=== PATIENT | male | born 1935 | race Caucasian/White ===

== ENCOUNTER 2023-09-01 22:56 | Inpatient (IN) | payer MEDICARE, SELFPAY ==
[2023-09-01] VITALS (10 sets, daily range): BP systolic 109–132; BP diastolic 53–78; PULSE 53–96; RESP 16–29; TEMP 36.6; O2SAT 75–100
--- NOTE | 2023-09-01 23:06 | XR_ITS ---
The [address] [address] Patient Name: MERRITT MEHTA MRN: [id number] date: 1935 Sex: M Assigned Patient Location: ER Current Patient Location: ED.MAIN Accession/Order Number: [id number] Exam Date: 09/01/2023 23:21 Report Date: 09/02/2023 03:05 At the request of: YOVANI SERNA Procedure: XR chest 1V EXAM: XR chest 1V HISTORY: SOB. COMPARISON: Chest radiograph 11/30/2021. TECHNIQUE: Portable view obtained. FINDINGS: Chronic cardiomegaly. Lung volumes are low. Increasing consolidation in the left lung base. There is no large effusion detected on the portable projection. Numerous remote right-sided rib fractures. Remote right clavicle fracture. XR/XR chest 1V IMPRESSION: 1. Chronic low lung volumes. Increasing left basilar consolidation could reflect atelectasis or pneumonia. 2. Numerous remote fractures in the right hemithorax. Electronically authenticated by: MARQUIS CASTRO Date: 09/02/2023 03:05
--- NOTE | 2023-09-01 23:06 | ECG_ITS ---
The [facility] Test Date: 2023-09-01 Pat Name: MERRITT MEHTA Department: Room: - Gender: Male Claim Clinician: : 1935 Requested By: GOLDY SCOTT Order Number: [id number] Reading MD: GOLDY SCOTT Measurements Intervals [place] Rate: 52 P: -[id number] NV: -[id number] QRS: 40 QRSD: 142 T: 21 QT: 464 QTc: 445 Interpretive Statements Atrial flutter 2450 Right bundle branch block 3514 Cannot rule out lateral myocardial infarction, age undetermined 3634 Inferior myocardial infarction, age undetermined 9150 abnormal ECG Compared to ECG 06/11/2022 12:25:58 Ventricular premature complex(es) now present Aberrant conduction of supraventricular beat(s) now present Myocardial infarct finding now present Sinus rhythm no longer present First degree AV block no longer present Indeterminate axis no longer present Electronically Signed On 09-05-2023 6:41:33 EST by GOLDY SCOTT
--- NOTE | 2023-09-01 23:07 | PC.NURSE ---
placed on simple mask, patient 87%
--- NOTE | 2023-09-01 23:07 | ED.SOB1 ---
HPI - SOB/Dyspnea General Chief Complaint: Shortness of Breath/Dyspnea Stated Complaint: Shortness of Breath Time Seen by Provider: 09/01/23 23:01 History of Present Illness HPI Narrative: 88-year-old male presents for shortness of breath and weakness. He was sent here from [facility] and he has DNRCC status. This is documented in his [facility] records. He is a poor historian. It appears that he has been short of breath today and his O2 sats were low and he was sent here to be admitted by his PCP. He does not seem to be complaining of pain and has not had a known fever. Related Data Home Medications Medication Instructions Recorded Confirmed acetaminophen 500 mg tablet 500 mg PO Q6H PRN fever or pain 09/01/23 09/01/23 (Tylenol Extra Strength) albuterol sulfate 2.5 mg/3 mL mg 09/01/23 (0.083 %) solution for nebulization amiodarone 100 mg tablet mg 09/01/23 aspirin 81 mg capsule 81 mg PO DAILY 09/01/23 09/01/23 atorvastatin 10 mg tablet mg 09/01/23 calcium carbonate 500 mg calcium 500 mg PO BID 09/01/23 09/01/23 (1,250 mg) chewable tablet (Calcium 500) carvedilol 12.5 mg tablet mg 09/01/23 cefdinir 300 mg capsule mg 09/01/23 citalopram 20 mg tablet (Celexa) 20 mg PO DAILY 09/01/23 09/01/23 clopidogrel 75 mg tablet mg 09/01/23 ferrous sulfate 250 mg (50 mg 250 mg PO BID 09/01/23 09/01/23 iron) tablet,extended release furosemide 40 mg tablet mg 09/01/23 hydralazine 25 mg tablet mg 09/01/23 hydrocodone 5 mg-acetaminophen 325 tab 09/01/23 mg tablet hydroxyzine pamoate 25 mg capsule 25 mg PO TID 09/01/23 09/01/23 (Vistaril) ipratropium 0.5 mg-albuterol 3 mg ml inhalation 09/01/23 (2.5 mg base)/3 mL nebulization soln isosorbide mononitrate 120 mg mg PO 09/01/23 tablet,extended release 24 hr meloxicam 7.5 mg tablet mg 09/01/23 nitroglycerin 0.3 mg sublingual 0.3 mg sublingual Q5M 09/01/23 09/01/23 tablet (Nitrostat) omeprazole 40 mg capsule,delayed mg 09/01/23 release ondansetron 4 mg disintegrating mg 09/01/23 tablet probiotic 09/01/23 sacubitril 97 mg-valsartan 103 mg tab 09/01/23 tablet (Entresto) spironolactone 25 mg tablet mg 09/01/23 Allergies Allergy/AdvReac Type Severity Reaction Status Date / Time felodipine Allergy Unknown Verified 09/01/23 23:20 levofloxacin Allergy Unknown Verified 09/01/23 23:20 morphine Allergy Unknown Verified 09/01/23 23:20 Penicillins Allergy Unknown Verified 09/01/23 23:20 tramadol [From Ultram] Allergy Unknown Verified 09/01/23 23:20 seafood Allergy Unknown Uncoded 09/01/23 23:20 Review of Systems ROS Narrative Not obtainable, age [facility] Medical History (Updated 09/02/23 @ 01:22 by Keith Simental MD) Heart disease ?I51.9 - Heart disease, unspecified (ICD-10) 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 - Postgastric surgery syndromes (ICD-10) Diverticulosis ?K57.90 - Diverticulosis of intestine, part unspecified, without perforation or abscess without bleeding (ICD-10) Atherosclerotic heart disease of [place] coronary artery without angina pectoris ?I25.10 - Atherosclerotic heart disease of [place] coronary artery without angina pectoris (ICD-10) Thoracic, thoracolumbar and lumbosacral intervertebral disc disorder ?M51.9 - Unspecified thoracic, thoracolumbar and lumbosacral intervertebral disc disorder (ICD-10) Pure hypercholesterolemia ?E78.00 - Pure hypercholesterolemia, unspecified (ICD-10) Type 2 diabetes mellitus ?E11.9 - Type 2 diabetes mellitus without complications (ICD-10) Essential (primary) hypertension ?I10 - Essential (primary) hypertension (ICD-10) Gastro-esophageal reflux disease with esophagitis ?K21.00 - Gastro-esophageal reflux disease with esophagitis, without bleeding (ICD-10) Gout ?M10.9 - Gout, unspecified (ICD-10) Erectile dysfunction ?N52.9 - Male erectile dysfunction, unspecified (ICD-10) Right bundle branch block ?I45.10 - Unspecified right bundle-branch block (ICD-10) Ventral hernia ?K43.9 - Ventral hernia without obstruction or gangrene (ICD-10) Benign prostatic hyperplasia with lower urinary tract symptoms ?N40.1 - Benign prostatic hyperplasia with lower urinary tract symptoms (ICD-10) Presence of intraocular lens ?Z96.1 - Presence of intraocular lens (ICD-10) Palpitation ?R00.2 - Palpitations (ICD-10) Ventricular premature depolarization ?I49.3 - Ventricular premature depolarization (ICD-10) Heart failure ?I50.9 - Heart failure, unspecified (ICD-10) Malignant neoplasm of prostate ?C61 - Malignant neoplasm of prostate (ICD-10) Unstable angina ?I20.0 - Unstable angina (ICD-10) Acute combined systolic (congestive) and diastolic (congestive) heart failure ?I50.41 - Acute combined systolic (congestive) and diastolic (congestive) heart failure (ICD-10) Hypertrophic cardiomyopathy ?I42.2 - Other hypertrophic cardiomyopathy (ICD-10) Bradycardia ?R00.1 - Bradycardia, unspecified (ICD-10) Atrioventricular block, second degree ?I44.1 - Atrioventricular block, second degree (ICD-10) Paroxysmal A-fib ?I48.0 - Paroxysmal atrial fibrillation (ICD-10) Melena ?K92.1 - Melena (ICD-10) Nonrheumatic aortic (valve) stenosis ?I35.0 - Nonrheumatic aortic (valve) stenosis (ICD-10) Nonrheumatic aortic (valve) insufficiency ?I35.1 - Nonrheumatic aortic (valve) insufficiency (ICD-10) Corns and callus ?L84 - Corns and callosities (ICD-10) Fall ?W19.XXXA - Unspecified fall, initial encounter (ICD-10) Acute bronchitis ?J20.9 - Acute bronchitis, unspecified (ICD-10) Ischemic cardiomyopathy ?I25.5 - Ischemic cardiomyopathy (ICD-10) Afib ?I48.91 - Unspecified atrial fibrillation (ICD-10) Osteoarthritis ?M19.90 - Unspecified osteoarthritis, unspecified site (ICD-10) Social History Smoking status: Former smoker Exam Narrative Exam Narrative: Nurses note and vital signs reviewed and patient is not hypoxic. General: The patient appears in no apparent respiratory distress. Patient is resting comfortably on cart. He appears generally weak Skin: Warm, dry, no pallor noted. There is no rash noted. Head: Normocephalic, atraumatic Eye: Normal conjunctiva, no drainage Ears, Nose, Mouth, and Throat: oral mucosa is moist. Nares patent. Cardiovascular: Regular Rate and Rhythm Respiratory: The patient is unable to take in deep breaths. Back: non-tender GI: Soft and nontender Musculoskeletal: The patient has no evidence of calf tenderness, no pitting edema, symmetrical pulses noted bilaterally Neurological: A&O x4, normal speech Psychiatric: Cooperative Constitutional Vital Signs, click to edit/add: Last Vital Signs Temp 97.9 F 09/01/23 23:00 Pulse 53 L 09/01/23 23:00 Resp 24 09/01/23 23:00 BP 136/82 09/02/23 00:37 Pulse Ox 99 09/01/23 23:36 O2 Del Method Simple Mask 09/01/23 23:36 O2 Flow Rate 3 09/01/23 23:36 Course Vital Signs Vital signs: Vital Signs Temperature 97.9 F 09/01/23 23:00 Pulse Rate 53 L 09/01/23 23:00 Respiratory Rate 24 09/01/23 23:00 Blood Pressure 124/66 09/01/23 23:00 Pulse Oximetry 75 L 09/01/23 23:00 Oxygen Delivery Method Nasal Cannula 09/01/23 23:00 Oxygen Delivery Flow Rate 4 09/01/23 23:00 Temperature 97.9 F 09/01/23 23:00 Pulse Rate 53 L 09/01/23 23:00 Respiratory Rate 24 09/01/23 23:00 Blood Pressure 136/82 09/02/23 00:37 Pulse Oximetry 99 09/01/23 23:36 Oxygen Delivery Method Simple Mask 09/01/23 23:36 Oxygen Delivery Flow Rate 3 09/01/23 23:36 MDM - SOB/Dyspnea MDM Narrative Medical decision making narrative: Chest x-ray does not show any definite infiltrate. He has tested positive for RSV. He is maintaining his O2 sat well at 96% on 4 L. Typically he is on 2 L at the ECF. Findings are discussed with his family and he is being admitted for observation. Differential Diagnosis Differential diagnosis: Likely acute exacerbation of chronic obstructive airways disease, congestive heart failure, community acquired pneumonia and other (RSV, COVID, influenza, pneumonia) Lab Data Attestation: I reviewed the patient's lab results. Labs: Lab Results 09/01/23 09/01/23 09/02/23 Range/Units 23:27 23:29 00:39 WBC 7.9 (4.0-11.0) 10^3/uL RBC 3.30 L (4.70-6.10) 10^6/uL Hgb 10.3 L (14.0-18.0) g/dL Hct 36.2 L (42.0-54.0) % MCV 109.7 H (80.0-94.0) fL MCH 31.2 (25.9-34.0) pg MCHC 28.5 L (29.9-35.2) g/dL RDW 13.9 (11.0-15.0) % Plt Count 143 L (150-450) 10^3/uL MPV 11.0 (9.5-13.5) fL Seg Neuts % (Manual) 77.0 Band Neutrophils % 2.0 (0-5) % Lymphocytes % (Manual) 11.0 L (20.5-60.0) % Monocytes % (Manual) 6.0 (1.7-12.0) % Eosinophils % (Manual) 4.0 (0.9-7.0) % Basophils % (Manual) 0.0 L (0.2-2.0) % Neutrophils # (Manual) 6.08 (1.4-6.5) 10^3/uL Band Neutrophils # 0.2 (0.0-0.3) 10^3/uL Lymphocytes # (Manual) 0.86 L (1.20-3.80) 10^3/uL Monocytes # (Manual) 0.47 (0.30-0.80) 10^3/uL Eosinophils # (Manual) 0.31 (0.00-0.70) 10^3/uL Basophils # (Manual) 0.00 (0.00-0.10) 10^3/uL Hypochromasia 2+ Poikilocytosis 1+ Anisocytosis 1+ Macrocytosis 2+ Sodium 146 H (136-145) mmol/L Potassium 5.6 H (3.5-5.1) mmol/L Chloride 104 (98-107) mmol/L Carbon Dioxide 37.5 H (21.0-32.0) mmol/L Anion Gap 10.1 BUN 81.0 H* (7.0-18.0) mg/dL Creatinine 2.09 H (0.70-1.30) mg/dL Est GFR ( Amer) 37 L (>=60) Est GFR (Non-Af Amer) 30 L (>=60) BUN/Creatinine Ratio 38.8 Glucose 140 H (74-106) mg/dL Calcium 8.7 (8.5-10.1) mg/dL Troponin I High Sens 89.6 H* 88.8 H* (4.0-76.1) pg/mL NT-Pro-B Natriuret Pep 3015.0 H* (<=1800.0) pg/mL Adenovirus (PCR) Not detected (NOT DETECTE) C. pneumoniae DNA (PCR) Not detected (NOT DETECTE) Coronavirus Type OC43 Not detected (NOT DETECTE) Coronavirus Type HKU1 Not detected (NOT DETECTE) Coronavirus Type 229E Not detected (NOT DETECTE) Coronavirus Type NL63 Not detected (NOT DETECTE) Human Metapneumovir PCR Not detected (NOT DETECTE) M. pneumoniae (PCR) Not detected (NOT DETECTE) Parainfluenza PCR Not detected (NOT DETECTE) Parainfluenza 2 (PCR) Not detected (NOT DETECTE) Parainfluenza 3 (PCR) Not detected (NOT DETECTE) Parainfluenza 4 (PCR) Not detected (NOT DETECTE) RSV (RT-PCR) Detected A* (NOT DETECTE) Entero/Rhino (PCR) Not detected (NOT DETECTE) SARS-CoV-2 (PCR) Not detected (NOT DETECTE) Bordetella pertussis (PCR) Not detected (NOT DETECTE) B parapertussis DNA PCR Not detected (NOT DETECTE) Influenza Type A (PCR) Not detected (NOT DETECTE) Influenza Type B (PCR) Not detected (NOT DETECTE) Imaging Data Chest x-ray: Radiologist's impression: ITS Impressions Chest X-Ray 09/01/23 23:06 IMPRESSION: 1. Chronic low lung volumes. Increasing left basilar consolidation could reflect atelectasis or pneumonia. 2. Numerous remote fractures in the right hemithorax. Electronically authenticated by: MARQUIS CASTRO Date: 09/01/2023 23:42 ECG Data Attestation: I personally reviewed and interpreted this ECG as follows: (EKG on my interpretation shows what appears to be atrial flutter) Discharge Plan Discharge Chief Complaint: Shortness of Breath/Dyspnea Clinical Impression: RSV bronchitis, Hypoxemia Patient Disposition: Admitted as Observation Time of Disposition Decision: 01:22 Condition: Good
[2023-09-01 23:38] LABS: Adenovirus NOT DETECTED (NOT DETECTE); Bordetella parapertussis NOT DETECTED (NOT DETECTE); Coronavirus 229E NOT DETECTED (NOT DETECTE); Coronavirus HKU1 NOT DETECTED (NOT DETECTE); Coronavirus NL63 NOT DETECTED (NOT DETECTE); Coronavirus OC43 NOT DETECTED (NOT DETECTE); Human Metapneumovirus NOT DETECTED (NOT DETECTE); Human Rhinovirus/Enterovirus NOT DETECTED (NOT DETECTE); Influenza A NOT DETECTED (NOT DETECTE); Influenza B NOT DETECTED (NOT DETECTE); Mycoplasma pneumoniae NOT DETECTED (NOT DETECTE); Parainfluenza Virus 1 NOT DETECTED (NOT DETECTE); Parainfluenza Virus 2 NOT DETECTED (NOT DETECTE); Parainfluenza Virus 3 NOT DETECTED (NOT DETECTE); Parainfluenza Virus 4 NOT DETECTED (NOT DETECTE); SARS-CoV-2 NOT DETECTED (NOT DETECTE)
--- NOTE | 2023-09-01 23:39 | PC.NURSE ---
Addendum entered by Annamaria Jamil 09/02/23 03:27: correction; unlike originally charted as being from the [facility], this patient is a resident of [facility]. Original Note: Patient from [facility]. He states that he was recently put on oxygen, nursing reports that his Spo2 fell tonight and they had to increase his oxygen from 2 LPM to 4LPM and patient still felt SOB. Dr. Olson was contacted and wanted the patient transported to the ER and to be admitted. Patient's family is at the bedside and states that he recently had pneumonia and has since been going down hill He has been more short of breath and has had a tremor since that time also.
[2023-09-01 23:54] LABS: Hematocrit 36.2 % (42.0-54.0); Hemoglobin 10.3 g/dL (14.0-18.0); Mean Corpuscular HGB Conc 28.5 g/dL (29.9-35.2); Mean Corpuscular Hemoglobin 31.2 pg (25.9-34.0); Mean Corpuscular Volume 109.7 fL (80.0-94.0); Platelet Count 143 10^3/uL (150-450); Red Cell Distribution Width 13.9 % (11.0-15.0); White Blood Count 7.9 10^3/uL (4.0-11.0)
[2023-09-02] VITALS (49 sets, daily range): BP systolic 93–159; BP diastolic 51–82; PULSE 40–68; RESP 18; TEMP 36.1; O2SAT 85–99; BMI 31.9
[2023-09-02 00:04] LABS: Anion Gap 10.1; BUN Creatinine Ratio 38.8; Calcium 8.7 mg/dL (8.5-10.1); Carbon Dioxide 37.5 mmol/L (21.0-32.0); Chloride 104 mmol/L (98-107); Estimated GFR (African America 37 (>=60); Estimated GFR (Non-African Ame 30 (>=60); Glucose 140 mg/dL (74-106); Potassium 5.6 mmol/L (3.5-5.1); Sodium 146 mmol/L (136-145)
[2023-09-02 00:09] LABS: Troponin I High Sensitivity 89.6 pg/mL (4.0-76.1)
[2023-09-02 00:37] LABS: Band Neutrophils Absolute 0.2 10^3/uL (0.0-0.3); Eosinophils Absolute Manual 0.31 10^3/uL (0.00-0.70); Lymphocytes Absolute Manual 0.86 10^3/uL (1.20-3.80); Monocytes Absolute Manual 0.47 10^3/uL (0.30-0.80); Segmented Neut Absolute Manual 6.08 10^3/uL (1.4-6.5)
[2023-09-02 00:38] LABS: Anisocytosis 1+; Hypochromasia 2+; Macrocytosis 2+; Poikilocytosis 1+
[2023-09-02 00:48] LABS: Respiratory Syncytial Virus DETECTED (NOT DETECTE)
[2023-09-02 01:07] LABS: Troponin I High Sensitivity 88.8 pg/mL (4.0-76.1)
--- NOTE | 2023-09-02 02:30 | PC.NURSE ---
Patient's daughter has decided to stay the night in order to be here when Dr Olson rounds in the morning since she lives more than an hour away. She is gotten a recliner from Med/surg to be more comfortable through the night. Also, Patient is given another cup of coffee, this time with thickener in it to see if it would help with the coughing after drinking. He was able to successfully take several sips without coughing afterward with the thickner in the coffee. this information will be passed to Dr Simental and the receiving nursing staff. Both the patient and the daughter deny needs at this time.
--- NOTE | 2023-09-02 03:19 | PC.NURSE ---
It is known that patient is going to be admitted and that there is not available staffing for patient to go to the floor during this shift. Patient is very uncomfortable in the ER cot, family states that he normally sleeps sitting in a recliner. [facility] is called and asked to bring a recliner to the ED for the patient to spend the night in so he will be more comfortable.
[2023-09-02 03:53] LABS: pH VBG 7.326 (7.330-7.430)
[2023-09-02 03:55] LABS: PCO2 VBG 72.7 mmHg (40.0-52.0)
[2023-09-02 04:02] LABS: Anion Gap 7.6; BUN Creatinine Ratio 36.3; Calcium 8.3 mg/dL (8.5-10.1); Carbon Dioxide 38.9 mmol/L (21.0-32.0); Chloride 105 mmol/L (98-107); Estimated GFR (African America 38 (>=60); Estimated GFR (Non-African Ame 31 (>=60); Glucose 125 mg/dL (74-106); Potassium 5.5 mmol/L (3.5-5.1); Sodium 146 mmol/L (136-145)
[2023-09-02 04:04] LABS: Basophils Percent Auto 0.3 % (0.2-2.0); Eosinophils Absolute Auto 0.2 10^3/uL (0.0-0.7); Eosinophils Percent Auto 2.7 % (0.9-7.0); Hematocrit 35.3 % (42.0-54.0); Hemoglobin 10.1 g/dL (14.0-18.0); Immature Granulocytes Abs Auto 0.08 10^3/uL (0.00-0.03); Lymphocytes Absolute Auto 1.2 10^3/uL (1.2-3.8); Lymphocytes Percent Auto 14.9 % (20.5-60.0); Mean Corpuscular HGB Conc 28.6 g/dL (29.9-35.2); Mean Corpuscular Hemoglobin 31.1 pg (25.9-34.0); Mean Corpuscular Volume 108.6 fL (80.0-94.0); Mean Platelet Volume 10.7 fL (9.5-13.5); Monocytes Percent Auto 12.3 % (1.7-12.0); Neutrophils Absolute Auto 5.3 10^3/uL (1.4-6.5); Neutrophils Percent Auto 68.8 % (43.0-75.0); Platelet Count 141 10^3/uL (150-450); Red Blood Count 3.25 10^6/uL (4.70-6.10); Red Cell Distribution Width 13.9 % (11.0-15.0); White Blood Count 7.7 10^3/uL (4.0-11.0)
--- NOTE | 2023-09-02 06:16 | CA_ITS ---
Patient Name: MERRITT MEHTA MR#: [id number] : 1935 Exam Date: 09/02/2023 Ordering Doctor: DR Matthias Olson . ECHOCARDIOGRAM REPORT PROCEDURE: CA ECHO DOPPLER COMPLETE INDICATIONS: Dyspnea, RSV+, elevated BNP, hypertension, diabetes, atrial fibrillation COMPARISON: None. DESCRIPTION: COMPLETE ECHOCARDIOGRAM Real-time transthoracic echocardiography with 2D, M-mode, spectral and color flow Doppler performed. QUALITY: Technical quality was good. 61 , 170#, BSA 1.76 m2 LEFT VENTRICLE: Normal chamber size. Moderate concentric left ventricular hypertrophy. LV EF: Global left ventricular systolic function is difficult to assess but appears reduced; visually estimated ejection fraction is 45 to 50%. Unable to assess regional wall motion abnormalities. DIASTOLIC: Not adequately assessed due to heart rhythm. ATRIAL SEPTUM: Inadequately seen. LEFT ATRIUM: Severe dilatation. RIGHT ATRIUM: Mild dilatation. RIGHT VENTRICLE: Normal chamber size. Systolic function appears reduced. TRICUSPID VALVE: Normal mobility and thickness. Mild to moderate regurgitation. Doppler studies reveal severely (>60) elevated right sided pressures. RVSP 70 mmHg MITRAL VALVE: Normal mobility and thickness. Mild mitral annular calcification. Trivial mitral regurgitation. AORTIC VALVE: Normal trileaflet appearance. Moderately calcified aortic valve with diminished mobility. Doppler velocity suggests mild to moderate aortic valve stenosis. DVI 0.3, WILLARD 1.3 cm2. Mild aortic regurgitation. AORTIC ROOT: Normal diameter and appearance. PULMONIC VALVE: Normal thickness and mobility. No stenosis. Mild regurgitation. PERICARDIUM: No evidence of pericardial effusion. IVC: Not well visualized. CONCLUSION: 1. Global left ventricular systolic function is difficult to assess but appears reduced; visually estimated ejection fraction is 45 to 50% 2. The right ventricle is normal in size with reduced systolic function 3. Moderately increased left ventricular wall thickness 4. Biatrial enlargement 5. Mild to moderate tricuspid regurgitation 6. Severely elevated right ventricular systolic pressure; RVSP 70 mmHg 7. Mild to moderate aortic valve stenosis Adult Echocardiography Procedure Report Left Ventricle LVEDD (3.7 - 5.6 cm): 4.42 cm LVESD (2.2 - 4.0 cm): 2.85 cm LVIVS thickness (0.6 - 1.2 cm): 1.40 cm LVPW thickness (0.5 - 1.0 cm): 1.25 cm LVOT Max Gradient: 0.91 mm[Hg] LVOT Area (cm2): 0.48 m/s Peak Velocity (LVOT): 0.48 m/s Mean Velocity (LVOT): 0.41 m/s LVOT Diameter 2.68 cm Left Atrium LA Volume Index (2D A2C): 54.13 ml/m2 Left Atrium Systolic Dimension: 5.13 cm Mitral Valve MV E to A Ratio: 1.69 Mitral Valve A-Wave Peak Velocity: 0.60 m/s Mitral Valve E-Wave Peak Velocity: 1.01 m/s Right Ventricle Aorta AO Root Diam: 4.29 cm Ascending Ao Diam: 3.47 cm Aortic Valve AoV Area (Peak Sal): 1.51 cm2, 1.51 cm2 AoV Area (VTI): 1.34 cm2, 1.34 cm2 Peak Velocity(Antegrade Flow): 1.78 m/s Peak Gradient(Antegrade Flow): 12.70 mm[Hg] Mean Velocity(Antegrade Flow): 1.11 m/s Mean Gradient(Antegrade Flow): 5.65 mm[Hg] Velocity Time Integral: 33.92 cm Tricuspid Valve Peak Velocity (Regurgitant Flow): 3.60 m/s, 3.93 m/s Pulmonic Valve Mean Gradient: 1.51 mm[Hg] Mean Velocity: 0.59 m/s Peak Velocity: 0.84 m/s, 1.12 m/s Peak Gradient: 5.00 mm[Hg], 2.81 mm[Hg] Right Atrium Right Atrium Systolic Pressure: 35.50 ml, 35.50 ml Dictated by: Alejandra Martinez M.D. on 09/02/2023 at 17:23 Approved by: Alejandra Martinez M.D. on 09/02/2023 at 17:27
[2023-09-02 07:07] LABS: Thyroid Stimulating Hormone 0.731 uIU/mL (0.358-3.740)
[2023-09-02 07:17] LABS: Troponin I High Sensitivity 99.7 pg/mL (4.0-76.1)
[2023-09-02 09:42] LABS: Troponin I High Sensitivity 100.5 pg/mL (4.0-76.1)
--- NOTE | 2023-09-02 09:48 | SWNOTE1 ---
Pt is from [facility].
--- NOTE | 2023-09-02 09:56 | P.HP_ITS ---
H&P: HPI History of Present Illness Chief complaint: SHORTNESS OF BREATH Narrative: Patient had increasing difficulty breathing at the senior care. Referred to ER. Found to have acute RSV bronchiolitis but concerning also for acute combined congestive heart failure. Patient has been struggling over the last month. 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 - Postgastric surgery syndromes (ICD-10) Diverticulosis ?K57.90 - Diverticulosis of intestine, part unspecified, without perforation or abscess without bleeding (ICD-10) Atherosclerotic heart disease of [place] coronary artery without angina pectoris ?I25.10 - Atherosclerotic heart disease of [place] coronary artery without angina pectoris (ICD-10) Thoracic, thoracolumbar and lumbosacral intervertebral disc disorder ?M51.9 - Unspecified thoracic, thoracolumbar and lumbosacral intervertebral disc disorder (ICD-10) Pure hypercholesterolemia ?E78.00 - Pure hypercholesterolemia, unspecified (ICD-10) Type 2 diabetes mellitus ?E11.9 - Type 2 diabetes mellitus without complications (ICD-10) Essential (primary) hypertension ?I10 - Essential (primary) hypertension (ICD-10) Gastro-esophageal reflux disease with esophagitis ?K21.00 - Gastro-esophageal reflux disease with esophagitis, without bleeding (ICD-10) Gout ?M10.9 - Gout, unspecified (ICD-10) Erectile dysfunction ?N52.9 - Male erectile dysfunction, unspecified (ICD-10) Right bundle branch block ?I45.10 - Unspecified right bundle-branch block (ICD-10) Ventral hernia ?K43.9 - Ventral hernia without obstruction or gangrene (ICD-10) Benign prostatic hyperplasia with lower urinary tract symptoms ?N40.1 - Benign prostatic hyperplasia with lower urinary tract symptoms (ICD- 10) Presence of intraocular lens ?Z96.1 - Presence of intraocular lens (ICD-10) Palpitation ?R00.2 - Palpitations (ICD-10) Ventricular premature depolarization ?I49.3 - Ventricular premature depolarization (ICD-10) Heart failure ?I50.9 - Heart failure, unspecified (ICD-10) Malignant neoplasm of prostate ?C61 - Malignant neoplasm of prostate (ICD-10) Unstable angina ?I20.0 - Unstable angina (ICD-10) Acute combined systolic (congestive) and diastolic (congestive) heart failure ?I50.41 - Acute combined systolic (congestive) and diastolic (congestive) heart failure (ICD-10) Hypertrophic cardiomyopathy ?I42.2 - Other hypertrophic cardiomyopathy (ICD-10) Bradycardia ?R00.1 - Bradycardia, unspecified (ICD-10) Atrioventricular block, second degree ?I44.1 - Atrioventricular block, second degree (ICD-10) Paroxysmal A-fib ?I48.0 - Paroxysmal atrial fibrillation (ICD-10) Melena ?K92.1 - Melena (ICD-10) Nonrheumatic aortic (valve) stenosis ?I35.0 - Nonrheumatic aortic (valve) stenosis (ICD-10) Nonrheumatic aortic (valve) insufficiency ?I35.1 - Nonrheumatic aortic (valve) insufficiency (ICD-10) Corns and callus ?L84 - Corns and callosities (ICD-10) Fall ?W19.XXXA - Unspecified fall, initial encounter (ICD-10) Acute bronchitis ?J20.9 - Acute bronchitis, unspecified (ICD-10) Ischemic cardiomyopathy ?I25.5 - Ischemic cardiomyopathy (ICD-10) Afib ?I48.91 - Unspecified atrial fibrillation (ICD-10) Osteoarthritis ?M19.90 - Unspecified osteoarthritis, unspecified site (ICD-10) Surgical History (Updated 09/02/23 @ 08:13 by Antionette Dahl) H/O right heart catheterization ?Z98.890 - Other specified postprocedural states (ICD-10) History of left knee replacement ?Z96.652 - Presence of left artificial knee joint (ICD-10) Social History (Updated 09/02/23 @ 08:24 by Antionette Dahl) Within the past year, how often did you have a drink containing alcohol: never Within the past year, how many standard drinks containing alcohol did you have on a typical day: 1 or 2 Within the past year, how often did you have six or more drinks on one occasion: never Total score: 0 Score interpretation: A score less than 4 is consistent with normal alcohol consumption. Smoking status: Former smoker Non-prescribed substance use: denies use Previous occupational history: construction Highest level of school completed/degree received: 8th grade Are you now , , , , never or living with a partner: In a typical week, how many times do you talk on the telephone with family, f riends, or neighbors: 3 or more times per week How often do you get together with friends or relatives: 3 or more times per week How often do you attend druze or holiness services: never Do you belong to any clubs or organizations such as druze groups unions, [employer] or athletic groups, or school groups: no Total score: 1 Score interpretation: A score of less than or equal to 1 indicates the most soc ially isolated. Little interest or pleasure in doing things: not at all Feeling down, depressed, or hopeless: not at all Feel stressed/tense/nervous/anxious/difficulty sleeping: not at all Do you think of yourself as: straight/heterosexual Gender Identity: male Meds Home Medications and Allergies Home Medications Medication Instructions Recorded Confirmed Type acetaminophen 500 mg tablet 500 mg PO Q6H PRN fever or pain 09/01/23 09/01/23 History (Tylenol Extra Strength) amiodarone 100 mg tablet 100 mg PO .FIVE TIMES A WEEK 09/01/23 09/02/23 History aspirin 81 mg capsule 81 mg PO DAILY 09/01/23 09/01/23 History atorvastatin 10 mg tablet 10 mg PO .QHS 09/01/23 09/02/23 History calcium carbonate 500 mg calcium 500 mg PO BID 09/01/23 09/01/23 History (1,250 mg) chewable tablet (Calcium 500) carvedilol 12.5 mg tablet 12.5 mg PO BID 09/01/23 09/02/23 History citalopram 20 mg tablet (Celexa) 20 mg PO DAILY 09/01/23 09/01/23 History clopidogrel 75 mg tablet 75 mg PO QDAY 09/01/23 09/02/23 History ferrous sulfate 250 mg (50 mg 250 mg PO BID 09/01/23 09/01/23 History iron) tablet,extended release furosemide 40 mg tablet 40 mg PO QDAY 09/01/23 09/02/23 History hydralazine 25 mg tablet 25 mg PO Q8H 09/01/23 09/02/23 History hydrocodone 5 mg-acetaminophen 325 0.5 tab PO BID 09/01/23 09/02/23 History mg tablet hydroxyzine pamoate 25 mg capsule 25 mg PO TID 09/01/23 09/01/23 History (Vistaril) ipratropium 0.5 mg-albuterol 3 mg 3 ml inhalation Q8H PRN shortness 09/01/23 09/02/23 History (2.5 mg base)/3 mL nebulization of breath or wheezing soln isosorbide mononitrate 120 mg 120 mg PO Q24H 09/01/23 09/02/23 History tablet,extended release 24 hr meloxicam 7.5 mg tablet 7.5 mg PO BID 09/01/23 09/02/23 History nitroglycerin 0.3 mg sublingual 0.3 mg sublingual Q5M 09/01/23 09/01/23 History tablet (Nitrostat) omeprazole 40 mg capsule,delayed 40 mg PO QDAY 09/01/23 09/02/23 History release sacubitril 97 mg-valsartan 103 mg 1 tab PO BID 09/01/23 09/02/23 History tablet (Entresto) spironolactone 25 mg tablet 25 mg PO QDAY 09/01/23 09/02/23 History Lactobacillus acidoph-L.bulgaricus 1 tab PO DAILY 09/02/23 09/02/23 History 1 million cell tablet (Floranex) prednisone 10 mg tablet 10 mg PO DAILY 09/02/23 09/02/23 History Allergies Allergy/AdvReac Type Severity Reaction Status Date / Time felodipine Allergy Unknown Verified 09/01/23 23:20 levofloxacin Allergy Unknown Verified 09/01/23 23:20 morphine Allergy Unknown Verified 09/01/23 23:20 Penicillins Allergy Unknown Verified 09/01/23 23:20 tramadol [From Ultram] Allergy Unknown Verified 09/01/23 23:20 seafood Allergy Unknown Uncoded 09/01/23 23:20 Exam Constitutional Vital Signs, click to edit/add: Last Vital Signs Temp 96.9 F L 09/02/23 08:51 Pulse 66 09/02/23 08:51 Resp 18 09/02/23 08:51 BP 150/76 H 09/02/23 08:51 Pulse Ox 98 09/02/23 08:51 O2 Del Method Nasal Cannula 09/02/23 08:51 O2 Flow Rate 4 09/02/23 08:51 Documenting provider has reviewed patient's vital signs: yes Common normals: no apparent distress HENDC Common normals: normocephalic Lymph Lymphatic: no lymphadenopathy noted Chest Common normals: inspection of chest normal Respiratory Common normals: normal respiratory effort and no retractions Auscultation: rales and rhonchi Cardio Common normals: regular rate and regular rhythm Extremity Common normals: abnormal to inspection (2+ edema) Results Labs Labs: Short CBC 09/01/23 09/02/23 Range/Units 23:29 03:45 WBC 7.9 7.7 (4.0-11.0) 10^3/uL Hgb 10.3 L 10.1 L (14.0-18.0) g/dL Hct 36.2 L 35.3 L (42.0-54.0) % Plt Count 143 L 141 L (150-450) 10^3/uL BMP 09/01/23 09/02/23 23:29 03:45 Sodium 146 H 146 H Potassium 5.6 H 5.5 H Chloride 104 105 Carbon Dioxide 37.5 H 38.9 H BUN 81.0 H* 74.0 H Creatinine 2.09 H 2.04 H Glucose 140 H 125 H Calcium 8.7 8.3 L ABG ABG results: 09/02/23 03:45 VBG pH 7.326 L VBG pCO2 72.7 H* Assessment and Plan Assessment and Plan (1) Hypoxemia: Plan Sinus tachycardia, respiratory distress, acute hypoxia with O2 sat of 85% on 2 L. Secondary to acute RSV bronchiolitis-steroids, aerosols, antibiotics. Possible left lower lobe pneumonia complicating the above picture. 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 Will diurese patient with Bumex drip. Consider adjustment of the medications but most of them are maxed out except the carvedilol which we will increase. High since troponin elevated secondary to demand ischemia. Iron deficiency anemia as well as anemia of chronic kidney disease stage III- monitor daily Thrombocytopenia-possible complication of the RSV bronchiolitis Hyperkalemia may be medication induced, diuresis likely to improve the hyperkalemia. Chronic kidney disease stage III-monitor daily Patient is anxious to be discharged back to his assisted living place. Start the process for possible rehab depending on how he does over the next 24 hours. Change patient to inpatient status, not likely to improve and medical care will span 2 midnights.
[2023-09-02] MEDS: METHYLPREDNISOLONE SOD SUCC PF 125 MG/2 ML VIAL 60 MG IVP ×3 (11:17→23:37)
[2023-09-02] MEDS: SACUBITRIL/VALSARTAN 24 MG-26 MG TABLET 4 TAB PO ×2 (11:18→20:46)
[2023-09-02] MEDS: L. ACIDOPHILUS/L.BULGARICUS 1 PACKET GRAN.PACK PO (11:18)
[2023-09-02] MEDS: CALCIUM CARBONATE 500 MG (200MG ELEMENTAL) TAB CHEW PO ×2 (11:18→20:46)
[2023-09-02] MEDS: HYDRALAZINE HCL 25 MG TABLET PO (11:18)
[2023-09-02] MEDS: CARVEDILOL 12.5 MG TABLET 25 MG PO ×2 (11:19→20:59)
[2023-09-02] MEDS: AMIODARONE HCL 200 MG TABLET 100 MG PO (11:19)
[2023-09-02] MEDS: ISOSORBIDE MONONITRATE 60 MG TAB.ER.24H 120 MG PO (11:20)
[2023-09-02] MEDS: MELOXICAM 7.5 MG TABLET PO ×2 (11:20→20:46)
[2023-09-02] MEDS: CLOPIDOGREL BISULFATE 75 MG TABLET PO (11:20)
[2023-09-02] MEDS: OMEPRAZOLE 40 MG CAPSULE.DR PO (11:20)
[2023-09-02] MEDS: FERROUS SULFATE 325 MG TABLET PO ×2 (11:21→20:59)
[2023-09-02] MEDS: SPIRONOLACTONE 25 MG TABLET PO (11:21)
[2023-09-02] MEDS: PREDNISONE 10 MG TABLET PO (11:21)
[2023-09-02] MEDS: CEFTRIAXONE 1,000 MG in 0.9 % SODIUM CHLORIDE 50 ML 100 MG IV (11:22)
[2023-09-02] MEDS: AZITHROMYCIN 500 MG in 0.9 % SODIUM CHLORIDE 250 ML 250 MG IV (11:22)
[2023-09-02 12:30] LABS: Troponin I High Sensitivity 88.6 pg/mL (4.0-76.1)
[2023-09-02] MEDS: BUMETANIDE 10 MG in 0.9 % SODIUM CHLORIDE 160 ML IV (13:50)
[2023-09-02] MEDS: HYDROXYZINE PAMOATE 25 MG CAPSULE PO ×2 (13:51→20:46)
--- NOTE | 2023-09-02 14:18 | SWNOTE1 ---
SW spoke with pt and daughter in room. Pt was sleeping during some of assessment. Pt is from [facility]. SW let pt and daughter know it is recommended pt go to SNF for rehab before returning to [place]. Daughter is in agreement. Pt fell asleep. SW woke pt up and at first he voiced he does not want to. CACHORRO then explained to pt he may be a little weaker and may benefit from therapy. He did agree to let SW send referral. His goal is to return to [place], but alright with having back up plan of SNF. Pt would like the [facility] for SNF as he is in there [place]. SW explained to pt and daughter he is a precert and SW will send information to [facility] and we have to wait to see if insurance approves. They voiced understanding. SW reviewed [place] form with daughter. She voiced understanding, no questions. Daughter signed form, original given to pt's daughter and copy on chart.
--- NOTE | 2023-09-02 14:21 | PC.NURSE ---
patient had gotten up numerous times within the hour to the bedside commode to urinate, patient complains of SOB each time he gets up and gets worked up because he feels like he can't breath. Patient oxygen saturated maintains at 95-98% during activity but the work of breathing increases. Patient asked RN for a catheter until he stops urinating so much from the medication. RN informed the patient she would ask the physician. Patient verbalized an understanding and denied any further needs at this time.
--- NOTE | 2023-09-02 14:34 | SWNOTE1 ---
Referral sent to [facility]. Referral included face sheet, ER note, PT/OT, nursing notes, labs, vitals, and med list.
[2023-09-02 15:21] LABS: Anion Gap 11.4; BUN Creatinine Ratio 40.7; Calcium 8.1 mg/dL (8.5-10.1); Carbon Dioxide 34.6 mmol/L (21.0-32.0); Chloride 106 mmol/L (98-107); Estimated GFR (African America 44 (>=60); Estimated GFR (Non-African Ame 36 (>=60); Glucose 173 mg/dL (74-106); Sodium 146 mmol/L (136-145)
[2023-09-02 15:25] LABS: Troponin I High Sensitivity 81.7 pg/mL (4.0-76.1)
--- NOTE | 2023-09-02 15:55 | SWNOTE1 ---
H&P sent to [facility] for precert.
--- NOTE | 2023-09-02 16:21 | SWNOTE1 ---
Gopi started to [place].
[2023-09-02] MEDS: IPRATROPIUM/ALBUTEROL SULFATE 3 ML AMPUL.NEB IH ×2 (16:38→22:05)
[2023-09-02] MEDS: ATORVASTATIN CALCIUM 10 MG TABLET PO (21:11)
[2023-09-02] MEDS: HYDROCODONE/ACET 5-325 MG TABLET 1 TAB PO (21:11)
--- NOTE | 2023-09-02 23:25 | RESP.RT ---
Patient unable to PEP
[2023-09-03] VITALS (8 sets, daily range): BP systolic 102–135; BP diastolic 56–73; PULSE 61–74; RESP 18–19; TEMP 36.3–36.8; O2SAT 92–99
[2023-09-03 05:04] LABS: Hematocrit 34.7 % (42.0-54.0); Hemoglobin 9.8 g/dL (14.0-18.0); Mean Corpuscular HGB Conc 28.2 g/dL (29.9-35.2); Mean Corpuscular Hemoglobin 30.6 pg (25.9-34.0); Mean Corpuscular Volume 108.4 fL (80.0-94.0); Platelet Count 134 10^3/uL (150-450); Red Cell Distribution Width 13.8 % (11.0-15.0); White Blood Count 5.8 10^3/uL (4.0-11.0)
[2023-09-03] MEDS: IPRATROPIUM/ALBUTEROL SULFATE 3 ML AMPUL.NEB IH ×4 (05:15→23:21)
[2023-09-03 05:31] LABS: Alanine Aminotransferase 18 U/L (16-63); Albumin Globulin Ratio 0.8; Albumin Level 2.6 g/dL (3.4-5.0); Alkaline Phosphatase 50 U/L (46-116); Anion Gap 12.3; Aspartate Amino Transferase 14 U/L (15-37); BUN Creatinine Ratio 38.8; Bilirubin Total 0.5 mg/dL (0.2-1.0); Calcium 8.4 mg/dL (8.5-10.1); Carbon Dioxide 35.3 mmol/L (21.0-32.0); Chloride 104 mmol/L (98-107); Estimated GFR (African America 37 (>=60); Estimated GFR (Non-African Ame 31 (>=60); Globulin 3.2 g/dL; Glucose 220 mg/dL (74-106); Magnesium 1.1 mg/dL (1.8-2.4); Potassium 5.6 mmol/L (3.5-5.1); Sodium 146 mmol/L (136-145); Total Protein 5.8 g/dL (6.4-8.2); Troponin I High Sensitivity 69.2 pg/mL (4.0-76.1)
[2023-09-03 05:43] LABS: Band Neutrophils Absolute 0.1 10^3/uL (0.0-0.3); Lymphocytes Absolute Manual 0.52 10^3/uL (1.20-3.80); Segmented Neut Absolute Manual 5.04 10^3/uL (1.4-6.5)
[2023-09-03 05:44] LABS: Anisocytosis 1+; Hypochromasia 2+; Macrocytosis 2+; Monocytes Absolute Manual 0.17 10^3/uL (0.30-0.80); Poikilocytosis 1+
[2023-09-03] MEDS: HYDROXYZINE PAMOATE 25 MG CAPSULE PO ×3 (05:55→21:13)
[2023-09-03] MEDS: METHYLPREDNISOLONE SOD SUCC PF 125 MG/2 ML VIAL 60 MG IVP ×4 (05:55→23:24)
--- NOTE | 2023-09-03 08:19 | P.PN_ITS ---
Progress Note: Subjective Subjective Interval history: Sleeping but awakens easily. Confused to location. Seems to orient quickly. Cougfh persisting, feels [place] stil with activy overnight. Exam Constitutional Vital Signs, click to edit/add: Last Vital Signs Temp 97.0 F L 09/02/23 19:38 Pulse 61 09/03/23 05:15 Resp 18 09/03/23 05:15 BP 102/56 09/03/23 01:02 Pulse Ox 99 09/03/23 05:15 O2 Del Method Nasal Cannula 09/03/23 05:15 O2 Flow Rate 2 09/03/23 05:15 Documenting provider has reviewed patient's vital signs: yes Common normals: no apparent distress HENMT Common normals: normocephalic Lymph Lymphatic: no lymphadenopathy noted Chest Common normals: inspection of chest normal Respiratory Common normals: normal respiratory effort and no retractions Auscultation: rales (Bases - unchanged) and rhonchi (LLL) Cardio Common normals: regular rate and regular rhythm Extremity Common normals: abnormal to inspection (2+ edema) Progress Note: Objective Labs Labs: Short CBC 09/03/23 Range/Units 04:16 WBC 5.8 (4.0-11.0) 10^3/uL Hgb 9.8 L (14.0-18.0) g/dL Hct 34.7 L (42.0-54.0) % Plt Count 134 L (150-450) 10^3/uL BMP 09/02/23 09/03/23 14:58 04:16 Sodium 146 H 146 H Potassium 6.0 H 5.6 H Chloride 106 104 Carbon Dioxide 34.6 H 35.3 H BUN 72.0 H 80.0 H* Creatinine 1.77 H 2.06 H Glucose 173 H 220 H Calcium 8.1 L 8.4 L Liver Function 09/03/23 Range/Units 04:16 Total Bilirubin 0.5 (0.2-1.0) mg/dL AST 14 L (15-37) U/L ALT 18 (16-63) U/L Alkaline Phosphatase 50 (46-116) U/L Albumin 2.6 L (3.4-5.0) g/dL Progress Note: A&P Assessment and Plan (1) Hypoxemia: Plan Sinus tachycardia, respiratory distress, acute hypoxia with O2 sat of 85% on 2 L. Secondary to acute RSV bronchiolitis wioth LLL pneumonia-steroids, aerosols, antibiotics. 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 Will diurese patient with Bumex drip again today - .slower drip. Coreg increased yesterday, Troponin impropved back to normal, add invokana Iron deficiency anemia as well as anemia of chronic kidney disease stage III- monitor daily Thrombocytopenia-possible complication of the RSV bronchiolitis Hyperkalemia may be medication induced, diuresis likely to improve the hyperkalemia. - stopping aldactone, diuresis again today will likely correct Chronic kidney disease stage III-monitor daily. - at baseline today [facility] inpatient status - at least one more midnight, with slow improvement more likelhy 2, this sentement may be repeated daily until improvement is documented Urinary Catheter Management Urinary Catheter Management Urethral: Cath placed during this visit: yes Urethral indwelling: Yes Reason for continuing: measure accurate output Insertion date: 09/02/23 Insertion time: 13:52
[2023-09-03] MEDS: ISOSORBIDE MONONITRATE 60 MG TAB.ER.24H 120 MG PO (09:54)
[2023-09-03] MEDS: CALCIUM CARBONATE 500 MG (200MG ELEMENTAL) TAB CHEW PO ×2 (09:55→21:13)
[2023-09-03] MEDS: SACUBITRIL/VALSARTAN 24 MG-26 MG TABLET 4 TAB PO ×2 (09:55→21:13)
[2023-09-03] MEDS: L. ACIDOPHILUS/L.BULGARICUS 1 PACKET GRAN.PACK PO (09:55)
[2023-09-03] MEDS: ASPIRIN 81 MG TAB.CHEW PO (09:55)
[2023-09-03] MEDS: CANAGLIFLOZIN 100 MG TABLET PO (09:55)
[2023-09-03] MEDS: CARVEDILOL 12.5 MG TABLET 25 MG PO ×2 (09:56→21:14)
[2023-09-03] MEDS: CEFTRIAXONE 1,000 MG in 0.9 % SODIUM CHLORIDE 50 ML 100 MG IV (10:03)
[2023-09-03] MEDS: PREDNISONE 10 MG TABLET PO (10:04)
[2023-09-03] MEDS: FERROUS SULFATE 325 MG TABLET PO ×2 (10:04→21:14)
[2023-09-03] MEDS: CLOPIDOGREL BISULFATE 75 MG TABLET PO (10:05)
[2023-09-03] MEDS: HYDROCODONE/ACET 5-325 MG TABLET 0.5 TAB PO ×2 (10:05→17:37)
[2023-09-03] MEDS: MELOXICAM 7.5 MG TABLET PO ×2 (10:06→21:14)
[2023-09-03] MEDS: OMEPRAZOLE 40 MG CAPSULE.DR PO (10:06)
[2023-09-03] MEDS: CITALOPRAM HYDROBROMIDE 20 MG TABLET PO (10:07)
[2023-09-03] MEDS: AZITHROMYCIN 500 MG in 0.9 % SODIUM CHLORIDE 250 ML 250 MG IV (10:07)
--- NOTE | 2023-09-03 11:45 | REH.PTDLY ---
Physical Therapy Daily Note PT Daily Note/Assess Start: 09/03/23 11:41 Freq: Status: Active Protocol: Document 09/03/23 10:40 JOSE ANGEL (Rec: 09/03/23 11:45 JOSE ANGEL [id number]) Physical Therapy Daily Note/Assessment Time In 10:26 Time Out 10:43 Subjective Family in room with pt, wanting pt to get up and move around. Pt is hesitant but agrees. Therapeutic Exercise Minutes (minutes) 7 Therapeutic Exercise Units 0 Therapeutic Exercise Treatment Instructed in seated B LE exs with legs elevated and in dependent position 10x ea with some fatigue noted. Therapeutic Activity Minutes (minutes) 9 Therapeutic Activity Units 1 Therapeutic Activity Comments Sit to stand transfers with verbal cues Mod A x2. Gait training with RW Min A x2 with pt taking 5 steps forward. Requires Mod A x2 with control of RW with retro stepping 5 steps. Performed this 2 rounds . Pt stands statically with Min A to maintain posture and prevent retro lean. Total Therapy Minutes 16 Total Physical Therapy Units 1 Daily Note Summary Pt very weak with transfers and gait. Will need SNF stay to regain strength for self care and safety at home.
[2023-09-03] MEDS: BUMETANIDE 10 MG in 0.9 % SODIUM CHLORIDE 160 ML IV (14:35)
[2023-09-03 20:08] LABS: Glucometer 302 mg/dL (74-106)
[2023-09-03] MEDS: ATORVASTATIN CALCIUM 10 MG TABLET PO (21:15)
[2023-09-03] MEDS: HYDROCODONE/ACET 5-325 MG TABLET 1 TAB PO (21:16)
[2023-09-04] VITALS (8 sets, daily range): BP systolic 98–133; BP diastolic 58–80; PULSE 54–63; RESP 16–22; TEMP 36.4–36.6; O2SAT 93–97
[2023-09-04] MEDS: IPRATROPIUM/ALBUTEROL SULFATE 3 ML AMPUL.NEB IH ×4 (04:45→22:02)
[2023-09-04 05:03] LABS: Basophils Percent Auto 0.1 % (0.2-2.0); Hematocrit 32.7 % (42.0-54.0); Hemoglobin 9.8 g/dL (14.0-18.0); Immature Granulocytes Pct Auto 0.9 % (0.0-0.5); Lymphocytes Absolute Auto 0.5 10^3/uL (1.2-3.8); Lymphocytes Percent Auto 4.8 % (20.5-60.0); Mean Corpuscular Hemoglobin 31.1 pg (25.9-34.0); Mean Corpuscular Volume 103.8 fL (80.0-94.0); Mean Platelet Volume 11.3 fL (9.5-13.5); Monocytes Absolute Auto 0.3 10^3/uL (0.3-0.8); Monocytes Percent Auto 2.6 % (1.7-12.0); Neutrophils Absolute Auto 10.2 10^3/uL (1.4-6.5); Neutrophils Percent Auto 91.6 % (43.0-75.0); Platelet Count 144 10^3/uL (150-450); Red Blood Count 3.15 10^6/uL (4.70-6.10); Red Cell Distribution Width 13.7 % (11.0-15.0); White Blood Count 11.1 10^3/uL (4.0-11.0)
[2023-09-04] MEDS: HYDROXYZINE PAMOATE 25 MG CAPSULE PO ×3 (05:24→21:36)
[2023-09-04] MEDS: METHYLPREDNISOLONE SOD SUCC PF 125 MG/2 ML VIAL 60 MG IVP (05:24)
[2023-09-04 06:08] LABS: Alanine Aminotransferase 17 U/L (16-63); Albumin Globulin Ratio 0.8; Albumin Level 2.6 g/dL (3.4-5.0); Alkaline Phosphatase 49 U/L (46-116); Aspartate Amino Transferase 17 U/L (15-37); BUN Creatinine Ratio 42.2; Bilirubin Total 0.3 mg/dL (0.2-1.0); Calcium 7.8 mg/dL (8.5-10.1); Chloride 99 mmol/L (98-107); Estimated GFR (African America 30 (>=60); Estimated GFR (Non-African Ame 24 (>=60); Globulin 3.1 g/dL; Glucose 296 mg/dL (74-106); Magnesium 1.3 mg/dL (1.8-2.4); Sodium 140 mmol/L (136-145); Total Protein 5.7 g/dL (6.4-8.2)
[2023-09-04 06:31] LABS: Troponin I High Sensitivity 78.6 pg/mL (4.0-76.1)
--- NOTE | 2023-09-04 08:38 | P.PN_ITS ---
Progress Note: Subjective Subjective Interval history: Sleeping but awakens easily. Confused to location. Seems to orient quickly. Cougfh persisting, feels [place] stil with activy overnight. Exam Constitutional Vital Signs, click to edit/add: Last Vital Signs Temp 97.8 F 09/04/23 03:59 Pulse 63 09/04/23 04:45 Resp 16 09/04/23 04:45 BP 130/80 09/04/23 03:59 Pulse Ox 94 L 09/04/23 04:45 O2 Del Method Nasal Cannula 09/04/23 04:45 O2 Flow Rate 2 09/04/23 04:45 Progress Note: Objective Labs Labs: Short CBC 09/04/23 Range/Units 04:10 WBC 11.1 H (4.0-11.0) 10^3/uL Hgb 9.8 L (14.0-18.0) g/dL Hct 32.7 L (42.0-54.0) % Plt Count 144 L (150-450) 10^3/uL BMP 09/04/23 04:10 Sodium 140 Potassium 5.0 Chloride 99 Carbon Dioxide 34.0 H BUN 106.0 H* Creatinine 2.51 H Glucose 296 H Calcium 7.8 L Liver Function 09/04/23 Range/Units 04:10 Total Bilirubin 0.3 (0.2-1.0) mg/dL AST 17 (15-37) U/L ALT 17 (16-63) U/L Alkaline Phosphatase 49 (46-116) U/L Albumin 2.6 L (3.4-5.0) g/dL Progress Note: A&P Assessment and Plan (1) Hypoxemia: Plan Sinus tachycardia, respiratory distress, acute hypoxia with O2 sat of 85% on 2 L. Secondary to acute RSV bronchiolitis with LLL pneumonia due to Pseudomonas-sensitivities pending-steroids, aerosols, patient antibiotics today for more pseudomonal coverage. Initial antibiotics not likely sensitive. We did review allergies. Significant penicillin allergy so unable to use Zosyn. Will try Fortaz. Question of allergy to levofloxacin. Will try Cipro. 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 Diuresed well, 5.5 L. Hold off on further diuresis his creatinine is creeping just above baseline Iron deficiency anemia as well as anemia of chronic kidney disease stage III- monitor daily Thrombocytopenia-possible complication of the RSV bronchiolitis-improving Hyperkalemia may be medication induced, diuresis likely to improve the hyperkalemia. --Resolved Chronic kidney disease stage III-monitor daily. -Elevated above baseline today. No further diuresis today. Possible reinstituting oral diuresis tomorrow maintain inpatient status - at least one more midnight, with slow improvement m ore likely 2, this sentement may be repeated daily until improvement is documented Urinary Catheter Management Urinary Catheter Management Urethral: Cath placed during this visit: yes Urethral indwelling: Yes Reason for continuing: measure accurate output Insertion date: 09/02/23 Insertion time: 13:52
[2023-09-04] MEDS: SACUBITRIL/VALSARTAN 24 MG-26 MG TABLET 4 TAB PO ×2 (09:40→21:36)
[2023-09-04] MEDS: CALCIUM CARBONATE 500 MG (200MG ELEMENTAL) TAB CHEW PO ×2 (09:40→21:36)
[2023-09-04] MEDS: ISOSORBIDE MONONITRATE 60 MG TAB.ER.24H 120 MG PO (09:40)
[2023-09-04] MEDS: ASPIRIN 81 MG TAB.CHEW PO (09:40)
[2023-09-04] MEDS: L. ACIDOPHILUS/L.BULGARICUS 1 PACKET GRAN.PACK PO (09:40)
[2023-09-04] MEDS: CANAGLIFLOZIN 100 MG TABLET PO (09:40)
[2023-09-04] MEDS: CLOPIDOGREL BISULFATE 75 MG TABLET PO (09:40)
[2023-09-04] MEDS: CITALOPRAM HYDROBROMIDE 20 MG TABLET PO (09:41)
[2023-09-04] MEDS: HYDROCODONE/ACET 5-325 MG TABLET 0.5 TAB PO ×2 (09:41→16:46)
[2023-09-04] MEDS: FERROUS SULFATE 325 MG TABLET PO ×2 (09:42→21:35)
[2023-09-04] MEDS: CARVEDILOL 12.5 MG TABLET 25 MG PO ×2 (09:42→21:35)
[2023-09-04] MEDS: CEFTAZIDIME 2,000 MG in 0.9 % SODIUM CHLORIDE 100 ML 200 MG IV ×2 (09:42→17:11)
[2023-09-04 11:21] LABS: Glucometer 280 mg/dL (74-106)
[2023-09-04] MEDS: CIPROFLOXACIN IN 5 % DEXTROSE 400 MG/200 ML PIGGYBACK 200 MG IV ×2 (11:41→23:12)
[2023-09-04] MEDS: INSULIN ASPART 300 UNIT/3 ML PEN SUBQ ×3 (11:42→21:37)
[2023-09-04] MEDS: METHYLPREDNISOLONE SOD SUCC PF 40 MG/ML VIAL IVP ×2 (11:42→19:27)
[2023-09-04] MEDS: SUCRALFATE 1 GM TABLET PO ×3 (11:42→21:35)
[2023-09-04] MEDS: PANTOPRAZOLE SODIUM 40 MG VIAL IV (11:43)
[2023-09-04 16:15] LABS: Glucometer 337 mg/dL (74-106)
[2023-09-04 21:24] LABS: Glucometer 266 mg/dL (74-106)
[2023-09-04] MEDS: ATORVASTATIN CALCIUM 10 MG TABLET PO (21:35)
[2023-09-04] MEDS: HYDROCODONE/ACET 5-325 MG TABLET 1 TAB PO (21:36)
[2023-09-05] VITALS (9 sets, daily range): BP systolic 96–130; BP diastolic 56–71; PULSE 50–64; RESP 18–20; TEMP 36.1–36.8; O2SAT 94–98
[2023-09-05] MEDS: METHYLPREDNISOLONE SOD SUCC PF 40 MG/ML VIAL IVP ×5 (00:19→23:52)
[2023-09-05] MEDS: CEFTAZIDIME 2,000 MG in 0.9 % SODIUM CHLORIDE 100 ML 100 MG IV (00:19)
[2023-09-05] MEDS: IPRATROPIUM/ALBUTEROL SULFATE 3 ML AMPUL.NEB IH ×4 (04:10→22:45)
[2023-09-05] MEDS: HYDROXYZINE PAMOATE 25 MG CAPSULE PO ×3 (05:25→20:46)
[2023-09-05 05:39] LABS: Basophils Percent Auto 0.1 % (0.2-2.0); Hematocrit 35.1 % (42.0-54.0); Hemoglobin 10.5 g/dL (14.0-18.0); Immature Granulocytes Abs Auto 0.14 10^3/uL (0.00-0.03); Immature Granulocytes Pct Auto 1.1 % (0.0-0.5); Lymphocytes Absolute Auto 0.5 10^3/uL (1.2-3.8); Lymphocytes Percent Auto 4.1 % (20.5-60.0); Mean Corpuscular HGB Conc 29.9 g/dL (29.9-35.2); Mean Corpuscular Hemoglobin 30.7 pg (25.9-34.0); Mean Corpuscular Volume 102.6 fL (80.0-94.0); Mean Platelet Volume 11.2 fL (9.5-13.5); Monocytes Absolute Auto 0.4 10^3/uL (0.3-0.8); Monocytes Percent Auto 2.8 % (1.7-12.0); Neutrophils Percent Auto 91.9 % (43.0-75.0); Platelet Count 153 10^3/uL (150-450); Red Blood Count 3.42 10^6/uL (4.70-6.10); Red Cell Distribution Width 13.6 % (11.0-15.0)
[2023-09-05 06:08] LABS: Alanine Aminotransferase 14 U/L (16-63); Albumin Globulin Ratio 0.8; Albumin Level 2.5 g/dL (3.4-5.0); Alkaline Phosphatase 45 U/L (46-116); Anion Gap 11.4; Aspartate Amino Transferase 15 U/L (15-37); BUN Creatinine Ratio 42.3; Bilirubin Total 0.4 mg/dL (0.2-1.0); Calcium 7.5 mg/dL (8.5-10.1); Carbon Dioxide 34.9 mmol/L (21.0-32.0); Chloride 98 mmol/L (98-107); Estimated GFR (African America 28 (>=60); Estimated GFR (Non-African Ame 23 (>=60); Globulin 3.1 g/dL; Glucose 165 mg/dL (74-106); Magnesium 1.2 mg/dL (1.8-2.4); Potassium 4.3 mmol/L (3.5-5.1); Sodium 140 mmol/L (136-145); Total Protein 5.6 g/dL (6.4-8.2)
[2023-09-05 06:11] LABS: Troponin I High Sensitivity 80.5 pg/mL (4.0-76.1)
--- NOTE | 2023-09-05 07:28 | P.PN_ITS ---
Progress Note: Subjective Subjective Interval history: Patient with significant dyspnea and cough. Nonproductive cough currently. Exam Constitutional Vital Signs, click to edit/add: Last Vital Signs Temp 97.7 F 09/05/23 05:34 Pulse 50 L 09/05/23 05:34 Resp 20 09/05/23 05:34 BP 115/64 09/05/23 05:34 Pulse Ox 95 09/05/23 05:34 O2 Del Method Room Air 09/05/23 05:34 O2 Flow Rate 2 09/05/23 04:10 Documenting provider has reviewed patient's vital signs: yes Common normals: no apparent distress HENMT Common normals: normocephalic Lymph Lymphatic: no lymphadenopathy noted Chest Common normals: inspection of chest normal Respiratory Common normals: normal respiratory effort and no retractions Auscultation: rales (Improved) and rhonchi (More still in left lower lobe but much improved. Better aeration.) Cardio Common normals: regular rate and regular rhythm Extremity Common normals: abnormal to inspection (2+ edema) Progress Note: Objective Labs Labs: Short CBC 09/05/23 Range/Units 04:31 WBC 13.0 H (4.0-11.0) 10^3/uL Hgb 10.5 L (14.0-18.0) g/dL Hct 35.1 L (42.0-54.0) % Plt Count 153 (150-450) 10^3/uL BMP 09/05/23 04:31 Sodium 140 Potassium 4.3 Chloride 98 Carbon Dioxide 34.9 H BUN 112.0 H* Creatinine 2.65 H Glucose 165 H Calcium 7.5 L Liver Function 09/05/23 Range/Units 04:31 Total Bilirubin 0.4 (0.2-1.0) mg/dL AST 15 (15-37) U/L ALT 14 L (16-63) U/L Alkaline Phosphatase 45 L (46-116) U/L Albumin 2.5 L (3.4-5.0) g/dL Progress Note: A&P Assessment and Plan (1) Hypoxemia: Plan Sinus tachycardia, respiratory distress, acute hypoxia with O2 sat of 85% on 2 L. Secondary to acute RSV bronchiolitis with LLL pneumonia due to Pseudomonas- sensitivities to Cipro and Fortaz-steroids, aerosols, antibiotics changed yesterday. So far tolerating the Cipro. Repeat chest x-ray today. 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 Creatinine up somewhat today. Higher than baseline. Will hold further diuretics. Iron deficiency anemia as well as anemia of chronic kidney disease stage III- monitor daily Thrombocytopenia-possible complication of the RSV bronchiolitis-improving Hyperkalemia may be medication induced, diuresis likely to improve the hyperkalemia. --Resolved Chronic kidney disease stage III-monitor daily. -Elevated above baseline today. See above maintain inpatient status - at least one more midnight, with slow improvement more likely 1, this sentiment may be repeated daily until complete improvement is documented. Patient will be an excellent rehabilitation candidate. Physical therapy to work with patient today. No barriers to rehab. Urinary Catheter Management Urinary Catheter Management Urethral: Cath placed during this visit: yes Urethral indwelling: Yes Reason for continuing: measure accurate output Insertion date: 09/02/23 Insertion time: 13:52
[2023-09-05 07:39] LABS: Glucometer 189 mg/dL (74-106)
--- NOTE | 2023-09-05 08:02 | XR_ITS ---
The [address] [address] Patient Name: MERRITT MEHTA MRN: [id number] date: 1935 Sex: M Assigned Patient Location: [place] Current Patient Location: [place] Accession/Order Number: [id number] Exam Date: 09/05/2023 07:50 Report Date: 09/05/2023 08:16 At the request of: GOLDY SCOTT Procedure: XR chest 2V EXAM: XR chest 2V HISTORY: follow up LLL pneumonia COMPARISON: Chest study dated 09/01/2023 TECHNIQUE: PA and lateral views of the chest were obtained. FINDINGS: Heart is mildly enlarged. Mild patchy density overlying the lower lung bartholomew compatible with atelectatic and/or infiltrative changes slightly improved compared to the prior exam. No obvious pneumothorax. Old healed rib fractures on the right. Low lung volumes as previously noted. XR/XR chest 2V IMPRESSION: Mild atelectatic and/or infiltrative changes in the lower lung bartholomew slightly improved compared to the prior exam. Electronically authenticated by: MARY RESENDIZ Date: 09/05/2023 08:16
[2023-09-05] MEDS: SACUBITRIL/VALSARTAN 24 MG-26 MG TABLET 4 TAB PO ×2 (08:55→20:45)
[2023-09-05] MEDS: SUCRALFATE 1 GM TABLET PO ×4 (08:55→20:46)
[2023-09-05] MEDS: ISOSORBIDE MONONITRATE 60 MG TAB.ER.24H 120 MG PO (08:55)
[2023-09-05] MEDS: CLOPIDOGREL BISULFATE 75 MG TABLET PO (08:56)
[2023-09-05] MEDS: CARVEDILOL 12.5 MG TABLET 25 MG PO ×2 (08:56→20:46)
[2023-09-05] MEDS: CANAGLIFLOZIN 100 MG TABLET PO (08:56)
[2023-09-05] MEDS: CALCIUM CARBONATE 500 MG (200MG ELEMENTAL) TAB CHEW PO ×2 (08:57→20:46)
[2023-09-05] MEDS: HYDROCODONE/ACET 5-325 MG TABLET 0.5 TAB PO ×2 (08:57→17:33)
[2023-09-05] MEDS: L. ACIDOPHILUS/L.BULGARICUS 1 PACKET GRAN.PACK PO (08:57)
[2023-09-05] MEDS: CITALOPRAM HYDROBROMIDE 20 MG TABLET PO (08:57)
[2023-09-05] MEDS: ASPIRIN 81 MG TAB.CHEW PO (08:57)
[2023-09-05] MEDS: FERROUS SULFATE 325 MG TABLET PO ×2 (08:57→20:46)
[2023-09-05] MEDS: AMIODARONE HCL 200 MG TABLET 100 MG PO (08:59)
[2023-09-05] MEDS: ENSURE HP 237 ML LIQUID PO ×2 (09:00→20:45)
--- NOTE | 2023-09-05 10:51 | SWNOTE1 ---
SW sent updated physician notes, labs, vitals, nursing notes, med list, and PT from Tuesday. Once PT/OT in from today, SW to send to [facility] for precert. Precert was started on Tuesday09/02/23.
--- NOTE | 2023-09-05 10:54 | PT.DAILY ---
Physical Therapy Daily Note PT Daily Note/Assess Start: 09/03/23 11:41 Freq: Status: Active Protocol: Document 09/05/23 09:25 LION (Rec: 09/05/23 10:54 LION [id number]) Physical Therapy Daily Note/Assessment Time In/Time Out Time In 09:25 Time Out 09:45 Subjective Subjective Patient reports feeling much better, but is still wobbly on feet, and feeling weaker than usual. Therapeutic Exercise Time Therapeutic Exercise Minutes (minutes) 5 Therapeutic Exercise Units 0 Therapeutic Exercise Treatment Therapeutic Exercise Treatment Seated exercises B LE in all planes with AROM and isometrics 10 reps to improve strength. Therapeutic Activity Time Therapeutic Activity Minutes (minutes) 10 Therapeutic Activity Units 1 Therapeutic Activity Treatment Chair Transfer Ability Minimum Assist Therapeutic Activity Comments Sit to stand from commode min assist x1. Gait with RW commode to chair 10 ft. with RW min assist x1. Sit to stand from lower recliner chair min assist x1 Total Physical Therapy Time Total Therapy Minutes 15 Total Physical Therapy Units 1 Summary Daily Note Summary Improved ability with transfers and gait. Patient still weak but improved from 2 assist to 1 assist. Still recommend SNF at [place] due to weakness and still requiring some level of assistance for transfer and gait.
[2023-09-05 11:12] LABS: Glucometer 327 mg/dL (74-106)
[2023-09-05] MEDS: INSULIN ASPART 300 UNIT/3 ML PEN SUBQ ×3 (11:40→20:56)
[2023-09-05] MEDS: PANTOPRAZOLE SODIUM 40 MG VIAL IV (11:40)
--- NOTE | 2023-09-05 11:52 | CM.NOTE ---
Important Message From medicare discussed with pt and step-daughter. Both verbalizes understanding, pt would like step-daughter to sign. Paper signed and original given to pt and copy placed in pt's chart.
--- NOTE | 2023-09-05 12:01 | SWNOTE1 ---
sent PT/OT from today to [place].
--- NOTE | 2023-09-05 14:43 | NUTR.NU ---
PO intakes of regular diet and nutritional supplements are good, meet 90-100% of pt's estimated nutrient needs.Supplement order in place for 237 mL Ensure High PRO BID. Abnormal labs indicate anemia, hypocalcemia, hypomagnesemia, infection, inflammation. impaired renal function, and reduced cardiac functioning. Will monitor for need for therapeutic diet and continue to follow PRN.
[2023-09-05 16:23] LABS: Glucometer 280 mg/dL (74-106)
--- NOTE | 2023-09-05 16:29 | SWNOTE1 ---
Pt is approved to go to [facility], nursing and doctor updated.
[2023-09-05] MEDS: ATORVASTATIN CALCIUM 10 MG TABLET PO (20:45)
[2023-09-05] MEDS: HYDROCODONE/ACET 5-325 MG TABLET 1 TAB PO (20:46)
[2023-09-05 21:05] LABS: Glucometer 294 mg/dL (74-106)
[2023-09-05] MEDS: CIPROFLOXACIN IN 5 % DEXTROSE 400 MG/200 ML PIGGYBACK 200 MG IV (22:18)
[2023-09-06] MEDS: CEFTAZIDIME 1,000 MG in 0.9 % SODIUM CHLORIDE 50 ML 100 MG IV (00:01)
[2023-09-06 01:05] VITALS: BP 92/50
[2023-09-06 03:55] VITALS: BP 90/50; PULSE 56; RESP 18; TEMP 36.3; O2SAT 96
[2023-09-06] MEDS: IPRATROPIUM/ALBUTEROL SULFATE 3 ML AMPUL.NEB IH ×2 (04:26→11:19)
[2023-09-06 04:27] VITALS: PULSE 54; RESP 18; O2SAT 98
[2023-09-06] MEDS: HYDROXYZINE PAMOATE 25 MG CAPSULE PO (05:06)
[2023-09-06] MEDS: METHYLPREDNISOLONE SOD SUCC PF 40 MG/ML VIAL IVP (05:06)
[2023-09-06 05:22] LABS: Basophils Percent Auto 0.1 % (0.2-2.0); Hematocrit 33.6 % (42.0-54.0); Hemoglobin 10.4 g/dL (14.0-18.0); Immature Granulocytes Abs Auto 0.12 10^3/uL (0.00-0.03); Lymphocytes Absolute Auto 0.6 10^3/uL (1.2-3.8); Lymphocytes Percent Auto 4.6 % (20.5-60.0); Mean Corpuscular Hemoglobin 31.2 pg (25.9-34.0); Mean Corpuscular Volume 100.9 fL (80.0-94.0); Mean Platelet Volume 11.7 fL (9.5-13.5); Monocytes Absolute Auto 0.4 10^3/uL (0.3-0.8); Monocytes Percent Auto 3.2 % (1.7-12.0); Neutrophils Absolute Auto 11.5 10^3/uL (1.4-6.5); Neutrophils Percent Auto 91.1 % (43.0-75.0); Platelet Count 150 10^3/uL (150-450); Red Blood Count 3.33 10^6/uL (4.70-6.10); Red Cell Distribution Width 13.5 % (11.0-15.0); White Blood Count 12.6 10^3/uL (4.0-11.0)
[2023-09-06 06:13] LABS: Alanine Aminotransferase 18 U/L (16-63); Albumin Globulin Ratio 0.8; Albumin Level 2.3 g/dL (3.4-5.0); Alkaline Phosphatase 37 U/L (46-116); Anion Gap 13.1; Aspartate Amino Transferase 15 U/L (15-37); BUN Creatinine Ratio 45.3; Bilirubin Total 0.3 mg/dL (0.2-1.0); Calcium 7.6 mg/dL (8.5-10.1); Carbon Dioxide 34.1 mmol/L (21.0-32.0); Chloride 96 mmol/L (98-107); Estimated GFR (African America 25 (>=60); Estimated GFR (Non-African Ame 21 (>=60); Glucose 200 mg/dL (74-106); Magnesium 1.3 mg/dL (1.8-2.4); Potassium 4.2 mmol/L (3.5-5.1); Sodium 139 mmol/L (136-145); Total Protein 5.3 g/dL (6.4-8.2)
[2023-09-06] MEDS: 0.9 % SODIUM CHLORIDE 500 ML 250 ML IV (06:41)
--- NOTE | 2023-09-06 08:36 | CM.NOTE ---
Rounds made with Dr. Olson, possible discharge to [facility] for skilled therapy this afternoon. Pt will receive IV fluids prior to discharge.
--- NOTE | 2023-09-06 08:46 | P.DS_ITS ---
DS: Providers Provider Date of admission: 09/02/23 17:28 Primary care physician: Matthias Olson MD Consults: 09/02/23 06:16 Occupational Therapy Eval and Treat Routine Reason for consultation: Only if needed for Rehab Has provider been notified: No Physical Therapy Eval and Treat Routine Reason for consultation: Eval and Treat Has provider been notified: No DS: Diagnosis Discharge Diagnosis (1) Hypoxemia: Plan Progress Note: Subjective Subjective Interval history: Patient with significant dyspnea and cough. Nonproductive cough currently. Exam Constitutional Vital Signs, click to edit/add: Last Vital Signs Temp 97.7 F 09/05/23 05:34 Pulse 50 L 09/05/23 05:34 Resp 20 09/05/23 05:34 BP 115/64 09/05/23 05:34 Pulse Ox 95 09/05/23 05:34 O2 Del Method Room Air 09/05/23 05:34 O2 Flow Rate 2 09/05/23 04:10 Documenting provider has reviewed patient's vital signs: yes Common normals: no apparent distress [facility] Common normals: normocephalic Lymph Lymphatic: no lymphadenopathy noted Chest Common normals: inspection of chest normal Respiratory Common normals: normal respiratory effort and no retractions Auscultation: rales (Improved) and rhonchi (More still in left lower lobe but much improved. Better aeration.) Cardio Common normals: regular rate and regular rhythm Extremity Common normals: abnormal to inspection (2+ edema) Progress Note: Objective Labs Labs: Short CBC 09/05/23 Range/Units 04:31 WBC 13.0 H (4.0-11.0) 10^3/uL Hgb 10.5 L (14.0-18.0) g/dL Hct 35.1 L (42.0-54.0) % Plt Count 153 (150-450) 10^3/uL BMP 09/05/23 04:31 Sodium 140 Potassium 4.3 Chloride 98 Carbon Dioxide 34.9 H BUN 112.0 H* Creatinine 2.65 H Glucose 165 H Calcium 7.5 L Liver Function 09/05/23 Range/Units 04:31 Total Bilirubin 0.4 (0.2-1.0) mg/dL AST 15 (15-37) U/L ALT 14 L (16-63) U/L Alkaline Phosphatase 45 L (46-116) U/L Albumin 2.5 L (3.4-5.0) g/dL Progress Note: A&P Assessment and Plan (1) Hypoxemia: Plan Sinus tachycardia, respiratory distress, acute hypoxia with O2 sat of 85% on 2 L. 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 Chronic kidney disease stage III-monitor daily. -Elevated above baseline today. DS: Summary Hospital Course Hospital Course: Patient mated with increasing shortness of breath. Found to be RSV positive also left lower lobe pneumonia. Were able to obtain a sputum sample which did grow Pseudomonas. Unfortunate that was resistant to the initial antibiotic choices. Normally would start with Levaquin but patient had an allergy. While in the hospital he placed patient on Cipro without any reaction. Also Fortaz. Sensitivities came back the following day and is sensitive to both. He maintained on both double cover until discharge. Only issue at this point was diuresed probably a little too much. Did give back some IV fluids this morning. Currently is medically stable. His creatinine needs to be monitored. I will continue to follow patient at halfway,/rehab. Medications see list. Time Spent with Patient Time attestation: Total time spent providing and/or coordinating discharge services: Exam Constitutional Vital Signs, click to edit/add: Last Vital Signs Temp 97.4 F L 09/06/23 03:55 Pulse 54 L 09/06/23 04:27 Resp 18 09/06/23 04:27 BP 90/50 09/06/23 03:55 Pulse Ox 98 09/06/23 04:27 O2 Del Method Nasal Cannula 09/06/23 04:27 O2 Flow Rate 2 09/06/23 04:27 Documenting provider has reviewed patient's vital signs: yes Common normals: no apparent distress [facility] Common normals: normocephalic Lymph Lymphatic: no lymphadenopathy noted Chest Common normals: inspection of chest normal Respiratory Common normals: normal respiratory effort and no retractions Auscultation: rales (Improved) and rhonchi (More still in left lower lobe but much improved. Better aeration.) Cardio Common normals: regular rate and regular rhythm Extremity Common normals: abnormal to inspection (2+ edema) DS: Data Data Completed and Pending Labs on day of discharge: Labs from last 24 hours 09/06/23 09/05/23 09/05/23 04:53 20:54 16:21 WBC 12.6 H RBC 3.33 L Hgb 10.4 L Hct 33.6 L MCV 100.9 H MCH 31.2 MCHC 31.0 RDW 13.5 Plt Count 150 MPV 11.7 Neut % (Auto) 91.1 H Lymph % (Auto) 4.6 L Stafford % (Auto) 3.2 Eos % (Auto) 0.0 L Baso % (Auto) 0.1 L Neut # (Auto) 11.5 H Lymph # (Auto) 0.6 L [place] # (Auto) 0.4 Eos # (Auto) 0.0 Baso # (Auto) 0.0 Abs Immat Gran (auto) 0.12 H Imm/Tot Granulo (auto) 1.0 H Sodium 139 Potassium 4.2 Chloride 96 L Carbon Dioxide 34.1 H Anion Gap 13.1 BUN 131.0 H* Creatinine 2.89 H Est GFR ( Amer) 25 L Est GFR (Non-Af Amer) 21 L BUN/Creatinine Ratio 45.3 Glucose 200 H Calcium 7.6 L Magnesium 1.3 L Total Bilirubin 0.3 AST 15 ALT 18 Alkaline Phosphatase 37 L NT-Pro-B Natriuret Pep 2371.0 H* Total Protein 5.3 L Albumin 2.3 L Globulin 3.0 Albumin/Globulin Ratio 0.8 POC Glucose 294 H 280 H 09/05/23 11:11 WBC RBC Hgb Hct MCV MCH MCHC RDW Plt Count MPV Neut % (Auto) Lymph % (Auto) Stafford % (Auto) Eos % (Auto) Baso % (Auto) Neut # (Auto) Lymph # (Auto) Stafford # (Auto) Eos # (Auto) Baso # (Auto) Abs Immat Gran (auto) Imm/Tot Granulo (auto) Sodium Potassium Chloride Carbon Dioxide Anion Gap BUN Creatinine Est GFR ( Amer) Est GFR (Non-Af Amer) BUN/Creatinine Ratio Glucose Calcium Magnesium Total Bilirubin AST ALT Alkaline Phosphatase NT-Pro-B Natriuret Pep Total Protein Albumin Globulin Albumin/Globulin Ratio POC Glucose 327 H Discharge Plan Discharge Disposition: Xfer SNF Condition: Good Discharge Medications: New carvedilol 12.5 mg Tablet 25 mg PO BID Qty: 60 11RF ciprofloxacin HCl [Cipro] 500 mg tablet 500 mg PO BID Qty: 20 0RF Continued amiodarone 100 mg tablet 100 mg PO .FIVE TIMES A WEEK Rx Instructions: ONCE A DAY ON TUE, TUE, TUE, , TUESDAY acetaminophen [Tylenol Extra Strength] 500 mg tablet 500 mg PO Q6H PRN (Reason: fever or pain) aspirin 81 mg capsule 81 mg PO DAILY ipratropium-albuterol 0.5 mg-3 mg(2.5 mg base)/3 mL solution for nebulization 3 ml INHALATION Q8H PRN (Reason: shortness of breath or wheezing) atorvastatin 10 mg tablet 10 mg PO .QHS hydrocodone-acetaminophen 5-325 mg tablet 0.5 tab PO BID Rx Instructions: TAKE 1/2 TAB PO BID AND 1 TAB QHS hydralazine 25 mg tablet 25 mg PO Q8H clopidogrel 75 mg tablet 75 mg PO QDAY omeprazole 40 mg capsule,delayed release(DR/EC) 40 mg PO QDAY spironolactone 25 mg tablet 25 mg PO QDAY isosorbide mononitrate 120 mg tablet extended release 24 hr 120 mg PO Q24H Entresto 97-103 mg tablet 1 tab PO BID calcium carbonate [Calcium 500] 500 mg calcium (1,250 mg) tablet,chewable 500 mg PO BID citalopram [Celexa] 20 mg tablet 20 mg PO DAILY ferrous sulfate 250 mg (50 mg iron) tablet extended release 250 mg PO BID nitroglycerin [Nitrostat] 0.3 mg tablet, sublingual 0.3 mg sublingual Q5M Rx Instructions: do not exceed 3 doses per episode hydroxyzine pamoate [Vistaril] 25 mg capsule 25 mg PO TID prednisone 10 mg tablet 10 mg PO DAILY Lactobacillus acidoph-L.bulgar [Floranex] 1 million cell tablet 1 tab PO DAILY Discontinued furosemide 40 mg tablet 40 mg PO QDAY carvedilol 12.5 mg tablet 12.5 mg PO BID meloxicam 7.5 mg tablet 7.5 mg PO BID [employer]ing [employer] Instructions: Discharge to [facility]. Forms: Portal Instructions
[2023-09-06] MEDS: SUCRALFATE 1 GM TABLET PO ×2 (08:53→12:48)
[2023-09-06] MEDS: INSULIN ASPART 300 UNIT/3 ML PEN SUBQ ×2 (08:53→12:49)
[2023-09-06] MEDS: CITALOPRAM HYDROBROMIDE 20 MG TABLET PO (08:54)
[2023-09-06] MEDS: HYDROCODONE/ACET 5-325 MG TABLET 0.5 TAB PO (08:55)
[2023-09-06] MEDS: ASPIRIN 81 MG TAB.CHEW PO (08:55)
[2023-09-06] MEDS: CANAGLIFLOZIN 100 MG TABLET PO (08:55)
[2023-09-06] MEDS: AMIODARONE HCL 200 MG TABLET 100 MG PO (08:55)
[2023-09-06] MEDS: FERROUS SULFATE 325 MG TABLET PO (08:55)
[2023-09-06] MEDS: CLOPIDOGREL BISULFATE 75 MG TABLET PO (08:55)
[2023-09-06] MEDS: CALCIUM CARBONATE 500 MG (200MG ELEMENTAL) TAB CHEW PO (08:55)
[2023-09-06] MEDS: L. ACIDOPHILUS/L.BULGARICUS 1 PACKET GRAN.PACK PO (08:55)
[2023-09-06] MEDS: ENSURE HP 237 ML LIQUID PO (08:56)
[2023-09-06 09:40] VITALS: BP 116/63; PULSE 61
--- NOTE | 2023-09-06 10:28 | PT.DAILY ---
Physical Therapy Daily Note PT Daily Note/Assess Start: 09/03/23 11:41 Freq: Status: Active Protocol: Document 09/06/23 10:00 LION (Rec: 09/06/23 10:28 LION [id number]) Physical Therapy Daily Note/Assessment Time In/Time Out Time In 10:00 Time Out 10:18 Subjective Subjective Reports feeling better. Agrees to PT. Reports it's getting easier to get up from chair and out of bed. Therapeutic Exercise Time Therapeutic Exercise Minutes (minutes) 10 Therapeutic Exercise Units 1 Therapeutic Exercise Treatment Therapeutic Exercise Treatment Seated exercises B LE in all planes with AROM and isometrics 10 reps to improve strength. Progressed with standing marches, TR and Hip flexion at RW today as well. Therapeutic Activity Time Therapeutic Activity Minutes (minutes) 8 Therapeutic Activity Units 0 Therapeutic Activity Treatment Therapeutic Activity Comments Sit to stand from low chair 3x with CGA. Static stand at RW 60 seconds each with no LOB. Fwd./retro gait 5' each way 3x using RW and min assist from therapist. Total Physical Therapy Time Total Therapy Minutes 18 Total Physical Therapy Units 1 Summary Daily Note Summary Patient continues to show weakness when up on feet with ambulation, shaky and required min assist for safety, but is improving each visit with strength, increasing distance and ability with exercises. Were able to progress with some standing exercises at RW to promote safe gait with min assist. Continued need for SNF at [place] due to improve strength and ability with functional mobility.
[2023-09-06 11:15] LABS: Glucometer 339 mg/dL (74-106)
[2023-09-06 11:20] VITALS: PULSE 48; O2SAT 96
[2023-09-06] MEDS: PANTOPRAZOLE SODIUM 40 MG VIAL IV (12:48)
--- NOTE | 2023-09-06 13:14 | SWNOTE1 ---
CACHORRO sent over dc med rec to [facility]. CACHORRO put together packet with updates. CACHORRO comleted HENS. CACHORRO set trips for 4:00 for pt to go to [facility]. Nursing, pt, and pt's daughter notified.
== END 2023-09-06 16:48 | DRG 177 ==
LOC: ER 09-02 03:26 → MS 09-02 07:54
PROVIDERS: Registered Nurse; Admitting Provider Family Medicine; Emergency Provider Emergency Medicine; PCP Family Medicine; Visit Provider Family Medicine
DX: J15.1 Pneumonia due to Pseudomonas (principal); I50.43 Acute on chronic combined systolic (congestive) and diastolic (congestive) heart failure; J21.0 Acute bronchiolitis due to respiratory syncytial virus; I13.0 Hypertensive heart and chronic kidney disease with heart failure and stage 1 through stage 4 chronic kidney disease, or unspecified chronic kidney disease; D50.9 Iron deficiency anemia, unspecified; N18.30 Chronic kidney disease, stage 3 unspecified; D63.1 Anemia in chronic kidney disease; E87.5 Hyperkalemia; D69.6 Thrombocytopenia, unspecified; E11.22 Type 2 diabetes mellitus with diabetic chronic kidney disease; R06.03 Acute respiratory distress; R09.02 Hypoxemia; I25.10 Atherosclerotic heart disease of native coronary artery without angina pectoris; E78.00 Pure hypercholesterolemia, unspecified; I48.0 Paroxysmal atrial fibrillation; M19.90 Unspecified osteoarthritis, unspecified site; Z66 Do not resuscitate; Z79.899 Other long term (current) drug therapy; Z85.46 Personal history of malignant neoplasm of prostate; Z79.82 Long term (current) use of aspirin; M51.9 Unspecified thoracic, thoracolumbar and lumbosacral intervertebral disc disorder; K21.9 Gastro-esophageal reflux disease without esophagitis; N40.1 Benign prostatic hyperplasia with lower urinary tract symptoms; Z96.1 Presence of intraocular lens; I35.2 Nonrheumatic aortic (valve) stenosis with insufficiency; Z96.652 Presence of left artificial knee joint; Z88.0 Allergy status to penicillin; K57.90 Diverticulosis of intestine, part unspecified, without perforation or abscess without bleeding; Z99.81 Dependence on supplemental oxygen
CPT/HCPCS: 0202U; 36415; 51702; 71045; 71046; 80048; 80053; 81001; 82800; 82948; 83735; 83880; 84436; 84443; 84484; 85007; 85025; 85027; 87070; 87150; 87186; 93005; 93306; 94640; 94667; 94668; 94761; 96365; 96366; 96367; 96368; 96375; 96376; 97110; 97161; 97165; 97530; 97535; 99285; J0456; J0696; J0713; J0744; J2920; J2930; J7512; Q0177

== ENCOUNTER 2023-09-09 19:53 | Emergency (ER) | payer MEDICARE, SELFPAY ==
[2023-09-09] VITALS (25 sets, daily range): BP systolic 100–152; BP diastolic 67–73; PULSE 39–66; RESP 16–28; TEMP 36.4; O2SAT 93–100; BMI 24.3
--- NOTE | 2023-09-09 20:02 | ECG_ITS ---
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
--- NOTE | 2023-09-09 20:06 | ED_ITS ---
HPI - Altered Mental Status General Chief Complaint: Altered Mental Status Stated Complaint: Altered Mental Status Time Seen by Provider: 09/09/23 20:02 Mode of arrival: ambulance Limitations: altered mental status History of Present Illness HPI narrative: NHP DNRCC. Patient unresponsive to verbal stimuli today. Transferred from [facility]. Limited history available Related Data Home Medications Medication Instructions Recorded Confirmed acetaminophen 500 mg tablet 500 mg PO Q6H PRN fever or pain 09/01/23 09/09/23 (Tylenol Extra Strength) amiodarone 100 mg tablet 100 mg PO .FIVE TIMES A WEEK 09/01/23 09/09/23 aspirin 81 mg capsule 81 mg PO DAILY 09/01/23 09/09/23 atorvastatin 10 mg tablet 10 mg PO .QHS 09/01/23 09/09/23 calcium carbonate 500 mg calcium 500 mg PO BID 09/01/23 09/09/23 (1,250 mg) chewable tablet (Calcium 500) citalopram 20 mg tablet (Celexa) 20 mg PO DAILY 09/01/23 09/09/23 clopidogrel 75 mg tablet 75 mg PO QDAY 09/01/23 09/09/23 ferrous sulfate 250 mg (50 mg 250 mg PO BID 09/01/23 09/09/23 iron) tablet,extended release hydralazine 25 mg tablet 25 mg PO Q8H 09/01/23 09/09/23 hydrocodone 5 mg-acetaminophen 325 0.5 tab PO BID 09/01/23 09/09/23 mg tablet hydroxyzine pamoate 25 mg capsule 25 mg PO TID 09/01/23 09/09/23 (Vistaril) ipratropium 0.5 mg-albuterol 3 mg 3 ml inhalation Q8H PRN shortness 09/01/23 09/09/23 (2.5 mg base)/3 mL nebulization of breath or wheezing soln isosorbide mononitrate 120 mg 120 mg PO Q24H 09/01/23 09/09/23 tablet,extended release 24 hr nitroglycerin 0.3 mg sublingual 0.3 mg sublingual Q5M 09/01/23 09/09/23 tablet (Nitrostat) omeprazole 40 mg capsule,delayed 40 mg PO QDAY 09/01/23 09/09/23 release sacubitril 97 mg-valsartan 103 mg 1 tab PO BID 09/01/23 09/09/23 tablet (Entresto) spironolactone 25 mg tablet 25 mg PO QDAY 09/01/23 09/09/23 Lactobacillus acidoph-L.bulgaricus 1 tab PO DAILY 09/02/23 09/09/23 1 million cell tablet (Floranex) prednisone 10 mg tablet 10 mg PO DAILY 09/02/23 09/09/23 Previous Rx's Medication Instructions Recorded carvedilol 12.5 mg tablet 25 mg (2 x 12.5 mg) PO BID #60 tabs 09/06/23 ciprofloxacin HCl 500 mg tablet 500 mg PO BID #20 tabs 09/06/23 (Cipro) Allergies Allergy/AdvReac Type Severity Reaction Status Date / Time felodipine Allergy Unknown Verified 09/01/23 23:20 levofloxacin Allergy Unknown Verified 09/01/23 23:20 morphine Allergy Unknown Verified 09/01/23 23:20 Penicillins Allergy Unknown Verified 09/01/23 23:20 tramadol [From Ultram] Allergy Unknown Verified 09/01/23 23:20 seafood Allergy Unknown Uncoded 09/01/23 23:20 Review of Systems ROS Status of ROS 10 or more systems reviewed and unremark able except as noted in history and below [facility] Medical History (Updated 09/09/23 @ 22:23 by Brennan Fischer MD) Loose right total knee arthroplasty ?T84.032A - Mechanical loosening of internal right knee prosthetic joint, initial encounter (ICD-10) Heart disease ?I51.9 - Heart disease, unspecified (ICD-10) 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 - Postgastric surgery syndromes (ICD-10) Diverticulosis ?K57.90 - Diverticulosis of intestine, part unspecified, without perforation or abscess without bleeding (ICD-10) Atherosclerotic heart disease of [place] coronary artery without angina pectoris ?I25.10 - Atherosclerotic heart disease of [place] coronary artery without angina pectoris (ICD-10) Thoracic, thoracolumbar and lumbosacral intervertebral disc disorder ?M51.9 - Unspecified thoracic, thoracolumbar and lumbosacral intervertebral disc disorder (ICD-10) Pure hypercholesterolemia ?E78.00 - Pure hypercholesterolemia, unspecified (ICD-10) Type 2 diabetes mellitus ?E11.9 - Type 2 diabetes mellitus without complications (ICD-10) Essential (primary) hypertension ?I10 - Essential (primary) hypertension (ICD-10) Gastro-esophageal reflux disease with esophagitis ?K21.00 - Gastro-esophageal reflux disease with esophagitis, without bleeding (ICD-10) Gout ?M10.9 - Gout, unspecified (ICD-10) Erectile dysfunction ?N52.9 - Male erectile dysfunction, unspecified (ICD-10) Right bundle branch block ?I45.10 - Unspecified right bundle-branch block (ICD-10) Ventral hernia ?K43.9 - Ventral hernia without obstruction or gangrene (ICD-10) Benign prostatic hyperplasia with lower urinary tract symptoms ?N40.1 - Benign prostatic hyperplasia with lower urinary tract symptoms (ICD- 10) Presence of intraocular lens ?Z96.1 - Presence of intraocular lens (ICD-10) Palpitation ?R00.2 - Palpitations (ICD-10) Ventricular premature depolarization ?I49.3 - Ventricular premature depolarization (ICD-10) Heart failure ?I50.9 - Heart failure, unspecified (ICD-10) Malignant neoplasm of prostate ?C61 - Malignant neoplasm of prostate (ICD-10) Unstable angina ?I20.0 - Unstable angina (ICD-10) Acute combined systolic (congestive) and diastolic (congestive) heart failure ?I50.41 - Acute combined systolic (congestive) and diastolic (congestive) heart failure (ICD-10) Hypertrophic cardiomyopathy ?I42.2 - Other hypertrophic cardiomyopathy (ICD-10) Bradycardia ?R00.1 - Bradycardia, unspecified (ICD-10) Atrioventricular block, second degree ?I44.1 - Atrioventricular block, second degree (ICD-10) Paroxysmal A-fib ?I48.0 - Paroxysmal atrial fibrillation (ICD-10) Melena ?K92.1 - Melena (ICD-10) Nonrheumatic aortic (valve) stenosis ?I35.0 - Nonrheumatic aortic (valve) stenosis (ICD-10) Nonrheumatic aortic (valve) insufficiency ?I35.1 - Nonrheumatic aortic (valve) insufficiency (ICD-10) Corns and callus ?L84 - Corns and callosities (ICD-10) Fall ?W19.XXXA - Unspecified fall, initial encounter (ICD-10) Acute bronchitis ?J20.9 - Acute bronchitis, unspecified (ICD-10) Ischemic cardiomyopathy ?I25.5 - Ischemic cardiomyopathy (ICD-10) Afib ?I48.91 - Unspecified atrial fibrillation (ICD-10) Osteoarthritis ?M19.90 - Unspecified osteoarthritis, unspecified site (ICD-10) Surgical History (Updated 09/02/23 @ 08:13 by Antionette Dahl) H/O right heart catheterization ?Z98.890 - Other specified postprocedural states (ICD-10) History of left knee replacement ?Z96.652 - Presence of left artificial knee joint (ICD-10) Social History (Updated 09/02/23 @ 08:24 by Antionette Dahl) Within the past year, how often did you have a drink containing alcohol: never Within the past year, how many standard drinks containing alcohol did you have on a typical day: 1 or 2 Within the past year, how often did you have six or more drinks on one occasion: never Total score: 0 Score interpretation: A score less than 4 is consistent with normal alcohol consumption. Smoking status: Former smoker Non-prescribed substance use: denies use Previous occupational history: construction Highest level of school completed/degree received: 8th grade Are you now , , , , never or living with a partner: In a typical week, how many times do you talk on the telephone with family, friends, or neighbors: 3 or more times per week How often do you get together with friends or relatives: 3 or more times per week How often do you attend gnosticism or yarsanism services: never Do you belong to any clubs or organizations such as gnosticism groups unions, fraternal or athletic groups, or school groups: no Total score: 1 Score interpretation: A score of less than or equal to 1 indicates the most socially isolated. Little interest or pleasure in doing things: not at all Feeling down, depressed, or hopeless: not at all Feel stressed/tense/nervous/anxious/difficulty sleeping: not at all Do you think of yourself as: straight/heterosexual Gender Identity: male Exam Constitutional Vital Signs, click to edit/add: Last Vital Signs Temp 97.6 F 09/09/23 19:54 Pulse 57 L 09/09/23 19:54 Resp 16 09/09/23 22:03 BP 100/73 09/09/23 19:54 Pulse Ox 95 09/09/23 20:20 O2 Del Method Nasal Cannula 09/09/23 20:20 O2 Flow Rate 2 09/09/23 20:20 Common normals: no apparent distress (no response to verbal stimuli) Exam limitations: altered mental status HENMT Common normals: normocephalic and head/scalp atraumatic Other: oral cavity dry Eye Common normals: conjunctivae normal Respiratory Common normals: normal respiratory effort, no retractions, no use of accessory muscles and clear to auscultation bilaterally Cardio Rate: bradycardic GI Other: gen. nonspecific tenderness. Patient just screams out Extremity Common normals: normal to inspection Neuro Cory Coma Scale: other (responsive only to painful stimuli) Course Vital Signs Vital signs: Vital Signs Temperature 97.6 F 09/09/23 19:54 Pulse Rate 57 L 09/09/23 19:54 Respiratory Rate 22 09/09/23 19:54 Blood Pressure 100/73 09/09/23 19:54 Pulse Oximetry 97 09/09/23 19:54 Temperature 97.6 F 09/09/23 19:54 Pulse Rate 57 L 09/09/23 19:54 Respiratory Rate 16 09/09/23 22:03 Blood Pressure 100/73 09/09/23 19:54 Pulse Oximetry 95 09/09/23 20:20 Oxygen Delivery Method Nasal Cannula 09/09/23 20:20 Oxygen Delivery Flow Rate 2 09/09/23 20:20 MDM - Altered Mental Status MDM Narrative Medical decision making narrative: patient presents from [facility] with decreased responsiveness. Patient is DNRCC. Recent discharge from hospital. Labs tonight demonstrate mod-severe dehydration which is actually improved from labs obtain at date of recent discharge. He also has an elevated Troponin. Was elevated during last visit. Family informed and do not want any cardiac intervention. Patient has known cardiac disease. He has no chest pain or dyspnea/nausea. He is now awake and joking with his family and asking for cup of coffee which he states he can drank all day family informed of his abnormal labs. CT abdomen with air in his bladder. UA without evidence of infection and a catheter was introduced to obtain urine sample and likely cause of air in bladder. Will arrange for transport back to the [facility] Lab Data Labs: Lab Results 09/09/23 09/09/23 Range/Units 20:25 20:35 WBC 14.2 H (4.0-11.0) 10^3/uL RBC 3.31 L (4.70-6.10) 10^6/uL Hgb 10.3 L (14.0-18.0) g/dL Hct 35.0 L (42.0-54.0) % MCV 105.7 H (80.0-94.0) fL MCH 31.1 (25.9-34.0) pg MCHC 29.4 L (29.9-35.2) g/dL RDW 13.5 (11.0-15.0) % Plt Count 143 L (150-450) 10^3/uL MPV 11.6 (9.5-13.5) fL Neut % (Auto) 85.9 H (43.0-75.0) % Lymph % (Auto) 6.1 L (20.5-60.0) % [place] % (Auto) 6.0 (1.7-12.0) % Eos % (Auto) 0.1 L (0.9-7.0) % Baso % (Auto) 0.1 L (0.2-2.0) % Neut # (Auto) 12.2 H (1.4-6.5) 10^3/uL Lymph # (Auto) 0.9 L (1.2-3.8) 10^3/uL [place] # (Auto) 0.9 H (0.3-0.8) 10^3/uL Eos # (Auto) 0.0 (0.0-0.7) 10^3/uL Baso # (Auto) 0.0 (0.0-0.1) 10^3/uL Abs Immat Gran (auto) 0.25 H (0.00-0.03) 10^3/uL Imm/Tot Granulo (auto) 1.8 H (0.0-0.5) % Sodium 146 H (136-145) mmol/L Potassium 3.9 (3.5-5.1) mmol/L Chloride 106 (98-107) mmol/L Carbon Dioxide 35.5 H (21.0-32.0) mmol/L Anion Gap 8.4 BUN 90.0 H* (7.0-18.0) mg/dL Creatinine 2.15 H (0.70-1.30) mg/dL Est GFR ( Amer) 35 L (>=60) Est GFR (Non-Af Amer) 29 L (>=60) BUN/Creatinine Ratio 41.9 Glucose 231 H (74-106) mg/dL Lactate 1.2 (0.4-2.0) mmol/L Calcium 8.7 (8.5-10.1) mg/dL Total Bilirubin 0.6 (0.2-1.0) mg/dL AST 21 (15-37) U/L ALT 23 (16-63) U/L Alkaline Phosphatase 42 L (46-116) U/L Troponin I High Sens 173.3 H* (4.0-76.1) pg/mL Total Protein 5.6 L (6.4-8.2) g/dL Albumin 2.7 L (3.4-5.0) g/dL Globulin 2.9 g/dL Albumin/Globulin Ratio 0.9 Lipase 31.0 (16.0-77.0) U/L Urine Color Yellow (YELLOW) Urine Clarity Clear (CLEAR) Urine pH 5.5 (5.0-9.0) Ur Specific [place] 1.020 (1.005-1.025) Urine Protein Trace (NEG/TRACE) mg/dL Urine Glucose (UA) >=1000 A (NEGATIVE) mg/dL Urine Ketones Negative (NEGATIVE) mg/dL Urine Occult Blood Trace-l (NEGATIVE) Urine Nitrite Negative (NEGATIVE) Urine Bilirubin Negative (NEGATIVE) Urine Urobilinogen 0.2 (0.2-1.0) EU/dL Ur Leukocyte Esterase Negative (NEGATIVE) Urine RBC 0-2 (0-2) #/HPF Urine WBC None seen (NONE SEEN) #/HPF Ur Squamous Epith Cells None seen (NONE/RARE) #/LPF Urine Crystals None seen (None Seen) #/HPF Urine Bacteria None seen (NONE SEEN) #/HPF Urine Casts None seen (NONE SEEN) #/LPF Urine Mucus None seen (NONE SEEN) Imaging Data Abdominal x-ray: Radiologist's impression: ITS Impressions Chest X-Ray 09/09/23 20:12 IMPRESSION: Low lung volumes are seen, likely related to poor inspiratory effort. Bibasilar atelectasis is seen. Electronically authenticated by: MU MIGUEL Date: 09/09/2023 21:[address] 09/09/23 20:12 IMPRESSION: 1. Mild old microvascular ischemic change and mild to moderate cerebral atrophy. 2. No acute intracranial process. Electronically authenticated by: APOLINAR HAQUE Date: 09/09/2023 21:16 Abdomen/Pelvis CT 09/09/23 20:14 IMPRESSION: 1. There is air within the wall and lumen of the urinary bladder suspicious for emphysematous cystitis. 2. Large left inguinal hernia containing fat as well as sigmoid colon with no obstruction or strangulation.Large fat-containing right inguinal hernia. 3. Stable dilated pulmonary arteries suspicious for pulmonary hypertension. 4. 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 5. Left renal cortical scarring and right renal cysts. Electronically authenticated by: ASHIA SIMS Date: 09/09/2023 22:25 Discharge Plan Discharge Chief Complaint: Altered Mental Status Clinical Impression: Bradycardia, Elevated troponin, Altered mental status, Dehydration Patient Disposition: Home, Self-Care Prescriptions / Home Meds: No Action amiodarone 100 mg tablet 100 mg PO .FIVE TIMES A WEEK Rx Instructions: ONCE A DAY ON TUE, TUE, TUE, , TUESDAY acetaminophen [Tylenol Extra Strength] 500 mg tablet 500 mg PO Q6H PRN (Reason: fever or pain) aspirin 81 mg capsule 81 mg PO DAILY ipratropium-albuterol 0.5 mg-3 mg(2.5 mg base)/3 mL solution for nebulization 3 ml INHALATION Q8H PRN (Reason: shortness of breath or wheezing) atorvastatin 10 mg tablet 10 mg PO .QHS hydrocodone-acetaminophen 5-325 mg tablet 0.5 tab PO BID Rx Instructions: TAKE 1/2 TAB PO BID AND 1 TAB QHS hydralazine 25 mg tablet 25 mg PO Q8H clopidogrel 75 mg tablet 75 mg PO QDAY omeprazole 40 mg capsule,delayed release(DR/EC) 40 mg PO QDAY spironolactone 25 mg tablet 25 mg PO QDAY isosorbide mononitrate 120 mg tablet extended release 24 hr 120 mg PO Q24H Entresto 97-103 mg tablet 1 tab PO BID calcium carbonate [Calcium 500] 500 mg calcium (1,250 mg) tablet,chewable 500 mg PO BID citalopram [Celexa] 20 mg tablet 20 mg PO DAILY ferrous sulfate 250 mg (50 mg iron) tablet extended release 250 mg PO BID nitroglycerin [Nitrostat] 0.3 mg tablet, sublingual 0.3 mg sublingual Q5M Rx Instructions: do not exceed 3 doses per episode hydroxyzine pamoate [Vistaril] 25 mg capsule 25 mg PO TID prednisone 10 mg tablet 10 mg PO DAILY Lactobacillus acidoph-L.bulgar [Floranex] 1 million cell tablet 1 tab PO DAILY carvedilol 12.5 mg Tablet 25 mg PO BID Qty: 60 11RF ciprofloxacin HCl [Cipro] 500 mg tablet 500 mg PO BID Qty: 20 0RF Instructions: Dehydration (ED), Bradycardia (ED), Altered Mental Status (ED) Additional Instructions: follow up with Dr Olson next week. Encourage fluids Stand Alone Forms: Portal Instructions Referrals: Matthias Olson MD [Primary Care Provider] - 1 week
--- OUTSIDE RECORDS SUMMARY | 2023-09-09 20:06 | XMS_ITS | CCD ---
Author Name Unknown Address [address] [place] [address] Organization [facility] Care Team Providers Care Injection Molding Technician Name Role Phone UNKNOWN, PROVIDER Unavailable Unavailable GOLDY OLSON Unavailable Unavailable UNKNOWN, PROVIDER Unavailable Unavailable GOLDY OLSON Unavailable Unavailable Goldy Olson Primary Care Provider [phone] Eitan Major Attending Provider [phone] Goldy Olson Unavailable Unavailable Unavailable MD Goldy Olson Primary Care Provider [phone] MD Tash Lawrence Admit Provider MD Tash Lawrence Attending Provider [phone] GOLDY OLSON Admitting Unavailable SONIA, DR WINSLOW Attending Unavailable SONIA, DR WINSLOW Primary Care Unavailable SONIA, DR WINSLOW Consulting Unavailable AMAN, DR BRAD Joseph Admitting Unavailroderick MAJOR, DR BRAD Joseph Attending UnavailDR GOLDY Navarrete Primary Care Unavailable CAPRICE ARRIOLA Consulting Unavailable AMAN, DR BRAD Joseph Consulting UnavailDR GOLDY Navarrete Admitting Unavailable SONIA, DR WINSLOW Attending Unavailable DR GOLDY OLSON Primary Care Unavailable DR GOLDY OLSON Consulting Unavailable JUSTINE, DR JOHNSON Admitting Unavailable JUSTINE, DR JOHNSON Attending Unavailable DR GOLDY OLSON Primary Care Unavailable DR GOLDY OLSON Consulting Unavailable DR GOLDY OLSON Admitting Unavailable SONIA, DR WINSLOW Attending Unavailable SONIA, DR WINSLOW Primary Care Unavailable JUSTINE, DR JOHNSON Consulting Unavailable DR GOLDY OLSON Primary Care Unavailable EJ ALLEN Admitting Unavailable EJ ALLEN Attending Unavailable DR SOHAIL FOFANA V Consulting Unavailable YOVANI SERNA Consulting Unavailable MALIK BECK Consulting Unavailable EJ ALLEN Consulting Unavailable DR FAM OLSONLAS Admitting Unavailable SONIA, DR WINSLOW Attending Unavailable SONIA, DR WINSLOW Primary Care Unavailable SONIA, DR WINSLOW Admitting Unavailable SONIA, DR WINSLOW Attending Unavailable SONIA, DR WINSLOW Primary Care Unavailable SONIA, DR WINSLOW Consulting Unavailable NEFCY, PETER Consulting Unavailable Goldy Olson Primary Care Unavailable Young, Neil Consulting Unavailable Lawrence, Tash Attending Unavailable Lawrence, Tash Admitting Unavailable Tariq Dahl Attending Unavailable Sonia, Dr. Goldy Ruffin Primary Care Unavail able Sonia, Dr. Goldy Ruffin Referring Unavail able Aman, Dr. Brad Cordoba Referring Unava ilable Aman, Dr. Brad Cordoba Attending Unava ilable Sonia, Dr. Goldy Ruffin Primary Care Unavail able Aman, Dr. Brad Cordoba Attending Unava ilable Hoy, Dr. Goldy Ruffin Primary Care Unavail able Hoy, Dr. Goldy Ruffin Primary Care Unavail able Aman, Dr. Brad Cordoba Attending Unava ilable Sonia, Dr. Goldy Ruffin Primary Care Unavail able Aman, Dr. Brad Cordoba Attending Unava ilable Aman, Dr. Brad Cordoba Attending Unava ilable Aman, Dr. Brad Cordoba Referring Unava ilable Sonia, Dr. Goldy Ruffin Primary Care Unavail able Aman, Dr. Brad Cordoba Referring Unava ilable Aman, Dr. Brad Cordoba Attending Unava ilable Sriramy, Dr. Goldy Ruffin Primary Care Unavail able GOLDY OLSON Referring Unavailable GOLDY OLSON Primary Care Unavailable Unavailable Unavailable Unavailable Allergies Allergy Classification Reported Allergen(s) Allergy Type Date of Onset Reaction(s) Facility (12 sources) amLODIPine; Translations: [amlodipine] Drug Allergy 09-27-19 21 Shortness of breath [facility] (11 sources) Codeine; Translations: [Codeine Derivatives] Drug Allergy Nausea [facility] y 250 DO Work Phone: (11 sources) Felodipine; Translations: [Plendil] Drug Allergy Other [facility] y 250 DO Work Phone: (11 sources) Iodine; Translations: [iodine] Drug Allergy Hives [facility] y 250 DO Work Phone: (11 sources) levoFLOXacin; Translations: [Levaquin] Drug [facility] Work [facility]: (11 sources) Loratadine; Translations: [Claritin] Drug [facility] Work Phone: (11 sources) methylPREDNISolone; Translations: [Depo-Medrol] Drug Allergy Other [facility] y 250 DO Work Phone: (12 sources) Penicillins; Translations: [Penicillins] Allergy to drug (finding) 09-27-19 Other, Unknown Reaction [facility] (11 sources) traMADol; Translations: [Ultram] Drug Allergy Other [facility] y 250 DO Work Phone: (11 sources) Shellfish-derived Products; Translations: [Shellfish-derived Products] Allergy to drug (finding) [facility] y 250 DO Work Phone: (3 sources) Codeine; Translations: [Codeine] Drug Allergy 04-14-20 15 Nausea [facility] (2 sources) Felodipine; Translations: [felodipine] Drug Allergy 09-27-19 Unknown Reaction [facility] (2 sources) levoFLOXacin; Translations: [levofloxacin] Drug Allergy 09-27-19 [facility] (2 sources) Loratadine; Translations: [loratadine] Drug Allergy 09-27-19 [facility] (2 sources) methylPREDNISolone; Translations: [methylprednisolone] Drug Allergy 09-27-19 Unknown Reaction [facility] (2 sources) Pseudoephedrine; Translations: [pseudoephedrine] Drug Allergy 09-27-19 [facility] (2 sources) Shellfish; Translations: [shellfish derived] Allergy to substance 09-27-19 [facility] (2 sources) traMADol; Translations: [tramadol] Drug Allergy 09-27-19 Unknown Reaction [facility] (2 sources) Iodinated Contrast Media; Translations: [Iodinated Contrast Media] Allergy to substance 09-27-19 [facility] (1 source) Acyclovir Drug Allergy [facility] (2 sources) alpha-ketoglutaric acid Drug Allergy [facility] (2 sources) Aztreonam Drug Allergy [facility] (2 sources) Cephalosporins (Antibiotic) Drug allergy (disorder) [facility] (1 source) Corticosteroids Drug allergy (disorder) [facility] (1 source) Felodipine Drug Allergy [facility] (1 source) Iodine Drug Allergy 04-14-20 15 [facility] (1 source) levoFLOXacin Drug Allergy 04-14-20 15 [facility] (1 source) Loratadine / Pseudoephedrine Drug Allergy 04-14-20 15 [facility] (1 source) methylPREDNISolone Drug Allergy [facility] (2 sources) Morphine Drug Allergy [facility] (1 source) Morphine Drug Allergy [facility] (1 source) Penicillins Drug allergy (disorder) 04-14-20 15 [facility] (1 source) traMADol Drug Allergy 04-14-20 15 [facility] (1 source) Carbapenem Drug allergy (disorder) [facility] (1 source) amLODIPine Drug Allergy 09-27-19 [facility] (1 source) Penicillins Drug allergy (disorder) 09-27-19 [facility] Medications Current Medications Medication Drug Class(es) Dates Sig (Normalized) Sig (Original) amiodarone hydrochloride 200 mg oral tablet (15 sources) Antiarrhythmic Start: 12-04-2021 take 200 mg by mouth once daily Amiodarone Active 200 MG PO Daily 30 December 04, 2021 1:53pm Start: 09-24-2020 End: 12-05-2021 take 0.5 tablet by mouth once daily Amiodarone Discontinued 100 MG PO Every morning September 24, 2020 10:21am December 05, 2021 4:01pm take 1/2 tab tue-tuesday Start: 01-12-2019 End: 09-24-2020 take 200 mg by mouth twice daily Amiodarone Discontinued 200 MG PO Twice daily 60 30 January 12, 2019 4:15pm September 24, 2020 10:21am Amiodarone HCl - 100 MG Oral Tablet TAKE ONE TABLET BY MOUTH TUESDAY - TUESDAY Quantity: 30 Refills: 0 Ordered: 05-May-2022 Sixto Dahl GUNNAR Tariq Active Amiodarone HCl - 200 MG Oral Tablet TAKE 1/2 TABLET BY MOUTH TUESDAY THRU TUESDAY Quantity: 90 Refills: 1 Ordered: 13-May-2021 DO Active aspirin 81 mg delayed release oral tablet (13 sources) Platelet Aggregation Inhibitor, Nonsteroidal Anti-inflammatory Drug Start: 01-09-2019 take 81 mg by mouth once daily in the morning Aspirin Active 81 MG PO Every morning January 09, 2019 8:31am cefdinir 300 mg oral capsule (1 source) Cephalosporin Antibacterial Start: 12-05-2021 take 300 mg by mouth once daily Cefdinir Active 300 MG PO Daily 05 03December 05, 2021 3:57pm cholecalciferol 0.05 mg oral tablet (3 sources) Vitamin D Start: 01-09-2019 take 1 tablet by mouth once daily Cholecalciferol (Vitamin D3) (Vitamin D3) 2,000 unit Tablet Active 2000 UNIT PO Daily January 09, 2019 8:31am take 1 capsule by mouth once gracia ly Vitamin D3 50 MCG (2000 UT) Oral Capsule TAKE 1 CAPSULE Daily Quantity: 0 Refills: 0 Ordered: 19-Nov-2021 DO Active citalopram 20 mg oral tablet (13 sources) Serotonin Reuptake Inhibitor Start: 01-09-2019 take 1 tablet by mouth once daily Citalopram (Celexa) 20 mg Tablet Active 20 MG PO Daily January 09, 2019 8:31am clopidogrel 75 mg oral tablet (15 sources) [id number] Platelet Inhibitor Start: 01-12-2019 End: 09-24-2020 take 75 mg by mouth once daily in the morning Clopidogrel Active 75 MG PO Every morning September 24, 2020 10:21am ferrous sulfate 325 mg oral tablet (13 sources) Start: 01-09-2019 take 325 mg by mouth twice daily Ferrous Sulfate Active 325 MG PO Twice daily January 09, 2019 8:31am take 1 tablet by mouth twice gracia ly Ferrous Sulfate 325 (65 Fe) MG Oral Tablet Delayed Release TAKE 1 TABLET TWICE DAILY. Quantity: 0 Refills: 0 Ordered: 13-May-2021 DO Active furosemide 40 mg oral tablet (13 sources) Loop Diuretic Start: 09-24-2020 take 40 mg by mouth once daily Furosemide Active 40 MG PO Daily September 24, 2020 10:02am Start: 09-24-2020 take 40 mg by mouth every other day Furosemide Active 40 MG PO Q2D September 24, 2020 9:02am take 1 tablet by felipa th once daily Furosemide 20 MG Oral Tablet TAKE 1 TABLET DAILY. Quantity: 90 Refills: 3 Ordered: 07-Jan-2022 DO Active metFORMIN hydrochloride 500 mg oral tablet (10 sources) Biguanide Start: 01-09-2019 take 500 mg by mouth once daily in the morning Metformin Active 500 MG PO Every morning January 09, 2019 8:31am nitroglycerin 0.4 mg sublingual tablet (13 sources) Nitrate Vasodilator Start: 09-24-2020 take 0.4 mg under the tongue once daily Nitroglycerin Active 0.4 MG SUBLINGUAL Daily September 24, 2020 10:02am Nitroglycerin 0. 4 MG Sublingual Tablet Sublingual PL[address] 1 TABLET UNDER THE TONGUE EVERY 5 MINUTES FOR UP TO 3 DOSES NEEDED FOR CHEST PAIN.CALL 911 IF PAIN PERSISTS. Quantity: 0 Refills: 0 Ordered: 13-May-2021 DO Active omeprazole 40 mg delayed release oral capsule (13 sources) Proton Pump Inhibitor Start: 09-24-2020 take 40 mg by mouth once daily in the morning Omeprazole Active 40 MG PO Every morning September 24, 2020 10:02am potassium chloride 10 meq extended release oral tablet (12 sources) Start: 01-09-2019 take 10 mEq by mouth once daily in the morning Potassium Chloride Active 10 MEQ PO Every morning January 09, 2019 8:31am take 1 tablet by mouth once padmini y Potassium Chloride Lashell ER 10 MEQ Oral Tablet Extended Release TAKE 1 TABLET DAILY. Quantity: 0 Refills: 0 Ordered: 13-May-2021 DO Active pravastatin sodium 10 mg oral tablet (10 sources) HMG-CoA Reductase Inhibitor Start: 01-09-2019 take 10 mg by mouth once daily in the morning Pravastatin Active 10 MG PO Every morning January 09, 2019 8:31am sacubitril 97 mg / valsartan 103 mg oral tablet (15 sources) Angiotensin 2 Receptor Delfin Start: 09-24-2020 take 1 tablet by mouth twice daily Sacubitril-Valsart an (Entresto) 97-103 mg Tablet Active 1 TAB PO Twice daily September 24, 2020 10:02am Start: 01-09-2019 End: 09-24-2020 take 1 tablet by mouth twice daily Sacubitril-Valsartan (Entresto) 24-26 mg Tablet Discontinued 1 TAB PO Twice daily January 09, 2019 8:31am September 24, 2020 10:09am sucralfate 1000 mg oral tablet (10 sources) Aluminum Complex Start: 09-24-2020 take 1 g by mouth twice daily Sucralfate Active 1 GM PO Twice daily September 24, 2020 10:02am take 1 tablet by mouth once padmini y Carafate 1 GM Oral Tablet TAKE 1 TABLET EVERY 12 HOURS DAILY. Quantity: 0 Refills: 0 Ordered: 13-May-2021 DO Active Completed/Discontinued Medications Medication Drug Class(es) Dates Sig (Normalized) Sig (Original) acetaminophen 500 mg oral tablet (3 sources) take 1 tablet by mouth every four to six hours as needed Acetaminophen 500 MG Oral Tablet TAKE 1 TABLET EVERY 4 TO 6 HOURS NEEDED. Quantity: 0 Refills: 0 Ordered: 05-May-2022 DO Active [id number] 200 actuat albuterol 0.09 mg/actuat metered dose inhaler (3 sources) beta2-Adrenergic Agonist take 2 puff(s) by inhalation four times daily Albuterol Sulfate HFA 108 (90 Base) MCG/ACT Inhalation Aerosol Solution INHALE 2 PUFFS FOUR TIMES DAILY DIRECTED. Quantity: 0 Refills: 0 Ordered: 05-May-2022 DO Active aluminum hydroxide 80 mg/ml / magnesium hydroxide 80 mg/ml / simethicone 8 mg/ml oral suspension (3 sources) Maalox Max 400-400-40 MG/5ML Oral Suspension USE DIRECTED. Quantity: 0 Refills: 0 Ordered: 05-May-2022 DO Active apixaban 5 mg oral tablet (2 sources) Factor Xa Inhibitor Start: 01-12-2019 End: 09-24-2020 take 1 tablet by mouth twice daily Apixaban (Eliquis) 5 mg Tablet Discontinued 5 MG PO Twice daily 60 30 January 12, 2019 4:13pm September 24, 2020 10:17am atorvastatin 10 mg oral tablet (3 sources) HMG-CoA Reductase Inhibitor take 1 tablet by mouth at bedtime Atorvastatin Calcium 10 MG Oral Tablet TAKE 1 TABLET AT BEDTIME. Quantity: 90 Refills: 3 Ordered: 02-Nov-2022 Brad Major DO Active benzonatate 200 mg oral capsule (2 sources) Non-narcotic Antitussive take 1 capsule by mouth three times daily as needed Benzonatate 200 MG Oral Capsule TAKE 1 CAPSULE 3 TIMES DAILY NEEDED. Quantity: 0 Refills: 0 Ordered: 05-May-2022 DO Active carvedilol 3.125 mg oral tablet (13 sources) alpha-Adrenergic Delfin, beta-Adrenergic Delfin Start: 01-07-2022 take 1 tablet by mouth twice daily at mealtime Carvedilol 3.125 MG Oral Tablet TAKE 1 TABLET TWICE DAILY WITH MEALS. Quantity: 180 Refills: 3 Ordered: 02-Nov-2022 Brad Major DO Start : 07-Jan-2022 Active Start: 01-09-2019 End: 12-05-2021 take 3.125 mg by mouth twice daily Carvedilol Discontinued 3.125 MG PO Twice daily January 09, 2019 8:31am December 05, 2021 4:01pm dextromethorphan hydrobromide 2 mg/ml / guaiFENesin 20 mg/ml oral suspension (3 sources) Uncompetitive N-mzgyst-S-aspartate Receptor Antagonist, Sigma-1 Agonist take 5 mL by mouth every four to six hours as needed Dextromethorphan-guaiFENesin 10-100 MG/5ML Oral Syrup TAKE 5 ML EVERY 4 TO 6 HOURS NEEDED. Quantity: 0 Refills: 0 Ordered: 05-May-2022 DO Active diclofenac sodium 75 mg delayed release oral tablet (8 sources) Nonsteroidal Anti-inflammatory Drug Sta rt: 1 End : 2 take 75 mg by mouth twice daily Diclofenac Sodium Discontinued 75 MG PO Twice daily September 24, 2020 10:02am December 05, 2021 4:01pm diphenhydrAMINE hydrochloride 25 mg oral capsule (2 sources) Histamine-1 Receptor Antagonist Sta rt: 9 End : 9 take 1 capsule by mouth three times daily Diphenhydramine Hcl (Benadryl) 25 mg Capsule Discontinued 25 MG PO 3-4 TIMES DAILY January 09, 2019 8:31am January 11, 2019 3:45pm Take one tabled TID PO for two days with last dose 01/09/19 for left heart cath famotidine 40 mg oral tablet (2 sources) Histamine-2 Receptor Antagonist Sta rt: 9 End : 9 Famotidine Discontinued 40 M G PO Daily January 09, 2019 8:31am January 11, 2019 3:46pm Take one tabled TID PO for two days with last dose 01/09/19 for left heart cath fluticasone propionate 0.05 mg/actuat metered dose nasal spray (2 sources) Corticosteroid Flonase 50 MCG/A CT SUSP USE DIRECTED. Quantity: 0 Refills: 0 Ordered: 05-May-2022 DO Active hydrALAZINE hydrochloride 25 mg oral tablet (13 sources) Arteriolar Vasodilator Sta rt: 2 take 1 tablet by mouth twice daily hydrALAZINE HCl - 25 MG Oral Tablet TAKE 1 TABLET TWICE DAILY. Quantity: 180 Refills: 3 Ordered: 13-Jan-2022 Brad Major DO Start : 07-Jan-2022 Active Start: 09-24-2020 take 50 mg by mouth four times daily Hydralazine Active 50 MG PO Four times daily September 24, 2020 10:02am take 1 tablet by felipa th once daily hydrALAZINE HCl - 50 MG Oral Tablet TAKE 1 TABLET EVERY 6 HOURS DAILY. Quantity: 360 Refills: 3 Ordered: 13-May-2021 Brad Major DO Active hyoscyamine sulfate 0.125 mg oral tablet (2 sources) Hyoscyamine Sulf ate 0.125 MG Oral Tablet TAKE 1 TABLET NEEDED. Quantity: 0 Refills: 0 Ordered: 05-May-2022 DO Active 24 hr isosorbide mononitrate 30 mg extended release oral tablet (15 sources) Nitrate Vasodilator Start: 09-24-2020 End: 09-24-2020 Isosorbide Mononitrate Discontinued MG PO September 24, 2020 10:02am September 24, 2020 10:21am Start: 01-09-2019 take 60 mg by mouth once daily Isosorbide Mononitrate Active 60 MG PO Daily January 09, 2019 8:31am take 1 tablet by felipa th once daily Isosorbide Mononitrate ER 120 MG Oral Tablet Extended Release 24 Hour TAKE 1 TABLET DAILY. Quantity: 0 Refills: 0 Ordered: 07-Jan-2022 DO Active meloxicam 15 mg oral tablet (5 sources) Nonsteroidal Anti-inflammatory Drug Start: 01-09-2019 End: 09-24-2020 take 15 mg by mouth once daily Meloxicam Discontinued 15 MG PO Daily January 09, 2019 8:31am September 24, 2020 10:18am take 1 tablet by mouth twice garcia ly Meloxicam 7.5 MG Oral Tablet TAKE 1 TABLET TWICE DAILY. Quantity: 0 Refills: 0 Ordered: 05-May-2022 DO Active Omeprazole Magnesium (Prilosec Otc) 20 mg Tablet,Delayed Release (Dr/Ec) (2 sources) Start: 01-09-2019 End: 09-24-2020 take 2 capsules by mouth once daily Omeprazole Magnesium (Prilosec Otc) 20 mg Tablet,Delayed Release (Dr/Ec) Discontinued 2 CAP PO Daily January 09, 2019 8:31am September 24, 2020 10:15am Start: 01-09-2019 End: 09-24-2020 take 2 capsules by mouth once daily Omeprazole Magnesium (Prilosec Otc) 20 mg Tablet,Delayed Release (Dr/Ec) Discontinued 2 CAP PO Daily January 09, 2019 7:31am September 24, 2020 9:15am polyethylene glycol 3350 34149 mg powder for oral solution (3 sources) Osmotic Laxative MiraLax 17 GM/S COOP Oral Powder Quantity: 0 Refills: 0 Ordered: 05-May-2022 DO Active predniSONE 20 mg oral tablet (2 sources) Start: 01-10-20 End: 09-25-19 Prednisone Discontinued 20 MG PO Three times daily January 09, 2019 8:31am September 24, 2020 10:21am Take one tabled TID PO for two days with last dose 01/09/19 for left heart cath rivaroxaban 20 mg oral tablet (2 sources) Factor Xa Inhibitor Start: 01-10-20 End: 01-10-20 take 1 tablet by mouth once daily Rivaroxaban (Xarelto) 20 mg Tablet Discontinued 20 MG PO Daily January 09, 2019 8:31am January 09, 2019 5:01pm spironolactone 25 mg oral tablet (3 sources) Aldosterone Antagonist take 0.5 tablet by mouth once daily Spironolactone 25 MG Oral Tablet TAKE 0.5 TABLET Daily Quantity: 45 Refills: 3 Ordered: 05-May-2022 DO Active ticagrelor 90 mg oral tablet (2 sources) Start: 01-10-20 End: 01-14-20 take 1 tablet by mouth twice daily Ticagrelor (Brilinta) 90 mg tablet Discontinued 90 MG PO Twice daily 180 January 09, 2019 11:03am January 13, 2019 3:41pm Problems Active Problems Problem Classification Problem Date Documented Date Episodic/Chronic Cardiac dysrhythmias (20 sources) Paroxysmal atrial fibrillation; Translations: [Ventricular premature beats] Onset: 12-04-2021 01-11-2019 Chronic Cardiac dysrhythmias (11 sources) Sinus bradycardia; Translations: [Other specified cardiac dysrhythmias] Episodic Chronic kidney disease (3 sources) Chronic kidney disease, stage 2 (mild); Translations: [Chronic kidney disease, unspecified] Onset: 12-03-2021 Chronic Chronic obstructive pulmonary disease and bronchiectasis (5 sources) Bronchitis; Translations: [Bronchitis, not specified as acute or chronic] Episodic Coagulation and hemorrhagic disorders (1 source) Thrombocytopenia, unspecified; Translations: [THROMBOCYTOPENIA UNSPECIFIED] Onset: 12-23-2021 Chronic Conduction disorders (11 sources) Mobitz type I incomplete atrioventricular block; Translations: [Other second degree atrioventricular block] Chronic Congestive heart failure; nonhypertensive (17 sources) Congestive heart failure stage C; Translations: [Congestive heart failure, unspecified] Onset: 12-03-2021 12-02-2021 Chronic Coronary atherosclerosis and other heart disease (20 sources) Atherosclerotic heart disease of kenaitze coronary artery without angina pectoris; Translations: [Ischemic myocardial dysfunction] Onset: 08-23-2017 01-11-2019 Chronic Coronary atherosclerosis and other heart disease (14 sources) Post percutaneous transluminal coronary angioplasty; Translations: [Patient post percutaneous transluminal coronary angioplasty] Onset: 12-23-2021 01-11-2019 Episodic Diabetes mellitus with complications (1 source) Type 2 diabetes mellitus with diabetic chronic kidney disease; Translations: [TYPE 2 DM W/DIABETIC CKD] Onset: 12-23-2021 Chronic Diabetes mellitus without complication (15 sources) Diabetes mellitus; Translations: [Diabetes mellitus without mention of complication, type II or unspecified type, not stated as uncontrolled] Onset: 10-07-2021 Chronic Diabetes mellitus without complication (1 source) Diabetes mellitus without complication Onset: 09-05-2017 Disorders of lipid metabolism (15 sources) Hyperlipidemia; Translations: [Other and unspecified hyperlipidemia] Onset: 12-09-2021 Chronic Esophageal disorders (1 source) Gastro-esophageal reflux disease without esophagitis; Translations: [GERD WITHOUT ESOPHAGITIS] Onset: 10-07-2021 Chronic Essential hypertension (11 sources) Benign essential hypertension; Translations: [Benign essential hypertension] Chronic Essential hypertension (1 source) Essential hypertension Onset: 09-05-2017 Heart valve disorders (12 sources) Nonrheumatic aortic (valve) stenosis; Translations: [Aortic valve stenosis] Onset: 09-05-2017 Chronic Hypertension with complications and secondary hypertension (2 sources) Hypertensive heart disease with heart failure; Translations: [Hypertensive heart and chronic kidney disease with heart failure and stage 1 through stage 4 chronic kidney disease, or unspecified chronic kidney disease] Onset: 12-23-2021 Chronic Nutritional deficiencies (4 sources) Vitamin D deficiency, unspecified; Translations: [VITAMIN D DEFICIENCY UNSPECIFIED] Onset: 10-06-2021 Chronic Osteoarthritis (2 sources) Primary generalized (osteo)arthritis; Translations: [Primary generalized (osteo)arthritis] Onset: 05-02-2023 Chronic Other aftercare (11 sources) Drug therapy finding; Translations: [Long-term (current) use of other medications] Episodic Other aftercare (3 sources) Other truck terminal manager (current) drug therapy; Translations: [OTH JAIL CURRENT DRUG THERAPY] Onset: 12-23-2021 Episodic Other connective tissue disease (1 source) Presence of left artificial knee joint; Translations: [PRESENCE LEFT ARTIFICIAL KNEE JOINT] Onset: 12-23-2021 Chronic Other connective tissue disease (1 source) Presence of unspecified artificial knee joint; Translations: [PRESENCE UNS ARTIFICIAL KNEE JOINT] Onset: 12-03-2021 Chronic Other lower respiratory disease (11 sources) Dyspnea on exertion; Translations: [Other respiratory abnormalities] Episodic Other lower respiratory disease (9 sources) Lung mass; Translations: [Swelling, mass, or lump in chest] Episodic Other nutritional; endocrine; and metabolic disorders (2 sources) Hypomagnesemia; Translations: [Hypomagnesemia] Onset: 12-08-2021 12-02-2021 Chronic Other nutritional; endocrine; and metabolic disorders (6 sources) Hypomagnesemia; Translations: [Disorders of magnesium metabolism] Onset: 12-04-2021 Chronic Other nutritional; endocrine; and metabolic disorders (11 sources) Overweight in adulthood with body mass index of 25 or more but less than 30; Translations: [Overweight] Episodic Other nutritional; endocrine; and metabolic disorders (3 sources) Body mass index 25-29 - overweight; Translations: [Body Mass Index 28.0-28.9, adult] Episodic Pneumonia (except that caused by tuberculosis or sexually transmitted disease) (1 source) Pneumonia (except that caused by tuberculosis or sexually transmitted disease); Translations: [PNEUMONIA D/T CORONAVIRUS DIS 2019] Onset: 12-23-2021 Screening and history of mental health and substance abuse codes (12 sources) Ex-smoker; Translations: [Personal history of tobacco use] Onset: 12-23-2021 Episodic Comment on above: QUIT IN THE S; Unclassified (2 sources) Nonrheumatic aortic (valve) stenosis / I35.0(ICD-9) Onset: 09-05-2017 Unclassified (2 sources) Athscl heart disease of kenaitze coronary artery w/o ang pctrs / I25.10(ICD-9) Onset: 08-23-2017 Unclassified (1 source) Ischemic cardiomyopathy / I25.5(ICD-9) Onset: 09-05-2017 Unclassified (1 source) Family hx of ischem heart dis and oth dis of the circ sys / Z82.49(ICD-9) Onset: 09-05-2017 Unclassified (1 source) Ventricular premature depolarization / I49.3(ICD-9) Onset: 09-05-2017 Unclassified (1 source) Shortness of breath / R06.02(ICD-9) Onset: 09-05-2017 Unclassified (1 source) Pure hypercholesterolemia, unspecified / E78.00(ICD-9) Onset: 09-05-2017 Unclassified (1 source) CONTACT W/AND (SUSP) EXPOS COVID-19; Translations: [CONTACT W/AND (SUSP) EXPOS COVID-19] Onset: 12-03-2021 Unclassified (1 source) I25.5 - Ischemic cardiomyopathy; Translations: [I25.5 - Ischemic cardiomyopathy] Onset: 12-04-2021 Viral infection (1 source) COVID-19; Translations: [COVID-19] Onset: 12-23-2021 Past or Other Problems Problem Classification Problem Date Documented Date Episodic/Chronic Acute and unspecified renal failure (8 sources) Acute renal failure syndrome; Translations: [Acute kidney failure, unspecified] Onset: 12-04-2021 12-04-2021 Episodic Acute bronchitis (3 sources) Acute bronchitis; Translations: [Acute bronchitis, unspecified] Onset: 12-04-2021 12-03-2021 Episodic Bacterial infection; unspecified site (1 source) Pseudomonas (aeruginosa) (mallei) (pseudomallei) as the cause of diseases classified elsewhere; Translations: [PSEUDOMONAS CAUSE OF DZ CLASS ELSW] Onset: 12-23-2021 Episodic Calculus of urinary tract (1 source) Personal history of urinary calculi; Translations: [PERSONAL HISTORY OF URINARY CALCULI] Onset: 12-23-2021 Episodic Cancer of prostate (1 source) Personal history of malignant neoplasm of prostate; Translations: [PERSONAL HX MALIG NEOPLASM PROSTATE] Onset: 12-23-2021 Episodic Complications of surgical procedures or medical care (1 source) Other postprocedural complications and disorders of the circulatory system, not elsewhere classified; Translations: [OTH POSTPROC COMP D/O CIRC SYS NEC] Onset: 12-09-2021 Episodic Deficiency and other anemia (1 source) Anemia, unspecified; Translations: [ANEMIA UNSPECIFIED] Onset: 12-23-2021 Episodic Diabetes mellitus without complication (1 source) Other abnormal glucose; Translations: [OTHER ABNORMAL GLUCOSE] Onset: 12-09-2021 Episodic Heart valve disorders (1 source) Other abnormalities of heart beat; Translations: [OTHER ABNORMALITIES OF HEART BEAT] Onset: 12-03-2021 Episodic Malaise and fatigue (7 sources) Asthenia; Translations: [Weakness] Onset: 11-30-2021 12-02-2021 Episodic Other aftercare (1 source) terminal press operator (current) use of aspirin; Translations: [JAIL CURRENT USE OF ASPIRIN] Onset: 12-23-2021 Episodic Other aftercare (1 source) [facility] (current) use of antithrombotics/antip latelets; Translations: [JAIL ANTITHROMBOT/ANTIPLAT LETS] Onset: 12-23-2021 Episodic Other aftercare (1 source) 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; Translations: [JAIL USE ORAL HYPOGLYCEMIC DX] Onset: 12-23-2021 Episodic Other lower respiratory disease (1 source) Hypoxemia; Translations: [HYPOXEMIA] Onset: 12-23-2021 Episodic Other lower respiratory disease (1 source) Personal history of pneumonia (recurrent); Translations: [PERSONAL HX OF PNEUMONIA RECURRENT] Onset: 12-23-2021 Episodic Other screening for suspected conditions (not mental disorders or infectious disease) (1 source) Encounter for screening for malignant neoplasm of prostate; Translations: [ENC SCREEN MALIG NEOPLASM PROSTATE] Onset: 10-07-2021 Episodic Residual codes; unclassified (1 source) Acquired absence of other specified parts of digestive tract; Translations: [ACQ ABSENCE OTH PART DIGESTV TRACT] Onset: 12-23-2021 Episodic Urinary tract infections (1 source) Urinary tract infection, site not specified; Translations: [UTI SITE NOT SPECIFIED] Onset: 12-23-2021 Episodic Results Test Name Value Interpretation Reference Range Facility Amikacin Peakon 05-04-2023 Amikacin Peak 17.0 ug/mL Low 20.0-25.0 [facility] Comment on above: Performed By: #### A MIKP #### [facility] [address] [place] [address] Career Technical Education Teacher: Brad Elam MD [facility] [address] [place], [place] [id number] Career Technical Education Teacher: Sohail Browne MD Amikacin Troughon 05-03-2023 Amikacin Trough 6.5 ug/mL Normal 0.0-8.0 [facility] Comment on above: Performed By: #### A MIKNT #### [facility] [address] [place] [address] [employer] Technical Education Teacher: Brad Elam MD [facility] [address] [place], [place] [id number] Career Technical Education Teacher: Sohail Browne MD Amikacin [place] 05-02-2023 Date of last dose [id number] Normal [facility] Comment on above: Performed By: #### A MIKP #### [facility] [address] [place] [address] Career Technical Education Teacher: Brad Elam MD [facility] [address] [place] [address] Career Technical Education Teacher: Sohail Browne MD Dose amount Unknown [facility] Comment on above: Performed By: #### A MIKP #### [facility] [address] [place] [address] Career Technical Education Teacher: Brad Elam MD [facility] [address] [place] [address] Career Technical Education Teacher: Sohail Browne MD Time of last dose 1030 [facility] Comment on above: Performed By: #### A MIKP #### [facility] [address] [place] [address] Career Technical Education Teacher: Brad Elam MD [facility] [address] [place] [address] Career Technical Education Teacher: Sohail Browne [facility] Date of last dose [id number] [facility] Comment on above: Performed By: #### A MIKNT #### [facility] [address] [place] [address] Career Technical Education Teacher: Brad Elam MD [facility] [address] [place] [address] Career Technical Education Teacher: Sohail Browne MD Dose amount Unknown [facility] Comment on above: Performed By: #### A MIKNT #### [facility] [address] [place] [address] Career Technical Education Teacher: Brad Elam MD [facility] [address] [place] [address] Career Technical Education Teacher: Sohail Browne MD Time of last dose 0900 [facility] Comment on above: Performed By: #### A MIKNT #### [facility] [address] [place] [address] Career Technical Education Teacher: Brad Elam MD [facility] [address] [place] [address] Career Technical Education Teacher: Sohail Browne MD Office Visit (Cardiology)on 11-02-2022 Follow-up visit Diagnoses/Problems Assessed Mobitz type I Wenckebach atrioventricular block (426.13) (I44.1) Ischemic cardiomyopathy (414.8) (I25.5) Diabetes mellitus (250.00) (E11.9) CHF (NYHA class III, ACC/AHA stage C) (428.0) (I50.9) Atherosclerosis of kenaitze coronary artery of kenaitze heart without angina pectoris (414.01) (I25.10) AF (atrial fibrillation) (427.31) (I48.91) Overweight with body mass index (BMI) of 29 to 29.9 in adult (278.02,V85.25) (E66.3,Z68.29) Former smoker (V15.82) (Z87.891) QUIT IN THE 1950'S Orders AF (atrial fibrillation) IO EKG Electrocardiogram- 12 Lead; Status:Complete; Done: [id number] Atherosclerosis of kenaitze coronary artery of kenaitze heart without angina pectoris Renew: Aspirin EC 81 MG Oral Tablet Delayed Release; TAKE 1 TABLET DAILY Hypertension, essential, benign Renew: Atorvastatin Calcium 10 MG Oral Tablet; TAKE 1 TABLET AT BEDTIME Renew: Carvedilol 3.125 MG Oral Tablet; TAKE 1 TABLET TWICE DAILY WITH MEALS Overweight with body mass index (BMI) of 29 to 29.9 in adult Healthy Weight Tips; Status:Complete - Retrospective Authorization; Done: [id number] Some eating tips that can help you lose weight.; Status:Complete - Retrospective Authorization; Done: [id number] SocHx: Former smoker Tobacco Use Screening; Status:Complete; Done: [id number] Patient Instructions Please bring all medicines, vitamins, and herbal supplements with you when you come to the office. Prescriptions will not be filled unless you are compliant with your follow up appointments or have a follow up appointment scheduled as per instruction of your physician. Refills should be requested at the time of your visit. Follow up in 6 months Tariq Martinez NP Chief Complaint MERRITT MEHTA is being seen for a 6 month follow-up of. 87-year-old gentleman returns for follow-up, doing reasonably well with no intermittent episodes of angina, heart failure hospitalizations. He was last seen in the office by nurse practitioner in April again overall improved. I saw him last December following COVID illness. Patient has a history of ASHD, history of paroxysmal A-fib, currently not on anticoagulation due to history of severe GI bleeding. He has known history of severe ischemic cardiomyopathy with improved left ventricular function with prior PCI's of the first OM branch in the distal circumflex dating back to September 2020. He is supposedly on low-dose carvedilol 3.125 mg twice daily and amiodarone 100 mg daily but these medications are basically not being administered as his baseline heart rate is 60 or less. Today's ECG demonstrates Mobitz 2 type I AV block with a heart rate of 57 and a right bundle branch block. He is now living at the [facility], remains on appropriate guideline directed medical therapies as reviewed with no edema, shortness of breath repeat hospitalizations. His son tells me that twice with a nursing facility has not had/delivered his Entresto or carvedilol for unknown reasons. Reviewing his last MUGA scan status post revascularization, November 2020 revealed a normal ejection fraction of 50%. He ambulates with a rollator, CHF [place] [employer] classification is class II/C Recommendations, follow-up with nurse practitioner in 6 months, continue current therapies Surgical History Problems History of Cataract surgery History of Cholecystectomy History of Complete colonoscopy [employer] History of Kidney surgery History of Knee replacement History of Lower back surgery History of Percutaneous transluminal coronary angioplasty History of Radius fracture repair History of Surgery aortic valve assessment History of Vasectomy Current Meds Medication NameInstruction Acetaminophen 500 MG Oral TabletTAKE 1 TABLET EVERY 4 TO 6 HOURS NEEDED. Albuterol Sulfate HFA 108 (90 Base) MCG/ACT Inhalation Aerosol SolutionINHALE 2 PUFFS FOUR TIMES DAILY DIRECTED. Amiodarone HCl - 100 MG Oral TabletTAKE ONE TABLET BY MOUTH TUESDAY - TUESDAY Aspirin EC 81 MG Oral Tablet Delayed ReleaseTAKE 1 TABLET DAILY. Atorvastatin Calcium 10 MG Oral TabletTAKE 1 TABLET AT BEDTIME. Carvedilol 3.125 MG Oral TabletTAKE 1 TABLET TWICE DAILY WITH MEALS. CeleXA 20 MG Oral TabletTAKE 1 TABLET DAILY. Dextromethorphan-guaiFENes in 10-100 MG/5ML Oral SyrupTAKE 5 ML EVERY 4 TO 6 HOURS NEEDED. Entresto 97-103 MG Oral TabletTAKE 1 TABLET BY MOUTH TWICE A DAY Ferrous Sulfate 325 (65 Fe) MG Oral Tablet Delayed ReleaseTAKE 1 TABLET TWICE DAILY. Furosemide 20 MG Oral TabletTAKE 1 TABLET DAILY. hydrALAZINE HCl - 25 MG Oral TabletTAKE 1 TABLET TWICE DAILY. Isosorbide Mononitrate ER 120 MG Oral Tablet Extended Release 24 HourTAKE 1 TABLET DAILY. Maalox Max 400-400-40 MG/5ML Oral SuspensionUSE DIRECTED. Meloxicam 7.5 MG Oral TabletTAKE 1 TABLET TWICE DAILY. MiraLax 17 GM/SCOOP Oral Powder Nitroglycerin 0.4 MG Sublingual Tablet SublingualPL[address] 1 TABLET UNDER THE TONGUE EVERY 5 MINUTES FOR UP T (more content not included)... Normal Novacem Tobacco Screening.on 023 Adult depression screening assessment No [facility] [place] DO Work Phone: Fall risk assessment a) No falls within the last year [facility] [employer] DO Work Phone: Tobacco use status [facility] b) No [facility] [employer] DO Work Phone: Office Visit (Cardiology)on 05-05-2022 Follow-up visit Diagnoses/Problems Assessed PVC (premature ventricular contraction) (427.69) (I49.3) Atherosclerosis of kenaitze coronary artery of kenaitze heart without angina pectoris (414.01) (I25.10) Ischemic cardiomyopathy (414.8) (I25.5) AF (atrial fibrillation) (427.31) (I48.91) Hypertension, essential, benign (401.1) (I10) Hyperlipidemia (272.4) (E78.5) High risk medication use (V58.69) (Z79.899) Overweight with body mass index (BMI) of 28 to 28.9 in adult (278.02,V85.24) (E66.3,Z68.28) Orders AF (atrial fibrillation), High risk medication use IO EKG Electrocardiogram- 12 Lead; Status:Complete; Done: 05May2022 AF (atrial fibrillation), PVC (premature ventricular contraction) Changed: From Amiodarone HCl - 200 MG Oral Tablet TAKE 1 TABLET DAILY. HOLD IF HR IS LESS THAN 60 To Amiodarone HCl - 100 MG Oral Tablet TAKE ONE TABLET BY MOUTH TUESDAY - TUESDAY Overweight with body mass index (BMI) of 28 to 28.9 in adult Healthy Weight Tips; Status:Complete; Done: 05May2022 Patient Instructions Please bring all medicines, vitamins, and herbal supplements with you when you come to the office. Prescriptions will not be filled unless you are compliant with your follow up appointments or have a follow up appointment scheduled as per instruction of your physician. Refills should be requested at the time of your visit. PLAN: Through informed decision making process incorporating patients unique circumstances, the following treatment plan will be initiated: 1. Prescription drug management of cardiovascular medication for efficacy, adherence to treatment, side effect assessment and polypharmacy. Current treatment clinically warranted and to continue with following modifications: - Reduce amiodarone 100mg daily Tuesday - Tuesday 2. ECG in 6 weeks 3. Return for follow-up; in the interim, contact the office if new symptoms arise. Dr. Major as scheduled Chief Complaint Routine f/u: 'seem to be doing good' MERRITT MEHTA is being seen for atrial fibrillation, coronary artery disease, cardiomyopathy and PVC. Patient presents today ambulatory with wheeled walker, is accompanied by family member. Last evaluated in clinic Dr. Major December 2021. At that time, medications were reduced due to hypotension. Patient remains a resident at [facility]. He reports significant improvement in his overall functional capacity since last evaluation with Dr. Major. He is now able to use a wheeled walker rather than a wheelchair and remains ambulatory throughout the facility. He denies any dyspnea on exertion. He does sleep in a recliner for comfort. No dizziness or lightheadedness. EKG reviewed in detail with Dr. Major. Bigeminy questionable underlying significant first-degree AV block versus second-degree type I. Dr. Major recommended reducing amiodarone 100 mg p.o. daily with repeat EKG in 6 weeks. EKG reviewed with patient and family member. Discussed evaluation for PVCs may include Holter monitor, repeat echocardiogram, ischemic evaluation. At this time the patient reports I do not want to go through a bunch of stuff . His preference is to continue with conservative medical management. At this time, he is pleased with his overall quality of life and overall cardiovascular status. History of Present Illness The patient states he has been generally doing well since the last visit. Comorbid Illnesses: hypertension and hyperlipidemia. Symptoms: denies chest pain at rest, denies exertional chest pain, denies dyspnea, improved fatigue, improved exercise intolerance, denies palpitations, denies edema, denies dizziness and denies orthostatic dizziness. Associated symptoms: no syncope. His symptoms do not limit his activities. Disease Monitoring: The patient has had a stable weight. Medications: the patient is adherent with his medication regimen. He denies medication side effects. Surgical History Problems History of Cataract surgery History of Cholecystectomy History of Complete colonoscopy [employer] History of Kidney surgery History of Knee replacement History of Lower back surgery History of Percutaneous transluminal coronary angioplasty History of Radius fracture repair History of Surgery aortic valve assessment History of Vasectomy Current Meds Medication NameInstruction Acetaminophen 500 MG Oral TabletTAKE 1 TABLET EVERY 4 TO 6 HOURS NEEDED. Albuterol Sulfate HFA 108 (90 Base) MCG/ACT Inhalation Aerosol SolutionINHALE 2 PUFFS FOUR TIMES DAILY DIRECTED. Amiodarone HCl - 200 MG Oral TabletTAKE 1 TABLET DAILY. HOLD IF HR IS LESS THAN 60 Aspirin EC 81 MG Oral Tablet Delayed ReleaseTAKE 1 TABLET DAILY. Atorvastatin Calcium 10 MG Oral TabletTAKE 1 TABLET AT BEDTIME. Benzonatate 200 MG Oral CapsuleTAKE 1 CAPSULE 3 TIMES DAILY NEEDED. Carafate 1 GM Oral TabletTAKE 1 TABLET Twice daily PRN Carvedilol 3.125 MG Oral TabletTAKE 1 TABLET TWICE DAILY WITH MEALS. CeleXA 20 MG Oral TabletTAKE 1 TABLET (more content not included)... Normal Novacem Tobacco Screening.on Fall risk assessment a) No falls within the last year [facility] [address] DO Work Phone: Tobacco use status [facility] b) No [facility] [place] [address] DO Work Phone: Office Visit (Cardiology)on 01-07-2022 Follow-up visit Diagnoses/Problems Assessed Atherosclerosis of kenaitze coronary artery of kenaitze heart without angina pectoris (414.01) (I25.10) AF (atrial fibrillation) (427.31) (I48.91) CHF (NYHA class III, ACC/AHA stage C) (428.0) (I50.9) Hyperlipidemia (272.4) (E78.5) Ischemic cardiomyopathy (414.8) (I25.5) Mobitz type I Wenckebach atrioventricular block (426.13) (I44.1) S/P PTCA (percutaneous transluminal coronary angioplasty) (V45.82) (Z98.61) Diabetes mellitus (250.00) (E11.9) Hypertension, essential, benign (401.1) (I10) Former smoker (V15.82) (Z87.891) QUIT IN THE 1950'S Bronchitis (490) (J40) Orders AF (atrial fibrillation) IO EKG Electrocardiogram- 12 Lead; Status:Complete; Done: 07Jan2022 CHF (NYHA class III, ACC/AHA stage C), Hypertension, essential, benign Start: hydrALAZINE HCl - 25 MG Oral Tablet; TAKE 1 TABLET TWICE DAILY Hyperlipidemia Renew: Pravastatin Sodium 10 MG Oral Tablet; TAKE 1 TABLET AT BEDTIME Hypertension, essential, benign Start: Carvedilol 3.125 MG Oral Tablet; TAKE 1 TABLET TWICE DAILY WITH MEALS SocHx: Former smoker Tobacco Use Screening; Status:Complete; Done: 07Jan2022 Unlinked Stop: Carvedilol 6.25 MG Oral Tablet Stop: hydrALAZINE HCl - 50 MG Oral Tablet Patient Instructions By signing my name below, I, Marcella Lugo LPN. ,Scribe, attest that this documentation has been prepared under the direction and in the presence of Dr. Brad Major, . Please bring all medicines, vitamins, and herbal supplements with you when you come to the office. Prescriptions will not be filled unless you are compliant with your follow up appointments or have a follow up appointment scheduled as per instruction of your physician. Refills should be requested at the time of your visit. Nurse Practitioner Follow up in [4 ] Chief Complaint MERRITT MEHTA is being seen for D/C [facility] 12/04/21. 86-year-old gentleman who returns for follow-up following recent hospitalization for bronchitis, associated with PVCs, couplets, triplets and nonsustained VT up to 5-6 beats. Reinitiated on low-dose amiodarone. Thereafterwards he was discharged, readmitted to [facility] with recurrent bronchitis/pneumonia and diagnosed with COVID. He is now at the [facility], he is lost a significant amount of weight. Today's rhythm is regular, his ECG demonstrates first-degree AV block, right bundle branch block with resolution of PVCs and nonsustained VT. He has a known severe ischemic cardiomyopathy with improved left ventricular function, history of PCI's of the first OM branch and distal circumflex in September 2020, paroxysmal atrial fibrillation currently not on anticoagulation due to history of recurrent severe GI bleeding. History of accelerated hypertension however with weight loss and current medications relatively hypotensive right now. Recommendations: Continue current therapies, continue with amiodarone for the time being, decrease hydralazine to 25 mg twice daily and carvedilol to 3.125 mg twice daily, increase protein supplements to regain muscle mass, will follow-up in 4 months Surgical History Problems History of Cataract surgery History of Cholecystectomy History of Complete colonoscopy [employer] History of Kidney surgery History of Knee replacement History of Lower back surgery History of Percutaneous transluminal coronary angioplasty History of Radius fracture repair History of Surgery aortic valve assessment History of Vasectomy Current Meds Medication NameInstruction Amiodarone HCl - 200 MG Oral TabletTAKE 1 TABLET DAILY. HOLD IF HR IS LESS THAN 60 Aspirin EC 81 MG Oral Tablet Delayed ReleaseTAKE 1 TABLET DAILY. Carvedilol 6.25 MG Oral TabletTAKE 1 TABLET TWICE DAILY WITH MEALS. HOLD FOR SBP LESS THAN 100 OR HR LESS THAN 60. CeleXA 20 MG Oral TabletTAKE 1 TABLET DAILY. Entresto 97-103 MG Oral TabletTAKE 1 TABLET BY MOUTH TWICE A DAY Ferrous Sulfate 325 (65 Fe) MG Oral Tablet Delayed ReleaseTAKE 1 TABLET TWICE DAILY. Furosemide 20 MG Oral TabletTAKE 1 TABLET DAILY. hydrALAZINE HCl - 50 MG Oral TabletTAKE 1 TABLET 4 TIMES DAILY. HOLD FOR .SBP LESS THAN 100. Isosorbide Mononitrate ER 120 MG Oral Tablet Extended Release 24 HourTAKE 1 TABLET DAILY. metFORMIN HCl - 500 MG Oral TabletTAKE 1 TABLET DAILY WITH FOOD. Nitroglycerin 0.4 MG Sublingual Tablet SublingualPLACE 1 TABLET UNDER THE TONGUE EVERY 5 MINUTES FOR UP TO 3 DOSES NEEDED FOR CHEST PAIN.CALL 911 IF PAIN PERSISTS. Omeprazole 40 MG Oral Capsule Delayed ReleaseTAKE 1 CAPSULE DAILY. Plavix 75 MG Oral TabletTAKE 1 TABLET DAILY. Potassium Chloride Lashell ER 10 MEQ Oral Tablet Extended ReleaseTAKE 1 TABLET DAILY. Pravastatin Sodium 10 MG Oral TabletTAKE 1 TABLET AT BEDTIME. Allergies Medication amlodipine Allergy; Shortness of breath;; Recorded By: Smitha Sweet; 04/09/2021 2:06:08 PM iodine Adverse Reaction; Hives;; Recorded By: Smitha Sweet; 04/09/2021 2:06:08 PM Shellfish-derived Products Adver (more content not included)... Normal [employer] Tobacco Screening.on 022 Fall risk assessment a) No falls within the last year [facility] [address] DO Work Phone: Tobacco use status [facility]PH[facility] b) No -[facility] [address] DO Work Phone: BNPon 12-14-2021 Natriuretic peptide B (Bld) [Mass/Vol] 1603.0 pg/mL Normal <=1,800.0 [facility] Comment on above: Performed By: #### C MP, TSH, T7, LIPID, BNP #### [facility] [address] [place] [address] Dr. Gilles Ca CBC AUTO DIFFon 12-14-2021 BASO # 0.0 103/ul Normal 0.0-0.1 [facility] Comment on above: Performed By: #### C MP, TSH, T7, LIPID, BNP #### [facility] [address] [place] [address] Dr. Gilles Ca Basophils/100 WBC (Bld) 0.1 % Critically low 0.2-2.0 [facility] Comment on above: Performed By: #### C MP, TSH, T7, LIPID, BNP #### [facility] [address] [place] [address] Dr. Gilles Ca EO # 0.0 103/ul Normal 0.0-0.7 [facility] Comment on above: Performed By: #### C MP, TSH, T7, LIPID, BNP #### [facility] [address] [place] [address] Dr. Gilles Ca Eosinophils/100 WBC (Bld) 0.1 % Critically low 0.9-7.0 [facility] Comment on above: Performed By: #### C MP, TSH, T7, LIPID, BNP #### [facility] [address] [place] [address] Dr. Gilles Ca Erythrocyte distribution width (RBC) [Ratio] 14.6 % Normal 11.0-15.0 [facility] Comment on above: Performed By: #### C MP, TSH, T7, LIPID, BNP #### [facility] [address] [place] [address] Dr. Gilles Ca Hematocrit (Bld) [Volume fraction] 41.7 % Critically low 42.0-54.0 [facility] Comment on above: Performed By: #### C MP, TSH, T7, LIPID, BNP #### [facility] [address] [place] [address] Dr. Gilles Ca Hemoglobin (Bld) [Mass/Vol] 12.8 g/dL Critically low 14.0-18.0 [facility] Comment on above: Performed By: #### C MP, TSH, T7, LIPID, BNP #### [facility] [address] [place] [address] Dr. Gilles Ca IG # 0.06 10e3/ul Critically high 0.00-0.03 [facility] Comment on above: Performed By: #### C MP, TSH, T7, LIPID, BNP #### [facility] [address] [place] [address] Dr. Gilles Ca IG % 0.7 % Critically high 0.0-0.5 [facility] Comment on above: Performed By: #### C MP, TSH, T7, LIPID, BNP #### [facility] [address] [place] [address] Dr. Gilles Ca LYMPH # 1.1 103/ul Critically low 1.2-3.8 [facility] Comment on above: Performed By: #### C MP, TSH, T7, LIPID, BNP #### [facility] [address] [place] [address] Dr. Gilles Ca Lymphocytes/100 WBC (Bld) 11.5 % Critically low 20.5-60.0 [facility] Comment on above: Performed By: #### C MP, TSH, T7, LIPID, BNP #### [facility] [address] [place] [address] Dr. Gilles Ca MANUAL DIFF REQ NO Normal [facility] Comment on above: Performed By: #### C MP, TSH, T7, LIPID, BNP #### [facility] [address] [place] [address] Dr. Gilles Ca MCH (RBC) [Entitic mass] 27.6 pg Normal 25.9-34.0 [facility] Comment on above: Performed By: #### C MP, TSH, T7, LIPID, BNP #### [facility] [address] [place] [address] Dr. Gilles Ca MCHC (RBC) [Mass/Vol] 30.7 g/dL Normal 29.9-35.2 [facility] Comment on above: Performed By: #### C MP, TSH, T7, LIPID, BNP #### [facility] [address] [place] [address] Dr. Gilles Ca MCV (RBC) [Entitic vol] 90.1 fL Normal 80.0-94.0 [facility] Comment on above: Performed By: #### C MP, TSH, T7, LIPID, BNP #### [facility] [address] [place] [address] Dr. Gilles Ca MONO # 1.2 103/ul Critically high 0.3-0.8 [facility] Comment on above: Performed By: #### C MP, TSH, T7, LIPID, BNP #### [facility] [address] [place] [address] Dr. Gilles Ca Monocytes/100 WBC (Bld) 12.7 % Critically high 1.7-12.0 [facility] Comment on above: Performed By: #### C MP, TSH, T7, LIPID, BNP #### [facility] [address] [place] [address] Dr. Gilles Ca NEUT # 6.8 103/ul Critically high 1.4-6.5 [facility] Comment on above: Performed By: #### C MP, TSH, T7, LIPID, BNP #### [facility] [address] [place] [address] Dr. Gilles Ca Neutrophils/100 WBC (Bld) 74.9 % Normal 43.0-75.0 [facility] Comment on above: Performed By: #### C MP, TSH, T7, LIPID, BNP #### [facility] [address] [address] [address] Gilles Ca Platelet mean volume (Bld) [Entitic vol] 11.6 fL Normal 9.5-13.5 [facility] Comment on above: Performed By: #### C MP, TSH, T7, LIPID, BNP #### [facility] [address] [place] [address] Dr. Gilles Ca PLT 160 103/ul Normal 150-450 [facility] Comment on above: Performed By: #### C MP, TSH, T7, LIPID, BNP #### [facility] [address] [place] [address] Dr. Gilles Ca RBC 4.63 106/ul Critically low 4.70-6.10 [facility] Comment on above: Performed By: #### C MP, TSH, T7, LIPID, BNP #### [facility] [address] [place] [address] Dr. Gilles Ca WBC 9.1 103/ul Normal 4.0-11.0 [facility] Comment on above: Performed By: #### C MP, TSH, T7, LIPID, BNP #### [facility] [address] [place] [address] Dr. Gilles Ca PROF 14(COMP METB)on 022 Albumin [Mass/Vol] 2.4 g/dL Critically low 3.4-5.0 [facility] Comment on above: Performed By: #### C MP, TSH, T7, LIPID, BNP #### [facility] [address] [place] [address] Dr. Gilles Ca Albumin/Globulin [Mass ratio] 1.0 {ratio} Normal [facility] Comment on above: Performed By: #### C MP, TSH, T7, LIPID, BNP #### [facility] [address] [place] [address] Dr. Gilles Ca ALP [Catalytic activity/Vol] 49 U/L Normal 46-116 [facility] Comment on above: Performed By: #### C MP, TSH, T7, LIPID, BNP #### [facility] [address] [place] [address] Dr. Gilles Ca ALT [Catalytic activity/Vol] 29 U/L Normal 16-63 [facility] Comment on above: Performed By: #### C MP, TSH, T7, LIPID, BNP #### [facility] [address] [place] [address] Dr. Gilles Ca Anion gap [Moles/Vol] 8.8 mmol/L Normal [facility] Comment on above: Performed By: #### C MP, TSH, T7, LIPID, BNP #### [facility] [address] [place] [address] Dr. Gilles Ca AST [Catalytic activity/Vol] 22 U/L Normal 15-37 [facility] Comment on above: Performed By: #### C MP, TSH, T7, LIPID, BNP #### [facility] [address] [place] [address] Dr. Gilles Ca Bilirubin [Mass/Vol] 0.5 mg/dL Normal 0.2-1.0 [facility] Comment on above: Performed By: #### C MP, TSH, T7, LIPID, BNP #### [facility] [address] [place] [address] Dr. Gilles Ca Calcium [Mass/Vol] 7.9 mg/dL Critically low 8.5-10.1 [facility] Comment on above: Performed By: #### C MP, TSH, T7, LIPID, BNP #### [facility] [address] [place] [address] Dr. Gilles Ca Chloride [Moles/Vol] 99 mmol/L Normal 98-107 [facility] Comment on above: Performed By: #### C MP, TSH, T7, LIPID, BNP #### [facility] [address] [place] [address] Dr. Gilles Ca CO2 [Moles/Vol] 32.0 mmol/L Normal 21.0-32.0 [facility] Comment on above: Performed By: #### C MP, TSH, T7, LIPID, BNP #### [facility] [address] [place] [address] Dr. Gilles Ca Creatinine [Mass/Vol] 1.48 mg/dL Critically high 0.70-1.30 [facility] Comment on above: Performed By: #### C MP, TSH, T7, LIPID, BNP #### [facility] [address] [place] [address] Dr. Gilles Ca EGFR-AF MOLDOVAN 55 mL/min/1.73m2 Critically low >=60 [facility] Comment on above: Performed By: #### C MP, TSH, T7, LIPID, BNP #### [facility] [address] [place] [address] Dr. Gilles Ca EGFR-NON AF MOLDOVAN 45 mL/min/1.73m2 Critically low >=60 [facility] Comment on above: Performed By: #### C MP, TSH, T7, LIPID, BNP #### [facility] [address] [place] [address] Dr. Gilles Ca Globulin (S) [Mass/Vol] 2.5 g/dL Normal [facility] Comment on above: Performed By: #### C MP, TSH, T7, LIPID, BNP #### [facility] [address] [place] [address] Dr. Gilles Ca Glucose [Mass/Vol] 83 mg/dL Normal 74-106 [facility] Comment on above: Performed By: #### C MP, TSH, T7, LIPID, BNP #### [facility] [address] [place] [address] Dr. Gilles Ca Potassium [Moles/Vol] 3.8 mmol/L Normal 3.5-5.1 [facility] Comment on above: Performed By: #### C MP, TSH, T7, LIPID, BNP #### [facility] [address] [place] [address] Dr. Gilles Ca Protein [Mass/Vol] 4.9 g/dL Critically low 6.4-8.2 [facility] Comment on above: Performed By: #### C MP, TSH, T7, LIPID, BNP #### [facility] [address] [address] [address] Gilles Ca Sodium [Moles/Vol] 136 mmol/L Normal 136-145 [facility] Comment on above: Performed By: #### C MP, TSH, T7, LIPID, BNP #### [facility] [address] [address] [address] Gilles Ca Urea nitrogen [Mass/Vol] 46.0 mg/dL Critically high 7.0-18.0 [facility] Comment on above: Performed By: #### C MP, TSH, T7, LIPID, BNP #### [facility] [address] [address] [address] Gilles Ca Urea nitrogen/Creatinine [Mass ratio] 31.1 mg/mg Normal [facility] Comment on above: Performed By: #### C MP, TSH, T7, LIPID, BNP #### [facility] [address] [address] [address] Gilles Ca TROPONIN, HIGH SENSITIVITYon 12-14-2021 HSTROP 46.3 pg/mL Normal 4.0-76.1 [facility] Comment on above: Result Comment: CUT- OFF POINTS HAVE BEEN ESTABLISHED BASED ON THE FOURTH UNIVERSAL DEFINITIONS OF MYOCARDIAL INFARCTION. THE UPPER REFERENCE LIMIT (URL) OF TROPONIN, DEFINED THE 99TH PERCENTILE OF cTnI DISTRIBUTION IN A REFERENCE POPULATION, HAS BEEN CONFIRMED THE DECISION THRESHOLD FOR [place] DIAGNOSIS. Performed By: #### C MP, TSH, T7, LIPID, BNP #### [facility] [address] [address] [address] Gilles Ca BNPon 12-13-2021 Natriuretic peptide B (Bld) [Mass/Vol] 2250.0 pg/mL Critically high <=1,800.0 [facility] Comment on above: Result Comment: Test Repeated. Critical Value Verified Performed By: #### H STROPN, BNP, CMP ####[facility] [address] [address]Dr. Gilles Ca CBC AUTO DIFFon 12-13-2021 BASO # 0.0 103/ul Normal 0.0-0.1 [facility] Comment on above: Performed By: #### C BC ####[facility] [address] [id number]. Gilles Ca Basophils/100 WBC (Bld) 0.0 % Critically low 0.2-2.0 [facility] Comment on above: Performed By: #### C BC ####[facility] [address] [id number]. Gilles Ca EO # 0.0 103/ul Normal 0.0-0.7 [facility] Comment on above: Performed By: #### C BC ####[facility] [address] [place], [place] [address]Dr. Gilles Ca Eosinophils/100 WBC (Bld) 0.0 % Critically low 0.9-7.0 [facility] Comment on above: Performed By: #### C BC ####[facility] [address] [place], [place] [address]Dr. Gilles Ca Erythrocyte distribution width (RBC) [Ratio] 14.5 % Normal 11.0-15.0 [facility] Comment on above: Performed By: #### C BC ####[facility] [address] [place], [place] [address]Dr. Gilles Ca Hematocrit (Bld) [Volume fraction] 41.2 % Critically low 42.0-54.0 [facility] Comment on above: Performed By: #### C BC ####[facility] [address] [place], [place] [address]Dr. Gilles Ca Hemoglobin (Bld) [Mass/Vol] 12.2 g/dL Critically low 14.0-18.0 [facility] Comment on above: Performed By: #### C BC ####[facility] [address] [place], [place] [address]Dr. Gilles Ca IG # 0.09 10e3/ul Critically high 0.00-0.03 [facility] Comment on above: Performed By: #### C BC ####[facility] [address] [place], [place] [address]Dr. Gilles Ca IG % 1.0 % Critically high 0.0-0.5 [facility] Comment on above: Performed By: #### C BC ####[facility] [address] [id number]. Gilles Ca LYMPH # 0.8 103/ul Critically low 1.2-3.8 [facility] Comment on above: Performed By: #### C BC ####[facility] [address] [id number]. Gilles Ca Lymphocytes/100 WBC (Bld) 8.4 % Critically low 20.5-60.0 [facility] Comment on above: Performed By: #### C BC ####[facility] [address] [id number]. Gilles Ca MANUAL DIFF REQ NO Normal [facility] Comment on above: Performed By: #### C BC ####[facility] [address] [address]Dr. Gilles Ca MCH (RBC) [Entitic mass] 27.4 pg Normal 25.9-34.0 [facility] Comment on above: Performed By: #### C BC ####[facility] [address] [id number]. Gilles Ca MCHC (RBC) [Mass/Vol] 29.6 g/dL Critically low 29.9-35.2 [facility] Comment on above: Performed By: #### C BC ####[facility] [address] [id number]. Gilles Ca MCV (RBC) [Entitic vol] 92.4 fL Normal 80.0-94.0 [facility] Comment on above: Performed By: #### C BC ####[facility] [address] [id number]. Gilles Ca MONO # 0.8 103/ul Normal 0.3-0.8 [facility] Comment on above: Performed By: #### C BC ####[facility] [address] [id number]. Gilles Ca Monocytes/100 WBC (Bld) 8.9 % Normal 1.7-12.0 [facility] Comment on above: Performed By: #### C BC ####[facility] [address] [id number]. Piajonathan Ca NEUT # 7.7 103/ul Critically high 1.4-6.5 [facility] Comment on above: Performed By: #### C BC ####[facility] [address] [id number] Ca Neutrophils/100 WBC (Bld) 81.7 % Critically high 43.0-75.0 [facility] Comment on above: Performed By: #### C BC ####[facility] [address] [address]DrAndrea Ca Platelet mean volume (Bld) [Entitic vol] 11.9 fL Normal 9.5-13.5 [facility] Comment on above: Performed By: #### C BC ####[facility] [address] [address]Dr. Gilles Ca PLT 167 103/ul Normal 150-450 [facility] Comment on above: Performed By: #### C BC ####[facility] [address] [address]DrAndrea Ca RBC 4.46 106/ul Critically low 4.70-6.10 [facility] Comment on above: Performed By: #### C BC ####[facility] [address] [id number] Ca WBC 9.4 103/ul Normal 4.0-11.0 [facility] Comment on above: Performed By: #### C BC ####[facility] [address] [id number] Ca PROF 14(COMP METB)on 022 Albumin [Mass/Vol] 2.5 g/dL Critically low 3.4-5.0 [facility] Comment on above: Performed By: #### H STROPN, BNP, CMP ####[facility] [address] [address]DrAndrea Ca Albumin/Globulin [Mass ratio] 0.9 {ratio} Normal [facility] Comment on above: Performed By: #### H STROPN, BNP, CMP ####[facility] [address] [address]Dr. Gilles Ca ALP [Catalytic activity/Vol] 47 U/L Normal 46-116 [facility] Comment on above: Performed By: #### H STROPN, BNP, CMP ####[facility] [address] [address]Dr. Gilles Ca ALT [Catalytic activity/Vol] 35 U/L Normal 16-63 [facility] Comment on above: Performed By: #### H STROPN, BNP, CMP ####[facility] [address] [place], [place] [address]Dr. Gilles Ca Anion gap [Moles/Vol] 6.1 mmol/L Normal [facility] Comment on above: Performed By: #### H STROPN, BNP, CMP ####[facility] [address] [place], [place] [address]Dr. Gilles Ca AST [Catalytic activity/Vol] 29 U/L Normal 15-37 [facility] Comment on above: Performed By: #### H STROPN, BNP, CMP ####[facility] [address] [place], [place] [address]Dr. Gilles Ca Bilirubin [Mass/Vol] 0.3 mg/dL Normal 0.2-1.0 [facility] Comment on above: Performed By: #### H STROPN, BNP, CMP ####[facility] [address] [address]Dr. Gilles Ca Calcium [Mass/Vol] 7.7 mg/dL Critically low 8.5-10.1 [facility] Comment on above: Performed By: #### H STROPN, BNP, CMP ####[facility] [address] [address]Dr. Piajonathan Ca Chloride [Moles/Vol] 96 mmol/L Critically low 98-107 [facility] Comment on above: Performed By: #### H STROPN, BNP, CMP ####[facility] [address] [address]Dr. Gilles Ca CO2 [Moles/Vol] 38.6 mmol/L Critically high 21.0-32.0 [facility] Comment on above: Performed By: #### H STROPN, BNP, CMP ####[facility] [address] [address]Dr. Gilles Ca Creatinine [Mass/Vol] 1.72 mg/dL Critically high 0.70-1.30 [facility] Comment on above: Performed By: #### H STROPN, BNP, CMP ####[facility] [address] [place], [place] [address]Dr. Gilles Ca EGFR-AF MOLDOVAN 46 mL/min/1.73m2 Critically low >=60 [facility] Comment on above: Performed By: #### H STROPN, BNP, CMP ####[facility] [address] [place], [place] [address]Dr. Piajonathan Roby EGFR-NON AF MOLDOVAN 38 mL/min/1.73m2 Critically low >=60 [facility] Comment on above: Performed By: #### H STROPN, BNP, CMP ####[facility] [address] [place], [place] [address]Dr. Gilles Roby Globulin (S) [Mass/Vol] 2.7 g/dL Normal [facility] Comment on above: Performed By: #### H STROPN, BNP, CMP ####[facility] [address] [place], [place] [address]Dr. Gilles Ca Glucose [Mass/Vol] 126 mg/dL Critically high 74-106 [facility] Comment on above: Performed By: #### H STROPN, BNP, CMP ####[facility] [address] [place], [place] [address]Dr. Gilles Ca Potassium [Moles/Vol] 3.7 mmol/L Normal 3.5-5.1 [facility] Comment on above: Performed By: #### H STROPN, BNP, CMP ####[facility] [address] [place], [place] [address]Dr. Gilles Ca Protein [Mass/Vol] 5.2 g/dL Critically low 6.4-8.2 [facility] Comment on above: Performed By: #### H STROPN, BNP, CMP ####[facility] [address] [address]Dr. Gilles Ca Sodium [Moles/Vol] 137 mmol/L Normal 136-[address] [facility] Comment on above: Performed By: #### H STROPN, BNP, CMP ####[facility] [address] [address]Dr. Gilles Ca Urea nitrogen [Mass/Vol] 56.0 mg/dL Critically high 7.0-18.0 [facility] Comment on above: Performed By: #### H STROPN, BNP, CMP ####[facility] [address] [address]Dr. Gilles Ca Urea nitrogen/Creatinine [Mass ratio] 32.6 mg/mg Normal [facility] Comment on above: Performed By: #### H STROPN, BNP, CMP ####[facility] [address] [address]Dr. Gilles Ca SPUTUM CULTUREon 12-13-2021 Epithelial cells LM Ql (Urine sed) None seen Normal [facility] Comment on above: Performed By: #### C MP, TSH, T7, LIPID, BNP #### [facility] [address] [address] [address] Gilles Ca Gram Stain Evaluation Comment Normal [facility] Comment on above: Result Comment: This specimen is of good quality and is acceptable for routine bacterial culture. Performed By: #### C MP, TSH, T7, LIPID, BNP #### [facility] [address] [address] [address] Gilles Ca Lower Respiratory Culture Final report Abnormal [facility] Comment on above: Performed By: #### C MP, TSH, T7, LIPID, BNP #### [facility] [address] [address] [address] Gilles Ca Result 1 Comment Abnormal [facility] Comment on above: Result Comment: Few gram positive cocci Performed By: #### C MP, TSH, T7, LIPID, BNP #### [facility] [address] [address] [address] Gilles Ca Result Comment: Lake xella (branhamella) catarrhalis Heavy growth Beta lactamase positive. Result 2 Comment Normal [facility] Comment on above: Result Comment: Few gram negative rods. Performed By: #### C MP, TSH, T7, LIPID, BNP #### [facility] [address] [address] [address] Gilles Ca Result Comment: Rout ine respiratory ventura Heavy growth Result 3 Normal [facility] Comment on above: Performed By: #### C MP, TSH, T7, LIPID, BNP #### [facility] [address] [address] [address] Gilles Ca Result 4 Normal [facility] Comment on above: Performed By: #### C MP, TSH, T7, LIPID, BNP #### [facility] [address] [address] [address] Gilles Ca White Blood Cells Few Normal [facility] Comment on above: Performed By: #### C MP, TSH, T7, LIPID, BNP #### [facility] [address] [address] [address] Gilles Ca TROPONIN, HIGH SENSITIVITYon 12-13-2021 HSTROP 47.2 pg/mL Normal 4.0-76.1 [facility] Comment on above: Result Comment: CUT- OFF POINTS HAVE BEEN ESTABLISHED BASED ON THE FOURTH UNIVERSAL DEFINITIONS OF MYOCARDIAL INFARCTION. THE UPPER REFERENCE LIMIT (URL) OF TROPONIN, DEFINED THE 99TH PERCENTILE OF cTnI DISTRIBUTION IN A REFERENCE POPULATION, HAS BEEN CONFIRMED THE DECISION THRESHOLD FOR [place] DIAGNOSIS. Performed By: #### H STROPN, BNP, CMP ####[facility] [address] [address]Dr. Gilles Ca BNPon 12-12-2021 Natriuretic peptide B (Bld) [Mass/Vol] 3269.0 pg/mL Critically high <=1,800.0 [facility] Comment on above: Result Comment: repe ated Performed By: #### A 1C #### [facility] [address] [address] [address] Gilles Ca CBC AUTO DIFFon 12-12-2021 BASO # 0.0 103/ul Normal 0.0-0.1 [facility] Comment on above: Performed By: #### C VDTBH #### [facility] [address] [place] [address] Dr. Gilles Ca Basophils/100 WBC (Bld) 0.0 % Critically low 0.2-2.0 [facility] Comment on above: Performed By: #### C VDTBH #### [facility] [address] [place] [address] Dr. Gilles Ca EO # 0.0 103/ul Normal 0.0-0.7 [facility] Comment on above: Performed By: #### C VDTBH #### [facility] [address] [place] [address] Dr. Gilles Ca Eosinophils/100 WBC (Bld) 0.0 % Critically low 0.9-7.0 [facility] Comment on above: Performed By: #### C VDTBH #### [facility] [address] [place] [address] Dr. Gilles Ca Erythrocyte distribution width (RBC) [Ratio] 14.3 % Normal 11.0-15.0 [facility] Comment on above: Performed By: #### C VDTBH #### [facility] [address] [place] [address] Dr. Gilles Ca Hematocrit (Bld) [Volume fraction] 38.3 % Critically low 42.0-54.0 [facility] Comment on above: Performed By: #### C VDTBH #### [facility] [address] [place] [address] Dr. Gilles Ca Hemoglobin (Bld) [Mass/Vol] 11.9 g/dL Critically low 14.0-18.0 [facility] Comment on above: Performed By: #### C VDTBH #### [facility] [address] [place] [address] Dr. Gilles Ca IG # 0.03 10e3/ul Normal 0.00-0.03 [facility] Comment on above: Performed By: #### C VDTBH #### [facility] [address] [place] [address] Dr. Gilles Ca IG % 0.5 % Normal 0.0-0.5 [facility] Comment on above: Performed By: #### C VDTBH #### [facility] [address] [place] [address] Dr. Gilles Ca LYMPH # 0.5 103/ul Critically low 1.2-3.8 [facility] Comment on above: Performed By: #### C VDTBH #### [facility] [address] [place] [address] Dr. Gilles Ca Lymphocytes/100 WBC (Bld) 7.9 % Critically low 20.5-60.0 [facility] Comment on above: Result Comment: dif. not rqd. same as 12/10/21 Performed By: #### C VDTBH #### [facility] [address] [place] [address] Dr. Gilles Ca MANUAL DIFF REQ NO Normal [facility] Comment on above: Performed By: #### C VDTBH #### [facility] [address] [place] [address] Dr. Gilles Ca MCH (RBC) [Entitic mass] 28.1 pg Normal 25.9-34.0 [facility] Comment on above: Performed By: #### C VDTBH #### [facility] [address] [place] [address] Dr. Gilles Ca MCHC (RBC) [Mass/Vol] 31.1 g/dL Normal 29.9-35.2 [facility] Comment on above: Performed By: #### C VDTBH #### [facility] [address] [place] [address] Dr. Gilles Ca MCV (RBC) [Entitic vol] 90.3 fL Normal 80.0-94.0 [facility] Comment on above: Performed By: #### C VDTBH #### [facility] [address] [place] [address] Dr. Gilles Ca MONO # 0.3 103/ul Normal 0.3-0.8 [facility] Comment on above: Performed By: #### C VDTBH #### [facility] [address] [place] [address] Dr. Gilles Ca Monocytes/100 WBC (Bld) 5.0 % Normal 1.7-12.0 [facility] Comment on above: Performed By: #### C VDTBH #### [facility] [address] [place] [address] Dr. Gilles Ca NEUT # 5.2 103/ul Normal 1.4-6.5 [facility] Comment on above: Performed By: #### C VDTBH #### [facility] [address] [place] [address] Dr. Gilles Ca Neutrophils/100 WBC (Bld) 86.6 % Critically high 43.0-75.0 [facility] Comment on above: Performed By: #### C VDTBH #### [facility] [address] [place] [address] Dr. Gilles Ca Platelet mean volume (Bld) [Entitic vol] 11.6 fL Normal 9.5-13.5 [facility] Comment on above: Performed By: #### C VDTBH #### [facility] [address] [place] [address] Dr. Gilles Ca PLT 149 103/ul Critically low 150-450 [facility] Comment on above: Performed By: #### C VDTBH #### [facility] [address] [place] [address] Dr. Gilles Ca RBC 4.24 106/ul Critically low 4.70-6.10 [facility] Comment on above: Performed By: #### C VDTBH #### [facility] [address] [place] [address] Dr. Gilles Ca WBC 6.0 103/ul Normal 4.0-11.0 [facility] Comment on above: Performed By: #### C VDTBH #### [facility] [address] [place] [address] Dr. Gilles Ca CULTURE URINEon 12-12-2021 CULTURE URINE Isolate 1 Pseudomonas aeruginosa >100,000 cfu/ml of ORGANISM 1 Pseudomonas aeruginosa ANTIBIOTIC M.I.C RX STATUS Piperacillin/Tazobactam <=4 S F Ceftazidime 4 S F Imipenem 1 S F Amikacin <=2 S F Gentamicin 2 S F Tobramycin <=1 S F Ciprofloxacin <=0.25 S F Levofloxacin 0.5 S F Normal [facility] Comment on above: Performed By: #### U RCX ####[facility] [address] [address]Dr. Gilles Ca PROF 14(COMP METB)on 022 Albumin [Mass/Vol] 2.4 g/dL Critically low 3.4-5.0 [facility] Comment on above: Performed By: #### C VDTBH #### [facility] [address] [place] [address] Dr. Gilles Ca Albumin/Globulin [Mass ratio] 0.9 {ratio} Normal [facility] Comment on above: Performed By: #### C VDTBH #### [facility] [address] [place] [address] Dr. Gilles Ca ALP [Catalytic activity/Vol] 49 U/L Normal 46-116 [facility] Comment on above: Performed By: #### C VDTBH #### [facility] [address] [place] [address] Dr. Gilles Ca ALT [Catalytic activity/Vol] 29 U/L Normal 16-63 [facility] Comment on above: Performed By: #### C VDTBH #### [facility] [address] [place] [address] Dr. Gilles Ca Anion gap [Moles/Vol] 7.6 mmol/L Normal [facility] Comment on above: Performed By: #### C VDTBH #### [facility] [address] [place] [address] Dr. Gilles Ca AST [Catalytic activity/Vol] 32 U/L Normal 15-37 [facility] Comment on above: Performed By: #### C VDTBH #### [facility] [address] [address] [address] Gilles Ca Bilirubin [Mass/Vol] 0.4 mg/dL Normal 0.2-1.0 [facility] Comment on above: Performed By: #### C VDTBH #### [facility] [address] [place] [address] Dr. Gilles Ca Calcium [Mass/Vol] 7.8 mg/dL Critically low 8.5-10.1 [facility] Comment on above: Performed By: #### C VDTBH #### [facility] [address] [place] [address] Dr. Gilles Ca Chloride [Moles/Vol] 95 mmol/L Critically low 98-107 [facility] Comment on above: Performed By: #### C VDTBH #### [facility] [address] [place] [address] Dr. Gilles Ca CO2 [Moles/Vol] 37.2 mmol/L Critically high 21.0-32.0 [facility] Comment on above: Performed By: #### C VDTBH #### [facility] [address] [place] [address] Dr. Gilles Ca Creatinine [Mass/Vol] 1.50 mg/dL Critically high 0.70-1.30 [facility] Comment on above: Performed By: #### C VDTBH #### [facility] [address] [place] [address] Dr. Gilles Ca EGFR-AF MOLDOVAN 54 mL/min/1.73m2 Critically low >=60 [facility] Comment on above: Performed By: #### C VDTBH #### [facility] [address] [place] [address] Dr. Gilles Ca EGFR-NON AF MOLDOVAN 44 mL/min/1.73m2 Critically low >=60 [facility] Comment on above: Performed By: #### C VDTBH #### [facility] [address] [place] [address] Dr. Gilles Ca Globulin (S) [Mass/Vol] 2.7 g/dL Normal [facility] Comment on above: Performed By: #### C VDTBH #### [facility] [address] [address] [address] Gilles Ca Glucose [Mass/Vol] 141 mg/dL Critically high 74-106 [facility] Comment on above: Performed By: #### C VDTBH #### [facility] [address] [address] [address] Gilles Ca Potassium [Moles/Vol] 3.8 mmol/L Normal 3.5-5.1 [facility] Comment on above: Performed By: #### C VDTBH #### [facility] [address] [address] [address] Gilles Ca Protein [Mass/Vol] 5.1 g/dL Critically low 6.4-8.2 [facility] Comment on above: Performed By: #### C VDTBH #### [facility] [address] [place] [address] Dr. Gilles Ca Sodium [Moles/Vol] 136 mmol/L Normal 136-145 [facility] Comment on above: Performed By: #### C VDTBH #### [facility] [address] [address] [address] Gilles Ca Urea nitrogen [Mass/Vol] 49.0 mg/dL Critically high 7.0-18.0 [facility] Comment on above: Performed By: #### C VDTBH #### [facility] [address] [place] [address] Dr. Gilles Ca Urea nitrogen/Creatinine [Mass ratio] 32.7 mg/mg Normal [facility] Comment on above: Performed By: #### C VDTBH #### [facility] [address] [place] [address] Dr. Gilles Ca TROPONIN, HIGH SENSITIVITYon 12-12-2021 HSTROP 55.5 pg/mL Normal 4.0-76.1 [facility] Comment on above: Result Comment: CUT- OFF POINTS HAVE BEEN ESTABLISHED BASED ON THE FOURTH UNIVERSAL DEFINITIONS OF MYOCARDIAL INFARCTION. THE UPPER REFERENCE LIMIT (URL) OF TROPONIN, DEFINED THE 99TH PERCENTILE OF cTnI DISTRIBUTION IN A REFERENCE POPULATION, HAS BEEN CONFIRMED THE DECISION THRESHOLD FOR [place] DIAGNOSIS. Performed By: #### C VDTBH #### [facility] [address] [place] [address] Dr. Gilles Ca BNPon 12-11-2021 Natriuretic peptide B (Bld) [Mass/Vol] 5200.0 pg/mL Critically high <=1,800.0 [facility] Comment on above: Result Comment: repe ated Performed By: #### A 1C #### [facility] [address] [address] [address] Gilles Ca CBC AUTO DIFFon 12-11-2021 BASO # 0.0 103/ul Normal 0.0-0.1 [facility] Comment on above: Performed By: #### C BC ####[facility] [address] [place], [place] [address]DrAndrea Ca Basophils/100 WBC (Bld) 0.0 % Critically low 0.2-2.0 [facility] Comment on above: Performed By: #### C BC ####[facility] [address] [place], [place] [address]Dr. Gilles Ca EO # 0.0 103/ul Normal 0.0-0.7 [facility] Comment on above: Performed By: #### C BC ####[facility] [address] [place], [place] [address]Dr. Gilles Ca Eosinophils/100 WBC (Bld) 0.0 % Critically low 0.9-7.0 [facility] Comment on above: Performed By: #### C BC ####[facility] [address] [place], [place] [address]DrAndrea Ca Erythrocyte distribution width (RBC) [Ratio] 14.1 % Normal 11.0-15.0 [facility] Comment on above: Performed By: #### C BC ####[facility] [address] [place], [place] [address]DrAndrea Ca Hematocrit (Bld) [Volume fraction] 38.9 % Critically low 42.0-54.0 [facility] Comment on above: Performed By: #### C BC ####[facility] [address] [place] [id number]. Gilles Ca Hemoglobin (Bld) [Mass/Vol] 11.8 g/dL Critically low 14.0-18.0 [facility] Comment on above: Performed By: #### C BC ####[facility] [address] [place] [id number]. Gilles Ca IG # 0.03 10e3/ul Normal 0.00-0.03 [facility] Comment on above: Performed By: #### C BC ####[facility] [address] [place] [id number]. Gilles Ca IG % 0.6 % Critically high 0.0-0.5 [facility] Comment on above: Performed By: #### C BC ####[facility] [address] [place] [id number]. Gilles Ca LYMPH # 0.4 103/ul Critically low 1.2-3.8 [facility] Comment on above: Performed By: #### C BC ####[facility] [address] [place] [id number]. Gilles Ca Lymphocytes/100 WBC (Bld) 7.9 % Critically low 20.5-60.0 [facility] Comment on above: Result Comment: dif. not rqd. same as 12/10 Performed By: #### C BC ####[facility] [address] [place] [id number]. Gilles Ca MANUAL DIFF REQ NO Normal [facility] Comment on above: Performed By: #### C BC ####[facility] [address] [place] [id number]. Gilles Ca MCH (RBC) [Entitic mass] 27.3 pg Normal 25.9-34.0 [facility] Comment on above: Performed By: #### C BC ####[facility] [address] [place] [id number]. Gilles Ca MCHC (RBC) [Mass/Vol] 30.3 g/dL Normal 29.9-35.2 [facility] Comment on above: Performed By: #### C BC ####[facility] [address] [place] [id number]. Gilles Ca MCV (RBC) [Entitic vol] 90.0 fL Normal 80.0-94.0 [facility] Comment on above: Performed By: #### C BC ####[facility] [address] [place] [id number]. Gilles Ca MONO # 0.3 103/ul Normal 0.3-0.8 [facility] Comment on above: Performed By: #### C BC ####[facility] [address] [place] [id number]. Gilles Ca Monocytes/100 WBC (Bld) 5.6 % Normal 1.7-12.0 [facility] Comment on above: Performed By: #### C BC ####[facility] [address] [place], [place] [address]Dr. Gilles Ca NEUT # 4.5 103/ul Normal 1.4-6.5 [facility] Comment on above: Performed By: #### C BC ####[facility] [address] [place], [place] [address]Dr. Gilles Ca Neutrophils/100 WBC (Bld) 85.9 % Critically high 43.0-75.0 [facility] Comment on above: Performed By: #### C BC ####[facility] [address] [place], [place] [address]Dr. Gilles Ca Platelet mean volume (Bld) [Entitic vol] 10.9 fL Normal 9.5-13.5 [facility] Comment on above: Performed By: #### C BC ####[facility] [address] [place] [id number]. Gilles Ca PLT 123 103/ul Critically low 150-450 [facility] Comment on above: Performed By: #### C BC ####[facility] [address] [place] [id number]. Gilles Roby RBC 4.32 106/ul Critically low 4.70-6.10 [facility] Comment on above: Performed By: #### C BC ####[facility] [address] [place], [place] [address]Dr. Gilles Ca WBC 5.2 103/ul Normal 4.0-11.0 [facility] Comment on above: Performed By: #### C BC ####[facility] [address] [place] [id number]. Gilles Ca PROF 14(COMP METB)on 022 Albumin [Mass/Vol] 2.5 g/dL Critically low 3.4-5.0 [facility] Comment on above: Performed By: #### A 1C #### [facility] [address] [address] [address] Gilles Ca Albumin/Globulin [Mass ratio] 0.9 {ratio} Normal [facility] Comment on above: Performed By: #### A 1C #### [facility] [address] [address] [address] Gilles Ca ALP [Catalytic activity/Vol] 59 U/L Normal 46-116 [facility] Comment on above: Performed By: #### A 1C #### [facility] [address] [address] [address] Gilles Ca ALT [Catalytic activity/Vol] 26 U/L Normal 16-63 [facility] Comment on above: Performed By: #### A 1C #### [facility] [address] [place] [address] Dr. Gilles Ca Anion gap [Moles/Vol] 10.3 mmol/L Normal [facility] Comment on above: Performed By: #### A 1C #### [facility] [address] [address] [address] Gilles Ca AST [Catalytic activity/Vol] 30 U/L Normal 15-37 [facility] Comment on above: Performed By: #### A 1C #### [facility] [address] [address] [address] Gilles Ca Bilirubin [Mass/Vol] 0.3 mg/dL Normal 0.2-1.0 [facility] Comment on above: Performed By: #### A 1C #### [facility] [address] [address] [address] Gilles Ca Calcium [Mass/Vol] 8.0 mg/dL Critically low 8.5-10.1 [facility] Comment on above: Performed By: #### A 1C #### [facility] [address] [address] [address] Gilles Ca Chloride [Moles/Vol] 94 mmol/L Critically low 98-107 [facility] Comment on above: Performed By: #### A 1C #### [facility] [address] [address] [address] Gilles Ca CO2 [Moles/Vol] 33.5 mmol/L Critically high 21.0-32.0 [facility] Comment on above: Performed By: #### A 1C #### [facility] [address] [place] [address] Dr. Gilles Ca Creatinine [Mass/Vol] 1.34 mg/dL Critically high 0.70-1.30 [facility] Comment on above: Performed By: #### A 1C #### [facility] [address] [place] [address] Dr. Gilles Ca EGFR-AF MOLDOVAN >60 Normal >=60 [facility] Comment on above: Performed By: #### A 1C #### [facility] [address] [place] [address] Dr. Gilles Ca EGFR-NON AF MOLDOVAN 51 mL/min/1.73m2 Critically low >=60 [facility] Comment on above: Performed By: #### A 1C #### [facility] [address] [place] [address] Dr. Gilles Ca Globulin (S) [Mass/Vol] 2.9 g/dL Normal [facility] Comment on above: Performed By: #### A 1C #### [facility] [address] [place] [address] Dr. Gilles Ca Glucose [Mass/Vol] 162 mg/dL Critically high 74-106 [facility] Comment on above: Performed By: #### A 1C #### [facility] [address] [place] [address] Dr. Gilles Ca Potassium [Moles/Vol] 3.8 mmol/L Normal 3.5-5.1 [facility] Comment on above: Performed By: #### A 1C #### [facility] [address] [address] [address] Gilles Ca Protein [Mass/Vol] 5.4 g/dL Critically low 6.4-8.2 [facility] Comment on above: Performed By: #### A 1C #### [facility] [address] [address] [address] Gilles Ca Sodium [Moles/Vol] 134 mmol/L Critically low 136-145 [facility] Comment on above: Performed By: #### A 1C #### [facility] [address] [address] [address] Gilles Ca Urea nitrogen [Mass/Vol] 37.0 mg/dL Critically high 7.0-18.0 [facility] Comment on above: Performed By: #### A 1C #### [facility] [address] [address] [address] Gilles Ca Urea nitrogen/Creatinine [Mass ratio] 27.6 mg/mg Normal [facility] Comment on above: Performed By: #### A 1C #### [facility] [address] [address] [address] Gilles Ca T3, TOTAL (TRIIODOTHYRONINE) on 12-11-2021 T3, TOTAL 50 ng/dL Critically low 71-180 [facility] Comment on above: Performed By: #### T 3TOTAL ####[facility] [address] [address]Dr. Gilles Ca TROPONIN, HIGH SENSITIVITYon 12-11-2021 HSTROP 63.2 pg/mL Normal 4.0-76.1 [facility] Comment on above: Result Comment: CUT- OFF POINTS HAVE BEEN ESTABLISHED BASED ON THE FOURTH UNIVERSAL DEFINITIONS OF MYOCARDIAL INFARCTION. THE UPPER REFERENCE LIMIT (URL) OF TROPONIN, DEFINED THE 99TH PERCENTILE OF cTnI DISTRIBUTION IN A REFERENCE POPULATION, HAS BEEN CONFIRMED THE DECISION THRESHOLD FOR [place] DIAGNOSIS. Performed By: #### A 1C #### [facility] [address] [place] [address] Dr. Gilles Ca BNPon 12-10-2021 Natriuretic peptide B (Bld) [Mass/Vol] 4973.0 pg/mL Critically high <=1,800.0 [facility] Comment on above: Result Comment: Test Repeated. Critical Value Verified Performed By: #### A 1C #### [facility] [address] [address] [address] Gilles Ca CBC W MANUAL DIFFon 12-11-19 22 ATYPICAL LYMPH # Normal [facility] Comment on above: Performed By: #### C MP, TSH, T7, LIPID, BNP #### [facility] [address] [place] [address] Dr. Gilles Ca ATYPICAL LYMPH % Normal [facility] Comment on above: Performed By: #### C MP, TSH, T7, LIPID, BNP #### [facility] [address] [place] [address] Dr. Gilles Ca BAND # 0.2 103/ul Normal 0.0-0.3 [facility] Comment on above: Performed By: #### C MP, TSH, T7, LIPID, BNP #### [facility] [address] [address] [address] Gilles Ca BAND % 4 % Normal 0-5 [facility] Comment on above: Performed By: #### C MP, TSH, T7, LIPID, BNP #### [facility] [address] [address] [address] Gilles Ca BASOM # 0.00 103/ul Normal 0.00-0.10 [facility] Comment on above: Performed By: #### C MP, TSH, T7, LIPID, BNP #### [facility] [address] [address] [address] Gilles Ca BASOM % 0.0 % Critically low 0.2-2.0 [facility] Comment on above: Performed By: #### C MP, TSH, T7, LIPID, BNP #### [facility] [address] [place] [address] Dr. Gilles Ca BLAST # Normal [facility] Comment on above: Performed By: #### C MP, TSH, T7, LIPID, BNP #### [facility] [address] [address] [address] Gilles Ca BLAST % Normal [facility] Comment on above: Performed By: #### C MP, TSH, T7, LIPID, BNP #### [facility] [address] [place] [address] Dr. Gilles Ca CORRECTED WBC Normal 4.0-11.0 [facility] Comment on above: Performed By: #### C MP, TSH, T7, LIPID, BNP #### [facility] [address] [place] [address] Dr. Gilles Ca EOS # 0.00 103/ul Normal 0.00-0.70 [facility] Comment on above: Performed By: #### C MP, TSH, T7, LIPID, BNP #### [facility] [address] [place] [address] Dr. Gilles Ca EOS% 0.0 % Critically low 0.9-7.0 [facility] Comment on above: Performed By: #### C MP, TSH, T7, LIPID, BNP #### [facility] [address] [place] [address] Dr. Gilles Ca HCT 38.4 % Critically low 42.0-54.0 [facility] Comment on above: Performed By: #### C MP, TSH, T7, LIPID, BNP #### [facility] [address] [place] [address] Dr. Gilles Ca HGB 11.9 g/dl Critically low 14.0-18.0 [facility] Comment on above: Performed By: #### C MP, TSH, T7, LIPID, BNP #### [facility] [address] [place] [address] Dr. Gilles Ca LYMPHM # 0.41 103/ul Critically low 1.20-3.80 [facility] Comment on above: Performed By: #### C MP, TSH, T7, LIPID, BNP #### [facility] [address] [place] [address] Dr. Gilles Ca LYMPHM% 7.0 % Critically low 20.5-60.0 [facility] Comment on above: Performed By: #### C MP, TSH, T7, LIPID, BNP #### [facility] [address] [address] [address] Gilles Ca MCH 28.5 pg Normal 25.9-34.0 [facility] Comment on above: Performed By: #### C MP, TSH, T7, LIPID, BNP #### [facility] [address] [address] [address] Gilles Ca MCHC 31.0 g/dl Normal 29.9-35.2 [facility] Comment on above: Performed By: #### C MP, TSH, T7, LIPID, BNP #### [facility] [address] [place] [address] Dr. Gilles Ca MCV 91.9 fL Normal 80.0-94.0 [facility] Comment on above: Performed By: #### C MP, TSH, T7, LIPID, BNP #### [facility] [address] [place] [address] Dr. Gilles Ca METAMYELOCYTE # Normal [facility] Comment on above: Performed By: #### C MP, TSH, T7, LIPID, BNP #### [facility] [address] [place] [address] Dr. Gilles Ca METAMYELOCYTE % Normal [facility] Comment on above: Performed By: #### C MP, TSH, T7, LIPID, BNP #### [facility] [address] [place] [address] Dr. Gilles Ca MONOM# 0.12 103/ul Critically low 0.30-0.80 [facility] Comment on above: Performed By: #### C MP, TSH, T7, LIPID, BNP #### [facility] [address] [place] [address] Dr. Gilles Ca MONOM% 2.0 % Normal 1.7-12.0 [facility] Comment on above: Performed By: #### C MP, TSH, T7, LIPID, BNP #### [facility] [address] [place] [address] Dr. Gilles Ca MPV 11.4 fL Normal 9.5-13.5 [facility] Comment on above: Performed By: #### C MP, TSH, T7, LIPID, BNP #### [facility] [address] [place] [address] Dr. Gilles Ca MYELOCYTE # Normal [facility] Comment on above: Performed By: #### C MP, TSH, T7, LIPID, BNP #### [facility] [address] [place] [address] Dr. Gilles Ca MYELOCYTE % Normal [facility] Comment on above: Performed By: #### C MP, TSH, T7, LIPID, BNP #### [facility] [address] [place] [address] Dr. Gilles Ca NRBC Normal [facility] Comment on above: Performed By: #### C MP, TSH, T7, LIPID, BNP #### [facility] [address] [place] [address] Dr. Gilles Ca PLT 109 103/ul Critically low 150-450 [facility] Comment on above: Performed By: #### C MP, TSH, T7, LIPID, BNP #### [facility] [address] [place] [address] Dr. Gilles Ca RBC 4.18 106/ul Critically low 4.70-6.10 [facility] Comment on above: Performed By: #### C MP, TSH, T7, LIPID, BNP #### [facility] [address] [place] [address] Dr. Gilles Ca RDW 14.2 % Normal 11.0-15.0 [facility] Comment on above: Performed By: #### C MP, TSH, T7, LIPID, BNP #### [facility] [address] [place] [address] Dr. Gilles Ca SEG # 5.05 103/ul Normal 1.40-6.50 [facility] Comment on above: Performed By: #### C MP, TSH, T7, LIPID, BNP #### [facility] [address] [place] [address] Dr. Gilles Ca SEG % 87.0 % Critically high 43.0-75.0 [facility] Comment on above: Performed By: #### C MP, TSH, T7, LIPID, BNP #### [facility] [address] [place] [address] Dr. Gilles Ca WBC 5.8 103/ul Normal 4.0-11.0 [facility] Comment on above: Performed By: #### C MP, TSH, T7, LIPID, BNP #### [facility] [address] [place] [address] Dr. Gilles Ca PROF 14(COMP METB)on 022 Albumin [Mass/Vol] 2.7 g/dL Critically low 3.4-5.0 [facility] Comment on above: Performed By: #### A 1C #### [facility] [address] [place] [address] Dr. Gilles Ca Albumin/Globulin [Mass ratio] 1.0 {ratio} Normal [facility] Comment on above: Performed By: #### A 1C #### [facility] [address] [place] [address] Dr. Gilles Ca ALP [Catalytic activity/Vol] 64 U/L Normal 46-116 [facility] Comment on above: Performed By: #### A 1C #### [facility] [address] [place] [address] Dr. Gilles Ca ALT [Catalytic activity/Vol] 28 U/L Normal 16-63 [facility] Comment on above: Performed By: #### A 1C #### [facility] [address] [place] [address] Dr. Gilles Ca Anion gap [Moles/Vol] 10.7 mmol/L Normal [facility] Comment on above: Performed By: #### A 1C #### [facility] [address] [place] [address] Dr. Gilles Ca AST [Catalytic activity/Vol] 30 U/L Normal 15-37 [facility] Comment on above: Performed By: #### A 1C #### [facility] [address] [place] [address] Dr. Gilles Ca Bilirubin [Mass/Vol] 0.4 mg/dL Normal 0.2-1.0 [facility] Comment on above: Performed By: #### A 1C #### [facility] [address] [place] [address] Dr. Gilles Ca Calcium [Mass/Vol] 8.0 mg/dL Critically low 8.5-10.1 [facility] Comment on above: Performed By: #### A 1C #### [facility] [address] [place] [address] Dr. Gilles Ca Chloride [Moles/Vol] 98 mmol/L Normal 98-107 [facility] Comment on above: Performed By: #### A 1C #### [facility] [address] [place] [address] Dr. Gilles Ca CO2 [Moles/Vol] 35.2 mmol/L Critically high 21.0-32.0 [facility] Comment on above: Performed By: #### A 1C #### [facility] [address] [place] [address] Dr. Gilles Ca Creatinine [Mass/Vol] 1.29 mg/dL Normal 0.70-1.30 [facility] Comment on above: Performed By: #### A 1C #### [facility] [address] [place] [address] Dr. Gilles Ca EGFR-AF MOLDOVAN >60 Normal >=60 [facility] Comment on above: Performed By: #### A 1C #### [facility] [address] [place] [address] Dr. Gilles Ca EGFR-NON AF MOLDOVAN 53 mL/min/1.73m2 Critically low >=60 [facility] Comment on above: Performed By: #### A 1C #### [facility] [address] [place] [address] Dr. Gilles Ca Globulin (S) [Mass/Vol] 2.8 g/dL Normal [facility] Comment on above: Performed By: #### A 1C #### [facility] [address] [place] [address] Dr. Gilles Ca Glucose [Mass/Vol] 157 mg/dL Critically high 74-106 T [facility] [place] [facility] Comment on above: Performed By: #### A 1C #### [facility] [address] [place] [address] Dr. Gilles Ca Potassium [Moles/Vol] 3.9 mmol/L Normal 3.5-5.1 [facility] Comment on above: Performed By: #### A 1C #### [facility] [address] [place] [address] Dr. Gilles Ca Protein [Mass/Vol] 5.5 g/dL Critically low 6.4-8.2 [facility] Comment on above: Performed By: #### A 1C #### [facility] [address] [place] [address] Dr. Gilles Ca Sodium [Moles/Vol] 140 mmol/L Normal 136-145 [facility] Comment on above: Performed By: #### A 1C #### [facility] [address] [place] [address] Dr. Gilles Ca Urea nitrogen [Mass/Vol] 24.0 mg/dL Critically high 7.0-18.0 [facility] Comment on above: Performed By: #### A 1C #### [facility] [address] [place] [address] Dr. Gilles Ca Urea nitrogen/Creatinine [Mass ratio] 18.6 mg/mg Normal [facility] Comment on above: Performed By: #### A 1C #### [facility] [address] [place] [address] Dr. Gilles Ca TROPONIN, HIGH SENSITIVITYon 12-10-2021 HSTROP 59.9 pg/mL Normal 4.0-76.1 [facility] Comment on above: Result Comment: CUT- OFF POINTS HAVE BEEN ESTABLISHED BASED ON THE FOURTH UNIVERSAL DEFINITIONS OF MYOCARDIAL INFARCTION. THE UPPER REFERENCE LIMIT (URL) OF TROPONIN, DEFINED THE 99TH PERCENTILE OF cTnI DISTRIBUTION IN A REFERENCE POPULATION, HAS BEEN CONFIRMED THE DECISION THRESHOLD FOR [place] DIAGNOSIS. Performed By: #### A 1C #### [facility] [address] [place] [address] Dr. Gilles Ca UA RANDOM W/MICROSCOPICon BACTERIA TRACE Abnormal NONE SEEN [facility] Comment on above: Performed By: #### C VDTBH #### [facility] [address] [place] [address] Dr. Gilles Ca Bilirubin Ql (U) Negative Normal NEGATIVE [facility] Comment on above: Performed By: #### C VDTBH #### [facility] [address] [place] [address] Dr. Gilles Ca CAST NONE SEEN Normal NONE SEEN [facility] Comment on above: Performed By: #### C VDTBH #### [facility] [address] [place] [address] Dr. Gilles Ca Clarity (U) CLEAR Normal CLEAR [facility] Comment on above: Performed By: #### C VDTBH #### [facility] [address] [place] [address] Dr. Gilles Ca Color (U) LT. YELLOW Normal YELLOW [facility] Comment on above: Performed By: #### C VDTBH #### [facility] [address] [place] [address] Dr. Gilles Ca Crystals LM Nom (Urine sed) NONE SEEN Normal NONE SEEN [facility] Comment on above: Performed By: #### C VDTBH #### [facility] [address] [place] [address] Dr. Gilles Ca Epithelial cells LM Ql (Urine sed) FEW Abnormal NONE SEEN /RARE [facility] Comment on above: Performed By: #### C VDTBH #### [facility] [address] [place] [address] Dr. Gilles Ca Glucose Ql (U) Negative Normal NEGATIVE [facility] Comment on above: Performed By: #### C VDTBH #### [facility] [address] [place] [address] Dr. Gilles Ca Hemoglobin Ql (U) Negative Normal NEGATIVE [facility] Comment on above: Performed By: #### C VDTBH #### [facility] [address] [place] [address] Dr. Gilles Ca Ketones Ql (U) Negative Normal NEGATIVE [facility] Comment on above: Performed By: #### C VDTBH #### [facility] [address] [place] [address] Dr. Gilles Ca LEUKOCYTES Negative Normal NEGATIVE [facility] Comment on above: Performed By: #### C VDTBH #### [facility] [address] [place] [address] Dr. Gilles Ca MUCOUS NONE SEEN Normal NONE SEEN [facility] Comment on above: Performed By: #### C VDTBH #### [facility] [address] [place] [address] Dr. Gilles Ca Nitrite Ql (U) Negative Normal NEGATIVE [facility] Comment on above: Performed By: #### C VDTBH #### [facility] [address] [place] [address] Dr. Gilles Ca pH (U) 5.0 [pH] Normal 5-9 [facility] Comment on above: Performed By: #### C VDTBH #### [facility] [address] [place] [address] Dr. Gilles Ca RBC 0-2 Normal 0-2 [facility] Comment on above: Performed By: #### C VDTBH #### [facility] [address] [place] [address] Dr. Gilles Ca SPEC GRAVITY 1.010 Normal 1.005-<=1.0 25 [facility] Comment on above: Performed By: #### C VDTBH #### [facility] [address] [place] [address] Dr. Gilles Ca UA PROTEIN Negative Normal NEGATIVE/ TRACE [facility] Comment on above: Performed By: #### C VDTBH #### [facility] [address] [place] [address] Dr. Gilles Ca Urobilinogen Qn (U) 0.2 {Karen'U}/dL Normal 0.2 - 1. 0 [facility] Comment on above: Performed By: #### C VDTBH #### [facility] [address] [place] [address] Dr. Gilles Ca WBC NONE SEEN Normal NONE SEEN [facility] Comment on above: Performed By: #### C VDTBH #### [facility] [address] [address] [address] Gilles Ca BNPon 12-09-2021 Natriuretic peptide B (Bld) [Mass/Vol] 5104.0 pg/mL Critically high <=1,800.0 [facility] Comment on above: Result Comment: Test Repeated. Critical Value Verified Performed By: #### B CAREERS ADVISER, PHOS, CMP, MG, TSH, CMADM, T4 ####[facility] [address] [id number]. Gilles Ca CARDIAC MARICRUZ 3-6on 2 CK [Catalytic activity/Vol] 79 U/L Normal 39-308 [facility] Comment on above: Performed By: #### C VDTBH #### [facility] [address] [place] [address] Dr. Gilles Ca CK.MB [Mass/Vol] 2.37 ng/mL Normal <=3.60 [facility] Comment on above: Performed By: #### C VDTBH #### [facility] [address] [place] [address] Dr. Gilles Ca HSTROP 64.2 pg/mL Normal 4.0-76.1 [facility] Comment on above: Result Comment: CUT- OFF POINTS HAVE BEEN ESTABLISHED BASED ON THE FOURTH UNIVERSAL DEFINITIONS OF MYOCARDIAL INFARCTION. THE UPPER REFERENCE LIMIT (URL) OF TROPONIN, DEFINED THE 99TH PERCENTILE OF cTnI DISTRIBUTION IN A REFERENCE POPULATION, HAS BEEN CONFIRMED THE DECISION THRESHOLD FOR [place] DIAGNOSIS. Performed By: #### C VDTBH #### [facility] [address] [address] [address] Gilles Ca CARDIAC MARICRUZ ADMITon 022 CK [Catalytic activity/Vol] 79 U/L Normal 39-308 [facility] Comment on above: Performed By: #### B CAREERS ADVISER, PHOS, CMP, MG, TSH, CMADM, T4 ####[facility] [address] [id number]. Gilles Ca CK.MB [Mass/Vol] 2.32 ng/mL Normal <=3.60 [facility] Comment on above: Performed By: #### B CAREERS ADVISER, PHOS, CMP, MG, TSH, CMADM, T4 ####[facility] [address] [address]Dr. Gilles Ca HSTROP 60.5 pg/mL Normal 4.0-76.1 [facility] Comment on above: Result Comment: CUT- OFF POINTS HAVE BEEN ESTABLISHED BASED ON THE FOURTH UNIVERSAL DEFINITIONS OF MYOCARDIAL INFARCTION. THE UPPER REFERENCE LIMIT (URL) OF TROPONIN, DEFINED THE 99TH PERCENTILE OF cTnI DISTRIBUTION IN A REFERENCE POPULATION, HAS BEEN CONFIRMED THE DECISION THRESHOLD FOR [place] DIAGNOSIS. Performed By: #### B CAREERS ADVISER, PHOS, CMP, MG, TSH, CMADM, T4 ####[facility] [address] [address]DrAndrea Ca JANA 140 ng/mL Critically high 16-96 [facility] Comment on above: Performed By: #### B CAREERS ADVISER, PHOS, CMP, MG, TSH, CMADM, T4 ####[facility] [address] [place] [address]DrAndrea Ca CBC AUTO DIFFon 12-09-2021 BASO # 0.0 103/ul Normal 0.0-0.1 [facility] Comment on above: Performed By: #### C MP, TSH, T7, LIPID, BNP #### [facility] [address] [address] [address] Gilles Ca Basophils/100 WBC (Bld) 0.0 % Critically low 0.2-2.0 [facility] Comment on above: Performed By: #### C MP, TSH, T7, LIPID, BNP #### [facility] [address] [address] [address] Gilles Ca EO # 0.0 103/ul Normal 0.0-0.7 [facility] Comment on above: Performed By: #### C MP, TSH, T7, LIPID, BNP #### [facility] [address] [address] [address] Gilles Ca Eosinophils/100 WBC (Bld) 0.2 % Critically low 0.9-7.0 [facility] Comment on above: Performed By: #### C MP, TSH, T7, LIPID, BNP #### [facility] [address] [place] [address] Dr. Gilles Ca Erythrocyte distribution width (RBC) [Ratio] 14.2 % Normal 11.0-15.0 [facility] Comment on above: Performed By: #### C MP, TSH, T7, LIPID, BNP #### [facility] [address] [place] [address] Dr. Gilles Ca Hematocrit (Bld) [Volume fraction] 36.1 % Critically low 42.0-54.0 [facility] Comment on above: Performed By: #### C MP, TSH, T7, LIPID, BNP #### [facility] [address] [place] [address] Dr. Gilles Ca Hemoglobin (Bld) [Mass/Vol] 10.9 g/dL Critically low 14.0-18.0 [facility] Comment on above: Performed By: #### C MP, TSH, T7, LIPID, BNP #### [facility] [address] [place] [address] Dr. Gilles Ca IG # 0.02 10e3/ul Normal 0.00-0.03 [facility] Comment on above: Performed By: #### C MP, TSH, T7, LIPID, BNP #### [facility] [address] [place] [address] Dr. Gilles Ca IG % 0.4 % Normal 0.0-0.5 [facility] Comment on above: Performed By: #### C MP, TSH, T7, LIPID, BNP #### [facility] [address] [place] [address] Dr. Gilles Ca LYMPH # 0.7 103/ul Critically low 1.2-3.8 [facility] Comment on above: Performed By: #### C MP, TSH, T7, LIPID, BNP #### [facility] [address] [place] [address] Dr. Gilles Ca Lymphocytes/100 WBC (Bld) 13.4 % Critically low 20.5-60.0 [facility] Comment on above: Performed By: #### C MP, TSH, T7, LIPID, BNP #### [facility] [address] [place] [address] Dr. Gilles Ca MANUAL DIFF REQ NO Normal [facility] Comment on above: Performed By: #### C MP, TSH, T7, LIPID, BNP #### [facility] [address] [place] [address] Dr. Gilles Ca MCH (RBC) [Entitic mass] 28.2 pg Normal 25.9-34.0 [facility] Comment on above: Performed By: #### C MP, TSH, T7, LIPID, BNP #### [facility] [address] [place] [address] Dr. Gilles Ca MCHC (RBC) [Mass/Vol] 30.2 g/dL Normal 29.9-35.2 [facility] Comment on above: Performed By: #### C MP, TSH, T7, LIPID, BNP #### [facility] [address] [place] [address] Dr. Gilles Ca MCV (RBC) [Entitic vol] 93.3 fL Normal 80.0-94.0 [facility] Comment on above: Performed By: #### C MP, TSH, T7, LIPID, BNP #### [facility] [address] [place] [address] Dr. Gilles Ca MONO # 0.5 103/ul Normal 0.3-0.8 [facility] Comment on above: Performed By: #### C MP, TSH, T7, LIPID, BNP #### [facility] [address] [place] [address] Dr. Gilles Ca Monocytes/100 WBC (Bld) 9.2 % Normal 1.7-12.0 [facility] Comment on above: Performed By: #### C MP, TSH, T7, LIPID, BNP #### [facility] [address] [place] [address] Dr. Gilles Ca NEUT # 4.0 103/ul Normal 1.4-6.5 [facility] Comment on above: Performed By: #### C MP, TSH, T7, LIPID, BNP #### [facility] [address] [place] [address] Dr. Gilles Ca Neutrophils/100 WBC (Bld) 76.8 % Critically high 43.0-75.0 [facility] Comment on above: Performed By: #### C MP, TSH, T7, LIPID, BNP #### [facility] [address] [place] [address] Dr. Gilles Ca Platelet mean volume (Bld) [Entitic vol] 11.3 fL Normal 9.5-13.5 [facility] Comment on above: Performed By: #### C MP, TSH, T7, LIPID, BNP #### [facility] [address] [place] [address] Dr. Gilles Ca PLT 107 103/ul Critically low 150-450 [facility] Comment on above: Performed By: #### C MP, TSH, T7, LIPID, BNP #### [facility] [address] [place] [address] Dr. Gilles Ca RBC 3.87 106/ul Critically low 4.70-6.10 [facility] Comment on above: Performed By: #### C MP, TSH, T7, LIPID, BNP #### [facility] [address] [place] [address] Dr. Gilles Ca WBC 5.2 103/ul Normal 4.0-11.0 [facility] Comment on above: Performed By: #### C MP, TSH, T7, LIPID, BNP #### [facility] [address] [place] [address] Dr. Gilles Ca [facility]22 SARS-CoV-2 (COVID-19) RNA ALLY+probe Ql (Unsp spec) Detected Critically abnormal NOT DETECTED [facility] Comment on above: Result Comment: This test is not yet approved or cleared by the [place] Food and Drug Administration (FDA). This test was developed by [employer], [place], [place]. The performance characteristics of this test were validated by [facility]. The results are not intended to be used as the sole means for clinical diagnosis or patient management decisions. [facility] is authorized under Clinical Laboratory Improvement Amendments (CLIA) to perform high- complexity testing. This test is not yet approved or cleared by the [place] FDA. When there are no FDA-approved or cleared tests available, and other criteria are met, FDA can make tests available under an emergency access mechanism called an Emergency Use Authorization (EUA). The EUA for this test is supported by the Client Liaison of Health and Human Service's declaration that circumstances exist to justify the emergency use of in vitro diagnostics for the detection and/or diagnosis of the virus that causes COVID-19. This EUA will remain in effect for the duration of the COVID-19 declaration justifying emergency of IVDs, unless it is terminated or revoked by the FDA (after which the test may no longer be used). Performed By: #### C VDTB #### [facility] [address] [address] [address] Gilles Ca MAGNESIUMon 12-09-2021 Magnesium [Mass/Vol] 1.2 mg/dL Critically low 1.8-2.4 [facility] Comment on above: Performed By: #### B CAREERS ADVISER, PHOS, CMP, MG, TSH, CMADM, T4 ####[facility] [address] [address]DrAndrea Ca PHOSPHORUSon 12-09-2021 Phosphate [Mass/Vol] 3.4 mg/dL Normal 2.6-4.7 [facility] Comment on above: Performed By: #### B CAREERS ADVISER, PHOS, CMP, MG, TSH, CMADM, T4 ####[facility] [address] [address]Dr. Gilles Ca PROF 14(COMP METB)on 022 Albumin [Mass/Vol] 2.6 g/dL Critically low 3.4-5.0 [facility] Comment on above: Performed By: #### B CAREERS ADVISER, PHOS, CMP, MG, TSH, CMADM, T4 ####[facility] [address] [address]DrAndrea Ca Albumin/Globulin [Mass ratio] 1.0 {ratio} Normal [facility] Comment on above: Performed By: #### B CAREERS ADVISER, PHOS, CMP, MG, TSH, CMADM, T4 ####[facility] [address] [address]Dr. Gilles Ca ALP [Catalytic activity/Vol] 61 U/L Normal 46-116 [facility] Comment on above: Performed By: #### B CAREERS ADVISER, PHOS, CMP, MG, TSH, CMADM, T4 ####[facility] [address] [address]Dr. Gilles Ca ALT [Catalytic activity/Vol] 27 U/L Normal 16-63 [facility] Comment on above: Performed By: #### B CAREERS ADVISER, PHOS, CMP, MG, TSH, CMADM, T4 ####[facility] [address] [address]Dr. Gilles Ca Anion gap [Moles/Vol] 7.6 mmol/L Normal [facility] Comment on above: Performed By: #### B CAREERS ADVISER, PHOS, CMP, MG, TSH, CMADM, T4 ####[facility] [address] [place], [place] [address]Dr. Gilles Ca AST [Catalytic activity/Vol] 44 U/L Critically high 15-37 [facility] Comment on above: Performed By: #### B CAREERS ADVISER, PHOS, CMP, MG, TSH, CMADM, T4 ####[facility] [address] [address]Dr. Gilles Ca Bilirubin [Mass/Vol] 0.3 mg/dL Normal 0.2-1.0 [facility] Comment on above: Performed By: #### B CAREERS ADVISER, PHOS, CMP, MG, TSH, CMADM, T4 ####[facility] [address] [address]Dr. Gilles Ca Calcium [Mass/Vol] 8.2 mg/dL Critically low 8.5-10.1 [facility] Comment on above: Performed By: #### B CAREERS ADVISER, PHOS, CMP, MG, TSH, CMADM, T4 ####[facility] [address] [place], [place] [address]Dr. Gilles Ca Chloride [Moles/Vol] 96 mmol/L Critically low 98-107 [facility] Comment on above: Performed By: #### B CAREERS ADVISER, PHOS, CMP, MG, TSH, CMADM, T4 ####[facility] [address] [address]Dr. Gilles Ca CO2 [Moles/Vol] 35.1 mmol/L Critically high 21.0-32.0 [facility] Comment on above: Performed By: #### B CAREERS ADVISER, PHOS, CMP, MG, TSH, CMADM, T4 ####[facility] [address] [address]Dr. Gilles Ca Creatinine [Mass/Vol] 1.19 mg/dL Normal 0.70-1.30 [facility] Comment on above: Performed By: #### B CAREERS ADVISER, PHOS, CMP, MG, TSH, CMADM, T4 ####[facility] [address] [address]Dr. Gilles Ca EGFR-AF MOLDOVAN >60 Normal >=60 [facility] Comment on above: Performed By: #### B CAREERS ADVISER, PHOS, CMP, MG, TSH, CMADM, T4 ####[facility] [address] [address]Dr. Gilles Ca EGFR-NON AF MOLDOVAN 58 mL/min/1.73m2 Critically low >=60 [facility] Comment on above: Performed By: #### B CAREERS ADVISER, PHOS, CMP, MG, TSH, CMADM, T4 ####[facility] [address] [address]Dr. Gilles Ca Globulin (S) [Mass/Vol] 2.7 g/dL Normal [facility] Comment on above: Performed By: #### B CAREERS ADVISER, PHOS, CMP, MG, TSH, CMADM, T4 ####[facility] [address] [address]Dr. Gilles Ca Glucose [Mass/Vol] 113 mg/dL Critically high 74-106 T [facility] [place] [facility] Comment on above: Performed By: #### B CAREERS ADVISER, PHOS, CMP, MG, TSH, CMADM, T4 ####[facility] [address] [address]Dr. Gilles Ca Potassium [Moles/Vol] 3.7 mmol/L Normal 3.5-5.1 [facility] Comment on above: Performed By: #### B CAREERS ADVISER, PHOS, CMP, MG, TSH, CMADM, T4 ####[facility] [address] [address]Dr. Gilles Ca Protein [Mass/Vol] 5.3 g/dL Critically low 6.4-8.2 [facility] Comment on above: Performed By: #### B CAREERS ADVISER, PHOS, CMP, MG, TSH, CMADM, T4 ####[facility] [address] [address]Dr. Gilles Ca Sodium [Moles/Vol] 135 mmol/L Critically low 136-145 [facility] Comment on above: Performed By: #### B CAREERS ADVISER, PHOS, CMP, MG, TSH, CMADM, T4 ####[facility] [address] [address]Dr. Gilles Ca Urea nitrogen [Mass/Vol] 28.0 mg/dL Critically high 7.0-18.0 [facility] Comment on above: Performed By: #### B CAREERS ADVISER, PHOS, CMP, MG, TSH, CMADM, T4 ####[facility] [address] [address]Dr. Gilles Ca Urea nitrogen/Creatinine [Mass ratio] 23.5 mg/mg Normal [facility] Comment on above: Performed By: #### B CAREERS ADVISER, PHOS, CMP, MG, TSH, CMADM, T4 ####[facility] [address] [address]Dr. Gilles Ca SED RATE [facility] 2021 SED RATE 6 mm/hr Normal <=20 [facility] Comment on above: Performed By: #### C MP, TSH, T7, LIPID, BNP #### [facility] [address] [place], [place] [address] Dr. Gilles Ca T4on 12-09-2021 T4 [Mass/Vol] 11.20 ug/dL Normal 4.50-12.10 [facility] Comment on above: Performed By: #### B CAREERS ADVISER, PHOS, CMP, MG, TSH, CMADM, T4 ####[facility] [address] [place], [place] [address]Ls. Gilles Ca TSHon 12-09-2021 TSH 1.345 uIU/mL Normal 0.358-3.740 [facility] Comment on above: Performed By: #### B CAREERS ADVISER, PHOS, CMP, MG, TSH, CMADM, T4 ####[facility] [address] [place], [place] [address]Nr. Gilles Ca TSH RANGE SEE BELOW Normal [facility] Comment on above: Result Comment: <0.3 4 UIU/ml HYPERTHYROID 0.34-5.60 UIU/ml EUTHYROID >5.60 UIU/ml HYPOTHYROID Performed By: #### B CAREERS ADVISER, PHOS, CMP, MG, TSH, CMADM, T4 ####[facility] [address] [place], [place] [address]Yv. Gilles Ca XR CHEST 2 Von 12-09-2021 XR CHEST 2 V EXAM: XR CHEST 2 V HISTORY: SHORTNESS OF BREATH COMPARISON: 11/30/2021 TECHNIQUE: PA and lateral chest x-ray FINDINGS: The study is limited by shallow inspiration. The heart remains mildly enlarged with prominence of the central pulmonary vasculature. Prominence of the left hilum as well. Elevation of the right hemidiaphragm is noted, and mild prominence of interstitial markings are seen in the in the right lung. Multiple remote rib fractures are present on the right. Fracture of the mid clavicle is also noted. IMPRESSION: Cardiac enlargement with vascular congestion. Slight prominence of interstitial markings are seen throughout the lungs. Right rib fractures and the right clavicle fracture are noted, which are remote in nature. Increasing prominence of the left hilum is noted. The study is limited by shallow inspiration. A repeat study encouraging the patient to take a deep inspiration may be helpful. Electronically authenticated by: CHINA SAEED Date: 2021-12-09 20:11 Normal [facility] BNPon 12-08-2021 Natriuretic peptide B (Bld) [Mass/Vol] 8908.0 pg/mL Critically high <=1,800.0 [facility] Comment on above: Performed By: #### C MP, TSH, T7, LIPID, BNP #### [facility] [address] [place] [address] Dr. Gilles Ca CBC AUTO DIFFon 12-08-2021 BASO # 0.0 103/ul Normal 0.0-0.1 [facility] Comment on above: Performed By: #### C BC #### [facility] [address] [place] [address] Dr. Gilles Ca Basophils/100 WBC (Bld) 0.2 % Normal 0.2-2.0 [facility] Comment on above: Performed By: #### C BC #### [facility] [facility] [address] [place] [address] Dr. Gilles Ca EO # 0.0 103/ul Normal 0.0-0.7 [facility] Comment on above: Performed By: #### C BC #### [facility] [address] [place] [address] Dr. Gilles Ca Eosinophils/100 WBC (Bld) 0.2 % Critically low 0.9-7.0 [facility] Comment on above: Performed By: #### C BC #### [facility] [address] [place] [address] Dr. Gilles Ca Erythrocyte distribution width (RBC) [Ratio] 14.1 % Normal 11.0-15.0 [facility] Comment on above: Performed By: #### C BC #### [facility] [address] [place] [address] Dr. Gilles Ca Hematocrit (Bld) [Volume fraction] 40.5 % Critically low 42.0-54.0 [facility] Comment on above: Performed By: #### C BC #### [facility] [address] [place] [address] Dr. Gilles Ca Hemoglobin (Bld) [Mass/Vol] 12.0 g/dL Critically low 14.0-18.0 [facility] Comment on above: Performed By: #### C BC #### [facility] [address] [place] [address] Dr. Gilles Ca IG # 0.03 10e3/ul Normal 0.00-0.03 [facility] Comment on above: Performed By: #### C BC #### [facility] [address] [place] [address] Dr. Gilles Ca IG % 0.6 % Critically high 0.0-0.5 [facility] Comment on above: Performed By: #### C BC #### [facility] [address] [place] [address] Dr. Gilles Ca LYMPH # 0.6 103/ul Critically low 1.2-3.8 [facility] Comment on above: Performed By: #### C BC #### [facility] [address] [place] [address] Dr. Gilles Ca Lymphocytes/100 WBC (Bld) 12.4 % Critically low 20.5-60.0 [facility] Comment on above: Performed By: #### C BC #### [facility] [address] [place] [address] Dr. Gilles Ca MANUAL DIFF REQ NO Normal [facility] Comment on above: Performed By: #### C BC #### [facility] [address] [place] [address] Dr. Gilles Ca MCH (RBC) [Entitic mass] 27.8 pg Normal 25.9-34.0 [facility] Comment on above: Performed By: #### C BC #### [facility] [address] [place] [address] Dr. Gilles Ca MCHC (RBC) [Mass/Vol] 29.6 g/dL Critically low 29.9-35.2 [facility] Comment on above: Performed By: #### C BC #### [facility] [address] [place] [address] Dr. Gilles Ca MCV (RBC) [Entitic vol] 93.8 fL Normal 80.0-94.0 [facility] Comment on above: Performed By: #### C BC #### [facility] [address] [place] [address] Dr. Gilles Ca MONO # 0.4 103/ul Normal 0.3-0.8 [facility] Comment on above: Performed By: #### C BC #### [facility] [address] [address] [address] Gilles Ca Monocytes/100 WBC (Bld) 9.4 % Normal 1.7-12.0 [facility] Comment on above: Performed By: #### C BC #### [facility] [address] [address] [address] Gilles Ca NEUT # 3.6 103/ul Normal 1.4-6.5 [facility] Comment on above: Performed By: #### C BC #### [facility] [address] [place] [address] Dr. Gilles Ca Neutrophils/100 WBC (Bld) 77.2 % Critically high 43.0-75.0 [facility] Comment on above: Performed By: #### C BC #### [facility] [address] [place] [address] Dr. Gilles Ca Platelet mean volume (Bld) [Entitic vol] 11.1 fL Normal 9.5-13.5 [facility] Comment on above: Performed By: #### C BC #### [facility] [address] [place] [address] Dr. Gilles Ca PLT 113 103/ul Critically low 150-450 [facility] Comment on above: Performed By: #### C BC #### [facility] [address] [place] [address] Dr. Gilles Ca RBC 4.32 106/ul Critically low 4.70-6.10 [facility] Comment on above: Performed By: #### C BC #### [facility] [address] [place] [address] Dr. Gilles Ca WBC 4.7 103/ul Normal 4.0-11.0 [facility] Comment on above: Performed By: #### C BC #### [facility] [address] [place] [address] Dr. Gilles Ca FREE THYROXINE INDEX T7on FTI 3.57 Normal 1.30-4.50 [facility] Comment on above: Performed By: #### C MP, TSH, T7, LIPID, BNP #### [facility] [address] [address] [address] Gilles Ca T3U 38.0 % Normal 33.0-40.0 [facility] Comment on above: Performed By: #### C MP, TSH, T7, LIPID, BNP #### [facility] [address] [address] [address] Gilles Ca T4 [Mass/Vol] 9.40 ug/dL Normal 4.50-12.10 [facility] Comment on above: Performed By: #### C MP, TSH, T7, LIPID, BNP #### [facility] [address] [address] [address] Gilles Ca GLYCOHEMOGLOBIN A1Con 2021 ADA RECOMMENDATION SEE BELOW Normal [facility] Comment on above: Result Comment: ADA RECOMMENDED LIMIT 4.0 - 6.0 ADA THERAPEUTIC TARGET < 7.0 ACTION SUGGESTED > 7.0 Performed By: #### A 1C #### [facility] [address] [address] [address] Gilles Ca Glucose [Mass/Vol] 134 mg/dL Normal [facility] Comment on above: Performed By: #### A 1C #### [facility] [address] [address] [address] Gilles Ca HbA1c (Bld) [Mass fraction] 6.3 % Critically high 4.5-6.2 [facility] Comment on above: Performed By: #### A 1C #### [facility] [address] [address] [address] Gilles Ca IRONon 12-08-2021 Iron [Mass/Vol] 23.0 ug/dL Critically low 65.0-175.0 [facility] Comment on above: Performed By: #### C VDTBH #### [facility] [address] [address] [address] Gilles Ca LIPID PROFILEon 12-08-2021 CHOL-HDL RATIO NORM SEE BELOW Normal [facility] Comment on above: Result Comment: 3.3 - 4.4 LOW RISK 4.4 - 7.1 AVERAGE RISK 7.1 - 11.0 MODERATE RISK >11.0 HIGH RISK Performed By: #### C MP, TSH, T7, LIPID, BNP #### [facility] [address] [address] [address] Gilles Ca Cholesterol [Mass/Vol] 127 mg/dL Normal <=200 [facility] Comment on above: Performed By: #### C MP, TSH, T7, LIPID, BNP #### [facility] [address] [address] [address] Gilles Ca Cholesterol in HDL [Mass/Vol] 46 mg/dL Normal 40-60 [facility] Comment on above: Performed By: #### C MP, TSH, T7, LIPID, BNP #### [facility] [address] [place] [address] Dr. Gilles Ca Cholesterol in LDL [Mass/Vol] 62.2 mg/dL Normal [facility] Comment on above: Performed By: #### C MP, TSH, T7, LIPID, BNP #### [facility] [address] [address] [address] Gilles Ca Cholesterol.total/Ch olesterol in HDL [Mass ratio] 2.8 {ratio} Normal [facility] Comment on above: Performed By: #### C MP, TSH, T7, LIPID, BNP #### [facility] [address] [place] [address] Dr. Gilles Ca HDL NORMAL > or = 60 mg/dl - LO W CARDIOVASCULAR RISK <40 mg/dl - HIGH CARDIOVASCULAR RISK Normal [facility] Comment on above: Performed By: #### C MP, TSH, T7, LIPID, BNP #### [facility] [address] [place] [address] Dr. Gilles aC LDL CALC NORMAL SEE BELOW Normal [facility] Comment on above: Result Comment: <100 mg/dl OPTIMAL 100 - 129 mg/dl NEAR OR ABOVE OPTIMAL 130 - 159 mg/dl BORDERLINE HIGH 160 - 189 mg/dl HIGH >190 mg/dl VERY HIGH Performed By: #### C MP, TSH, T7, LIPID, BNP #### [facility] [address] [address] [address] Gilles Ca Triglyceride [Mass/Vol] 94 mg/dL Normal <=150 [facility] Comment on above: Performed By: #### C MP, TSH, T7, LIPID, BNP #### [facility] [address] [address] [address] Gilles Ca VLDL CALC 18.8 mg/dL Normal [facility] Comment on above: Performed By: #### C MP, TSH, T7, LIPID, BNP #### [facility] [address] [address] [address] Gilles Ca MAGNESIUMon 12-08-2021 Magnesium [Mass/Vol] 1.4 mg/dL Critically low 1.8-2.4 [facility] Comment on above: Performed By: #### M G ####[facility] [id number] [address]Dr. Gilles Ca PROF 14(COMP METB)on 022 Albumin [Mass/Vol] 2.7 g/dL Critically low 3.4-5.0 [facility] Comment on above: Performed By: #### C MP, TSH, T7, LIPID, BNP #### [facility] [address] [address] [address] Gilles Ca Albumin/Globulin [Mass ratio] 0.9 {ratio} Normal [facility] Comment on above: Performed By: #### C MP, TSH, T7, LIPID, BNP #### [facility] [address] [address] [address] Gilles Ca ALP [Catalytic activity/Vol] 63 U/L Normal 46-116 [facility] Comment on above: Performed By: #### C MP, TSH, T7, LIPID, BNP #### [facility] [address] [address] [address] Gilles Ca ALT [Catalytic activity/Vol] 25 U/L Normal 16-63 [facility] Comment on above: Performed By: #### C MP, TSH, T7, LIPID, BNP #### [facility] [address] [place] [address] Dr. Gilles Ca Anion gap [Moles/Vol] 7.7 mmol/L Normal [facility] Comment on above: Performed By: #### C MP, TSH, T7, LIPID, BNP #### [facility] [address] [place] [address] Dr. Gilles Ca AST [Catalytic activity/Vol] 40 U/L Critically high 15-37 [facility] Comment on above: Performed By: #### C MP, TSH, T7, LIPID, BNP #### [facility] [address] [place] [address] Dr. Gilles Ca Bilirubin [Mass/Vol] 0.3 mg/dL Normal 0.2-1.0 [facility] Comment on above: Performed By: #### C MP, TSH, T7, LIPID, BNP #### [facility] [address] [place] [address] Dr. Gilles Ca Calcium [Mass/Vol] 8.5 mg/dL Normal 8.5-10.1 [facility] Comment on above: Performed By: #### C MP, TSH, T7, LIPID, BNP #### [facility] [address] [place] [address] Dr. Gilles Ca Chloride [Moles/Vol] 97 mmol/L Critically low 98-107 [facility] Comment on above: Performed By: #### C MP, TSH, T7, LIPID, BNP #### [facility] [address] [place] [address] Dr. Gilles Ca CO2 [Moles/Vol] 35.2 mmol/L Critically high 21.0-32.0 [facility] Comment on above: Performed By: #### C MP, TSH, T7, LIPID, BNP #### [facility] [address] [place] [address] Dr. Gilles Ca Creatinine [Mass/Vol] 1.31 mg/dL Critically high 0.70-1.30 [facility] Comment on above: Performed By: #### C MP, TSH, T7, LIPID, BNP #### [facility] [address] [place] [address] Dr. Gilles Ca EGFR-AF MOLDOVAN >60 Normal >=60 [facility] Comment on above: Performed By: #### C MP, TSH, T7, LIPID, BNP #### [facility] [address] [place] [address] Dr. Gilles Ca EGFR-NON AF MOLDOVAN 52 mL/min/1.73m2 Critically low >=60 [facility] Comment on above: Performed By: #### C MP, TSH, T7, LIPID, BNP #### [facility] [address] [place] [address] Dr. Gilles Ca Globulin (S) [Mass/Vol] 2.9 g/dL Normal [facility] Comment on above: Performed By: #### C MP, TSH, T7, LIPID, BNP #### [facility] [address] [place] [address] Dr. Gilles Ca Glucose [Mass/Vol] 190 mg/dL Critically high 74-106 [facility] Comment on above: Performed By: #### C MP, TSH, T7, LIPID, BNP #### [facility] [address] [place] [address] Dr. Gilles Ca Potassium [Moles/Vol] 3.9 mmol/L Normal 3.5-5.1 [facility] Comment on above: Performed By: #### C MP, TSH, T7, LIPID, BNP #### [facility] [address] [place] [address] Dr. Gilles Ca Protein [Mass/Vol] 5.6 g/dL Critically low 6.4-8.2 [facility] Comment on above: Performed By: #### C MP, TSH, T7, LIPID, BNP #### [facility] [address] [place] [address] Dr. Gilles Ca Sodium [Moles/Vol] 136 mmol/L Normal 136-145 [facility] Comment on above: Performed By: #### C MP, TSH, T7, LIPID, BNP #### [facility] [address] [place] [address] Dr. Gilles Ca Urea nitrogen [Mass/Vol] 22.0 mg/dL Critically high 7.0-18.0 [facility] Comment on above: Performed By: #### C MP, TSH, T7, LIPID, BNP #### [facility] [address] [address] [address] Gilles Ca Urea nitrogen/Creatinine [Mass ratio] 16.8 mg/mg Normal [facility] Comment on above: Performed By: #### C MP, TSH, T7, LIPID, BNP #### [facility] [address] [address] [address] Gilles Ca TSHon 12-08-2021 TSH 1.661 uIU/mL Normal 0.358-3.740 [facility] Comment on above: Performed By: #### C MP, TSH, T7, LIPID, BNP #### [facility] [address] [place] [address] Dr. Gilles Ca TSH RANGE SEE BELOW Normal [facility] Comment on above: Result Comment: <0.3 4 UIU/ml HYPERTHYROID 0.34-5.60 UIU/ml EUTHYROID >5.60 UIU/ml HYPOTHYROID Performed By: #### C MP, TSH, T7, LIPID, BNP #### [facility] [address] [address] [address] Gilles Ca Basic Metabolic Panelon 11-22 Calcium [Mass/Vol] 8.2 mg/dL Normal 8.2-10.2 [facility] Comment on above: Performed By: #### A ERC #### [facility] [address] [place] [address] [place] Chloride [Moles/Vol] 95 mmol/L Normal 95-114 [facility] Comment on above: Performed By: #### A ERC #### [facility] [address] [id number] [place] CO2 [Moles/Vol] 30.4 mmol/L High 22.0-30.0 [facility] Comment on above: Performed By: #### A ERC #### [facility] [address] [id number] [place] Creatinine [Mass/Vol] 1.71 mg/dL High 0.64-1.27 [facility] Comment on above: Performed By: #### A ERC #### [place] [address] [place] Creatinine Clr Calc Pharmacy 27.14 [facility] Comment on above: Result Comment: PERF ORMED BY: [place] [address] PATHOLOGIST PRODUCTION QUALITY ANALYST GLENNA JACKSON M.D. Performed By: #### A ERC #### [address] Estimated GFR ( Anila 46 [facility] Comment on above: Result Comment: GFR estimated reference range: According to KDOQI guidelines, <60 ml/min/1.73m2 is sufficient to diagnose a patient with chronic kidney disease. Performed By: #### A ERC #### [address] Estimated GFR (Non- Am 38 [facility] Comment on above: Performed By: #### A ERC #### [address] Glucose [Mass/Vol] 89 mg/dL Normal 70-100 [facility] Comment on above: Result Comment: [place] om Glucose Reference Range is dependent on time and content of last meal. Glucose of more than 200 mg/dL in a nonstressed, ambulatory subject supports the diagnosis of Diabetes Mellitus. ADA recommended reference range Performed By: #### A ERC #### [address] Potassium [Moles/Vol] 3.6 mmol/L Normal 3.5-5.1 [facility] Comment on above: Performed By: #### A ERC #### [place] [address] [place] Sodium [Moles/Vol] 135 mmol/L Low 136-146 [facility] Comment on above: Performed By: #### A ERC #### [address] Urea nitrogen [Mass/Vol] 29 mg/dL High 9-23 [facility] Comment on above: Performed By: #### A ERC #### [facility] [address] Creatinine and Glomerular fi ltration rate.predicted panel (S/P/Bld)Ordered By: Tash Lawrence on 12-05-2021 Creatinine [Mass/Vol] 1.71 mg/dL 0.64-1.27 [facility] Estimated glomerular filtrat ion rate (GFR) non- AmericanOrdered By: Tash Lawrence on 12-05-2021 GFR/1.73 sq M.predicted among non-blacks MDRD (S/P/Bld) [Vol rate/Area] 38 mL/Min [facility] Glucose Glucometer (BldC) [M ass/Vol]Ordered By: Tash Lawrence on 12-05-2021 Glucose [Mass/Vol] 106 mg/dL [facility] Comment on above: Random Glucose Refer ence Range is dependent on time and content of last meal. Glucose of more than 200 mg/dL in a nonstressed, ambulatory subject supports the diagnosis of Diabetes Mellitus. Glucose Poct Glucometerson 0 12-05-2021 Glucose [Mass/Vol] 106 mg/dL Normal [facility] Comment on above: Result Comment: [place] Glucose Reference Range is dependent on time and content of last meal. Glucose of more than 200 mg/dL in a nonstressed, ambulatory subject supports the diagnosis of Diabetes Mellitus. PERFORMED BY: [address] [id number] PATHOLOGIST PRODUCTION QUALITY ANALYST GLENNA JACKSON M.D. Performed By: #### G LULS #### Point of Care testing , Glucose [Mass/Vol] 105 mg/dL Normal [facility] Comment on above: Result Comment: [place] Glucose Reference Range is dependent on time and content of last meal. Glucose of more than 200 mg/dL in a nonstressed, ambulatory subject supports the diagnosis of Diabetes Mellitus. PERFORMED BY: [facility] [address] [place] [address] PATHOLOGIST PRODUCTION QUALITY ANALYST GLENNA JACKSON M.D. Performed By: #### G LULS #### Point of Care testing , Glucose [Mass/Vol] 97 mg/dL Normal [facility] Comment on above: Result Comment: [place] om Glucose Reference Range is dependent on time and content of last meal. Glucose of more than 200 mg/dL in a nonstressed, ambulatory subject supports the diagnosis of Diabetes Mellitus. PERFORMED BY: [facility] [place] [address] PATHOLOGIST PRODUCTION QUALITY ANALYST GLENNA JACKSON M.D. Performed By: #### G LULS #### Point of Care testing , No Panel InformationOrdered By: Tash Lawrence on 12-05-2021 Estimated GFR () 46 mL/Min [facility] Comment on above: GFR estimated refere nce range: According to KDOQI guidelines, <60 ml/min/1.73m2 is sufficient to diagnose a patient with chronic kidney disease. Pharmacy Creatinine Clearance (Chem 27.14 [facility] Serum or plasma calcium gabriel urement (mass/volume)Ordered By: Tash Lawrecne on 12-05-2021 Calcium [Mass/Vol] 8.2 mg/dL 8.2-10.2 [facility] Serum or plasma chloride levi surement (moles/volume)Ordered By: Tash Lawrence on 12-05-2021 Chloride [Moles/Vol] 95 mmol/L 95-114 [facility] Serum or plasma glucose gabriel urement (mass/volume)Ordered By: Tash Larwence on 12-05-2021 Glucose [Mass/Vol] 89 mg/dL 70-100 [facility] Comment on above: ADA recommended refe rence range Random Glucose Reference Range is dependent on time and content of last meal. Glucose of more than 200 mg/dL in a nonstressed, ambulatory subject supports the diagnosis of Diabetes Mellitus. Serum or plasma potassium me asurement (moles/volume)Ordered By: Tash Lawrence on 12-05-2021 Potassium [Moles/Vol] 3.6 mmol/L 3.5-5.1 [facility] Serum or plasma sodium measu rement (moles/volume)Ordered By: Tash Lawrence on 12-05-2021 Sodium [Moles/Vol] 135 mmol/L 136-146 [facility] Serum or plasma total carbon dioxide measurement (moles/volume)Ordered By: Tash Lawrence on 12-05-2021 CO2 [Moles/Vol] 30.4 mmol/L 22.0-30.0 [facility] Serum or plasma urea nitroge n measurement (mass/volume)Ordered By: Tash Lawrence on 12-05-2021 Urea nitrogen [Mass/Vol] 29 mg/dL 9- [facility] Automated erythrocytes count in urine sediment (number/area)Ordered By: Tash Lawrence on 12-04-2021 RBC Auto (Urine sed) [#/Area] 3-4 [HPF] [facility] Automated leukocytes count i n urine sediment (number/area)Ordered By: Tash Lawrence on 12-04-2021 WBC Auto (Urine sed) [#/Area] 3-4 [HPF] [facility] Basic Metabolic Panelon 11-22 Calcium [Mass/Vol] 8.3 mg/dL Normal 8.2-10.2 [facility] Comment on above: Performed By: #### G LULS #### Point of Care testing , Chloride [Moles/Vol] 94 mmol/L Low 95-114 [facility] Comment on above: Performed By: #### G LULS #### Point of Care testing , CO2 [Moles/Vol] 31.1 mmol/L High 22.0-30.0 [facility] Comment on above: Performed By: #### G LULS #### Point of Care testing , Creatinine [Mass/Vol] 1.95 mg/dL High 0.64-1.27 [facility] Comment on above: Performed By: #### G LULS #### Point of Care testing , Creatinine Clr Calc Pharmacy 23.57 [facility] Comment on above: Result Comment: PERF ORMED BY: [facility] [address] [place] [address] PATHOLOGIST PRODUCTION QUALITY ANALYST GLENNA JACKSON M.D. Performed By: #### G LULS #### Point of Care testing , Estimated GFR ( Anila 40 [facility] Comment on above: Result Comment: GFR estimated reference range: According to KDOQI guidelines, <60 ml/min/1.73m2 is sufficient to diagnose a patient with chronic kidney disease. Performed By: #### G REMI #### Point of Care testing , Estimated GFR (Non- Am 33 Normal [facility] Comment on above: Performed By: #### G LULS #### Point of Care testing , Glucose [Mass/Vol] 102 mg/dL High 70-100 [facility] Comment on above: Result Comment: [place] Glucose Reference Range is dependent on time and content of last meal. Glucose of more than 200 mg/dL in a nonstressed, ambulatory subject supports the diagnosis of Diabetes Mellitus. ADA recommended reference range Performed By: #### G LULS #### Point of Care testing , Potassium [Moles/Vol] 3.9 mmol/L Normal 3.5-5.1 [facility] Comment on above: Performed By: #### G REMI #### Point of Care testing , Sodium [Moles/Vol] 135 mmol/L Low 136-146 [facility] Comment on above: Performed By: #### G REMI #### Point of Care testing , Urea nitrogen [Mass/Vol] 31 mg/dL High 9-23 [facility] Comment on above: Performed By: #### G REMI #### Point of Care testing , Calcium [Mass/Vol] 8.4 mg/dL Normal 8.2-10.2 [facility] Comment on above: Performed By: #### A ERC #### [facility] [address] [place] [address] [place] Chloride [Moles/Vol] 95 mmol/L Normal 95-114 [facility] Comment on above: Performed By: #### A ERC #### [facility] [address] [id number] [place] CO2 [Moles/Vol] 30.4 mmol/L High 22.0-30.0 [facility] Comment on above: Performed By: #### A ERC #### [facility] [address] [place] [address] [place] Creatinine [Mass/Vol] 2.10 mg/dL High 0.64-1.27 [facility] Comment on above: Performed By: #### A ERC #### [facility] [address] [place] [address] [place] Creatinine Clr Calc Pharmacy 21.89 [facility] Comment on above: Performed By: #### A ERC #### [address] Estimated GFR ( Anila 36 [facility] Comment on above: Result Comment: GFR estimated reference range: According to KDOQI guidelines, <60 ml/min/1.73m2 is sufficient to diagnose a patient with chronic kidney disease. Performed By: #### A ERC #### [address] Estimated GFR (Non- Am 30 [facility] Comment on above: Performed By: #### A ERC #### [address] Glucose [Mass/Vol] 90 mg/dL Normal 70-100 [facility] Comment on above: Result Comment: [place] om Glucose Reference Range is dependent on time and content of last meal. Glucose of more than 200 mg/dL in a nonstressed, ambulatory subject supports the diagnosis of Diabetes Mellitus. ADA recommended reference range Performed By: #### A ERC #### [address] Potassium [Moles/Vol] 4.0 mmol/L Normal 3.5-5.1 [facility] Comment on above: Performed By: #### A ERC #### [place] [address] [place] Sodium [Moles/Vol] 136 mmol/L Normal 136-146 [facility] Comment on above: Performed By: #### A ERC #### [address] Urea nitrogen [Mass/Vol] 30 mg/dL High 9-23 [facility] Comment on above: Performed By: #### A ERC #### [address] Basophils Auto (Bld) [#/Vol] Ordered By: Tash Lawrence on 12-04-2021 Basophils (Bld) [#/Vol] 0.0 10*3/uL 0.0-0.2 [facility] Basophils/100 WBC Auto (Bld) Ordered By: Tash Lawrence on 12-04-2021 Basophils/100 WBC (Bld) 0.1 % [facility] Bilirubin Test strip Ql (U)O rdered By: Tash Lawrence on 12-04-2021 Bilirubin Ql (U) Negative Negative [facility] Blood hemoglobin measurement (mass/volume)Ordered By: Tash Lawrence on 12-04-2021 Hemoglobin (Bld) [Mass/Vol] 11.4 g/dL 13.0-17.0 [facility] Blood leukocytes automated c ount (number/volume)Ordered By: Tash Lawrence on 12-04-2021 WBC (Bld) [#/Vol] 7.7 10*3/uL 4.5-11.0 [facility] Color Auto (U)Ordered By: Ronny Lawrence on 12-04-2021 Color (U) Yellow Yellow [facility] Complete Blood Count Auto Di ffon 12-04-2021 Basophils (Bld) [#/Vol] 0.0 10*3/uL Normal 0.0-0.2 [facility] Comment on above: Result Comment: PERF ORMED BY: [place] [address] PATHOLOGIST PRODUCTION QUALITY ANALYST GLENNA JACKSON M.D. Performed By: #### A ERC #### [facility] [address] [place] [address] [place] Basophils/100 WBC (Bld) 0.1 % Normal . [facility] Comment on above: Performed By: #### A ERC #### [facility] [address] [place] [address] [place] Eosinophils (Bld) [#/Vol] 0.0 10*3/uL Normal 0.0-0.45 [facility] Comment on above: Performed By: #### A ERC #### [address] Eosinophils/100 WBC (Bld) 0.1 % Normal . [facility] Comment on above: Performed By: #### A ERC #### [address] Erythrocyte distribution width (RBC) [Ratio] 15.2 % High 12.0-14.8 [facility] Comment on above: Performed By: #### A ERC #### [address] Hematocrit (Bld) [Volume fraction] 36.7 % Low 38.8-50.0 [facility] Comment on above: Performed By: #### A ERC #### [address] Hemoglobin (Bld) [Mass/Vol] 11.4 g/dL Low 13.0-17.0 [facility] Comment on above: Performed By: #### A ERC #### [address] Lymphocytes (Bld) [#/Vol] 0.9 10*3/uL Low 1.00-4.8 [facility] Comment on above: Performed By: #### A ERC #### [address] Lymphocytes/100 WBC (Bld) 11.2 % Normal . [facility] Comment on above: Performed By: #### A ERC #### [address] MCH (RBC) [Entitic mass] 28.3 pg Normal 27.5-35.2 [facility] Comment on above: Performed By: #### A ERC #### [address] MCV (RBC) [Entitic vol] 91.5 fL Normal 83.5-101 [facility] Comment on above: Performed By: #### A ERC #### [address] Mean Corpuscular HGB Conc 30.9 g/dL Low 32.5-35.6 [facility] Comment on above: Performed By: #### A ERC #### [facility] [address] [place] [address] [place] Monocytes (Bld) [#/Vol] 0.8 10*3/uL Normal 0.0-0.8 [facility] Comment on above: Performed By: #### A ERC #### [facility] [address] [place] [address] [place] Monocytes/100 WBC (Bld) 9.7 % Normal . [facility] Comment on above: Performed By: #### A ERC #### [facility] [address] Neutrophils (Bld) [#/Vol] 6.1 10*3/uL Normal 1.8-7.7 [facility] Comment on above: Performed By: #### A ERC #### [facility] [address] Neutrophils/100 WBC (Bld) 78.9 % Normal . [facility] Comment on above: Performed By: #### A ERC #### [facility] [address] [place] [address] [place] Nucleated RBC/100 WBC (Bld) [Ratio] 0.0 % Normal 0-0.5 [facility] Comment on above: Performed By: #### A ERC #### [facility] [address] [place] [address] [place] Platelet mean volume (Bld) [Entitic vol] 8.9 fL Normal 6.6-10.1 [facility] Comment on above: Performed By: #### A ERC #### [facility] [address] [place] [address] [place] Platelets (Bld) [#/Vol] 158 10*3/uL Normal 150-450 [facility] Comment on above: Performed By: #### A ERC #### [facility] [address] RBC (Bld) [#/Vol] 4.01 10*6/uL Normal 3.90-5.60 [facility] Comment on above: Performed By: #### A ERC #### [facility] [address] [place] [address] [place] WBC (Bld) [#/Vol] 7.7 10*3/uL Normal 4.5-11.0 [facility] Comment on above: Performed By: #### A ERC #### [facility] [address] [place] [address] [place] Dipstick and Microscopicon 0 12-04-2021 Appearance (U) Clear Normal Clear [facility] Comment on above: Order Comment: Name Collection Type:: Clean-Voided Midstream Performed By: #### A ERC #### [address] Bacteria,Urine None Seen Normal None Seen [facility] Comment on above: Order Comment: Name Collection Type:: Clean-Voided Midstream Performed By: #### A ERC #### [place] [address] [place] Bilirubin,Urine Negative Normal Negative [facility] Comment on above: Order Comment: Name Collection Type:: Clean-Voided Midstream Performed By: #### A ERC #### [facility] [address] [place] [address] Color (U) Yellow Normal Yellow [facility] Comment on above: Order Comment: Name Collection Type:: Clean-Voided Midstream Performed By: #### A ERC #### [facility] [address] [place] [address] Glucose Ql (U) Normal Normal Normal [facility] Comment on above: Order Comment: Name Collection Type:: Clean-Voided Midstream Performed By: #### A ERC #### [facility] [address] [place], [place] [id number] [place] Hyaline Casts,Urine 0-8 Normal 0-8 [facility] Comment on above: Order Comment: Name Collection Type:: Clean-Voided Midstream Performed By: #### A ERC #### [place] [address] [place] Ketones Ql (U) Negative Normal Negative [facility] Comment on above: Order Comment: Name Collection Type:: Clean-Voided Midstream Performed By: #### A ERC #### [address] Leukocyte esterase Test strip Ql (U) Negative Normal Negative [facility] Comment on above: Order Comment: Name Collection Type:: Clean-Voided Midstream Performed By: #### A ERC #### [address] Nitrite,Urine Negative Normal Negative [facility] Comment on above: Order Comment: Name Collection Type:: Clean-Voided Midstream Performed By: #### A ERC #### [address] Occult Blood,Urine Negative Normal Negative [facility] Comment on above: Order Comment: Name Collection Type:: Clean-Voided Midstream Result Comment: PERF ORMED BY: [place] [address] PATHOLOGIST PRODUCTION QUALITY ANALYST GLENNA JACKSON M.D. Performed By: #### A ERC #### [address] pH (U) 5.0 [pH] Normal 5.0-9.0 [facility] Comment on above: Order Comment: Name Collection Type:: Clean-Voided Midstream Performed By: #### A ERC #### [address] Protein,Urine Trace High Negative [facility] Comment on above: Order Comment: Name Collection Type:: Clean-Voided Midstream Performed By: #### A ERC #### [place] [address] [place] RBC,Urine 3-4 Normal 0-4 [facility] Comment on above: Order Comment: Name Collection Type:: Clean-Voided Midstream Performed By: #### A ERC #### [address] Specificy [place],Urine 1.011 Normal 1.001-1.030 [facility] Comment on above: Order Comment: Name Collection Type:: Clean-Voided Midstream Performed By: #### A ERC #### [facility] [address] Squamous Epithelial Cell,Urine 0-1 Normal 0-2 [facility] Comment on above: Order Comment: Name Collection Type:: Clean-Voided Midstream Performed By: #### A ERC #### [address] Urobilinogen,Urine Normal Normal Normal [facility] Comment on above: Order Comment: Name Collection Type:: Clean-Voided Midstream Performed By: #### A ERC #### [address] WBC,Urine 3-4 Normal 0-4 [facility] Comment on above: Order Comment: Name Collection Type:: Clean-Voided Midstream Performed By: #### A ERC #### [address] Yeast,Urine None Seen Normal None Seen [facility] Comment on above: Order Comment: Name Collection Type:: Clean-Voided Midstream Result Comment: PERF ORMED BY: [place] [address] PATHOLOGIST PRODUCTION QUALITY ANALYST GLENNA JACKSON M.D. Performed By: #### A ERC #### [address] ECG 12 lead ECGon 12-04-2021 ECG 12 lead ECG [facility] [place] [address] Electrocardiograph Report Signed Patient: Merritt Mehta MR#: [id number] : 1935 Acct:[id number] Age/Sex: 86 / M ADM Date: 12/04/21 Loc: Room: [address] [place] [address] Type: DIS IN Attending Dr: Tash Lawrence MD Ordering Provider: Tash Lawrence MD Date of Service: 12/04/21 ECG/ECG 12 lead ECG: rhythm check Copies to: Test Reason : Blood Pressure : / mmHG Vent. Rate : 047 BPM Atrial Rate : 043 BPM P-R Int : 000 ms QRS Dur : 170 ms QT Int : 502 ms P-R-T Axes : 000 001 006 degrees QTc Int : 444 ms Sinus bradycardia with 1st degree AV block Right bundle branch block Abnormal ECG When compared with ECG of 03-DEC-2021 12:01, No significant change was found Confirmed by ASTON JUSTICE DO ([id number]) on 12/04/2021 12:26:48 PM Referred By: Electronically Signed By:ASTON JUSTICE DO Transcribed By: MUS Signed By Aston Justice DO 12/04 1226 Normal [facility] Eosinophils Auto (Bld) [#/Vo l]Ordered By: Tash Lawrence on 12-04-2021 Eosinophils (Bld) [#/Vol] 0.0 10*3/uL 0.0-0.45 [facility] Eosinophils/100 WBC Auto (Bl d)Ordered By: Tash Lawrence on 12-04-2021 Eosinophils/100 WBC (Bld) 0.1 % [facility] Erythrocyte distribution wid th Auto (RBC) [Ratio]Ordered By: Tash Lawrence on 12-04-2021 Erythrocyte distribution width (RBC) [Ratio] 15.2 % 12.0-14.8 [facility] Glucose Poct Glucometerson 0 12-04-2021 Commemt1 Glu2: Cleaned Meter Normal [facility] Comment on above: Result Comment: PERF ORMED BY: [place] [address] PATHOLOGIST PRODUCTION QUALITY ANALYST GLENNA JACKSON M.D. Performed By: #### A ERC #### [facility] [address] [place] [address] Glucose [Mass/Vol] 193 mg/dL [facility] Comment on above: Result Comment: [facility] Glucose Reference Range is dependent on time and content of last meal. Glucose of more than 200 mg/dL in a nonstressed, ambulatory subject supports the diagnosis of Diabetes Mellitus. Performed By: #### A ERC #### [address] Glucose [Mass/Vol] 188 mg/dL Normal [facility] Comment on above: Result Comment: [facility] Glucose Reference Range is dependent on time and content of last meal. Glucose of more than 200 mg/dL in a nonstressed, ambulatory subject supports the diagnosis of Diabetes Mellitus. PERFORMED BY: [place] [address] PATHOLOGIST PRODUCTION QUALITY ANALYST GLENNA JACKSON M.D. Performed By: #### G LULS #### Point of Care testing , Glucose [Mass/Vol] 96 mg/dL Normal [facility] Comment on above: Result Comment: [facility] Glucose Reference Range is dependent on time and content of last meal. Glucose of more than 200 mg/dL in a nonstressed, ambulatory subject supports the diagnosis of Diabetes Mellitus. PERFORMED BY: [place] [address] PATHOLOGIST PRODUCTION QUALITY ANALYST GLENNA JACKSON M.D. Performed By: #### A ERC #### [place] [id number] [facility] Hematocrit Auto (Bld) [Volum e fraction]Ordered By: Tash Lawrence on 12-04-2021 Hematocrit (Bld) [Volume fraction] 36.7 % 38.8-50.0 [facility] Ketones Auto test strip (U) [Mass/Vol]Ordered By: Tash Lawrence on 12-04-2021 Ketones (U) [Mass/Vol] Negative Negative [facility] Laboratory - Chemistry and C hemistry - challengeOrdered By: Tash Lawrence on 12-04-2021 Magnesium [Mass/Vol] 1.6 mg/dL 1.6-2.6 [facility] Laboratory - Hematology and Cell countsOrdered By: Tash Lawrence on 12-04-2021 Nucleated RBC/100 WBC (Bld) [Ratio] 0.0 % 0-0.5 [facility] - UrinalysisOrder ed By: Tash Lawrence on 12-04-2021 Hyaline casts LM Ql (Urine sed) 0-8 [LPF] [facility] Lymphocytes Auto (Bld) [#/Vo l]Ordered By: Tash Lawrence on 12-04-2021 Lymphocytes (Bld) [#/Vol] 0.9 10*3/uL 1.00-4.8 [facility] Lymphocytes/100 WBC Auto (Bl d)Ordered By: Tash Lawrence on 12-04-2021 Lymphocytes/100 WBC (Bld) 11.2 % [facility] MCH Auto (RBC) [Entitic mass ]Ordered By: Tash Lawrence on 12-04-2021 MCH (RBC) [Entitic mass] 28.3 pg 27.5-35.2 [facility] MCHC Auto (RBC) [Mass/Vol]Or dered By: Tash Lawrence on 12-04-2021 MCHC (RBC) [Mass/Vol] 30.9 g/dL 32.5-35.6 [facility] MCV Auto (RBC) [Entitic vol] Ordered By: aTsh Lawrence on 12-04-2021 MCV (RBC) [Entitic vol] 91.5 fL 83.5-101 [facility] Magnesiumon 12-04-2021 Magnesium [Mass/Vol] 1.6 mg/dL Normal 1.6-2.6 [facility] Comment on above: Result Comment: PERF ORMED BY: [place] [address] PATHOLOGIST PRODUCTION QUALITY ANALYST GLENNA JACKSON M.D. Performed By: #### A [facility] #### [address] Monocytes Auto (Bld) [#/Vol] Ordered By: Tash Lawrence on 12-04-2021 Monocytes (Bld) [#/Vol] 0.8 10*3/uL 0.0-0.8 [facility] Monocytes/100 WBC Auto (Bld) Ordered By: Tash Lawrence on 12-04-2021 Monocytes/100 WBC (Bld) 9.7 % [facility] Neutrophils Auto (Bld) [#/Vo l]Ordered By: Tash Lawrence on 12-04-2021 Neutrophils (Bld) [#/Vol] 6.1 10*3/uL 1.8-7.7 [facility] Neutrophils/100 WBC Auto (Bl d)Ordered By: Tash Lawrence on 12-04-2021 Neutrophils/100 WBC (Bld) 78.9 % [facility] Nitrite Test strip Ql (U)Ord ered By: Tash Lawrence on 12-04-2021 Nitrite Ql (U) Negative Negative [facility] No Panel InformationOrdered By: Tash Lawrence on 12-04-2021 Bedside Glucose Comment Glu2: cleaned meter [facility] Platelet mean volume Auto (B ld) [Entitic vol]Ordered By: Tash Lawrence on 12-04-2021 Platelet mean volume (Bld) [Entitic vol] 8.9 fL 6.6-10.1 [facility] Platelets Auto (Bld) [#/Vol] Ordered By: Tash Lawrence on 12-04-2021 Platelets (Bld) [#/Vol] 158 10*3/uL 150-450 [facility] Protein Auto test strip (U) [Mass/Vol]Ordered By: Tash Lawrence on 12-04-2021 Protein (U) [Mass/Vol] Trace mg/dL Negative [facility] RBC Auto (Bld) [#/Vol]Ordere d By: Tash Lawrence on 12-04-2021 RBC (Bld) [#/Vol] 4.01 10*6/uL 3.90-5.60 [facility] Specific gravity Auto test s trip (U) [Rel density]Ordered By: Tash Lawrence on 12-04-2021 Specific gravity (U) [Rel density] 1.011 1.001-1.030 [facility] Squamous epithelial cells de tection in urine sediment by light microscopyOrdered By: Tash Lawrence on 12-04-2021 Epithelial cells.squamous LM Ql (Urine sed) 0-1 [HPF] [facility] Urine bacteria detection by automated methodOrdered By: Tash Lawrence on 12-04-2021 Bacteria Auto Ql (U) None seen None Seen [facility] Urine clarity by refractomet ry automatedOrdered By: Tash Lawrence on 12-04-2021 Clarity Refractometry automated (U) Clear Clear [facility] Urine glucose measurement by automated test strip (mass/volume)Ordered By: Tash Lawrence on 12-04-2021 Glucose Auto test strip (U) [Mass/Vol] Normal mg/dL Normal [facility] Urine hemoglobin detection b y automated test stripOrdered By: Tash Lawrence on 12-04-2021 Hemoglobin Auto test strip Ql (U) Negative Negative [facility] Urine leukocyte esterase det ection by automated test stripOrdered By: Tash Lawrence on 12-04-2021 Leukocyte esterase Auto test strip Ql (U) Negative Negative [facility] Urobilinogen Auto test strip (U) [Mass/Vol]Ordered By: Tash Lawrence on 12-04-2021 Urobilinogen (U) [Mass/Vol] Normal mg/dL Normal [facility] Yeast detection in urine sed iment by light microscopyOrdered By: Tash Lawrence on 12-04-2021 Yeast LM Ql (Urine sed) None seen [HPF] None Seen [facility] pH Auto test strip (U)Ordere d By: Tash Lawrence on 12-04-2021 pH (U) 5.0 [pH] 5.0-9.0 [facility] ABO and Rh group post transf usion reaction Nom (Bld)Ordered By: Tash Lawrence on 12-03-2021 Microscopic observation Gram stain Nom (Unsp spec) [facility] Aerobic Cultureon 12-03-2021 Aerobic Culture Gram stain results c alled at 0340 on 12/03/21 ORGANISM: Moraxella catarrhalis (O:MORCAT) Beta Lactamase Positive Quantity of Growth Moderate Growth Gram stain results called at 0340 on 12/03/21 Gram Stain Result 2+ Gram Positive Cocci in Pairs PERFORMED BY: [place] [address] PATHOLOGIST PRODUCTION QUALITY ANALYST GLENNA JACKSON M.D. Normal [facility] Comment on above: Performed By: #### A AMPARO ARIAS #### [address] Bacteria identified Aer cx N om (Unsp spec)Ordered By: Tash Lawrence on 12-03-2021 Aerobic Culture Moraxella catarrhalis [facility] Basic Metabolic Panelon 05- Calcium [Mass/Vol] 8.3 mg/dL Normal 8.2-10.2 [facility] Comment on above: Performed By: #### G LULS #### Point of Care testing , Chloride [Moles/Vol] 99 mmol/L Normal 95-114 [facility] Comment on above: Performed By: #### G LULS #### Point of Care testing , CO2 [Moles/Vol] 28.4 mmol/L Normal 22.0-30.0 [facility] Comment on above: Performed By: #### G LULS #### Point of Care testing , Creatinine [Mass/Vol] 1.61 mg/dL High 0.64-1.27 [facility] Comment on above: Performed By: #### G LULS #### Point of Care testing , Creatinine Clr Calc Pharmacy 28.19 [facility] Comment on above: Performed By: #### G LULS #### Point of Care testing , Estimated GFR ( Anila 49 [facility] Comment on above: Result Comment: GFR estimated reference range: According to KDOQI guidelines, <60 ml/min/1.73m2 is sufficient to diagnose a patient with chronic kidney disease. Performed By: #### G LULS #### Point of Care testing , Estimated GFR (Non- Am 41 [facility] Comment on above: Performed By: #### G LULS #### Point of Care testing , Glucose [Mass/Vol] 127 mg/dL High 70-100 [facility] Comment on above: Result Comment: [place] Glucose Reference Range is dependent on time and content of last meal. Glucose of more than 200 mg/dL in a nonstressed, ambulatory subject supports the diagnosis of Diabetes Mellitus. ADA recommended reference range Performed By: #### G LULS #### Point of Care testing , Potassium [Moles/Vol] 3.5 mmol/L Normal 3.5-5.1 [facility] Comment on above: Performed By: #### G LULS #### Point of Care testing , Sodium [Moles/Vol] 138 mmol/L Normal 136-146 [facility] Comment on above: Performed By: #### G REMI #### Point of Care testing , Urea nitrogen [Mass/Vol] 21 mg/dL Normal 9-23 [facility] Comment on above: Performed By: #### G REMI #### Point of Care testing , Complete Blood Count Auto Di ffon 12-03-2021 Basophils (Bld) [#/Vol] 0.0 10*3/uL Normal 0.0-0.2 [facility] Comment on above: Result Comment: PERF ORMED BY: [place] [address] PATHOLOGIST PRODUCTION QUALITY ANALYST GLENNA JACKSON M.D. Performed By: #### C BC #### [address] Basophils/100 WBC (Bld) 0.7 % Normal . [facility] Comment on above: Performed By: #### C BC #### [address] Eosinophils (Bld) [#/Vol] 0.0 10*3/uL Normal 0.0-0.45 [facility] Comment on above: Performed By: #### C BC #### [address] Eosinophils/100 WBC (Bld) 0.0 % Normal . [facility] Comment on above: Performed By: #### C BC #### [address] Erythrocyte distribution width (RBC) [Ratio] 15.0 % High 12.0-14.8 [facility] Comment on above: Performed By: #### C BC #### [address] Hematocrit (Bld) [Volume fraction] 34.3 % Low 38.8-50.0 [facility] Comment on above: Performed By: #### C BC #### [address] Hemoglobin (Bld) [Mass/Vol] 10.9 g/dL Low 13.0-17.0 [facility] Comment on above: Performed By: #### C BC #### [address] Lymphocytes (Bld) [#/Vol] 0.6 10*3/uL Low 1.00-4.8 [facility] Comment on above: Performed By: #### C BC #### [address] Lymphocytes/100 WBC (Bld) 8.2 % Normal . [facility] Comment on above: Performed By: #### C BC #### [address] MCH (RBC) [Entitic mass] 28.7 pg Normal 27.5-35.2 [facility] Comment on above: Performed By: #### C BC #### [address] MCV (RBC) [Entitic vol] 90.2 fL Normal 83.5-101 [facility] Comment on above: Performed By: #### C BC #### [address] Mean Corpuscular HGB Conc 31.8 g/dL Low 32.5-35.6 [facility] Comment on above: Performed By: #### C BC #### [address] Monocytes (Bld) [#/Vol] 0.9 10*3/uL High 0.0-0.8 [facility] Comment on above: Performed By: #### C BC #### [address] Monocytes/100 WBC (Bld) 12.2 % Normal . [facility] Comment on above: Performed By: #### C BC #### [address] Neutrophils (Bld) [#/Vol] 5.9 10*3/uL Normal 1.8-7.7 [facility] Comment on above: Performed By: #### C BC #### [facility] [address] [place] [address] [place] Neutrophils/100 WBC (Bld) 78.9 % Normal . [facility] Comment on above: Performed By: #### C BC #### [facility] [address] [place] [id number] [place] Nucleated RBC/100 WBC (Bld) [Ratio] 0.1 % Normal 0-0.5 [facility] Comment on above: Performed By: #### C BC #### [facility] [address] Platelet mean volume (Bld) [Entitic vol] 8.5 fL Normal 6.6-10.1 [facility] Comment on above: Performed By: #### C BC #### [facility] [address] [place] [address] [place] Platelets (Bld) [#/Vol] 157 10*3/uL Normal 150-450 [facility] Comment on above: Performed By: #### C BC #### [facility] [address] [place] [address] [place] RBC (Bld) [#/Vol] 3.80 10*6/uL Low 3.90-5.60 [facility] Comment on above: Performed By: #### C BC #### [facility] [address] [place] [address] [place] WBC (Bld) [#/Vol] 7.5 10*3/uL Normal 4.5-11.0 [facility] Comment on above: Performed By: #### C BC #### [facility] [address] [place] [id number] [place] ECG 12 lead ECGon 12-03-2021 ECG 12 lead ECG [facility] Main [place] [address] [place] [address] Electrocardiograph Report Signed Patient: Merritt Mehta MR#: [id number] : 1935 Acct:[id number] Age/Sex: 86 / M ADM Date: 12/04/21 Loc: Room: 1C8986-3 Type: DIS IN Attending Dr: Tash Lawrence MD Ordering Provider: Tash Lawrence MD Date of Service: 12/03/2107/15/1312 ECG/ECG 12 lead ECG: ekg change Copies to: Test Reason : Blood Pressure : / mmHG Vent. Rate : 053 BPM Atrial Rate : 053 BPM P-R Int : 316 ms QRS Dur : 168 ms QT Int : 484 ms P-R-T Axes : 000 013 -58 degrees QTc Int : 454 ms Sinus bradycardia with 1st degree AV block with occasional premature ventricular complexes Right bundle branch block Abnormal ECG When compared with ECG of 26-SEP-2020 11:42, Sinus rhythm has replaced Atrial fibrillation T wave inversion now evident in Lateral leads Confirmed by ASTON JUSTICE DO ([id number]) on 12/03/2021 4:42:35 PM Referred By: Electronically Signed By:ASTON JUSTICE DO Transcribed By: MUS Signed By Aston Justice DO 12/03 1642 Normal [facility] Glucose Poct Glucometerson 0 12-03-2021 Commemt1 Glu2: Cleaned Meter Normal [facility] Comment on above: Result Comment: PERF ORMED BY: [address] [place] [address] PATHOLOGIST PRODUCTION QUALITY ANALYST GLENNA JACKSON M.D. Performed By: #### G LULS #### Point of Care testing , Glucose [Mass/Vol] 115 mg/dL Normal [facility] Comment on above: Result Comment: [facility] Glucose Reference Range is dependent on time and content of last meal. Glucose of more than 200 mg/dL in a nonstressed, ambulatory subject supports the diagnosis of Diabetes Mellitus. Performed By: #### G LULS #### Point of Care testing , Glucose [Mass/Vol] 157 mg/dL Normal [facility] Comment on above: Result Comment: [facility] Glucose Reference Range is dependent on time and content of last meal. Glucose of more than 200 mg/dL in a nonstressed, ambulatory subject supports the diagnosis of Diabetes Mellitus. PERFORMED BY: [facility] [address] [place] [phone] PATHOLOGIST PRODUCTION QUALITY ANALYST GLENNA JACKSON M.D. Performed By: #### G LULS #### Point of Care testing , Glucose [Mass/Vol] 175 mg/dL Normal [facility] Comment on above: Result Comment: [facility] Glucose Reference Range is dependent on time and content of last meal. Glucose of more than 200 mg/dL in a nonstressed, ambulatory subject supports the diagnosis of Diabetes Mellitus. PERFORMED BY: [place] [phone] PATHOLOGIST PRODUCTION QUALITY ANALYST GLENNA JACKSON M.D. Performed By: #### G LULS #### Point of Care testing , Glucose [Mass/Vol] 146 mg/dL Normal [facility] Comment on above: Result Comment: [facility] Glucose Reference Range is dependent on time and content of last meal. Glucose of more than 200 mg/dL in a nonstressed, ambulatory subject supports the diagnosis of Diabetes Mellitus. PERFORMED BY: [place] [phone] PATHOLOGIST PRODUCTION QUALITY ANALYST GLENNA JACKSON M.D. Performed By: #### G LULS #### Point of Care testing , Gram Stainon 12-03-2021 Microscopic observation Gram stain Nom (Unsp spec) Gram stain results called at 0340 on 12/03/21 Gram Stain Result 2+ Gram Positive Cocci in Pairs PERFORMED BY: [address] [place] [phone] PATHOLOGIST PRODUCTION QUALITY ANALYST GLENNA JACKSON M.D. [facility] Comment on above: Performed By: #### A ERC, #### [address] Magnesiumon 12-03-2021 Magnesium [Mass/Vol] 1.4 mg/dL Low 1.6-2.6 [facility] Comment on above: Result Comment: PERF ORMED BY: [place] [phone] PATHOLOGIST PRODUCTION QUALITY ANALYST GLENNA JACKSON M.D. Performed By: #### G LULS #### Point of Care testing , XR chest 2V*on 12-03-2021 XR chest 2V* [facility] [place] [address] [place] [address] XRay Report Signed Patient: Merritt Mehta MR#: [id number] : 1935 Acct:[id number] Age/Sex: 86 / M ADM Date: 12/01/21 Loc: Room: [address] [place] [address] Type: ADM INOo Attending Dr: Tash Lawrence MD Ordering Provider: Tash Lawrence MD Date of Service: 12/03/21 XR/XR chest 2V*: increased cough Copies to: Tash Lawrence MD PA AND LATERAL CHEST: CLINICAL HISTORY: Increased cough and congestion. COMPARISON: Chest 01/12/2019 FINDINGS: Cardiomegaly and mild vascular congestion is noted. Likely Small right-sided pleural effusion. Bibasilar atelectasis. Elevation the right hemidiaphragm. No pneumothorax or free air. Right-sided rib fractures are noted. XR/XR chest 2V* IMPRESSION: CHF FINDINGS WITH MILD VASCULAR CONGESTION AND LIKELY SMALL RIGHT PLEURAL EFFUSION. MULTIPLE RIGHT-SIDED RIB FRACTURES. Impression dictated by: Jhon Julien Jr., D.O.12/03/2021 12:57 PM Dictation Location: [place] [address] Transcribed By: [facility] 12/03/21 1257 Dictated By: Jhon Julien Jr, DO 12/03/21 1254 Signed By: 12/03/21 1257 [facility] Aerobic Cultureon 12-02-2021 Aerobic Culture Moderate Normal Respiratory [place] 2 Days Gram Stain Result 1+ Gram Positive Cocci 1+ White Blood Cells Rare Gram Negative Bacilli No Epithelial Cells Seen PERFORMED BY: [address] [place] [address] PATHOLOGIST PRODUCTION QUALITY ANALYST GLENNA JACKSON M.D. [facility] Comment on above: Performed By: #### A ERC #### [address] Basic Metabolic Panelon 11-22 Calcium [Mass/Vol] 8.3 mg/dL Normal 8.2-10.2 [facility] Comment on above: Performed By: #### G LULS #### Point of Care testing , Chloride [Moles/Vol] 99 mmol/L Normal 95-114 [facility] Comment on above: Performed By: #### G LULS #### Point of Care testing , CO2 [Moles/Vol] 30.8 mmol/L High 22.0-30.0 [facility] Comment on above: Performed By: #### G LULS #### Point of Care testing , Creatinine [Mass/Vol] 1.37 mg/dL High 0.64-1.27 [facility] Comment on above: Performed By: #### G LULS #### Point of Care testing , Creatinine Clr Calc Pharmacy 33.55 [facility] Comment on above: Performed By: #### G LULS #### Point of Care testing , Estimated GFR ( Anila 60 [facility] Comment on above: Result Comment: GFR estimated reference range: According to KDOQI guidelines, <60 ml/min/1.73m2 is sufficient to diagnose a patient with chronic kidney disease. Performed By: #### G LULS #### Point of Care testing , Estimated GFR (Non- Am 49 [facility] Comment on above: Performed By: #### G LULS #### Point of Care testing , Glucose [Mass/Vol] 137 mg/dL High 70-100 [facility] Comment on above: Result Comment: [place] Glucose Reference Range is dependent on time and content of last meal. Glucose of more than 200 mg/dL in a nonstressed, ambulatory subject supports the diagnosis of Diabetes Mellitus. ADA recommended reference range Performed By: #### G LULS #### Point of Care testing , Potassium [Moles/Vol] 3.3 mmol/L Low 3.5-5.1 [facility] Comment on above: Performed By: #### G LULS #### Point of Care testing , Sodium [Moles/Vol] 139 mmol/L Normal 136-146 [facility] Comment on above: Performed By: #### G LULS #### Point of Care testing , Urea nitrogen [Mass/Vol] 20 mg/dL Normal 9-23 [facility] Comment on above: Performed By: #### G REMI #### Point of Care testing , Glucose Poct Glucometerson 0 12-02-2021 Glucose [Mass/Vol] 156 mg/dL Normal [facility] Comment on above: Result Comment: [place] Glucose Reference Range is dependent on time and content of last meal. Glucose of more than 200 mg/dL in a nonstressed, ambulatory subject supports the diagnosis of Diabetes Mellitus. PERFORMED BY: [facility] [address] [place] [place] [address] PATHOLOGIST PRODUCTION QUALITY ANALYST GLENNA JACKSON M.D. Performed By: #### G REMI #### Point of Care testing , Hemogram CBC Without Diffon 12-02-2021 Erythrocyte distribution width (RBC) [Ratio] 14.9 % High 12.0-14.8 [facility] Comment on above: Performed By: #### Tarun KHALIL #### Point of Care testing , Hematocrit (Bld) [Volume fraction] 36.3 % Low 38.8-50.0 [facility] Comment on above: Performed By: #### Tarun KHALIL #### Point of Care testing , Hemoglobin (Bld) [Mass/Vol] 11.6 g/dL Low 13.0-17.0 [facility] Comment on above: Performed By: #### G REMI #### Point of Care testing , MCH (RBC) [Entitic mass] 28.8 pg Normal 27.5-35.2 [facility] Comment on above: Performed By: #### G REMI #### Point of Care testing , MCV (RBC) [Entitic vol] 90.0 fL Normal 83.5-101 [facility] Comment on above: Performed By: #### G REMI #### Point of Care testing , Mean Corpuscular HGB Conc 32.0 g/dL Low 32.5-35.6 [facility] Comment on above: Performed By: #### Tarun KHALIL #### Point of Care testing , Platelet mean volume (Bld) [Entitic vol] 8.3 fL Normal 6.6-10.1 [facility] Comment on above: Result Comment: PERF ORMED BY: [facility] [address] [place] [phone] PATHOLOGIST PRODUCTION QUALITY ANALYST GLENNA JACKSON M.D. Performed By: #### G LULS #### Point of Care testing , Platelets (Bld) [#/Vol] 177 10*3/uL Normal 150-450 [facility] Comment on above: Performed By: #### G LULS #### Point of Care testing , RBC (Bld) [#/Vol] 4.03 10*6/uL Normal 3.90-5.60 [facility] Comment on above: Performed By: #### G LULS #### Point of Care testing , WBC (Bld) [#/Vol] 6.4 10*3/uL Normal 4.1-10.5 [facility] Comment on above: Performed By: #### G LULS #### Point of Care testing , Magnesiumon 12-02-2021 Magnesium [Mass/Vol] 1.2 mg/dL Low 1.6-2.6 [facility] Comment on above: Result Comment: PERF ORMED BY: [facility] [address] [place] [address] PATHOLOGIST PRODUCTION QUALITY ANALYST GLENNA JACKSON M.D. Performed By: #### G LULS #### Point of Care testing , Troponin I High Sensitivityo n 12-02-2021 Troponin I High Sensitivity 65 pg/mL Off scale high 0-20 [facility] Comment on above: Result Comment: Crit ical value result called at 0050 on 12/03/21 PERFORMED BY: [address] [place] [address] PATHOLOGIST PRODUCTION QUALITY ANALYST GLENNA JACKSON M.D. Performed By: #### G LULS #### Point of Care testing , Troponin I.cardiac [Mass/vol ume] in Serum or Plasma by High sensitivity methodOrdered By: Trish Sandhu on 12-02-2021 Troponin I.cardiac High sensitivity method [Mass/Vol] 65 pg/mL 0-20 [facility] Comment on above: Critical value result called at 0050 on 12/03/21 Basic Metabolic Panelon 11-22-2021 Calcium [Mass/Vol] 8.4 mg/dL Normal 8.2-10.2 [facility] Comment on above: Performed By: #### G LULS #### Point of Care testing , Chloride [Moles/Vol] 99 mmol/L Normal 95-114 [facility] Comment on above: Performed By: #### G LULS #### Point of Care testing , CO2 [Moles/Vol] 27.7 mmol/L Normal 22.0-30.0 [facility] Comment on above: Performed By: #### G LULS #### Point of Care testing , Creatinine [Mass/Vol] 1.62 mg/dL High 0.64-1.27 [facility] Comment on above: Performed By: #### G LULS #### Point of Care testing , Creatinine Clr Calc Pharmacy 28.02 [facility] Comment on above: Performed By: #### G LULS #### Point of Care testing , Estimated GFR ( Anila 49 [facility] Comment on above: Result Comment: GFR estimated reference range: According to KDOQI guidelines, <60 ml/min/1.73m2 is sufficient to diagnose a patient with chronic kidney disease. Performed By: #### G LULS #### Point of Care testing , Estimated GFR (Non- Am 41 [facility] Comment on above: Performed By: #### G LULS #### Point of Care testing , Glucose [Mass/Vol] 133 mg/dL High 70-100 [facility] Comment on above: Result Comment: [place] Glucose Reference Range is dependent on time and content of last meal. Glucose of more than 200 mg/dL in a nonstressed, ambulatory subject supports the diagnosis of Diabetes Mellitus. ADA recommended reference range Performed By: #### G LULS #### Point of Care testing , Potassium [Moles/Vol] 3.5 mmol/L Normal 3.5-5.1 [facility] Comment on above: Performed By: #### G REMI #### Point of Care testing , Sodium [Moles/Vol] 139 mmol/L Normal 136-146 [facility] Comment on above: Performed By: #### G ENRIQUELS #### Point of Care testing , Urea nitrogen [Mass/Vol] 27 mg/dL High 9-23 [facility] Comment on above: Performed By: #### G ENRIQUELS #### Point of Care testing , Complete Blood Count Auto Di ffon 12-01-2021 Basophils (Bld) [#/Vol] 0.0 10*3/uL Normal 0.0-0.2 [facility] Comment on above: Result Comment: PERF ORMED BY: [facility] [address] [place] [address] PATHOLOGIST PRODUCTION QUALITY ANALYST GLENNA JACKSON M.D. Performed By: #### G ENRIQUELS #### Point of Care testing , Basophils/100 WBC (Bld) 0.5 % Normal . [facility] Comment on above: Performed By: #### G ENRIQUELS #### Point of Care testing , Eosinophils (Bld) [#/Vol] 0.0 10*3/uL Normal 0.0-0.45 [facility] Comment on above: Performed By: #### G ENRIQUELS #### Point of Care testing , Eosinophils/100 WBC (Bld) 0.5 % Normal . [facility] Comment on above: Performed By: #### G ENRIQUELS #### Point of Care testing , Erythrocyte distribution width (RBC) [Ratio] 15.0 % High 12.0-14.8 [facility] Comment on above: Performed By: #### G ENRIQUELS #### Point of Care testing , Hematocrit (Bld) [Volume fraction] 37.4 % Low 38.8-50.0 [facility] Comment on above: Performed By: #### G ENRIQUELS #### Point of Care testing , Hemoglobin (Bld) [Mass/Vol] 12.0 g/dL Low 13.0-17.0 [facility] Comment on above: Performed By: #### G ENRIQUELS #### Point of Care testing , Lymphocytes (Bld) [#/Vol] 0.6 10*3/uL Low 1.00-4.8 [facility] Comment on above: Performed By: #### G ENRIQUELS #### Point of Care testing , Lymphocytes/100 WBC (Bld) 12.1 % Normal . [facility] Comment on above: Performed By: #### G ENRIQUELS #### Point of Care testing , MCH (RBC) [Entitic mass] 28.5 pg Normal 27.5-35.2 [facility] Comment on above: Performed By: #### G ENRIQUELS #### Point of Care testing , MCV (RBC) [Entitic vol] 88.6 fL Normal 83.5-101 [facility] Comment on above: Performed By: #### G ENRIQUELS #### Point of Care testing , Mean Corpuscular HGB Conc 32.2 g/dL Low 32.5-35.6 [facility] Comment on above: Performed By: #### Tarun NUNEZLS #### Point of Care testing , Monocytes (Bld) [#/Vol] 0.7 10*3/uL Normal 0.0-0.8 [facility] Comment on above: Performed By: #### Tarun NUNEZLS #### Point of Care testing , Monocytes/100 WBC (Bld) 12.9 % Normal . [facility] Comment on above: Performed By: #### G ENRIQUELS #### Point of Care testing , Neutrophils (Bld) [#/Vol] 3.9 10*3/uL Normal 1.8-7.7 [facility] Comment on above: Performed By: #### G ENRIQUELS #### Point of Care testing , Neutrophils/100 WBC (Bld) 74.0 % Normal . [facility] Comment on above: Performed By: #### G ENRIQUELS #### Point of Care testing , Nucleated RBC/100 WBC (Bld) [Ratio] 0.1 % Normal 0-0.5 [facility] Comment on above: Performed By: #### Tarun NUNEZLS #### Point of Care testing , Platelet mean volume (Bld) [Entitic vol] 8.3 fL Normal 6.6-10.1 [facility] Comment on above: Performed By: #### G LULS #### Point of Care testing , Platelets (Bld) [#/Vol] 196 10*3/uL Normal 150-450 [facility] Comment on above: Performed By: #### G LULS #### Point of Care testing , RBC (Bld) [#/Vol] 4.22 10*6/uL Normal 3.90-5.60 [facility] Comment on above: Performed By: #### G LULS #### Point of Care testing , WBC (Bld) [#/Vol] 5.3 10*3/uL Normal 4.5-11.0 [facility] Comment on above: Performed By: #### G LULS #### Point of Care testing , Covid-19 PCR ([facility])on 11-22 SARS-CoV-2 (COVID-19) RNA ALLY+probe Ql (Unsp spec) Not detected Normal NOT DETECTED [facility] Comment on above: Result Comment: When diagnostic testing is negative, the possibility of a false negative should be considered in the context of a patient's recent exposures and the presence of clinical signs and symptoms consistent with SARS-CoV-2. This test is not yet approved or cleared by the [place] Food and Drug Administration (FDA). This test was developed by [employer], [place], [place]. The performance characteristics of this test were validated by [facility]. The results are not intended to be used as the sole means for clinical diagnosis or patient management decisions. [facility] is authorized under Clinical Laboratory Improvement Amendments (CLIA) to perform high- complexity testing. This test is not yet approved or cleared by the [place] FDA. When there are no FDA-approved or cleared tests available, and other criteria are met, FDA can make tests available under an emergency access mechanism called an Emergency Use Authorization (EUA). The EUA for this test is supported by the [place] of Health and Human Service's declaration that circumstances exist to justify the emergency use of in vitro diagnostics for the detection and/or diagnosis of the virus that causes COVID-19. This EUA will remain in effect for the duration of the COVID-19 declaration justifying emergency of IVDs, unless it is terminated or revoked by the FDA (after which the test may no longer be used). Performed By: #### C MP, TSH, T7, LIPID, BNP #### [facility] [address] [place], [place] [address] Dr. Gilles Ca MAGNESIUMon 12-01-2021 Magnesium [Mass/Vol] 0.9 mg/dL Critically low 1.8-2.4 [facility] Comment on above: Result Comment: repe ated Performed By: #### M G ####[facility] [address] [place], [place] [address]YcDr. Gilles Ca Magnesiumon 12-01-2021 Magnesium [Mass/Vol] 1.4 mg/dL Low 1.6-2.6 [facility] Comment on above: Result Comment: PERF ORMED BY: [facility] [address] [place] [address] PATHOLOGIST PRODUCTION QUALITY ANALYST GLENNA JACKSON M.D. Performed By: #### G LULS #### Point of Care testing , Troponin I High Sensitivityo n 12-01-2021 Troponin I High Sensitivity 71 pg/mL Off scale high 0-20 [facility] Comment on above: Result Comment: Critical value result called at 1943 on 12/02/21 PERFORMED BY: [facility] [address] [place] [address] PATHOLOGIST PRODUCTION QUALITY ANALYST GLENNA JACKSON M.D. Performed By: #### G LULS #### Point of Care testing , BNPon 11-30-2021 Natriuretic peptide B (Bld) [Mass/Vol] 04079.0 pg/mL Critically high <=1,800.0 [facility] Comment on above: Performed By: #### C MP, TSH, T7, LIPID, BNP #### [facility] [address] [place], [place] [address] Dr. Gilles Ca CARDIAC MARICRUZ ADMITon 022 CK [Catalytic activity/Vol] 158 U/L Normal 39-308 [facility] Comment on above: Performed By: #### C MP, TSH, T7, LIPID, BNP #### [facility] [address] [place] [address] [address] Gilles Ca CK.MB [Mass/Vol] 5.09 ng/mL Critically high <=3.60 [facility] Comment on above: Result Comment: TEST REPEATED CRITICAL VALUE VERIFIED Performed By: #### C MP, TSH, T7, LIPID, BNP #### [facility] [address] [place] [address] [address] Gilles Ca HSTROP 42.8 pg/mL Normal 4.0-76.1 [facility] Comment on above: Result Comment: CUT- OFF POINTS HAVE BEEN ESTABLISHED BASED ON THE FOURTH UNIVERSAL DEFINITIONS OF MYOCARDIAL INFARCTION. THE UPPER REFERENCE LIMIT (URL) OF TROPONIN, DEFINED THE 99TH PERCENTILE OF cTnI DISTRIBUTION IN A REFERENCE POPULATION, HAS BEEN CONFIRMED THE DECISION THRESHOLD FOR [place] DIAGNOSIS. Performed By: #### C MP, TSH, T7, LIPID, BNP #### [facility] [address] [place] [address] Dr. Gilles Ca JANA 186 ng/mL Critically high 16-96 [facility] Comment on above: Performed By: #### C MP, TSH, T7, LIPID, BNP #### [facility] [address] [place] [address] Dr. Gilles Ca CBC AUTO DIFFon 11-30-2021 BASO # 0.0 103/ul Normal 0.0-0.1 [facility] Comment on above: Performed By: #### C BC ####[facility] [address] [place] [address]DrAndrea Ca Basophils/100 WBC (Bld) 0.3 % Normal 0.2-2.0 [facility] Comment on above: Performed By: #### C BC ####[facility] [address] [place] [address]Dr. Gilles Ca EO # 0.1 103/ul Normal 0.0-0.7 [facility] Comment on above: Performed By: #### C BC ####[facility] [address] [place] [address]Dr. Gilles Ca Eosinophils/100 WBC (Bld) 1.0 % Normal 0.9-7.0 [facility] Comment on above: Performed By: #### C BC ####[facility] [address] [place] [address]Dr. Gilles Ca Erythrocyte distribution width (RBC) [Ratio] 14.3 % Normal 11.0-15.0 [facility] Comment on above: Performed By: #### C BC ####[facility] [address] [place], [place] [address]Dr. Gilles Ca Hematocrit (Bld) [Volume fraction] 37.4 % Critically low 42.0-54.0 [facility] Comment on above: Performed By: #### C BC ####[facility] [address] [place], [place] [address]Dr. Gilles Ca Hemoglobin (Bld) [Mass/Vol] 11.5 g/dL Critically low 14.0-18.0 [facility] Comment on above: Performed By: #### C BC ####[facility] [address] [place], [place] [address]Dr. Gilles Ca IG # 0.04 10e3/ul Critically high 0.00-0.03 [facility] Comment on above: Performed By: #### C BC ####[facility] [address] [place], [place] [address]Dr. Gilles Ca IG % 0.7 % Critically high 0.0-0.5 [facility] Comment on above: Performed By: #### C BC ####[facility] [address] [place], [place] [address]Dr. Gilles Ca LYMPH # 1.2 103/ul Normal 1.2-3.8 [facility] Comment on above: Performed By: #### C BC ####[facility] [address] [place], [place] [address]Dr. Gilles Ca Lymphocytes/100 WBC (Bld) 19.7 % Critically low 20.5-60.0 [facility] Comment on above: Performed By: #### C BC ####[facility] [address] [place], [place] [address]Dr. Gilles Ca MANUAL DIFF REQ NO Normal [facility] Comment on above: Performed By: #### C BC ####[facility] [address] [place] [address]Dr. Gilles Roby MCH (RBC) [Entitic mass] 28.3 pg Normal 25.9-34.0 [facility] Comment on above: Performed By: #### C BC ####[facility] [address] [place], [place] [address]Dr. Gilles Ca MCHC (RBC) [Mass/Vol] 30.7 g/dL Normal 29.9-35.2 [facility] Comment on above: Performed By: #### C BC ####[facility] [address] [place], [place] [address]Dr. Gilles Ca MCV (RBC) [Entitic vol] 92.1 fL Normal 80.0-94.0 [facility] Comment on above: Performed By: #### C BC ####[facility] [address] [place], [place] [address]Dr. Gilles Ca MONO # 0.7 103/ul Normal 0.3-0.8 [facility] Comment on above: Performed By: #### C BC ####[facility] [address] [place], [place] [address]Dr. Gilles Ca Monocytes/100 WBC (Bld) 11.6 % Normal 1.7-12.0 [facility] Comment on above: Performed By: #### C BC ####[facility] [address] [place], [place] [address]Dr. Gilles Ca NEUT # 4.0 103/ul Normal 1.4-6.5 [facility] Comment on above: Performed By: #### C BC ####[facility] [address] [place], [place] [address]Dr. Gilles Ca Neutrophils/100 WBC (Bld) 66.7 % Normal 43.0-75.0 [facility] Comment on above: Performed By: #### C BC ####[facility] [address] [place], [place] [address]DrAndrea Ca Platelet mean volume (Bld) [Entitic vol] 10.4 fL Normal 9.5-13.5 [facility] Comment on above: Performed By: #### C BC ####[facility] [address] [place] [id number]. Gilles Ca PLT 222 103/ul Normal 150-450 [facility] Comment on above: Performed By: #### C BC ####[facility] [address] [place] [id number] Ca RBC 4.06 106/ul Critically low 4.70-6.10 [facility] Comment on above: Performed By: #### C BC ####[facility] [address] [place] [address]DrAndrea Ca WBC 5.9 103/ul Normal 4.0-11.0 [facility] Comment on above: Performed By: #### C BC ####[facility] [address] [place] [address]Dr. Gilles Ca PROF 14(COMP METB)on 022 Albumin [Mass/Vol] 3.1 g/dL Critically low 3.4-5.0 [facility] Comment on above: Performed By: #### C MP, TSH, T7, LIPID, BNP #### [facility] [address] [place] [address] [address] Gilles Ca Albumin/Globulin [Mass ratio] 1.0 {ratio} Normal [facility] Comment on above: Performed By: #### C MP, TSH, T7, LIPID, BNP #### [facility] Laboratory [address] [address] [address] Gilles Ca ALP [Catalytic activity/Vol] 62 U/L Normal 46-116 [facility] Comment on above: Performed By: #### C MP, TSH, T7, LIPID, BNP #### [facility] [address] [address] [address] Gilles Ca ALT [Catalytic activity/Vol] 18 U/L Normal 16-63 [facility] Comment on above: Performed By: #### C MP, TSH, T7, LIPID, BNP #### [facility] [address] [place] [address] Dr. Gilles Ca Anion gap [Moles/Vol] 11.9 mmol/L Normal [facility] Comment on above: Performed By: #### C MP, TSH, T7, LIPID, BNP #### [facility] [address] [place] [address] Dr. Gilles Ca AST [Catalytic activity/Vol] 22 U/L Normal 15-37 [facility] Comment on above: Performed By: #### C MP, TSH, T7, LIPID, BNP #### [facility] [address] [place] [address] Dr. Gilles Ca Bilirubin [Mass/Vol] 0.4 mg/dL Normal 0.2-1.0 [facility] Comment on above: Performed By: #### C MP, TSH, T7, LIPID, BNP #### [facility] [address] [place] [address] Dr. Gilles Ca Calcium [Mass/Vol] 7.9 mg/dL Critically low 8.5-10.1 [facility] Comment on above: Performed By: #### C MP, TSH, T7, LIPID, BNP #### [facility] [address] [place] [address] Dr. Gilles Ca Chloride [Moles/Vol] 101 mmol/L Normal 98-107 [facility] Comment on above: Performed By: #### C MP, TSH, T7, LIPID, BNP #### [facility] [address] [place] [address] Dr. Gilles Ca CO2 [Moles/Vol] 28.1 mmol/L Normal 21.0-32.0 [facility] Comment on above: Performed By: #### C MP, TSH, T7, LIPID, BNP #### [facility] [address] [place] [address] Dr. Gilles Ca Creatinine [Mass/Vol] 1.97 mg/dL Critically high 0.70-1.30 [facility] Comment on above: Performed By: #### C MP, TSH, T7, LIPID, BNP #### [facility] [address] [place] [address] Dr. Gilles Ca EGFR-AF MOLDOVAN 39 mL/min/1.73m2 Critically low >=60 [facility] Comment on above: Performed By: #### C MP, TSH, T7, LIPID, BNP #### [facility] [address] [place] [address] Dr. Gilles Ca EGFR-NON AF MOLDOVAN 32 mL/min/1.73m2 Critically low >=60 [facility] Comment on above: Performed By: #### C MP, TSH, T7, LIPID, BNP #### [facility] [address] [place] [address] Dr. Gilles Ca Globulin (S) [Mass/Vol] 3.2 g/dL Normal [facility] Comment on above: Performed By: #### C MP, TSH, T7, LIPID, BNP #### [facility] [address] [place] [address] Dr. Gilles Ca Glucose [Mass/Vol] 114 mg/dL Critically high 74-106 [facility] Comment on above: Performed By: #### C MP, TSH, T7, LIPID, BNP #### [facility] [address] [place] [address] Dr. Gilles Ca Potassium [Moles/Vol] 4.0 mmol/L Normal 3.5-5.1 [facility] Comment on above: Performed By: #### C MP, TSH, T7, LIPID, BNP #### [facility] [address] [place] [address] Dr. Gilles Ca Protein [Mass/Vol] 6.3 g/dL Critically low 6.4-8.2 [facility] Comment on above: Performed By: #### C MP, TSH, T7, LIPID, BNP #### [facility] [address] [place] [address] Dr. Gilles Ca Sodium [Moles/Vol] 137 mmol/L Normal 136-145 [facility] Comment on above: Performed By: #### C MP, TSH, T7, LIPID, BNP #### [facility] [address] [place] [address] Dr. Gilles Ca Urea nitrogen [Mass/Vol] 33.0 mg/dL Critically high 7.0-18.0 [facility] Comment on above: Performed By: #### C MP, TSH, T7, LIPID, BNP #### [facility] [address] [place] [address] Dr. Gilles Ca Urea nitrogen/Creatinine [Mass ratio] 16.8 mg/mg Normal [facility] Comment on above: Performed By: #### C MP, TSH, T7, LIPID, BNP #### [facility] [address] [place] [address] Dr. Gilles Ca PROTIMEon 11-30-2021 INR Coag (PPP) [Relative time] 1.17 {INR} Normal [facility] Comment on above: Performed By: #### A 1C #### [facility] [address] [place] [address] Dr. Gilles Ca INR GUIDELINES SEE BELOW Normal [facility] Comment on above: Result Comment: IGNACIO RED INR: 2.0 - 3.0 CONDITIONS NOT LISTED BELOW 2.5 - 3.5 FOR PROSTHETIC HEART VALVE REPLACEMENT 2.5 - 3.5 RECURRENT THROMBOSIS Performed By: #### A 1C #### [facility] [address] [place] [address] Dr. Gilles Ca PT Coag (PPP) [Time] 12.5 s Critically high 9.0-11.6 [facility] Comment on above: Performed By: #### A 1C #### [facility] [address] [place] [address] Dr. Gilles Ca PTTon 11-30-2021 aPTT Coag (Bld) [Time] 27.7 s Normal 22.3-36.2 [facility] Comment on above: Performed By: #### A 1C #### [facility] [address] [place] [address] Dr. Gilles Ca TSHon 11-30-2021 TSH 1.855 uIU/mL Normal 0.358-3.740 [facility] Comment on above: Performed By: #### C MP, TSH, T7, LIPID, BNP #### [facility] [address], [place] [address] Dr. Gilles Ca TSH RANGE SEE BELOW Normal [facility] Comment on above: Result Comment: <0.3 4 UIU/ml HYPERTHYROID 0.34-5.60 UIU/ml EUTHYROID >5.60 UIU/ml HYPOTHYROID Performed By: #### C MP, TSH, T7, LIPID, BNP #### [facility] [id number] Gilles Ca XR CHEST 1 Von 11-30-2021 XR CHEST 1 V EXAMINATION: XR CHES T 1 V HISTORY: CHEST PAIN, UNSPECIFIED COMPARISON: 10/01/2021 TECHNIQUE: AP portable erect FINDINGS: LUNGS: Low lung volumes. The lungs are clear. VASCULATURE: No increased pulmonary vasculature. PLEURA: No pneumothorax, effusion, or pleural thickening. CARDIAC: Stable cardiomegaly MEDIASTINUM: No visible mass or adenopathy. Aortic atherosclerosis BONES: Multiple remote right posterior rib fractures OTHER: Hepatic flexure beneath the right hemidiaphragm, stable IMPRESSION: Low lung volumes, grossly clear lungs Electronically authenticated by: SOHAIL FOFANA Date: 2021-11-30 17:25 Normal [facility] Office Visit (Cardiology)on 11-19-2021 Follow-up visit Diagnoses/Problems Assessed Atherosclerosis of kenaitze coronary artery of kenaitze heart without angina pectoris (414.01) (I25.10) Ischemic cardiomyopathy (414.8) (I25.5) CHF (NYHA class III, ACC/AHA stage C) (428.0) (I50.9) AF (atrial fibrillation) (427.31) (I48.91) S/P PTCA (percutaneous transluminal coronary angioplasty) (V45.82) (Z98.61) Hypertension, essential, benign (401.1) (I10) Hyperlipidemia (272.4) (E78.5) Diabetes mellitus (250.00) (E11.9) Former smoker (V15.82) (Z87.891) QUIT IN THE 1950'S Overweight with body mass index (BMI) of 28 to 28.9 in adult (278.02,V85.24) (E66.3,Z68.28) High risk medication use (V58.69) (Z79.899) Orders AF (atrial fibrillation) IO EKG Electrocardiogram- 12 Lead; Status:Complete; Done: 19Nov2021 AF (atrial fibrillation), Atherosclerosis of kenaitze coronary artery of kenaitze heart without angina pectoris, CHF (NYHA class III, ACC/AHA stage C), Hypertension, essential, benign Basic Metabolic Panel; Status:Active - Retrospective Authorization; Requested for:21Mar2022; Brain Natriuretic Peptide BNP; Status:Active - Retrospective Authorization; Requested for:21Mar2022; Atherosclerosis of kenaitze coronary artery of kenaitze heart without angina pectoris Renew: Aspirin EC 81 MG Oral Tablet Delayed Release; TAKE 1 TABLET DAILY Hyperlipidemia Renew: Pravastatin Sodium 10 MG Oral Tablet; TAKE 1 TABLET AT BEDTIME Overweight with body mass index (BMI) of 28 to 28.9 in adult Healthy Weight Tips; Status:Complete - Retrospective Authorization; Done: 19Nov2021 Some eating tips that can help you lose weight.; Status:Complete - Retrospective Authorization; Done: 19Nov2021 SocHx: Former smoker Tobacco Use Screening; Status:Complete; Done: 19Nov2021 Unlinked Stop: Amiodarone HCl - 200 MG Oral Tablet Patient Instructions By signing my name below, I, Lisa Sanchez LPN,Josh, attest that this documentation has been prepared under the direction and in the presence of Dr. Brad Major, DO. Please bring all medicines, vitamins, and herbal supplements with you when you come to the office. Prescriptions will not be filled unless you are compliant with your follow up appointments or have a follow up appointment scheduled as per instruction of your physician. Refills should be requested at the time of your visit. Amiodarone follow up per routine Follow up in [ 4 ] months Chief Complaint MERRITT MEHTA is being seen for a 6 month follow-up of. 86-year-old gentleman who returns for follow-up. He is otherwise doing reasonably well, participating in cardiac rehab 2 days a week. He has chronic exertional and resting dyspnea due to underlying parenchymal lung disease. Recent PFTs were severely abnormal and reviewed. ECG today reveals sinus bradycardia with prolonged first-degree AV block and right bundle branch block with PVCs Patient has a history of ASHD, severe ischemic cardiomyopathy with improved left ventricular function with history of PCI's to the first OM branch and distal circumflex 1 year ago in September 2020. He has underlying history of paroxysmal A. fib not on anticoagulation therapy due to history of severe GI bleeding. He has accelerated hypertension, and remains with mildly elevated blood pressure today on repeat blood pressure check 160+/80. He remains on high risk medical therapies as noted including amiodarone 100 Tuesday through Tuesday (with a severe abnormal diffusion impairment and restrictive impairment on recent PFTs) He has no angina, he has no edema, recent labs are reviewed, creatinine is 1.65 Recommendations, discontinue amiodarone, follow-up in 4 months with repeat laboratory surveillance and ECG Current Meds Medication NameInstruction Amiodarone HCl - 200 MG Oral TabletTAKE 1/2 TABLET BY MOUTH TUESDAY THRU TUESDAY Aspirin EC 81 MG Oral Tablet Delayed ReleaseTAKE 1 TABLET DAILY. Carafate 1 GM Oral TabletTAKE 1 TABLET EVERY 12 HOURS DAILY. Carvedilol 3.125 MG Oral TabletTAKE 1 TABLET TWICE DAILY, WITH MORNING AND EVENING MEAL CeleXA 20 MG Oral TabletTAKE 1 TABLET DAILY. Diclofenac Sodium 75 MG Oral Tablet Delayed Releaseone twice daily Entresto 97-103 MG Oral TabletTAKE 1 TABLET BY MOUTH TWICE A DAY Ferrous Sulfate 325 (65 Fe) MG Oral Tablet Delayed ReleaseTAKE 1 TABLET TWICE DAILY. Furosemide 40 MG Oral TabletTAKE 1 TABLET DAILY. hydrALAZINE HCl - 50 MG Oral TabletTAKE 1 TABLET EVERY 6 HOURS DAILY. Isosorbide Mononitrate ER 60 MG Oral Tablet Extended Release 24 HourTAKE 1 TABLET ONCE DAILY. metFORMIN HCl - 500 MG Oral TabletTAKE 1 TABLET DAILY WITH FOOD. Nitroglycerin 0.4 MG Sublingual Tablet SublingualPLACE 1 TABLET UNDER THE TONGUE EVERY 5 MINUTES FOR UP TO 3 DOSES NEEDED FOR CHEST PAIN.CALL 911 IF PAIN PERSISTS. Omeprazole 40 MG Oral Capsule Delayed ReleaseTAKE 1 CAPSULE DAILY. Plavix 75 MG Oral TabletTAKE 1 TABLET DAILY. Potassium Chloride Lashell ER 10 MEQ Oral Tablet Extended ReleaseTAKE 1 TABLET DAILY. Pravastatin Sodium 10 MG Oral (more content not included)... Normal Novacem Tobacco Screening.on 022 Adult depression screening assessment No [facility] [address] DO Work Phone: Fall risk assessment a) No falls within the last year [facility] [address] DO Work Phone: Tobacco use status [facility]PH[facility] b) No [facility] [address] DO Work Phone: INSULINon 10-07-2021 Insulin 3.5 uIU/mL Normal 2.6-24.9 [facility] Comment on above: Performed By: #### C MP, TSH, T7, LIPID, BNP #### [facility] [address] [place] [address] Dr. Gilles Ca BNPon 10-06-2021 Natriuretic peptide B (Bld) [Mass/Vol] 4425.0 pg/mL Critically high <=1,800.0 [facility] Comment on above: Performed By: #### C MP, TSH, T7, LIPID, BNP #### [facility] [address] [place] [address] Dr. Gilles Ca CBC AUTO DIFFon 10-06-2021 BASO # 0.0 103/ul Normal 0.0-0.1 [facility] Comment on above: Performed By: #### C MP, TSH, T7, LIPID, BNP #### [facility] [address] [place] [address] Dr. Gilles Ca Basophils/100 WBC (Bld) 0.3 % Normal 0.2-2.0 [facility] Comment on above: Performed By: #### C MP, TSH, T7, LIPID, BNP #### [facility] [address] [place] [address] Dr. Gilles Ca EO # 0.1 103/ul Normal 0.0-0.7 [facility] Comment on above: Performed By: #### C MP, TSH, T7, LIPID, BNP #### [facility] [address] [place] [address] Dr. Gilles Ca Eosinophils/100 WBC (Bld) 1.6 % Normal 0.9-7.0 [facility] Comment on above: Performed By: #### C MP, TSH, T7, LIPID, BNP #### [facility] [address] [place] [address] Dr. Gilles Ca Erythrocyte distribution width (RBC) [Ratio] 14.6 % Normal 11.0-15.0 [facility] Comment on above: Performed By: #### C MP, TSH, T7, LIPID, BNP #### [facility] [address] [place] [address] Dr. Gilles Ca Hematocrit (Bld) [Volume fraction] 38.6 % Critically low 42.0-54.0 [facility] Comment on above: Performed By: #### C MP, TSH, T7, LIPID, BNP #### [facility] [address] [place] [address] Dr. Gilles Ca Hemoglobin (Bld) [Mass/Vol] 11.8 g/dL Critically low 14.0-18.0 [facility] Comment on above: Performed By: #### C MP, TSH, T7, LIPID, BNP #### [facility] [address] [place] [address] Dr. Gilles Ca IG # 0.04 10e3/ul Critically high 0.00-0.03 [facility] Comment on above: Performed By: #### C MP, TSH, T7, LIPID, BNP #### [facility] [address] [place] [address] Dr. Gilles Ca IG % 0.6 % Critically high 0.0-0.5 [facility] Comment on above: Performed By: #### C MP, TSH, T7, LIPID, BNP #### [facility] [address] [place] [address] Dr. Gilles Ca LYMPH # 1.3 103/ul Normal 1.2-3.8 [facility] Comment on above: Performed By: #### C MP, TSH, T7, LIPID, BNP #### [facility] [address] [place] [address] Dr. Gilles Ca Lymphocytes/100 WBC (Bld) 18.4 % Critically low 20.5-60.0 [facility] Comment on above: Performed By: #### C MP, TSH, T7, LIPID, BNP #### [facility] [address] [place] [address] Dr. Gilles Ca MANUAL DIFF REQ NO Normal [facility] Comment on above: Performed By: #### C MP, TSH, T7, LIPID, BNP #### [facility] [address] [place] [address] Dr. Gilles Ca MCH (RBC) [Entitic mass] 28.7 pg Normal 25.9-34.0 [facility] Comment on above: Performed By: #### C MP, TSH, T7, LIPID, BNP #### [facility] [address] [place] [address] Dr. Gilles Ca MCHC (RBC) [Mass/Vol] 30.6 g/dL Normal 29.9-35.2 [facility] Comment on above: Performed By: #### C MP, TSH, T7, LIPID, BNP #### [facility] [address] [place] [address] Dr. Gilles Ca MCV (RBC) [Entitic vol] 93.9 fL Normal 80.0-94.0 [facility] Comment on above: Performed By: #### C MP, TSH, T7, LIPID, BNP #### [facility] [address] [place] [address] Dr. Gilles Ca MONO # 0.8 103/ul Normal 0.3-0.8 [facility] Comment on above: Performed By: #### C MP, TSH, T7, LIPID, BNP #### [facility] [address] [place] [address] Dr. Gilles Ca Monocytes/100 WBC (Bld) 11.6 % Normal 1.7-12.0 [facility] Comment on above: Performed By: #### C MP, TSH, T7, LIPID, BNP #### [facility] [address] [place] [address] Dr. Gilles Ca NEUT # 4.7 103/ul Normal 1.4-6.5 [facility] Comment on above: Performed By: #### C MP, TSH, T7, LIPID, BNP #### [facility] [address] [place] [address] Dr. Gilles Ca Neutrophils/100 WBC (Bld) 67.5 % Normal 43.0-75.0 [facility] Comment on above: Performed By: #### C MP, TSH, T7, LIPID, BNP #### [facility] [address] [place] [address] Dr. Gilles Ca Platelet mean volume (Bld) [Entitic vol] 10.1 fL Normal 9.5-13.5 [facility] Comment on above: Performed By: #### C MP, TSH, T7, LIPID, BNP #### [facility] [address] [address] [address] Gilles Ca PLT 176 103/ul Normal 150-450 [facility] Comment on above: Performed By: #### C MP, TSH, T7, LIPID, BNP #### [facility] [address] [address] [address] Gilles Ca RBC 4.11 106/ul Critically low 4.70-6.10 [facility] Comment on above: Performed By: #### C MP, TSH, T7, LIPID, BNP #### [facility] [address] [address] [address] Gilles Ca WBC 7.0 103/ul Normal 4.0-11.0 [facility] Comment on above: Performed By: #### C MP, TSH, T7, LIPID, BNP #### [facility] [address] [address] [address] Gilles Ca GLYCOHEMOGLOBIN A1Con 2021 ADA RECOMMENDATION ADA THERAPEUTIC TARG ET 6.0 - 7.0 ACTION SUGGESTED > 7.0 Normal [facility] Comment on above: Performed By: #### A 1C #### [facility] [address] [address] [address] Gilles Ca Glucose [Mass/Vol] 123 mg/dL Normal [facility] Comment on above: Performed By: #### A 1C #### [facility] [address] [address] [address] Gilles Ca HbA1c (Bld) [Mass fraction] 5.9 % Normal <=6.0 [facility] Comment on above: Performed By: #### A 1C #### [facility] [address] [place] [address] Dr. Gilles Ca LIPID PROFILEon 10-06-2021 CHOL-HDL RATIO NORM SEE BELOW Normal [facility] Comment on above: Result Comment: 3.3 - 4.4 LOW RISK 4.4 - 7.1 AVERAGE RISK 7.1 - 11.0 MODERATE RISK >11.0 HIGH RISK Performed By: #### C MP, TSH, T7, LIPID, BNP #### [facility] [address] [place] [address] Dr. Gilles Ca Cholesterol [Mass/Vol] 147 mg/dL Normal <=200 [facility] Comment on above: Performed By: #### C MP, TSH, T7, LIPID, BNP #### [facility] [address] [place] [address] Dr. Gilles Ca Cholesterol in HDL [Mass/Vol] 45 mg/dL Normal [facility] Comment on above: Performed By: #### C MP, TSH, T7, LIPID, BNP #### [facility] [address] [place] [address] Dr. Gilles Ca Cholesterol in LDL [Mass/Vol] 84.2 mg/dL Normal [facility] Comment on above: Performed By: #### C MP, TSH, T7, LIPID, BNP #### [facility] [address] [place] [address] Dr. Gilles Ca Cholesterol.total/Ch olesterol in HDL [Mass ratio] 3.3 {ratio} Normal [facility] Comment on above: Performed By: #### C MP, TSH, T7, LIPID, BNP #### [facility] [address] [place] [address] Dr. Gilles Ca HDL NORMAL > or = 60 mg/dl - LO W CARDIOVASCULAR RISK <40 mg/dl - HIGH CARDIOVASCULAR RISK Normal [facility] Comment on above: Performed By: #### C MP, TSH, T7, LIPID, BNP #### [facility] [address] [place] [address] Dr. Gilles Ca LDL CALC NORMAL SEE BELOW Normal [facility] Comment on above: Result Comment: <100 mg/dl OPTIMAL 100 - 129 mg/dl NEAR OR ABOVE OPTIMAL 130 - 159 mg/dl BORDERLINE HIGH 160 - 189 mg/dl HIGH >190 mg/dl VERY HIGH Performed By: #### C MP, TSH, T7, LIPID, BNP #### [facility] [address] [address] [address] Gilles Ca Triglyceride [Mass/Vol] 89 mg/dL Normal <=150 [facility] Comment on above: Performed By: #### C MP, TSH, T7, LIPID, BNP #### [facility] [address] [address] [address] Gilles Ca VLDL CALC 17.8 mg/dL Normal [facility] Comment on above: Performed By: #### C MP, TSH, T7, LIPID, BNP #### [facility] [address] [place] [address] Dr. Gilles Ca PROF 14(COMP METB)on 022 Albumin [Mass/Vol] 3.1 g/dL Critically low 3.5-5.0 [facility] Comment on above: Performed By: #### C MP, TSH, T7, LIPID, BNP #### [facility] [address] [place] [address] Dr. Gilles Ca Albumin/Globulin [Mass ratio] 1.1 {ratio} Normal [facility] Comment on above: Performed By: #### C MP, TSH, T7, LIPID, BNP #### [facility] [address] [address] [address] Gilles Ca ALP [Catalytic activity/Vol] 56 U/L Normal 38-126 [facility] Comment on above: Performed By: #### C MP, TSH, T7, LIPID, BNP #### [facility] [address] [place] [address] Dr. Gilles Ca ALT [Catalytic activity/Vol] 10 U/L Critically low 21-72 [facility] Comment on above: Performed By: #### C MP, TSH, T7, LIPID, BNP #### [facility] [address] [address] [address] Gilles Ca Anion gap [Moles/Vol] 10.8 mmol/L Normal [facility] Comment on above: Performed By: #### C MP, TSH, T7, LIPID, BNP #### [facility] [address] [address] [address] Gilles Ca AST [Catalytic activity/Vol] 15 U/L Critically low 17-59 [facility] Comment on above: Performed By: #### C MP, TSH, T7, LIPID, BNP #### [facility] [address] [place] [address] Dr. Gilles Ca Bilirubin [Mass/Vol] 0.3 mg/dL Normal 0.2-1.3 [facility] Comment on above: Performed By: #### C MP, TSH, T7, LIPID, BNP #### [facility] [address] [address] [address] Gilles Ca Calcium [Mass/Vol] 8.1 mg/dL Critically low 8.4-10.2 [facility] Comment on above: Performed By: #### C MP, TSH, T7, LIPID, BNP #### [facility] [address] [place] [address] Dr. Gilles Ca Chloride [Moles/Vol] 104 mmol/L Normal 98-107 [facility] Comment on above: Performed By: #### C MP, TSH, T7, LIPID, BNP #### [facility] [address] [place] [address] Dr. Gilles Ca CO2 [Moles/Vol] 32.6 mmol/L Critically high 22.0-30.0 [facility] Comment on above: Performed By: #### C MP, TSH, T7, LIPID, BNP #### [facility] [address] [place] [address] Dr. Gilles Ca Creatinine [Mass/Vol] 1.45 mg/dL Critically high 0.66-1.25 [facility] Comment on above: Performed By: #### C MP, TSH, T7, LIPID, BNP #### [facility] [address] [place] [address] Dr. Gilles Ca EGFR-AF MOLDOVAN 56 mL/min/1.73m2 Critically low >=60 [facility] Comment on above: Performed By: #### C MP, TSH, T7, LIPID, BNP #### [facility] [address] [place] [address] Dr. Gilles Ca EGFR-NON AF MOLDOVAN 46 mL/min/1.73m2 Critically low >=60 [facility] Comment on above: Performed By: #### C MP, TSH, T7, LIPID, BNP #### [facility] [address] [place] [address] Dr. Gilles Ca Globulin (S) [Mass/Vol] 2.9 g/dL Normal [facility] Comment on above: Performed By: #### C MP, TSH, T7, LIPID, BNP #### [facility] [address] [place] [address] Dr. Gilles Ca Glucose [Mass/Vol] 96 mg/dL Normal 74-106 [facility] Comment on above: Performed By: #### C MP, TSH, T7, LIPID, BNP #### [facility] [address] [place] [address] Dr. Gilles Ca Potassium [Moles/Vol] 3.4 mmol/L Normal 3.4-5.0 [facility] Comment on above: Performed By: #### C MP, TSH, T7, LIPID, BNP #### [facility] [address] [place] [address] Dr. Gilles Ca Protein [Mass/Vol] 6.0 g/dL Critically low 6.1-8.2 [facility] Comment on above: Performed By: #### C MP, TSH, T7, LIPID, BNP #### [facility] [address] [place] [address] Dr. Gilles Ca Sodium [Moles/Vol] 144 mmol/L Normal 137-145 [facility] Comment on above: Performed By: #### C MP, TSH, T7, LIPID, BNP #### [facility] [address] [place] [address] Dr. Gilles Ca Urea nitrogen [Mass/Vol] 28.0 mg/dL Critically high 9.0-20.0 [facility] Comment on above: Performed By: #### C MP, TSH, T7, LIPID, BNP #### [facility] [address] [place] [address] Dr. Gilles Ca Urea nitrogen/Creatinine [Mass ratio] 19.3 mg/mg Normal [facility] Comment on above: Performed By: #### C MP, TSH, T7, LIPID, BNP #### [facility] [address] [place] [address] Dr. Gilles Ca URIC ACID SERUMon 10-06-2021 Urate [Mass/Vol] 7.5 mg/dL Normal 3.5-8.5 [facility] Comment on above: Performed By: #### C MP, TSH, T7, LIPID, BNP #### [facility] [address] [place] [address] Dr. Gilles Ca VIT B12 AND FOLATEon 022 Cobalamin (Vitamin B12) [Mass/Vol] 244.0 pg/mL Normal 239.0-931.0 [facility] Comment on above: Performed By: #### C VDTBH #### [facility] [address] [place] [address] Dr. Gilles Ca FOLATE 4.70 ng/mL Normal >=2.76 [facility] Comment on above: Performed By: #### C VDTBH #### [facility] [address] [place] [address] Dr. Gilles Ca VITAMIN D 25 OHon 10-06-2021 VIT D 25-OH 41.4 ng/mL Normal [facility] Comment on above: Performed By: #### C VDTBH #### [facility] [address] [place] [address] Dr. Gilles Ca VIT D RANGES SEE BELOW Normal [facility] Comment on above: Result Comment: <20 ng/mL Vit D deficient 20 - <30 ng/mL Vit D insufficient 30 - 100 ng/mL Vit D sufficient >100 ng/mL Potential Toxicity Performed By: #### C VDTBH #### [facility] [address] [place] [address] Dr. Gilles Ca HEMOGLOBINon 10-01-2021 Hemoglobin (Bld) [Mass/Vol] 11.9 g/dL Critically low 14.0-18.0 [facility] Comment on above: Performed By: #### C MP, TSH, T7, LIPID, BNP #### [facility] [address] [place] [address] Dr. Gilles Ca PROF CHEM 8 (BAS METB)on Anion gap [Moles/Vol] 10.0 mmol/L Normal [facility] Comment on above: Performed By: #### T SH, AST, BMP ####[facility] [address] [place] [address]Dr. Gilles Ca Calcium [Mass/Vol] 7.8 mg/dL Critically low 8.4-10.2 [facility] Comment on above: Performed By: #### T SH, AST, BMP ####[facility] [address] [place] [address]Dr. Gilles Ca Chloride [Moles/Vol] 102 mmol/L Normal 98-107 [facility] Comment on above: Performed By: #### T SH, AST, BMP ####[facility] [address] [place], [place] [address]Dr. Gilles Ca CO2 [Moles/Vol] 32.9 mmol/L Critically high 22.0-30.0 [facility] Comment on above: Performed By: #### T SH, AST, BMP ####[facility] [address] [place], [place] [address]Dr. Gilles Ca Creatinine [Mass/Vol] 1.65 mg/dL Critically high 0.66-1.25 [facility] Comment on above: Performed By: #### T SH, AST, BMP ####[facility] [address] [place] [address]Dr. Gilles Ca EGFR-AF MOLDOVAN 48 mL/min/1.73m2 Critically low >=60 [facility] Comment on above: Performed By: #### T SH, AST, BMP ####[facility] [address] [place] [address]Dr. Gilles Ca EGFR-NON AF MOLDOVAN 40 mL/min/1.73m2 Critically low >=60 [facility] Comment on above: Performed By: #### T SH, AST, BMP ####[facility] [address] [place] [address]Dr. Piajonathan Ca Glucose [Mass/Vol] 101 mg/dL Normal 74-106 [facility] Comment on above: Performed By: #### T SH, AST, BMP ####[facility] [address] [place] [address]Dr. Gilles Ca Potassium [Moles/Vol] 3.9 mmol/L Normal 3.4-5.0 [facility] Comment on above: Performed By: #### T SH, AST, BMP ####[facility] [address] [place] [address]Dr. Gilles Ca Sodium [Moles/Vol] 141 mmol/L Normal 137-[address] [facility] Comment on above: Performed By: #### T SH, AST, BMP ####[facility] [address] [place] [address]Dr. Gilles Ca Urea nitrogen [Mass/Vol] 28.0 mg/dL Critically high 9.0-20.0 [facility] Comment on above: Performed By: #### T SH, AST, BMP ####[facility] [address] [place] [address]Dr. Gilles Ca Urea nitrogen/Creatinine [Mass ratio] 17.0 mg/mg Normal [facility] Comment on above: Performed By: #### T SH, AST, BMP ####[facility] [address] [place], [place] [address]Dr. Gilles Ca SGOTon 10-01-2021 AST [Catalytic activity/Vol] 16 U/L Critically low 17-59 [facility] Comment on above: Performed By: #### T SH, AST, BMP ####[facility] [address] [place] [address]Dr. Gilles Ca TSHon 10-01-2021 TSH 1.603 uIU/mL Normal 0.470-4.680 [facility] Comment on above: Performed By: #### C VDTBH #### [facility] [address] [place] [address] [address] Gilles Ca TSH RANGE SEE BELOW Normal [facility] Comment on above: Result Comment: <0.3 4 UIU/ml HYPERTHYROID 0.34-5.60 UIU/ml EUTHYROID >5.60 UIU/ml HYPOTHYROID Performed By: #### C VDTB #### [facility] [address] [place], [place] [address] Dr. Gilles Ca XR CHEST 2 Von 10-01-2021 XR CHEST 2 V EXAM: CHEST 2 VIEWS HISTORY: Long-term current use of drug therapy TECHNIQUE: PA and lateral views chest. COMPARISON: 01/30/2021 FINDINGS: There is mild bibasilar atelectasis. There is no focal lung consolidation, pleural effusion or pneumothorax. Pulmonary vasculature is within normal limits. There is aortic atherosclerosis and stable cardiomegaly. Hilar structures are mildly enlarged reflecting enlarged pulmonary arteries. There are numerous remote posterolateral right rib fractures. IMPRESSION: 1. Bibasilar atelectasis without acute pulmonary process. 2. Atherosclerosis and stable cardiomegaly. There are also enlarged pulmonary arteries. 3. Remote right rib fractures. Electronically authenticated by: CAPRICE ARRIOLA Date: 2021-10-01 12:27 Normal [facility] Tobacco Screening.on 022 Fall risk assessment a) No falls within the last year [facility] [employer] [place] [address] [place] Work Phone: Tobacco use status CPHS b) No [facility] [place] [address] [place] Work Phone: [phone] IO EKG Electrocardiogram- 12 Leadon 05-13-2021 IO EKG Electrocardiogram- 12 Lead [address] [facility] [place] [facility] [place] Work Phone: [phone] Tobacco Screening.on 021 Fall risk assessment a) No falls within the last year [facility] [place] [address] [place] Work Phone: [phone] Tobacco use status CPHS b) No [facility] [place] Work Phone: [facility] MUGA (GATED CARDIAC BLOO D POOL)on 11-25-2020 [facility] MUGA (GATED CARDIAC BLOOD POOL) Patient Name: MERRITT MEHTA STUDY: MUGA Performing facility: [facility], [address] [place] [address], [address], [place] [id number] [facility] Provider: Enrrique Major DO, FACC PCP: Dr. Jensen OLSON Supervising provider: Rashaad Young MD, [facility] INDICATION: CAD BRADYCARDIA, CHF, MOBITZ TYPE I AV BLOCK HISTORY: Gender: M; Age: 85 y/o ; Height: 167.64 cm; Weight: 73.4835013 kg. CAD BRADYCARDIA, CHF, MOBITZ TYPE I AV BLOCK High Cholesterol; Diabetes; SOB; AFib PTCA 09/2020: Cx, OM. COMPARISON: Previous nuclear testing completed 09-10-20 at [facility]. ACCESSION NUMBER(S): [id number]; [id number] ORDERING CLINICIAN: BRAD MAJOR TECHNIQUE: The patient received an IV injection of 3 ml of stannous pyrophosphate (PYP) using the in-vivo method of labeling red blood cells. After 15 minutes the patient received another IV injection of 26.8 mCi of Technetium 99m pertechnetate. Planar images of the left ventricle were obtained in the TAIWANESE 45, Lt Lateral and anterior projections. FINDINGS: The right ventricle was enlarged. The left ventricle was normal in size. Regional wall motion was normal. Global resting LVEF was normal- at 50%. IMPRESSION: Normal resting right ventricular function. Normalresting left ventricular function. Left ventricular ejection fraction is 50%. When compared to a study from 2018 there has been no significant interval changes Electronically signed by: RASHAAD YOUNG MD [facility] MUGA SCAN INJECTIONon [facility] MUGA SCAN INJECTION Patient Name: MERRITT MEHTA STUDY: MUGA Performing facility: [facility], [address] [place] [address] Provider: Enrrique Major DO, [facility] PCP: Dr. Jensen OLSON Supervising provider: Rashaad Young MD, [facility] INDICATION: CAD BRADYCARDIA, CHF, MOBITZ TYPE I AV BLOCK HISTORY: Gender: M; Age: 85 y/o ; Height: 167.64 cm; Weight: 73.4218094 kg. CAD BRADYCARDIA, CHF, MOBITZ TYPE I AV BLOCK High Cholesterol; Diabetes; SOB; AFib PTCA 09/2020: Cx, OM. COMPARISON: Previous nuclear testing completed 09-10-20 at [facility]. ACCESSION NUMBER(S): [id number]; [id number] ORDERING CLINICIAN: BRAD MAJOR TECHNIQUE: The patient received an IV injection of 3 ml of stannous pyrophosphate (PYP) using the in-vivo method of labeling red blood cells. After 15 minutes the patient received another IV injection of 26.8 mCi of Technetium 99m pertechnetate. Planar images of the left ventricle were obtained in the TAIWANESE 45, Lt Lateral and anterior projections. FINDINGS: The right ventricle was enlarged. The left ventricle was normal in size. Regional wall motion was normal. Global resting LVEF was normal- at 50%. IMPRESSION: Normal resting right ventricular function. Normalresting left ventricular function. Left ventricular ejection fraction is 50%. When compared to a study from 2018 there has been no significant interval changes Electronically signed by: RASHAAD YOUNG MD Normal [facility] Activated partial thrombopla stin time (aPTT) in platelet poor plasma by coagulation aon 09-24-2020 aPTT Coag (PPP) [Time] 29.7 s 25.1-36.5 [facility] Automated basophil %on 09-24 Basophils/100 WBC (Bld) 0.6 % [facility] Automated basophil counton 0 09-24-2020 Basophils (Bld) [#/Vol] 0.0 10*3/uL 0.0-0.2 [facility] Automated blood lymphocyte c ount (number/volume)on 09-24-2020 Lymphocytes (Bld) [#/Vol] 1.0 10*3/uL 1.00-4.8 [facility] Automated blood lymphocyte c ount as percentage of total leukocyteson 09-24-2020 Lymphocytes/100 WBC (Bld) 17.6 % [facility] Automated blood monocyte cou nton 09-24-2020 Monocytes (Bld) [#/Vol] 0.6 10*3/uL 0.0-0.8 [facility] Automated blood platelet cou nt (count/volume)on 09-24-2020 Platelets (Bld) [#/Vol] 199 10*3/uL 150-450 [facility] Automated blood platelet levi n volume measurementon 09-24-2020 Platelet mean volume (Bld) [Entitic vol] 8.3 fL 6.6-10.1 [facility] Automated eosinophil %on Eosinophils/100 WBC (Bld) 1.7 % [facility] Automated eosinophil counton 09-24-2020 Eosinophils (Bld) [#/Vol] 0.1 10*3/uL 0.0-0.45 [facility] Automated erythrocyte distri bution width ratioon 09-24-2020 Erythrocyte distribution width (RBC) [Ratio] 16.3 % 12.0-14.8 [facility] Automated erythrocyte mean c orpuscular hemoglobin (mass per erythrocyte)on 09-24-2020 MCH (RBC) [Entitic mass] 27.9 pg 27.5-35.2 [facility] Automated erythrocyte mean c orpuscular hemoglobin concentration measurement (mass/volon 09-24-2020 MCHC (RBC) [Mass/Vol] 32.0 g/dL 32.5-35.6 [facility] Automated erythrocyte mean c orpuscular volumeon 09-24-2020 MCV (RBC) [Entitic vol] 87.1 fL 83.5-101 [facility] Automated monocyte %on 09-24 Monocytes/100 WBC (Bld) 10.5 % [facility] Automated neutrophil %on Neutrophils/100 WBC (Bld) 69.6 % [facility] Blood erythrocytes automated count (number/volume)on 09-24-2020 RBC (Bld) [#/Vol] 4.14 10*6/uL 3.90-5.60 [facility] Blood hemoglobin measurement (mass/volume)on 09-24-2020 Hemoglobin (Bld) [Mass/Vol] 11.5 g/dL 13.0-17.0 [facility] Blood leukocytes automated c ount (number/volume)on 09-24-2020 WBC (Bld) [#/Vol] 5.4 10*3/uL 4.1-10.5 [facility] Blood neutrophil count by au tomated method (number/volume)on 09-24-2020 Neutrophils (Bld) [#/Vol] 3.8 10*3/uL 1.8-7.7 [facility] COVID-19 SOFIAon 09-24-2020 COVID-19 FELIZ Negative Negative [facility] Comment on above: This is a duplicate test result based off of the Feliz SARS Antigen (BECKY) test performed within the Microbiology department. Cholesterol [Mass/volume] in Serum or Plasmaon 09-24-2020 Cholesterol [Mass/Vol] 138 mg/dL 140-200 [facility] Comment on above: Chol less than 200 m g/dl low riskChol 201-239 mg/dl borderline riskChol 240 mg/dl and greater high risk Cholesterol in LDL [Mass/vol ume] in Serum or Plasma by calculationon 09-24-2020 Cholesterol in LDL [Mass/Vol] 78 mg/dL 0-100 [facility] Comment on above: LDL ATP III CLASSIFI CATIONLDL less than 100 mg/dL OptimalLDL 100-129 mg/dL Near or above optimalLDL 130-159 mg/dL Borderline highLDL 160-189 mg/dL HighLDL greater than 189 mg/dL Very high Cholesterol in VLDL [Mass/vo lume] in Serum or Plasma by calculationon 09-24-2020 Cholesterol in VLDL [Mass/Vol] 22 mg/dL [facility] Estimated glomerular filtrat ion rate (GFR) non- Americanon 09-24-2020 GFR/1.73 sq M predicted among non-blacks MDRD (S/P/Bld) [Vol rate/Area] 50 mL/min/{1.73_m2} [facility] Hematocrit [Volume Fraction] of Blood by Automated counton 09-24-2020 Hematocrit (Bld) [Volume fraction] 36.0 % 38.8-50.0 [facility] Hematologyon 09-24-2020 PT Coag (PPP) [Time] 11.7 s 9.0-12.9 [facility] Otheron 09-24-2020 GFR/1.73 sq M.predicted MDRD (S/P/Bld) [Vol rate/Area] 60 mL/min/{1.73_m2} [facility] Comment on above: GFR estimated refere nce range: According to KDOQI guidelines, <60 ml/min/1.73m2 is sufficient to diagnose a patient with chronic kidney disease. Nucleated RBC/100 WBC (Bld) [Ratio] 0.0 % 0-0.5 [facility] Creatinine Clearance (Chem N/A [facility] SARS Antigen (LFIA) [facility] Platelet poor plasma interna tional normalized ratio (INR) by coagulation assay (relaton 09-24-2020 INR Coag (PPP) [Relative time] 1.1 {INR} [facility] Comment on above: INR Therapeutic Rang e A) Pre- and Peroperative OAT started two weeks before surgery. NOT HIP SURGERY: 1.5 - 2.5 HIP SURGERY: 2 - 3B) Primary and secondary prevention of venous THROMBOSIS: 2 - 3C) Active venous thrombosis, pulmonary embolismand prevention of recurrent venous thrombosis: 2 - 3D) Prevention of arterial thromboembolismincluding patients with mechanical heart valves: 3 - 4.5 Serum or plasma chloride levi surement (moles/volume)on 09-24-2020 Chloride [Moles/Vol] 98 mmol/L 95-114 [facility] Serum or plasma creatinine m easurement with calculation of estimated glomerular filtron 09-24-2020 Creatinine [Mass/Vol] 1.36 mg/dL 0.64-1.27 [facility] Serum or plasma high density lipoprotein (HDL) cholesterol measurementon 09-24-2020 Cholesterol in HDL [Mass/Vol] 38 mg/dL 29-71 [facility] Comment on above: HDL CHOL ATP-III CLA SSIFICATION Cardiovascular RiskHDL > or equal to 60 mg/dL LOWHDL < 40 mg/dL HIGH Serum or plasma potassium me asurement (moles/volume)on 09-24-2020 Potassium [Moles/Vol] 3.6 mmol/L 3.5-5.1 [facility] Serum or plasma sodium measu rement (moles/volume)on 09-24-2020 Sodium [Moles/Vol] 141 mmol/L 136-146 [facility] Serum or plasma total carbon dioxide measurement (moles/volume)on 09-24-2020 CO2 [Moles/Vol] 31.9 mmol/L 22.0-30.0 [facility] Serum or plasma total choles terol/high density lipoprotein (HDL) cholesterol mass andres 09-24-2020 Cholesterol.total/Ch olesterol in HDL [Mass ratio] 3.6 {ratio} [facility] Serum or plasma urea nitroge n measurement (mass/volume)on 09-24-2020 Urea nitrogen [Mass/Vol] 20 mg/dL 9-23 [facility] Triglyceride [Mass/volume] i n Serum or Plasmaon 09-24-2020 Triglyceride [Mass/Vol] 112 mg/dL 35-149 [facility] Comment on above: TRIG ATP III CLASSIF ICATIONTRIG less than 150 mg/dL NormalTRIG 150-199 mg/dL Borderline highTRIG 200-500 mg/dL High TRIG greater than 500 mg/dL Very highStandard traceable to the Center for Disease Conrtrol and Prevention (CDC) test method. [facility] CARDIAC STRESS/REST (JANA CARDIAL PERFUSION/MIBI)on 09-10-2020 [facility] CARDIAC STRESS/REST (MYOCARDIAL PERFUSION/MIBI) Patient Name: MERRITT MEHTA STUDY: MYOCARDIAL PERFUSION STRESS TEST WITH LEXISCAN Performing facility: [facility], [address] [facility], [address], \[address] Provider: Tariq Dahl RN, SONG LYRICIST PCP: Dr. Jensen Olson Supervising provider: Ingrid Spain MD INDICATION: CAD; [place]; HISTORY: Gender: M; Age: 85 y/o ; Height: 167.64 cm; Weight: 73.8727645 kg. High Cholesterol; Abnormal EKG; Diabetes; Arrhythmias; HTN; Quit smoking unknown years ago. Cardiac catheterization on 2019. PTCA on 2018. COMPARISON: Previous nuclear testing completed [id number] at [facility]. ACCESSION NUMBER(S): [id number]; [id number]; [id number] ORDERING CLINICIAN: TARIQ DAHL TECHNIQUE: ONE DAY protocol. Stress injection: Date:09/10/2020, 35.2 mCi of Myoview IV 20 seconds after rapid injection of Lexiscan. Rest injection: Date: 09/10/2020, 12.0 mCi of Myoview IV at rest. The patient had a rapid injection of 0.4 mg of Lexiscan IV over 10 seconds. Imaging was performed by gated tomographic technique. Reason for Lexiscan: uses walker/cane STRESS TEST DATA: Resting heart rate was 68 BPM. Resting blood pressure was 200/110 mmHg. Peak blood pressure was 180/88 mmHg. Peak heart rate was 79 BPM. TEST TERMINATED DUE TO: Protocol completed FINDINGS: STRESS TEST RESULTS: Resting electrocardiogram revealed sinus rhythm with first-degree AV block, sinus arrhythmia, right bundle branch block, frequent PVCs. There were no significant ischemic ECG changes, frequent PVCs including ventral couplets were noted during the test. The patient did not have chest pains/symptoms during procedure. There was a normal recovery phase. IMAGING RESULTS: Image quality was good. Rest and stress tomographic images were reviewed and revealed abnormal perfusion. There was no evidence of perfusion abnormality suggestive of ischemia There was evidence of perfusion abnormality consistent with myocardial infarction involving the inferior wall. There was no left ventricular dilatation with stress. Overall left ventricular systolic function appeared to be abnormal. There were regional wall motion abnormalities with severe inferior wall hypokinesis. LVEF was 36%. TID is 0.83 and is normal. There was no evidence of attenuation artifact. IMPRESSION: Abnormal Lexiscan Myoview cardiac perfusion stress test. No myocardial ischemia by perfusion imaging. 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 Abnormal left ventricular systolic function. Left ventricular ejection fraction 36 %. When compared to study from another lab from 2014, the previous study reported anterior and inferior myocardial infarction, current study shows only inferior myocardial infarction. Previous study report ejection fraction of 41%, present study shows ejection fraction of 36%. Electronically signed by: RASHAAD YOUNG MD [facility] CARDIAC STRESS/REST INJE CTIONon 09-10-2020 [facility] CARDIAC STRESS/REST INJECTION Patient Name: MERRITT MHETA STUDY: MYOCARDIAL PERFUSION STRESS TEST WITH LEXISCAN Performing facility: [facility], [address] [facility], [address], \[place] [address] [facility] Provider: Tariq Dahl RN, SONG LYRICIST PCP: Dr. Jensen Olson Supervising provider: Ingrid Spain MD INDICATION: CAD; [place]; HISTORY: Gender: M; Age: 85 y/o ; Height: 167.64 cm; Weight: 73.7654612 kg. High Cholesterol; Abnormal EKG; Diabetes; Arrhythmias; HTN; Quit smoking unknown years ago. Cardiac catheterization on 2018. PTCA on 2018. COMPARISON: Previous nuclear testing completed [id number] at [facility]. ACCESSION NUMBER(S): [id number]; [id number]; [id number] ORDERING CLINICIAN: TARIQ DAHL TECHNIQUE: ONE DAY protocol. Stress injection: Date:09/10/2020, 35.2 mCi of Myoview IV 20 seconds after rapid injection of Lexiscan. Rest injection: Date: 09/10/2020, 12.0 mCi of Myoview IV at rest. The patient had a rapid injection of 0.4 mg of Lexiscan IV over 10 seconds. Imaging was performed by gated tomographic technique. Reason for Lexiscan: uses walker/cane STRESS TEST DATA: Resting heart rate was 68 BPM. Resting blood pressure was 200/110 mmHg. Peak blood pressure was 180/88 mmHg. Peak heart rate was 79 BPM. TEST TERMINATED DUE TO: Protocol completed FINDINGS: STRESS TEST RESULTS: Resting electrocardiogram revealed sinus rhythm with first-degree AV block, sinus arrhythmia, right bundle branch block, frequent PVCs. There were no significant ischemic ECG changes, frequent PVCs including ventral couplets were noted during the test. The patient did not have chest pains/symptoms during procedure. There was a normal recovery phase. IMAGING RESULTS: Image quality was good. Rest and stress tomographic images were reviewed and revealed abnormal perfusion. There was no evidence of perfusion abnormality suggestive of ischemia There was evidence of perfusion abnormality consistent with myocardial infarction involving the inferior wall. There was no left ventricular dilatation with stress. Overall left ventricular systolic function appeared to be abnormal. There were regional wall motion abnormalities with severe inferior wall hypokinesis. LVEF was 36%. TID is 0.83 and is normal. There was no evidence of attenuation artifact. IMPRESSION: Abnormal Lexiscan Myoview cardiac perfusion stress test. No myocardial ischemia by perfusion imaging. 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 Abnormal left ventricular systolic function. Left ventricular ejection fraction 36 %. When compared to study from another lab from 2015, the previous study reported anterior and inferior myocardial infarction, current study shows only inferior myocardial infarction. Previous study report ejection fraction of 41%, present study shows ejection fraction of 36%. Electronically signed by: RASHAAD YOUNG MD [facility] NO PART 2 STRESS OR REST (N O CHARGE)on 09-10-2020 NO PART 2 STRESS OR REST (NO CHARGE) Patient Name: MERRITT MEHTA STUDY: MYOCARDIAL PERFUSION STRESS TEST WITH LEXISCAN Performing facility: [facility], [address], [address], \[place] [address] [facility] Provider: Tariq Dahl RN, SONG LYRICIST PCP: Dr. Jensen Olson Supervising provider: Ingrid Spain MD INDICATION: CAD; [place]; HISTORY: Gender: M; Age: 85 y/o ; Height: 167.64 cm; Weight: 73.7128722 kg. High Cholesterol; Abnormal EKG; Diabetes; Arrhythmias; HTN; Quit smoking unknown years ago. Cardiac catheterization on 2019. PTCA on 2019. COMPARISON: Previous nuclear testing completed [id number] at [facility]. ACCESSION NUMBER(S): [id number]; [id number]; [id number] ORDERING CLINICIAN: TARIQ DAHL TECHNIQUE: ONE DAY protocol. Stress injection: Date:09/10/2020, 35.2 mCi of Myoview IV 20 seconds after rapid injection of Lexiscan. Rest injection: Date: 09/10/2020, 12.0 mCi of Myoview IV at rest. The patient had a rapid injection of 0.4 mg of Lexiscan IV over 10 seconds. Imaging was performed by gated tomographic technique. Reason for Lexiscan: uses walker/cane STRESS TEST DATA: Resting heart rate was 68 BPM. Resting blood pressure was 200/110 mmHg. Peak blood pressure was 180/88 mmHg. Peak heart rate was 79 BPM. TEST TERMINATED DUE TO: Protocol completed FINDINGS: STRESS TEST RESULTS: Resting electrocardiogram revealed sinus rhythm with first-degree AV block, sinus arrhythmia, right bundle branch block, frequent PVCs. There were no significant ischemic ECG changes, frequent PVCs including ventral couplets were noted during the test. The patient did not have chest pains/symptoms during procedure. There was a normal recovery phase. IMAGING RESULTS: Image quality was good. Rest and stress tomographic images were reviewed and revealed abnormal perfusion. There was no evidence of perfusion abnormality suggestive of ischemia There was evidence of perfusion abnormality consistent with myocardial infarction involving the inferior wall. There was no left ventricular dilatation with stress. Overall left ventricular systolic function appeared to be abnormal. There were regional wall motion abnormalities with severe inferior wall hypokinesis. LVEF was 36%. TID is 0.83 and is normal. There was no evidence of attenuation artifact. IMPRESSION: Abnormal Lexiscan Myoview cardiac perfusion stress test. No myocardial ischemia by perfusion imaging. 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 Abnormal left ventricular systolic function. Left ventricular ejection fraction 36 %. When compared to study from another lab from 2015, the previous study reported anterior and inferior myocardial infarction, current study shows only inferior myocardial infarction. Previous study report ejection fraction of 41%, present study shows ejection fraction of 36%. Electronically signed by: RASHAAD YOUNG MD Normal [facility] B Natriuretic Peptideon 07-27 BNP 175 pg/mL Abnormal <100 [facility] Comment on above: Performed By: #### 1 [id number] ####[facility] [id number] [place] [address] Creatinineon 08-23-2017 Creatinine 1.06 mg/dL Normal 0.50-1.30 [facility] Comment on above: Performed By: #### 1 [id number] ####[facility] [address] [place] [address] eGFR (MDRD) mL/min/{1.73_m2} Normal [facility] Comment on above: Result Comment: Inte rpretation for Chronic Kidney Disease:Stages 1&2 >60 Healthy or potential kidney damage.Mild decrease of GFR.Stage 3 30-59 Moderate decrease of GFR.Stage 4 15-29 Severe decrease of GFR.Stage 5 <15 Kidney failure or on dialysis. Performed By: #### 1 [id number] ####[facility] [id number] [place] [address] Electrolyte Panelon 08-23-19 18 Anion gap 12 mmol/L Normal 10-20 [facility] Comment on above: Performed By: #### 1 [id number] ####[facility] [address] [place] [address] Bicarbonate (HCO3) 30 mmol/L Normal 21-32 [facility] Comment on above: Performed By: #### 1 [id number] ####[facility] [address] [place] [address] Chloride 97 mmol/L Low 98-107 [facility] Comment on above: Performed By: #### 1 [id number] ####[facility] [address] [place] [address] Potassium molar conc 4.4 mmol/L Normal 3.5-5.1 [facility] Comment on above: Performed By: #### 1 [id number] ####[facility] [address] [place] [address] Sodium 135 mmol/L Low 136-145 [facility] Comment on above: Performed By: #### 1 [id number] ####[facility] [address] [place] [address] Urea Nitrogenon 08-23-2017 Urea nitrogen 25 mg/dL High 6-23 [facility] Comment on above: Performed By: #### 1 [id number] ####[facility] [address] [place] [address] Vital Signs Date Time Vital Sign Value Performing Clinician Elio gonzalez 11-02-2022 11:04-0400 Body height 157.48 cm Goldy Hernández Hoy Work Phone: [facility] [address] DO Work Phone: 11-02-2022 11:04-0400 Body mass index (BMI) [Ratio] 29.81 kg/m2 Goldy Edgar Hoy Work Phone: [facility] [address] DO Work Phone: 11-02-2022 11:04-0400 Body surface area Derived from formula 1.75 m2 Goldy Edgar Hoy Work Phone: [facility] [address] DO Work Phone: 11-02-2022 11:04-0400 Body weight 73.94 kg Goldy M Hoy Work Phone: [facility] [address] DO Work Phone: 11-02-2022 11:04-0400 Diastolic blood pressure 70 mm[Hg] Goldy M Hoy Work Phone: [facility] [address] DO Work Phone: 11-02-2022 11:04-0400 Heart rate 57 /min Goldy M Hoy Work Phone: [facility] DO Work Phone: 11-02-2022 11:04-0400 Systolic blood pressure 110 mm[Hg] Goldy M Hoy Work Phone: [facility] [address] DO Work Phone: 05-05-2022 11:35-0400 Body height 157.48 cm Goldy M Hoy Work Phone: [facility] [address] DO Work Phone: 05-05-2022 11:35-0400 Body mass index (BMI) [Ratio] 28.53 kg/m2 Goldy M Hoy Work Phone: [facility] [address] DO Work Phone: 05-05-2022 11:35-0400 Body surface area Derived from formula 1.72 m2 Goldy M Hoy Work Phone: [facility] [address] DO Work Phone: 05-05-2022 11:35-0400 Body weight 70.76 kg Goldy M Hoy Work Phone: [facility] [address] DO Work Phone: 05-05-2022 11:35-0400 Diastolic blood pressure 60 mm[Hg] Goldy Edgar Hoy Work Phone: [facility] DO Work Phone: 05-05-2022 11:35-0400 Heart rate 58 /min Goldy M Hoy Work Phone: [facility] DO Work Phone: 05-05-2022 11:35-0400 Systolic blood pressure 120 mm[Hg] Goldy M Hoy Work Phone: [facility] DO Work Phone: 01-07-2022 11:09-0400 Body height 157.48 cm Goldy Hernández Hoy Work Phone: [facility] DO Work Phone: 01-07-2022 11:09-0400 Diastolic blood pressure 62 mm[Hg] Goldy Hernández Hoy Work Phone: [facility] DO Work Phone: 01-07-2022 11:09-0400 Heart rate 60 /min Goldy Hernández Hoy Work Phone: [facility] [address] DO Work Phone: 01-07-2022 11:09-0400 Systolic blood pressure 112 mm[Hg] Goldy Hernández Hoy Work Phone: [facility] DO Work Phone: 12-05-2021 16:00-0400 Body temperature 98 [degF] MD Goldy Olson Work Phone: [facility] 12-05-2021 16:00-0400 Diastolic blood pressure 78 mm[Hg] MD Goldy Olson Work Phone: [facility] 12-05-2021 16:00-0400 Heart rate 55 /min MD Goldy Olson Work Phone: [facility] 12-05-2021 16:00-0400 Inhaled oxygen flow rate 1.5 L/min MD Goldy Olson Work Phone: [facility] 12-05-2021 16:00-0400 Respiratory rate 14 /min MD Goldy Olson Work Phone: [facility] 12-05-2021 16:00-0400 SaO2% (BldA) [Mass fraction] 98 % MD Goldy Olson Work Phone: [facility] 12-05-2021 16:00-0400 Systolic blood pressure 174 mm[Hg] MD Goldy Olson Work Phone: [facility] 12-05-2021 05:32-0400 Body weight 72.8 kg Goldy Hoy Work Phone: [facility] 12-03-2021 15:45-0400 Body height 157.48 cm Goldy Hoy Work Phone: [facility] 12-02-2021 19:57-0400 Body mass index (BMI) [Ratio] 28.5 kg/m2 Goldy Hoy Work Phone: [facility] 11-19-2021 11:47-0400 Diastolic blood pressure 78 mm[Hg] Goldy M Hoy Work Phone: [facility] DO Work Phone: 11-19-2021 11:47-0400 Systolic blood pressure 160 mm[Hg] Goldy M Hoy Work Phone: [facility] DO Work Phone: 11-19-2021 11:06-0400 Body height 157.48 cm Goldy M Hoy Work Phone: [facility] DO Work Phone: 11-19-2021 11:06-0400 Body mass index (BMI) [Ratio] 28.9 kg/m2 Goldy M Hoy Work Phone: [facility] DO Work Phone: 11-19-2021 11:06-0400 Body surface area Derived from formula 1.73 m2 Goldy M Hoy Work Phone: [facility] DO Work Phone: 11-19-2021 11:06-0400 Body weight 71.67 kg Goldy M Hoy Work Phone: [facility] DO Work Phone: 11-19-2021 11:06-0400 Diastolic blood pressure 70 mm[Hg] Goldy M Hoy Work Phone: [facility] DO Work Phone: 11-19-2021 11:06-0400 Heart rate 56 /min Goldy M Hoy Work Phone: [facility] DO Work Phone: 11-19-2021 11:06-0400 Systolic blood pressure 156 mm[Hg] Goldy M Hoy Work Phone: [facility] DO Work Phone: 08-12-2021 13:43-0500 Diastolic blood pressure 70 mm[Hg] Goldy M Hoy Work Phone: [facility] DO Work Phone: 08-12-2021 13:43-0500 Systolic blood pressure 132 mm[Hg] Goldy M Hoy Work Phone: [facility] DO Work Phone: 08-12-2021 13:32-0500 Body height 162.56 cm Goldy M Hoy Work Phone: [facility] DO Work Phone: 08-12-2021 13:32-0500 Body mass index (BMI) [Ratio] 27.29 kg/m2 Goldy M Hoy Work Phone: [facility] DO Work Phone: 08-12-2021 13:32-0500 Body surface area Derived from formula 1.77 m2 Goldy M Hoy Work Phone: [facility] DO Work Phone: 08-12-2021 13:32-0500 Body weight 72.12 kg Goldy M Hoy Work Phone: [facility] DO Work Phone: 08-12-2021 13:32-0500 Diastolic blood pressure 78 mm[Hg] Goldy Edgar Hoy Work Phone: [facility] DO Work Phone: 08-12-2021 13:32-0500 Systolic blood pressure 151 mm[Hg] Goldy Edgar Hoy Work Phone: [facility] DO Work Phone: 05-13-2021 11:25-0400 Body height 162.56 cm Goldy Edgar Hoy Work Phone: [facility] DO Work Phone: 05-13-2021 11:25-0400 Body mass index (BMI) [Ratio] 27.98 kg/m2 Goldy Edgar Hoy Work Phone: [facility] DO Work Phone: 05-13-2021 11:25-0400 Body surface area Derived from formula 1.79 m2 Goldy Edgar Hoy Work Phone: [facility] DO Work Phone: 05-13-2021 11:25-0400 Body weight 73.94 kg Goldy Hernández Hoy Work Phone: [facility] DO Work Phone: 05-13-2021 11:25-0400 Diastolic blood pressure 82 mm[Hg] Goldy Hernández Hoy Work Phone: [facility] DO Work Phone: 05-13-2021 11:25-0400 Heart rate 56 /min Goldy Edgar Hoy Work Phone: [facility] DO Work Phone: 05-13-2021 11:25-0400 Systolic blood pressure 148 mm[Hg] Goldy Edgar Hoy Work Phone: [facility] DO Work Phone: Encounters Encounter Date Encounter Type Care Provider Facility Start: 05-02-2023 End: 05-03-2023 ambulatory GOLDY Hernández SRIRAMKrishna [facility] Start: 11-02-2022 Office outpatient vi sit 25 minutes Goldy M Hoy Work Phone: [facility] DO Work Phone: Start: 11-02-[address] Brad Major Facility: Start: 06-11-2022 End: 06-12-[address] GOLDY OLSON Facility:H1 Start: 05-05-2022 Office outpatient vi sit 15 minutes Goldy M Hoy Work Phone: [facility] DO Work Phone: Start: 05-05-2022 Patient encounter procedure Goldy M Hoy Work Phone: [facility] DO Work Phone: Start: 05-05-2022 ambulatory Tariq Dahl Facility:1 [id number] Start: 01-12-2022 Rx Renewal Goldy M Hoy Work Phone: [facility] DO Work Phone: Start: 01-07-2022 Office outpatient vi sit 25 minutes Goldy M Hoy Work Phone: [facility] DO Work Phone: Start: 01-07-[address] Brad Major Facility: Start: 12-09-2021 End: 12-14-2021 Evaluation and management of inpatient DR GOLDY OLSON Facility:H1 Start: 12-08-2021 End: 12-09-[address] GOLDY OLSON Facility:H1 Start: 12-04-2021 End: 12-05-2021 Evaluation and management of inpatient Goldy Olson Facility:[facility] Start: 12-04-[address] Goldy Olson Facility:[id number] Start: 12-04-2021 End: 12-05-2021 Evaluation and management of inpatient MD Goldy Olson Work Phone: [facility] Start: 12-03-[address] Goldy Olson Facility:[id number] Start: 12-02-[address] Brad Major Facility:[id number] Start: 11-30-2021 End: 12-01-[address] GOLDY OLSON Facility:H1 Start: 11-19-2021 Office outpatient vi sit 25 minutes Goldy M Hoy Work Phone: [facility] [address] DO Work Phone: Start: 11-19-[address] Brad Major Facility:[id number] Start: 10-06-2021 End: 10-07-[address] GOLDY OLSON Facility:H1 Start: 10-01-2021 End: 10-02-[address] BRAD MAJOR Facility:H1 Start: 09-30-[address] GOLDY OLSON Facility :H1 Start: 08-13-2021 Rx Renewal Goldy M Hoy Work Phone: [facility] DO Work Phone: Start: 08-12-2021 Office outpatient vi sit 25 minutes Goldy M Hoy Work Phone: [facility] DO Work Phone: Start: 08-12-2021 Patient encounter procedure Goldy M Hoy Work Phone: [facility] DO Work Phone: Start: 06-22-2021 Patient encounter procedure Goldy M Hoy Work Phone: [facility] DO Work Phone: Start: 05-13-2021 Office outpatient vi sit 25 minutes Goldy M Hoy Work Phone: [facility] [address] DO Work Phone: Start: 09-24-2020 End: 09-24-2020 Patient encounter procedure Goldy Hoy -Pre-Surgical Testing Start: 09-05-2017 Ambulatory PROVIDER UNKNOWN Facili ty:[id number] Start: 08-23-2017 Ambulatory PROVIDER UNKNOWN Facili ty:[id number] Procedures Date Procedure Procedure Detail Performing Clinician Start: 12-03-2021 Aerobic microbial culture MD Goldy Olson Work Phone: Start: 12-03-2021 Investigation of tra nsfusion reaction MD Goldy Olson Work Phone: Start: 12-03-2021 Plain chest X-ray MD Foster Work Phone: Start: 10-06-[address] SANDIE OLSON Comment on above: Performed By: #### C VDTB #### [facility] [address] [place] [address] Dr. Gilles Ca Start: 09-24-2020 SARS Antigen (LFIA) Nelly mcclelland Sonia Start: 07-25-2003 Total colonoscopy Faml as M Sonia Work Phone: Comment on above: [employer]; Arthroplasty of knee Goldy M Hoy Work Phone: Cataract surgery Goldy M H oy Work Phone: Cholecystectomy Goldy M Ho y Work Phone: Kidney operation Goldy M H oy Work Phone: Operation on fracture Famla s M Hoy Work Phone: Percutaneous translu bria coronary angioplasty Goldy M Hoy Work Phone: Surgical procedure Goldy M Hoy Work Phone: Comment on above: aortic valve assessm ent; Surgical procedure on thorax Goldy M Hoy Work Phone: Vasectomy Goldy M Hoy Work Phone: Plan of Treatment Date Care Activity Detail Author Start: 05-09-2023 FUV, Provider: Tariq Duran, Status: Pen, Time: 11:00 AM FUV, Provider: Tariq Duran, Status: Pen, Time: 11:00 AM [facility] DO Work Phone: Start: 04-11-2023 FUV, Provider: Brad Major, Status: Pen, Time: 11:10 AM FUV, Provider: Brad Major, Status: Pen, Time: 11:10 AM [facility] DO Work Phone: Start: 05-05-2022 FUV, Provider: Tariq Duran, Status: Pen, Time: 11:30 AM FUV, Provider: Tariq Duran, Status: Pen, Time: 11:30 AM [facility] DO Work Phone: Start: 03-18-2022 FUV, Provider: Brad Major, Status: Pen, Time: 10:20 AM FUV, Provider: Brad Major, Status: Pen, Time: 10:20 AM [facility] DO Work Phone: Start: 11-19-2021 FUV, Provider: Brad Major, Status: Pen, Time: 11:00 AM FUV, Provider: Brad Major, Status: Pen, Time: 11:00 AM [facility] DO Work Phone: Start: 08-12-2021 FUV, Provider: Tariq Duran, Status: Pen, Time: 1:30 PM FUV, Provider: Tariq Duran, Status: Pen, Time: 1:30 PM [facility] DO Work Phone: Patient Education Oxygen Therapy , Adult (DC) [facility] Work Phone: Patient referral [facility] Work Phone: Immunizations Immunization Date Immunization Notes Care Provider Isabel sweet 02-16-2022 Pfizer-BioNTech COVI D-19 Vacc 30 MCG/0.3ML Intramuscular Suspension Goldy Olson Work Phone: [facility] [address] DO Work Phone: 06-12-2021 Pfizer-BioNTech COVI D-19 Vacc 30 MCG/0.3ML Intramuscular Suspension Goldy Olson Work Phone: [facility] 250 DO Work Phone: 06-03-2021 Fluzone High-Dose Quadrivalent 0.7 ML Intramuscular Suspension Prefilled Syringe Goldy Olson Work Phone: [facility] 250 DO Work Phone: 09-03-2020 Pfizer-BioNTech COVI D-19 Vacc 30 MCG/0.3ML Intramuscular Suspension Goldy Olson Work Phone: [facility] 250 DO Work Phone: 08-06-2020 Pfizer-BioNTech COVI D-19 Vacc 30 MCG/0.3ML Intramuscular Suspension Goldy Olson Work Phone: [place] [address] DO Work Phone: 04-16-2020 Seasonal trivalent influenza vaccine, adjuvanted, preservative free Goldy Olson Work Phone: [place] [address] DO Work Phone: 03-25-2020 influenza, seasonal, injectable Goldy Bhatiay Work Phone: [place] [address] DO Work Phone: 05-21-2019 influenza, high dose seasonal, preservative-free Goldy Olson Work Phone: [place] [address] DO Work Phone: 04-24-2018 influenza virus vacc ine, unspecified formulation Goldy Olson Work Phone: [facility] 250 DO Work Phone: 05-25-2017 influenza virus vacc ine, unspecified formulation Goldy Bhatiay Work Phone: [facility] 250 DO Work Phone: 04-22-2017 influenza, high dose seasonal, preservative-free Goldy Hernández Hoy Work Phone: [facility] 250 DO Work Phone: 04-22-2017 pneumococcal conjuga te vaccine, 13 valent [facility]y [facility] Work Phone: 04-15-2016 influenza virus vacc ine, unspecified formulation Goldy Hernández Hoy Work Phone: [facility] 250 DO Work Phone: 04-15-2016 pneumococcal polysaccharide vaccine, 23 valent Goldy Hernández Hoy Work Phone: [facility] 250 DO Work Phone: 08-04-2009 novel influenza-H1N1 -09, preservative-free, injectable Goldy Olson Work Phone: [facility] 250 DO Work Phone: 02-06-2007 zoster vaccine, live Goldy Olson Work Phone: [facility] DO Work Phone: Payers Date Payer Category Payer Medicare [id number] 2015 Unknown [id number] 1959 Private Health Insurance 101 [id number] 1959 Self-pay [id number] 1959 Unknown [id number] 1935 Unknown [id number] 2.16.84 [id number] 1935 Unknown [id number] 2.16.84 0.1.837714.3.579.2.593 1935 Unknown [id number] 2.16.84 0.1.141545.3.579.2.593 1935 Unknown [id number] 2.16.84 0.1.900498.3.579.2.593 1935 Unknown [id number] 2.16.84 0.1.265397.3.579.2.593 1935 Unknown [id number] 2.16.84 0.1.736987.3.579.2.593 1935 Unknown [id number] 2.16.84 0.1.976534.3.579.2.593 1935 Unknown [id number] 2.16.84 0.1.035454.3.579.2.593 1935 Unknown [id number] 2.16. 840.1.024423.3.579.2.356 1935 Unknown [id number] 2.16. 840.1.049076.3.579.2.356 1935 Unknown [id number] 2.16. 840.1.635160.3.579.2.356 1935 Unknown [id number] 2.16. 840.1.077572.3.579.2.356 1935 Unknown [id number] 2.16. 840.1.280738.3.579.2.356 1935 Unknown [id number] 2.16. 840.1.539598.3.579.2.356 1935 Unknown [id number] 2.16. 840.1.762452.3.579.2.356 1935 Unknown [id number] 2.16.8 40.1.396251.3.579.2.174 Medicare [id number] Unknown Unknown [id number] 2.16.8 40.1.895135.3.579.2.531 Social History Date Type Detail Facility Start: 09-24-2020 End: 12-02-2021 Tobacco smoking status NHIS Ex-smoker (finding) [facility] Start: 1935 Sex Assigned At Male F [facility] Daily caffeine consumption, 4-5 servings a day Daily caffeine consumption, 4-5 servings a day [facility] DO Work Phone: Comment on above: QUIT IN THE 1950S; Medical Equipment Procedure Code Equipment Code Equipment Origin al Text Equipment Identifier Dates FDA Start: 01-09-2019 CL STENT ERWIN 2.25 X 15 FDA Start: 01-09-2019 CL STENT ERWIN 2.25 X 15 FDA Start: 01-09-2019 CL STENT ERWIN 2.5 X 38 FDA Start: 01-09-2019 Drug-eluting coronary artery stent, [id number] lymer-coated ()[id number] FDA Start: 09-26-2020 Drug-eluting coronary artery stent, [id number]-[id number] lymer-coated ()[id number] FDA Start: 09-26-2020 Goals Date Patient Goal Desired Activity /State Functional Status Date Assessment Result Facility 12-05-2021 Functional status Patient at Baseline [facility] Work Phone: Mental Status Date Assessment Result Facility 12-05-2021 Cognitive function Cognitive Sta tus Patient at Baseline [facility] Work Phone: Clinical Notes 12-02-2021 to 12-04-2021 Note Date & Type Note Facility 12-04-2021 Progress note Note Date/Time December 04, 2021 1:25p m [facility] [address] [place] [address] Cardiology Progress Note Signed Patient: Merritt Mehta MR#: [id number] : 1935 Acct:[id number] Age/Sex: 86 / M Adm Date: 2 Loc: 3T Room: [address] [place] [address] Type : ADM INOo Attending Dr: Tash Lawrence MD Copies to: ~ Date of Service: 12/04/2021 Subjective Principal diagnosis: Nonsustained VT, bradycardia Interval history: Patient seen in conjunction with Dr. Angelo, we have evaluated the patient together and I concur with his note. Patient was seen at bedside. He is still complaining of a productive cough with yellowish sputum. He denies any fever or chills and is currently Cefdinir for this. His rhythm is still being controlled with his Amiodarone and his heart rate has increased today to around 55-60 when he was seen this morning, he is in a sinus bradycardia with first-degree AV block (not atrial fibrillation). He denies any chest pain or palpitations at this time. He is still complaining of some residual weakness and shortness of breath. Patient's serum creatinine is bumped up a bit to 2.0, it appears his diuretics and Entresto are on hold. My fear is that if he is discharged off of these medications he will certainly going to congestive heart failure. I would highly recommend we reinstitute Entresto and some form of diuretic within the next 24 to 48 hours, prior to his discharge. Exam Physical Exam Vital Signs: Temp Pulse Resp BP Pulse Ox 97.9 F 47 L 18 132/61 95 12/04/21 11:53 12/04/21 11:53 12/04/21 11:53 12/04/21 11:53 12/04/21 11:53 Const General: cooperative, comfortable and no acute distress Nutritional Appearance: average body habitus Orientation: alert, awake and oriented x3 HEENT Head: normal to inspection Neck Neck: normal visual inspection Chest Chest palpation & inspection: normal inspection of the chest Resp Effort & Inspection: normal respiratory effort Auscultation: no rales, no rhonchi and wheezes Cardio Palpation: normal PMI Rate: bradycardic Rhythm: abnormal rhythm Heart Sounds: S1 normal, S2 normal, no gallops, no murmurs and no rubs GI Palpation: soft Skin General: no rashes or lesions noted Neuro General: patient alert, patient awake and patient oriented x3 Cognition: normal cognition Speech: speech normal Extrem General: no calf tenderness and no edema Objective Labs CBC & Chem 7: 12/04/21 06:06 12/04/21 06:06 Labs: Laboratory Results - last 24 hr 12/01/21 12/01/21 12/02/21 16:36 16:36 12:18 Corrected WBC Uncorrected WBC Count RBC Hgb Hct MCV MCH MCHC RDW Plt Count MPV Neut % (Auto) Lymph % (Auto) Vilas % (Auto) Eos % (Auto) Baso % (Auto) Neut # (Auto) Lymph # (Auto) Vil[place] # (Auto) Eos # (Auto) Baso # (Auto) Nucleated RBC % (auto) PHA Creatinine Clear 28.02 33.55 Sodium 139 139 Potassium 3.5 3.3 L Chloride 99 99 Carbon Dioxide 27.7 30.8 H BUN 27 H 20 Creatinine 1.62 H 1.37 H Est GFR ( Amer) 49 60 Est GFR (Non-Af Amer) 41 49 Glucose 133 H 137 H POC Glucose POC Glucose Comment Calcium 8.4 8.3 Magnesium 1.4 L 1.2 L Troponin I High Sens 71 H* 12/03/21 12/03/21 12/03/21 06:28 11:14 16:23 Corrected WBC Uncorrected WBC Count RBC Hgb Hct MCV MCH MCHC RDW Plt Count MPV Neut % (Auto) Lymph % (Auto) Vilas % (Auto) Eos % (Auto) Baso % (Auto) Neut # (Auto) Lymph # (Auto) Vilas # (Auto) Eos # (Auto) Baso # (Auto) Nucleated RBC % (auto) PHA Creatinine Clear Sodium 138 Potassium 3.5 Chloride Carbon Dioxide BUN 21 Creatinine 1.61 H Est GFR ( Amer) Est GFR (Non-Af Amer) Glucose 127 H POC Glucose 175 157 POC Glucose Comment Calcium 8.3 Magnesium 1.4 L Troponin I High Sens 12/03/21 12/04/21 12/04/21 20:28 06:06 06:06 Corrected WBC 7.7 Uncorrected WBC Count 7.7 RBC 4.01 Hgb 11.4 L Hct 36.7 L MCV 91.5 MCH 28.3 MCHC 30.9 L RDW 15.2 H Plt Count 158 MPV 8.9 Neut % (Auto) 78.9 Lymph % (Auto) 11.2 Vilas % (Auto) 9.7 Eos % (Auto) 0.1 Baso % (Auto) 0.1 Neut # (Auto) 6.1 Lymph # (Auto) 0.9 L Vilas # (Auto) 0.8 Eos # (Auto) 0.0 Baso # (Auto) 0.0 Nucleated RBC % (auto) 0.0 PHA Creatinine Clear 21.89 Sodium 136 Potassium 4.0 Chloride 95 Carbon Dioxide 30.4 H BUN 30 H Creatinine 2.10 H Est GFR ( Amer) 36 Est GFR (Non-Af Amer) 30 Glucose 90 POC Glucose 115 POC Glucose Comment Glu2: cleaned meter Calcium 8.4 Magnesium 1.6 Troponin I High Sens 12/04/21 12/04/21 06:34 11:24 Corrected WBC Uncorrected WBC Count RBC Hgb Hct MCV MCH MCHC RDW Plt Count MPV Neut % (Auto) Lymph % (Auto) Vilas % (Auto) Eos % (Auto) Baso % (Auto) Neut # (Auto) Lymph # (Auto) Vilas # (Auto) Eos # (Auto) Baso # (Auto) Nucleated RBC % (auto) PHA Creatinine Clear Sodium Potassium Chloride Carbon Dioxide BUN Creatinine Est GFR ( Amer) Est GFR (Non-Af Amer) Glucose POC Glucose 96 188 POC Glucose Comment Calcium Magnesium Troponin I High Sens A&P - Cardiology (1) Paroxysmal atrial fibrillation with rapid ventricular response: Code(s): I48.0 - Paroxysmal atrial fibrillation Status: Acute (2) Weakness: Code(s): R53.1 - Weakness Status: Acute (3) Acute bronchitis: Code(s): J20.9 - Acute bronchitis, unspecified Status: Acute Plan Patient's Afib is improving since restarting his Amiodarone. From a cardiology stand point he is good to go home as soon as his cough and sputum production improves Documented By: Eitan Major DO 12/04/21 1208 Signed By: <Electronically signed by Eitan Major DO> 12/04/21 6806 [facility] Work Phone: [phone] 878-305705-13-2022 Progress note Author Tash Lawrence [facility] December 04, 2021 12:21pm Note Date/Time December 04, 2021 12:21 pm [facility] [address] [place] [address] Hospitalist Progress Note Signed Patient: Merritt Mehta MR#: [id number] : 1935 Acct:[id number] Age/Sex: 86 / M Adm Date: 2 Loc: Room: [address] [place] [address] Type : ADM INOo Attending Dr: Tash Lawrence MD Copies to: ~ Date of Service: 12/04/2021 Subjective Subjective Narrative: Patient examined while sitting on chair with no overnight event. Noted to have few episodes of nonsustained wide-complex tachycardia on telemetry. Currently in A. fib with heart rate in 60s. His morning labs showing increasing creatinine to 2.1. Exam Physical Exam Vital Signs: Temp Pulse Resp BP Pulse Ox 97.9 F 47 L 18 132/61 95 12/04/21 11:53 12/04/21 11:53 12/04/21 11:53 12/04/21 11:53 12/04/21 11:53 Const General: cooperative Orientation: alert, awake and oriented x3 Resp Effort & Inspection: normal respiratory effort and able to speak in complete sentences Auscultation: no rales, no rhonchi and no wheezes Cardio Rhythm: abnormal rhythm Heart Sounds: S1 normal and S2 normal GI Palpation: soft, not firm, no guarding and nontender Auscultation: normal bowel sounds Neuro General: patient alert, patient awake, patient oriented x3, moves all extremities and no focal motor deficits Extrem General: no pedal edema and no calf tenderness Objective Lab Results CBC & Chem 7: 12/04/21 06:06 12/04/21 06:06 Microbiology Results Microbiology 12/03/21 03:05 Sputum - Expectorated Aerobic Culture - Preliminary 12/03/21 03:05 Sputum - Expectorated Gram Stain - Final 12/02/21 11:15 Sputum - Expectorated Aerobic Culture - Final Moderate Normal Respiratory Ventura 2 Days 12/02/21 11:15 Sputum - Expectorated Gram Stain - Final Meds Allergies and Active Meds Allergies amlodipine Allergy (Verified 09/26/20 08:43) shortness of breath Iodinated Contrast Media [Iodinated Contrast- Oral and IV Dye] Allergy (Rkvohojj77/05/21 08:43) Hives shellfish derived Allergy (Verified 09/26/20 08:43) Hives codeine Adverse Reaction (Verified 09/26/20 08:43) Nausea felodipine [From Plendil] Adverse Reaction (Verified 09/26/20 08:43) Unknown Reaction levofloxacin [From Levaquin] Adverse Reaction (Verified 09/26/20 08:43) Edema loratadine [From Claritin-D] Adverse Reaction (Verified 09/26/20 08:43) Edema methylprednisolone [From Depo-Medrol] Adverse Reaction (Verified 09/26/20 08:43) Unknown Reaction Penicillins Adverse Reaction (Verified 09/26/20 08:43) Unknown Reaction pseudoephedrine [From Claritin-D] Adverse Reaction (Verified 09/26/20 08:43) Edema tramadol [From Ultram] Adverse Reaction (Verified 09/26/20 08:43) Unknown Reaction Active Meds: Active Medications Generic Name Dose Route Start Last Admin Trade Name Freq PRN Reason Stop Dose Admin Amiodarone HCl 200 mg 12/04/21 09:00 12/04/21 08:00 Amiodarone 200 Mg Tablet PO 12/04/22 08:59 200 mg DAILY CHARISSE Administration Aspirin 81 mg 12/03/21 09:00 12/04/21 08:00 Aspirin 81 Mg Tablet. PO 12/03/22 08:59 81 mg DAILY CHARISSE Administration Cefdinir 300 mg 12/03/21 04:40 12/04/21 08:00 Cefdinir 300 Mg Capsule PO 300 mg BID CHARISSE Administration Citalopram Hydrobromide 20 mg 12/03/21 09:00 12/04/21 08:00 Citalopram 20 Mg Tablet PO 12/03/22 08:59 20 mg QAM CHARISSE Administration Clopidogrel Bisulfate 75 mg 12/03/21 09:00 12/04/21 07:59 Clopidogrel Bisulfate 75 Mg Tablet PO 12/03/22 08:59 75 mg DAILY CHARISSE Administration Ferrous Sulfate 324 mg 12/03/21 21:00 12/04/21 07:59 Ferrous Sulfate 324 Mg Tablet. PO 12/03/22 20:59 324 mg BID CHARISSE Administration Furosemide 40 mg 12/03/21 08:00 12/04/21 08:00 Furosemide 40 Mg Tablet PO 12/03/22 07:59 40 mg DAILY.8A CHARISSE Administration Guaifenesin 1,200 mg 12/03/21 21:00 12/04/21 08:00 Guaifenesin 600 Mg Tab.Er.12h PO 12/03/22 20:59 1,200 mg BID CHARISSE Administration Heparin Sodium (Porcine) 5,000 unit 12/02/21 21:00 12/04/21 08:00 Heparin 5,000 Unit/Ml Vial SUBCUT 12/02/22 20:59 5,000 unit Q12HR CHARISSE Administration Hydralazine HCl 50 mg 12/03/21 00:00 12/04/21 11:53 Hydralazine 50 Mg Tablet PO 12/03/22 00:00 50 mg Q6HR CHARISSE Administration Insulin Aspart 0 units 12/03/21 08:00 12/04/21 11:53 Insulin Aspart 300 Units/3 Ml Insuln.Pen SUBCUT 12/03/22 07:59 2 units TID.WITH.MEALS CHARISSE Administration Protocol Isosorbide Mononitrate 60 mg 12/03/21 06:00 12/04/21 05:55 Isosorbide Mononitrate 24hr Er 60 Mg Tab.Er.24h PO 12/03/22 05:59 60 mg DAILY.6A CHARISSE Administration Omeprazole 40 mg 12/04/21 09:00 12/04/21 07:59 Omeprazole 20 Mg Capsule.Dr PO 12/04/22 08:59 40 mg QAM CHARISSE Administration Ondansetron HCl 4 mg 12/02/21 18:42 12/02/21 19:47 Ondansetron 4 Mg/2 Ml Vial IV-PUSH 12/02/22 18:41 4 mg Q6H PRN Administration NAUSEA/VOMITING Potassium Chloride 10 meq 12/04/21 09:00 12/04/21 08:00 Potassium Chloride Er 10 Meq Tablet.Er PO 12/04/22 08:59 10 meq QAM CHARISSE Administration Pravastatin Sodium 10 mg 12/03/21 21:00 12/03/21 20:18 Pravastatin 10 Mg Tablet PO 12/03/22 20:59 10 mg QPM CHARISSE Administration Sacubitril/Valsartan 1 tab 12/02/21 21:00 12/04/21 08:00 Sacubitril/Valsartan 97-103mg 1 Tab Tablet PO 12/02/22 20:59 1 tab BID CHARISSE Administration Sodium Chloride 10 ml 12/03/21 16:46 Sodium Chloride 0.9 % 10 Ml Syringe IV-PUSH 12/03/22 16:45 PRN PRN Flush Spironolactone 25 mg 12/03/21 09:00 12/04/21 08:00 Spironolactone 25 Mg Tablet PO 12/03/22 08:59 25 mg DAILY CHARISSE Administration A&P - Hospitalist Assessment/Plan (1) Weakness: Plan: Patient has been transferred to [facility] due to concernfor abnormal EKG leading to weakness. Noted to be in bigeminy and patient mentioned having heart rate in 40s. He denies having chest pain. Cardiology has been consulted and started on amiodarone. Continue PT/OT with recommendation for assisted facility on discharge. (2) Chronic systolic heart failure: Plan: Clinically does not appear to be in fluid overload might be intravascular depleted. Given increasing creatinine will hold spironolactone, Entresto and Lasix. (3) Paroxysmal atrial fibrillation: Plan: Patient not on anticoagulation due to history of GI bleed. Continue aspirin andPlavix. Started on amiodarone by cardiology. (4) ASHD (arteriosclerotic heart disease): Plan: Denies having chest pain. Continue aspirin, Plavix, beta-delfin and statin. (5) Hypomagnesemia: Plan: Magnesium has been replaced. (6) Acute bronchitis: Plan: Continue cefdinir for acute bronchitis with no growth on final cultures so far. (7) Acute kidney injury superimposed on chronic kidney disease: Plan: Hold Lasix, spironolactone and Entresto as currently no signs of fluid overload. Follow-up renal function and morning labs. Will obtain bladder ultrasound to rule out retention. We will start him on gentle hydration. Plan Continue PT/OT. Plan to discharge to assisted facility once medically optimized. Documented By: Tash Lawrence MD 12/04/21 1214 Signed By: <Electronically signed by Tash Lawrence MD> 12/04/21 1229 [facility] Work Phone: [phone]) 698-224005-12-2022 Progress note Author W Aman [facility] December 03, 2021 4:55pm Note Date/Time December 03, 2021 4:55p m [facility] [address] [place] [address] Cardiology Progress Note Signed Patient: Merritt Mehta MR#: [id number] : 1935 Acct:[id number] Age/Sex: 86 / M Adm Date: 2 Loc: Room: [address] [place] [address] Type : ADM INOo Attending Dr: Tash Lawrence MD Copies to: ~ Date of Service: 12/03/2021 Subjective Principal diagnosis: Nonsustained VT, bradycardia Interval history: Patient seen and evaluated in conjunction with Dr. Angelo. We have discussedhis case, reviewed telemetry and medications, and I concur with his evaluation and plan. Pt was seen at bedside. He reports general improvement in symptoms and while still complaining of weakness, he states he is much improved from yesterday. After the discussion yesterday, it was decided to resume Amiodarone with the understanding that the pulmonary function test that was abnormal was due to poorpatient effort. Pt states that he has not had any issues with the medication anddenies any SOB, chest pain, or palpitations. Attending note patient has regained sinus rhythm/sinus bradycardia with no further nonsustained VT or significant PVCs or A. fib Heart rates are in the 44 to 48 bpm. Will discontinue carvedilol, titrate his amiodarone 200 mg daily. Chest x-ray does reveal right pleural effusion with right lower lobe pulmonary parenchymal findings with associated productive cough. He has been initiated on antibioticsfor suspected pneumonia. We discussed this with his family the fact that he is best treated now and in the hospital aggressively, before going home too early with the potential for bouncing back up. Exam Physical Exam Vital Signs: Temp Pulse Resp BP Pulse Ox 97.4 F L 62 18 141/56 H 92 L 12/03/21 07:34 12/03/21 07:34 12/03/21 07:34 12/03/21 07:34 12/03/21 07:34 Const General: cooperative and comfortable Nutritional Appearance: average body habitus Orientation: alert, awake and oriented x3 HEENT Head: normocephalic and atraumatic Neck Neck: normal visual inspection Chest Chest palpation & inspection: normal inspection of the chest Resp Effort & Inspection: normal respiratory effort Auscultation: clear to auscultation bilaterally, no rales, no rhonchi and no wheezes Cardio Palpation: normal PMI Rate: bradycardic Rhythm: regular rhythm Heart Sounds: S1 normal and S2 normal GI Palpation: soft Skin General: no rashes or lesions noted Lesions: no lesions Rashes: no rashes Neuro General: patient alert, patient awake and patient oriented x3 Cognition: normal cognition Speech: speech normal Extrem General: no calf tenderness and no edema Objective Labs CBC & Chem 7: 12/03/21 06:28 12/03/21 06:28 Labs: Laboratory Results - last 24 hr 12/02/21 12/02/21 12/03/21 18:47 20:38 06:18 Corrected WBC Uncorrected WBC Count RBC Hgb Hct MCV MCH MCHC RDW Plt Count MPV Neut % (Auto) Lymph % (Auto) Vilas % (Auto) Eos % (Auto) Baso % (Auto) Neut # (Auto) Lymph # (Auto) Vilas # (Auto) Eos # (Auto) Baso # (Auto) Nucleated RBC % (auto) PHA Creatinine Clear Sodium Potassium Chloride Carbon Dioxide BUN Creatinine Est GFR ( Amer) Est GFR (Non-Af Amer) Glucose POC Glucose 156 146 Calcium Magnesium Troponin I High Sens 65 H* 12/03/21 12/03/21 06:28 06:28 Corrected WBC 7.5 Uncorrected WBC Count 7.5 RBC 3.80 L Hgb 10.9 L Hct 34.3 L MCV 90.2 MCH 28.7 MCHC 31.8 L RDW 15.0 H Plt Count 157 MPV 8.5 Neut % (Auto) 78.9 Lymph % (Auto) 8.2 Vilas % (Auto) 12.2 Eos % (Auto) 0.0 Baso % (Auto) 0.7 Neut # (Auto) 5.9 Lymph # (Auto) 0.6 L Vilas # (Auto) 0.9 H Eos # (Auto) 0.0 Baso # (Auto) 0.0 Nucleated RBC % (auto) 0.1 PHA Creatinine Clear 28.19 Sodium 138 Potassium 3.5 Chloride 99 Carbon Dioxide 28.4 BUN 21 Creatinine 1.61 H Est GFR ( Amer) 49 Est GFR (Non-Af Amer) 41 Glucose 127 H POC Glucose Calcium 8.3 Magnesium 1.4 L Troponin I High Sens A&P - Cardiology (1) NSVT (nonsustained ventricular tachycardia): Code(s): I47.2 - Ventricular tachycardia Status: Acute (2) Paroxysmal atrial fibrillation: Code(s): I48.0 - Paroxysmal atrial fibrillation Status: Acute (3) Ischemic cardiomyopathy: Code(s): I25.5 - Ischemic cardiomyopathy Status: Acute (4) Weakness: Code(s): R53.1 - Weakness Status: Acute Plan Pt was restarted on Amiodarone yesterday Monitor showed bradycardia with Afib, improved from yesterday due to decrease recurrence of PVCs Continue to monitor on telemetry Documented By: Eitan Major DO 12/03/21 1000 Signed By: <Electronically signed by Eitan Major DO> 12/03/21 1655 [facility] Work Phone: [phone] 450-921505-12-2022 Progress note Author Tash Lawrence [facility] December 03, 2021 4:39pm Note Date/Time December 03, 2021 4:26p m [facility] [address] [place] [address] Hospitalist Progress Note Signed Patient: Merritt Mehta MR#: [id number] : 1935 Acct:[id number] Age/Sex: 86 / M Adm Date: 2 Loc: Room: [address] [place] [address] Type : ADM INOo Attending Dr: Tash Lawrence MD Copies to: ~ Date of Service: 12/03/2021 Subjective Subjective Narrative: Patient examined at bedside with his present in the room. No overnight event. He was seen by cardiology yesterday and has been started on amiodarone. He has been started on cefdinir earlier this morning is noted to have productivecough with sputum culture growing gram-positive cocci. Exam Physical Exam Vital Signs: Temp Pulse Resp BP Pulse Ox 97.6 F 47 L 16 109/60 96 12/03/21 15:58 12/03/21 15:58 12/03/21 15:58 12/03/21 15:58 12/03/21 15:58 Const General: cooperative Orientation: alert, awake and oriented x3 Resp Effort & Inspection: normal respiratory effort and able to speak in complete sentences Auscultation: no rales, no rhonchi and no wheezes Cardio Rhythm: abnormal rhythm Heart Sounds: S1 normal and S2 normal GI Palpation: soft, not firm, no guarding and nontender Auscultation: normal bowel sounds Musc Cervical Spine: normal cervical lordosis and cervical ROM normal Skin Rashes: no rashes Neuro General: patient alert, patient awake, moves all extremities and no focal motor deficits Extrem General: no pedal edema and no calf tenderness Objective Lab Results CBC & Chem 7: 05/12/22 06:28 12/03/21 06:28 Microbiology Results Microbiology 12/02/21 11:15 Sputum - Expectorated Aerobic Culture - Preliminary Moderate Normal Respiratory Ventura 1 Day 12/02/21 11:15 Sputum - Expectorated Gram Stain - Final 12/03/21 03:05 Sputum - Expectorated Gram Stain - Final Meds Allergies and Active Meds Allergies amlodipine Allergy (Verified 09/26/20 08:43) shortness of breath Iodinated Contrast Media [Iodinated Contrast- Oral and IV Dye] Allergy (Ahnmwmwm25/05/21 08:43) Hives shellfish derived Allergy (Verified 09/26/20 08:43) Hives codeine Adverse Reaction (Verified 09/26/20 08:43) Nausea felodipine [From Plendil] Adverse Reaction (Verified 09/26/20 08:43) Unknown Reaction levofloxacin [From Levaquin] Adverse Reaction (Verified 09/26/20 08:43) Edema loratadine [From Claritin-D] Adverse Reaction (Verified 09/26/20 08:43) Edema methylprednisolone [From Depo-Medrol] Adverse Reaction (Verified 09/26/20 08:43) Unknown Reaction Penicillins Adverse Reaction (Verified 09/26/20 08:43) Unknown Reaction pseudoephedrine [From Claritin-D] Adverse Reaction (Verified 09/26/20 08:43) Edema tramadol [From Ultram] Adverse Reaction (Verified 09/26/20 08:43) Unknown Reaction Active Meds: Active Medications Generic Name Dose Route Start Last Admin Trade Name Freq PRN Reason Stop Dose Admin Amiodarone HCl 200 mg 12/04/21 09:00 Amiodarone 200 Mg Tablet PO 12/04/22 08:59 DAILY CHARISSE Aspirin 81 mg 12/03/21 09:00 12/03/21 08:46 Aspirin 81 Mg Tablet. PO 12/03/22 08:59 81 mg DAILY CHARISSE Administration Cefdinir 300 mg 12/03/21 04:40 12/03/21 05:01 Cefdinir 300 Mg Capsule PO 300 mg BID CHARISSE Administration Citalopram Hydrobromide 20 mg 12/03/21 09:00 12/03/21 08:46 Citalopram 20 Mg Tablet PO 12/03/22 08:59 20 mg QAM CHARISSE Administration Clopidogrel Bisulfate 75 mg 12/03/21 09:00 12/03/21 08:46 Clopidogrel Bisulfate 75 Mg Tablet PO 12/03/22 08:59 75 mg DAILY CHARISSE Administration Furosemide 40 mg 12/03/21 08:00 12/03/21 08:46 Furosemide 40 Mg Tablet PO 12/03/22 07:59 40 mg DAILY.8A CHARISSE Administration Guaifenesin 1,200 mg 12/02/21 18:12 Guaifenesin 600 Mg Tab.Er.12h PO 12/02/22 18:11 BID PRN Congestion Heparin Sodium (Porcine) 5,000 unit 12/02/21 21:00 12/03/21 08:46 Heparin 5,000 Unit/Ml Vial SUBCUT 12/02/22 20:59 5,000 unit Q12HR CHARISSE Administration Hydralazine HCl 50 mg 12/03/21 00:00 12/03/21 11:28 Hydralazine 50 Mg Tablet PO 12/03/22 00:00 Not Given Q6HR CHARISSE Insulin Aspart 0 units 12/03/21 08:00 12/03/21 12:34 Insulin Aspart 300 Units/3 Ml Insuln.Pen SUBCUT 12/03/22 07:59 2 units TID.WITH.MEALS CHARISSE Administration Protocol Isosorbide Mononitrate 60 mg 12/03/21 06:00 12/03/21 05:01 Isosorbide Mononitrate 24hr Er 60 Mg Tab.Er.24h PO 12/03/22 05:59 60 mg DAILY.6A CHARISSE Administration Ondansetron HCl 4 mg 12/02/21 18:42 12/02/21 19:47 Ondansetron 4 Mg/2 Ml Vial IV-PUSH 12/02/22 18:41 4 mg Q6H PRN Administration NAUSEA/VOMITING Pravastatin Sodium 10 mg 12/03/21 21:00 Pravastatin 10 Mg Tablet PO 12/03/22 20:59 QPM CHARISSE Sacubitril/Valsartan 1 tab 12/02/21 21:00 12/03/21 08:46 Sacubitril/Valsartan 97-103mg 1 Tab Tablet PO 12/02/22 20:59 1 tab BID CHARISSE Administration Spironolactone 25 mg 12/03/21 09:00 12/03/21 08:46 Spironolactone 25 Mg Tablet PO 12/03/22 08:59 25 mg DAILY CHARISSE Administration A&P - Hospitalist Assessment/Plan (1) Weakness: Plan: Patient has been transferred to [facility] due to concernfor abnormal EKG leading to weakness. Noted to be in bigeminy and patient mentioned having heart rate in 40s. He denies having chest pain. Cardiology has been consulted and started on amiodarone. (2) Chronic systolic heart failure: Plan: Noted to have slight shortness of breath and increased cough. Possibly mild acute on chronic heart. Will give 1 dose of IV Lasix. Continue Entresto, spironolactone and monitor renal function. (3) Paroxysmal atrial fibrillation: Plan: Patient not on anticoagulation due to history of GI bleed. Continue aspirin andPlavix. Started on amiodarone by cardiology. (4) ASHD (arteriosclerotic heart disease): Plan: Denies having chest pain. Continue aspirin, Plavix, beta-delfin and statin. (5) Hypomagnesemia: Plan: Magnesium has been replaced. Will follow-up in morning labs (6) Acute bronchitis: Plan: Continue cefdinir for acute bronchitis and follow-up sputum culture result Plan Continue PT/OT Documented By: Tash Lawrence MD 12/03/21 1624 Signed By: <Electronically signed by Tash Lawrence MD> 12/03/21 1639 [facility] Work Phone: [phone] History and physical note Author Tash Lawrence [facility] December 02, 2021 5:30pm Note Date/Time December 02, 2021 5:30p m [facility] [address] [place] [address] Hospitalist H&P Signed Patient: Merritt Mehta MR#: [id number] : 1935 Acct:[id number] Age/Sex: 86 / M Adm Date: 2 Loc: Room: [address] [place] [address] Type : ADM IN Attending Dr: Trish Silverman MD Copies to: MD Trish Sears MD Mazhar Rahman, MD~ HPI DATE OF EXAMINATION: 12/01/21 CHIEF COMPLAINT: Bigeminy and weakness. HISTORY OF PRESENT ILLNESS: Patient is an 86-year-old male with past medical history of coronary disease status post multiple PCI with last stents placement to OM and distal circumflex on 10/12, paroxysmal atrial fibrillation not on anticoagulation due to GI bleed, chronic systolic heart failure with EF of 35% as per cath done in 10/12, hypertension and other medical comorbidities. [facility] due to concern for bigeminy. ER physician at [place] discussed the case with cardiology at [facility] who recommended transfer to [facility] for further care. In the emergency room chest x-ray was negative for acute abnormality. His labs showed WBC 5.9, hemoglobin 11.5, hematocrit 37.4, platelet 222, sodium 137, potassium 4, creatinine 1.97, COVID-19 test negative, magnesium 0.9 and TSH 1.85. On examination while at [facility] patient mentionedhaving generalized weakness for last few days. He went to see his primary care provider and was noted to be bradycardic with heart rate in 40s was sent to the emergency room. Patient denies having syncopal episode, fever, chills but did mention having cough which is chronic. Denies chest pain or recent change in medication. Review of Systems Review of Systems All other systems reviewed & are negative unless noted below or in HPI [facility] Medical History A-fib CHF (congestive heart failure) Diabetes mellitus, type 2 Hyperlipidemia Hypertension Kidney stones Myocardial infarct Surgical History History of cardiac catheterization with stents History of cholecystectomy History of cystoscopy History of joint replacement left knee Family History Mother Heart disease Father Diabetes mellitus, type 2 Sister Cancer Social History Smoking Status: Former smoker Tobacco Type: cigarettes Substance Use Type: None Meds Medications and Allergies Allergies amlodipine Allergy (Verified 09/26/20 08:43) shortness of breath Iodinated Contrast Media [Iodinated Contrast- Oral and IV Dye] Allergy (Yrccjqbq83/05/21 08:43) Hives shellfish derived Allergy (Verified 09/26/20 08:43) Hives codeine Adverse Reaction (Verified 09/26/20 08:43) Nausea felodipine [From Plendil] Adverse Reaction (Verified 09/26/20 08:43) Unknown Reaction levofloxacin [From Levaquin] Adverse Reaction (Verified 09/26/20 08:43) Edema loratadine [From Claritin-D] Adverse Reaction (Verified 09/26/20 08:43) Edema methylprednisolone [From Depo-Medrol] Adverse Reaction (Verified 09/26/20 08:43) Unknown Reaction Penicillins Adverse Reaction (Verified 09/26/20 08:43) Unknown Reaction pseudoephedrine [From Claritin-D] Adverse Reaction (Verified 09/26/20 08:43) Edema tramadol [From Ultram] Adverse Reaction (Verified 09/26/20 08:43) Unknown Reaction Home Medications aspirin 81 mg tablet,delayed release 81 mg PO QAM 01/09/19 [History Confirmed 09/24/20] carvedilol 3.125 mg tablet 3.125 mg PO BID 01/09/19 [History Confirmed 09/24/20] cholecalciferol (vitamin D3) 50 mcg (2,000 unit) tablet (Vitamin D3) 2,000 unit PO DAILY 01/09/19 [History Confirmed 09/24/20] citalopram 20 mg tablet (Celexa) 20 mg PO DAILY 01/09/19 [History Confirmed 09/24/20] ferrous sulfate 325 mg (65 mg iron) tablet 325 mg PO BID 01/09/19 [History Confirmed 09/24/20] isosorbide mononitrate 60 mg tablet,extended release 24 hr 60 mg PO DAILY 01/09/19 [History Confirmed 09/24/20] metformin 500 mg tablet 500 mg PO QAM 01/09/19 [History Confirmed 09/24/20] potassium chloride 10 mEq tablet,extended release 10 meq PO QAM 01/09/19 [History Confirmed 09/24/20] pravastatin 10 mg tablet 10 mg PO QAM 01/09/19 [History Confirmed 09/24/20] amiodarone 200 mg tablet 100 mg PO QAM 09/24/20 [History Confirmed 09/24/20] clopidogrel 75 mg tablet 75 mg PO QAM 09/24/20 [History Confirmed 09/24/20] diclofenac sodium 75 mg tablet,delayed release 75 mg PO BID 09/24/20 [History Confirmed 09/24/20] furosemide 40 mg tablet 40 mg PO Q2D 09/24/20 [History Confirmed 09/24/20] hydralazine 50 mg tablet 50 mg PO QID 09/24/20 [History Confirmed 09/24/20] nitroglycerin 0.4 mg sublingual tablet 0.4 mg SUBLINGUAL DAILY PRN 09/24/20 [History Confirmed 09/24/20] omeprazole 40 mg capsule,delayed release 40 mg PO QAM 09/24/20 [History Confirmed 09/24/20] sacubitril 97 mg-valsartan 103 mg tablet (Entresto) 1 tab PO BID 09/24/20 [History Confirmed 09/24/20] sucralfate 1 gram tablet 1 g PO BID 09/24/20 [History Confirmed 09/24/20] Exam Const General: cooperative Orientation: alert, awake and oriented x3 HEENT Head: normal to inspection, no palpable skull fracture, normocephalic and atraumatic Ears: hearing grossly normal bilaterally Nose: external nose normal Face and sinus: normal facial exam Eyes Pupils: PERRL EOM: EOM intact bilaterally and No nystagmus Neck Neck: normal visual inspection and full ROM Resp Effort & Inspection: normal respiratory effort and able to speak in complete sentences Auscultation: no rales, no rhonchi and no wheezes Cardio Heart Sounds: S1 normal and S2 normal GI Palpation: soft, not firm, no guarding and nontender Auscultation: normal bowel sounds Musc Cervical Spine: normal cervical lordosis and cervical ROM normal Skin Rashes: no rashes Neuro General: patient alert, patient awake, moves all extremities and no focal motor deficits Extrem General: no pedal edema and no calf tenderness Psych Appearance: grossly normal A&P - Hospitalist Assessment/Plan (1) Weakness: Plan: Patient has been transferred to [facility] due to concernfor abnormal EKG leading to weakness. Noted to be in bigeminy and patient mentioned having heart rate in 40s. He denies having chest pain. Will consult cardiology for further evaluation. Consult PT/OT. (2) Chronic systolic heart failure: Plan: Currently does not appear to have decompensated heart failure. Continue Entresto and other home medications include Lasix, carvedilol, Imdur, hydralazine, aspirin and Plavix. (3) Paroxysmal atrial fibrillation: Plan: Patient not on anticoagulation due to history of GI bleed. Continue aspirin andPlavix. (4) ASHD (arteriosclerotic heart disease): Plan: Denies having chest pain. Continue aspirin, Plavix, beta-delfin and statin. (5) Hypomagnesemia: Plan: Patient was replaced in the ER. Recheck magnesium and replace if still low. Plan Given his complaint of cough will obtain sputum for culture. Documented By: Tash Lawrence MD 12/01/215 Signed By: <Electronically signed by Tash Lawrence MD> 12/02/21 1731 [facility] Work Phone: [phone] Consult note Author W Aman [facility] December 02, 2021 5:20pm Note Date/Time December 02, 2021 5:20p m [facility] [address] [place] [address] Cardiology Consult Note Signed Patient: Merritt Mehta MR#: [id number] : 1935 Acct:[id number] Age/Sex: 86 / M Adm Date: 2 Loc: Room: [address] [place] [address] Type : ADM IN Attending Dr: Trish Silverman MD Copies to: MD Trish Sears MD W Scott Sheldon, DO~ Cardiology HPI History of Present Illness Consult Date: 12/02/21 Reason for Consult: Nonsustained VT, bradycardia HPI: Mr. Mehta is a 86 year old male seen in cardiology consultation at the request of the hospitalist for reported bradycardia, and PVCs. Patient has known history of paroxysmal atrial fibrillation was previously on amiodarone for a number of years with sinus bradycardia. Recent pulmonary function tests returned very abnormal in October and therefore at our October officevisit I had discontinued his amiodarone. Notably pulmonary function tests were primarily, abnormal due to patient's difficulty performing the test probably notdue to true parenchymal disease. In any event, he now shows up initially to 's office with generalized weakness, productive cough. Dr. Olson examined the patient performed ECG revealing irregular heart rhythm, what sounds like episodes of triplets, nonsustained VT and was then sent to [place] [facility] and subsequently sent here for further evaluation and management. Patient has a known history of coronary artery disease, ischemic cardiomyopathy with normalized left ventricular function following circumflex revascularizationperformed in November 2020. He has known history of paroxysmal A. fib, CHF class II-III C, diabetes mellitus, hyperlipidemia, previous GI bleeds on anticoagulation (therefore not on any anticoagulation). Review of his telemetry clearly reveals nonconducted P waves, sinus bradycardia,single PVCs and couplets, and nonsustained VT with at least 3-5 PVCs in a row atrates of 154. When the patient is in a regular sinus mechanism (if he can call at that) his heart rate is in the 48-50 range. He is having several of these nonsustained runs, which likely is the cause of his generalized weakness. Prior to October he had been in a sinus bradycardia with very low-dose amiodarone. He has no angina he does have a loose productive cough with thick yellow sputum. After long conversation with patient and family today and reviewing pulmonary function testing (likely inadequate due to poor patient performance), will reinitiate amiodarone loading, to stabilize rhythm. Will leave that up to the hospitalist team to further investigate productive cough, and noncardiac issues. Review of Systems Review of Systems All other systems reviewed & are negative unless noted below or in HPI Constitutional Constitutional: Reports as per HPI, Reports malaise and Reports weakness ENT Ears, Nose, Mouth, and Throat: Reports system reviewed and no additional complaints, except as documented Cardiovascular Cardiovascular: Reports system reviewed and no additional complaints, except as documented, Denies chest pain, Denies chest pain at rest and Denies chest pain with activity Respiratory Respiratory: Reports change in phlegm color, Reports cough and Reports excessivephlegm production Gastrointestinal Gastrointestinal: Reports system reviewed and no additional complaints, except as documented Genitourinary Genitourinary: Reports system reviewed and no additional complaints, except as documented Musculoskeletal Musculoskeletal: Reports system reviewed and no additional complaints, except asdocumented Integumentary/Breasts Skin/Breast: Reports system reviewed and no additional complaints, except as documented Neurologic Neurologic: Reports system reviewed and no additional complaints, except as documented [facility] Medical History (Updated 12/02/21 @ 17:19 by Eitan Major DO) A-fib CHF (congestive heart failure) Diabetes mellitus, type 2 Hyperlipidemia Hypertension Kidney stones Myocardial infarct Surgical History History of cardiac catheterization with stents History of cholecystectomy History of cystoscopy History of joint replacement left knee Family History Mother Heart disease Father Diabetes mellitus, type 2 Sister Cancer Social History Smoking Status: Former smoker Tobacco Type: cigarettes Substance Use Type: None Meds Medications and Allergies Allergies amlodipine Allergy (Verified 09/26/20 08:43) shortness of breath Iodinated Contrast Media [Iodinated Contrast- Oral and IV Dye] Allergy (Rxiavmpl00/05/21 08:43) Hives shellfish derived Allergy (Verified 09/26/20 08:43) Hives codeine Adverse Reaction (Verified 09/26/20 08:43) Nausea felodipine [From Plendil] Adverse Reaction (Verified 09/26/20 08:43) Unknown Reaction levofloxacin [From Levaquin] Adverse Reaction (Verified 09/26/20 08:43) Edema loratadine [From Claritin-D] Adverse Reaction (Verified 09/26/20 08:43) Edema methylprednisolone [From Depo-Medrol] Adverse Reaction (Verified 09/26/20 08:43) Unknown Reaction Penicillins Adverse Reaction (Verified 09/26/20 08:43) Unknown Reaction pseudoephedrine [From Claritin-D] Adverse Reaction (Verified 09/26/20 08:43) Edema tramadol [From Ultram] Adverse Reaction (Verified 09/26/20 08:43) Unknown Reaction Home Medications aspirin 81 mg tablet,delayed release 81 mg PO QAM 01/09/19 [History Confirmed 09/24/20] carvedilol 3.125 mg tablet 3.125 mg PO BID 01/09/19 [History Confirmed 09/24/20] cholecalciferol (vitamin D3) 50 mcg (2,000 unit) tablet (Vitamin D3) 2,000 unit PO DAILY 01/09/19 [History Confirmed 09/24/20] citalopram 20 mg tablet (Celexa) 20 mg PO DAILY 01/09/19 [History Confirmed 09/24/20] ferrous sulfate 325 mg (65 mg iron) tablet 325 mg PO BID 01/09/19 [History Confirmed 09/24/20] isosorbide mononitrate 60 mg tablet,extended release 24 hr 60 mg PO DAILY 01/09/19 [History Confirmed 09/24/20] metformin 500 mg tablet 500 mg PO QAM 01/09/19 [History Confirmed 09/24/20] potassium chloride 10 mEq tablet,extended release 10 meq PO QAM 01/09/19 [History Confirmed 09/24/20] pravastatin 10 mg tablet 10 mg PO QAM 01/09/19 [History Confirmed 09/24/20] amiodarone 200 mg tablet 100 mg PO QAM 09/24/20 [History Confirmed 09/24/20] clopidogrel 75 mg tablet 75 mg PO QAM 09/24/20 [History Confirmed 09/24/20] diclofenac sodium 75 mg tablet,delayed release 75 mg PO BID 09/24/20 [History Confirmed 09/24/20] furosemide 40 mg tablet 40 mg PO Q2D 09/24/20 [History Confirmed 09/24/20] hydralazine 50 mg tablet 50 mg PO QID 09/24/20 [History Confirmed 09/24/20] nitroglycerin 0.4 mg sublingual tablet 0.4 mg SUBLINGUAL DAILY PRN 09/24/20 [History Confirmed 09/24/20] omeprazole 40 mg capsule,delayed release 40 mg PO QAM 09/24/20 [History Confirmed 09/24/20] sacubitril 97 mg-valsartan 103 mg tablet (Entresto) 1 tab PO BID 09/24/20 [History Confirmed 09/24/20] sucralfate 1 gram tablet 1 g PO BID 09/24/20 [History Confirmed 09/24/20] Exam Const General: cooperative, no acute distress and frail appearing Nutritional Appearance: average body habitus Orientation: alert, awake and oriented x3 HEENT Head: normal to inspection Neck Neck: normal visual inspection Chest Chest palpation & inspection: normal inspection of the chest Resp Effort & Inspection: normal respiratory effort, able to speak in complete sentences and cough Auscultation: bronchovesicular breath sounds and rhonchi Cardio Palpation: normal PMI Rate: bradycardic Rhythm: abnormal rhythm GI Palpation: soft Skin General: no rashes or lesions noted Neuro General: patient alert, patient awake and patient oriented x3 Cognition: normal cognition Speech: speech normal EKG Interpretations EKG EKG shows: ventricular tachycardia (Runs of nonsustained VT) Blocks, axis, hypertrophy, ST abn AV and intraventricular conduction: right bundle branch block (fixed/intermittent, complete/incomplete) A&P - Cardiology (1) Ischemic cardiomyopathy: Code(s): I25.5 - Ischemic cardiomyopathy (2) Paroxysmal atrial fibrillation: Code(s): I48.0 - Paroxysmal atrial fibrillation (3) ASHD (arteriosclerotic heart disease): Code(s): I25.10 - Atherosclerotic heart disease of [place] coronary artery without angina pectoris (4) NSVT (nonsustained ventricular tachycardia): Code(s): I47.2 - Ventricular tachycardia (5) Paroxysmal atrial fibrillation with rapid ventricular response: Code(s): I48.0 - Paroxysmal atrial fibrillation Documented By: Eitan Major DO 12/02/211707 Signed By: <Electronically signed by Eitan Major DO> 12/02/21 1720 [facility] Work Phone: Discharge summary Author Tash Lawrence [facility] December 05, 2021 4:20pm Note Date/Time December 05, 2021 4:13p m [facility] [address] [place] [address] Discharge Summary Signed Patient: Merritt Mehta MR#: [id number] : 1935 Acct:[id number] Age/Sex: 86 / M Adm Date: 2 Loc: Room: [address] [place] [address]: Tash Lawrence MD Copies to: MD Tash Sears MD~ Providers Date of Discharge: 12/05/21 Discharging Provider: Tash Lawrence Primary Care Provider: Goldy Olson Consults: 12/02/21 18:11 Consult to Physical Therapy Routine OT [Consult to Occupational Therapy] Routine 12/02/21 18:20 Consult to Cardiology Routine Discharge Diagnosis (1) Paroxysmal atrial fibrillation with rapid ventricular response: (2) Weakness: (3) Acute bronchitis: Final Diagnosis Final Discharge Diagnosis: as above Summary Hospital Course Hospital course: Patient is an 86-year-old male with history of coronary disease, ischemic cardiomyopathy, paroxysmal defibrillation on anticoagulant due to GI bleed and other medical comorbidities. Patient was transferred from outside facility due to concern for PVCs and bradycardia. He was admitted and cardiology was consulted. Also noted to have increased productive cough with sputum culture came back growing Moraxella and has been started on cefdinir due to his penicillin allergy. Patient was seen by Dr. Major and dose of amiodarone has been increased as noted to have PVCs with improvement. Patient did qualify for 2 L oxygen on discharge likely from acute bronchitis which can be tapered off once infection resolves. He will be discharged on cefdinir. He also developed slight acute kidney injury which improved after placing Entresto and diuretic onhold and can be resumed on discharge. Recommend repeat BMP and magnesium level in 4 days to follow-up and replace as needed. Patient was evaluated by physicaltherapy and recommended assisted facility which patient is refusing. Case discussed with her son who mentioned currently patient is back to his baseline and they will be keeping an eye. Patient is already scheduled for outpatient therapy which he will continue. Condition Condition at Discharge: Stable Status at Discharge Overall status at discharge: patient is back to baseline Time Spent with Patient Time spent providing/coordinating discharge services (# min): 36 Diagnostic Studies Completed and Pending Studies Labs on day of discharge: 12/05/21 11:19: POC Glucose 105 12/05/21 07:22: POC Glucose 97 12/05/21 05:55: PHA Creatinine Clear 27.14, Sodium 135 L, Potassium 3.6, Chloride 95, Carbon Dioxide 30.4 H, BUN 29 H, Creatinine 1.71 H, Est GFR ( Amer) 46, Est GFR (Non-Af Amer) 38, Glucose 89, Calcium 8.2 12/04/21 20:03: PHA Creatinine Clear 23.57, Sodium 135 L, Potassium 3.9, Chloride 94 L, Carbon Dioxide 31.1 H, BUN 31 H, Creatinine 1.95 H, Est GFR ( Amer) 40, Est GFR (Non-Af Amer) 33, Glucose 102 H, Calcium 8.3 12/04/21 16:21: POC Glucose 193, POC Glucose Comment Glu2: cleaned meter Exam Physical Exam Vital Signs: Temp Pulse Resp BP Pulse Ox 98 F 55 L 14 174/78 H 98 12/05/21 16:00 12/05/21 16:00 12/05/21 16:00 12/05/21 16:00 12/05/21 16:00 Const General: cooperative Orientation: alert, awake and oriented x3 HEENT Head: normal to inspection, no palpable skull fracture, normocephalic and atraumatic Ears: hearing grossly normal bilaterally Nose: external nose normal Face and sinus: normal facial exam Eyes Pupils: PERRL EOM: EOM intact bilaterally and No nystagmus Neck Neck: normal visual inspection and full ROM Resp Effort & Inspection: normal respiratory effort and able to speak in complete sentences Auscultation: no rales, no rhonchi and no wheezes Cardio Rhythm: abnormal rhythm Heart Sounds: S1 normal and S2 normal GI Palpation: soft, not firm, no guarding and nontender Auscultation: normal bowel sounds Musc Cervical Spine: normal cervical lordosis and cervical ROM normal Skin Rashes: no rashes Neuro General: patient alert, patient awake, patient oriented x3, moves all extremities and no focal motor deficits Extrem General: no pedal edema and no calf tenderness Psych Appearance: grossly normal Discharge Plan Discharge Plan Patient Disposition: Home Activity: No Activity Restriction Diet: Diabetic, Low-Sodium and Low-Cholesterol Additional Instructions: Continue Outpatient Physical Therapy and Occupational Therapy as done prior to this admission. Please weigh yourself daily. Keep a record of these to take to your Dr. appointments. Prescriptions: New amiodarone 200 mg Tablet 200 mg PO DAILY 30 Days Qty: 30 RF: 12 cefdinir 300 mg Capsule 300 mg PO DAILY 10 Days Qty: 10 RF: 0 Continued potassium chloride 10 mEq Tablet Extended Release 10 meq PO QAM RF: 0 aspirin 81 mg Tablet,Delayed Release (Dr/Ec) 81 mg PO QAM RF: 0 isosorbide mononitrate 60 mg Tablet Extended Release 24 Hr 60 mg PO DAILY RF: 0 citalopram [Celexa] 20 mg Tablet 20 mg PO DAILY RF: 0 pravastatin 10 mg Tablet 10 mg PO QAM RF: 0 ferrous sulfate 325 mg (65 mg iron) Tablet 325 mg PO BID RF: 0 cholecalciferol (vitamin D3) [Vitamin D3] 2,000 unit Tablet 2,000 unit PO DAILY RF: 0 furosemide 40 mg tablet 40 mg PO DAILY RF: 0 sucralfate 1 gram tablet 1 g PO BID RF: 0 omeprazole 40 mg capsule,delayed release(DR/EC) 40 mg PO QAM RF: 0 nitroglycerin 0.4 mg tablet, sublingual 0.4 mg sublingual DAILY PRN (Reason: Chest Pain) RF: 0 hydralazine 50 mg tablet 50 mg PO QID RF: 0 Entresto 97-103 mg Tablet 1 tab PO BID RF: 0 clopidogrel 75 mg tablet 75 mg PO QAM RF: 0 Held metformin 500 mg Tablet 500 mg PO QAM RF: 0 Hold Instructions: Until renal function improves and follow-up with a primarycare provider. Discontinued carvedilol 3.125 mg Tablet 3.125 mg PO BID RF: 0 diclofenac sodium 75 mg tablet,delayed release (DR/EC) 75 mg PO BID RF: 0 amiodarone 200 mg tablet 100 mg PO QAM RF: 0 Other Ambulatory Orders: Basic Metabolic Panel (Routine) Timeframe: 4 Days Location: Determined by Patient Ordered By: Tash Lawrence Magnesium (Routine) Timeframe: 4 Days Location: Determined by Patient Ordered By: Tash Lawrence DME Home Medical Equipment (Routine) Timeframe: 1 Day Location: Determined by Patient Ordered By: Tash Lawrence PT/OT/SP OutPatient Referral (Routine) Timeframe: 1 Day Location: Determined by Patient Ordered By: Tash Lawrence Follow Up: Eitan Major DO [Active Staff - D.O.] - 01/07/22 11:30 am (Follow-up with Cardiology, call office to reschedule if needed. ) Goldy Olson MD [Primary Care Provider] - 12/09/21 2:45 pm (Follow-up with your Primary Care Provider, call office to reschedule if needed. ) Documented By: Tash Lawrence MD 12/05/21 1610 Signed By: <Electronically signed by Tash Lawrence MD> 12/05/21 1620 [facility] Work Phone: Evaluation note* Diagnosis Onset Date Resolution Status Acute bronchitis acute Acute kidney injury superimp osed on chronic kidney disease acute ASHD (arteriosclerotic heart disease) acute Chronic systolic heart failure acute Hypomagnesemia acute Ischemic cardiomyopathy acut e NSVT (nonsustained ventricular tachycardia) acute Paroxysmal atrial fibrillation acute Paroxysmal atrial fibrillati on with rapid ventricular response acute Weakness acute [facility] Work Phone: History of Present illness Narrative* The patient states he has been generally doing well since the last visit. Comorbid Illnesses: hypertension and hyperlipidemia. He has no significant interval events. * Symptoms: denies chest pain at rest, denies exertional chest pain, stable dyspnea, stable fatigue, stable exercise intolerance, denies palpitations, denies edema, denies orthopnea, denies dizziness and denies orthostatic dizziness. * Associated symptoms: no syncope. * His symptoms do not limit his activities. * Disease Monitoring: recent nitroglycerin use has been unchanged. The patient has had a 4 pounds weight loss. * Medications: the patient is adherent with his medication regimen. He denies medication side effects. [facility] [employer] DO Work Phone: History of Present illness Narrative* The patient states he has been generally doing well since the last visit. Comorbid Illnesses: hypertension and hyperlipidemia. He has no significant interval events. * Symptoms: denies chest pain at rest, denies exertional chest pain, stable dyspnea, stable fatigue, stable exercise intolerance, denies palpitations, denies edema, denies orthopnea, denies dizziness and denies orthostatic dizziness. * Associated symptoms: no syncope. * His symptoms do not limit his activities. * Disease Monitoring: recent nitroglycerin use has been unchanged. The patient has had a 4 pounds weight loss. * Medications: the patient is adherent with his medication regimen. He denies medication side effects. [facility] [employer] Work Phone: History of Present illness Narrative* The patient states he has been generally doing well since the last visit. Comorbid Illnesses: hypertension and hyperlipidemia. * Symptoms: denies chest pain at rest, denies exertional chest pain, denies dyspnea, improved fatigue, improved exercise intolerance, denies palpitations, denies edema, denies dizziness and denies orthostatic dizziness. * Associated symptoms: no syncope. * His symptoms do not limit his activities. * Disease Monitoring: The patient has had a stable weight. * Medications: the patient is adherent with his medication regimen. He denies medication side effects. [facility] [employer] DO Work Phone: history of Present illness Narrative* The patient states he has been generally doing well since the last visit. Comorbid Illnesses: hypertension and hyperlipidemia. * Symptoms: denies chest pain at rest, denies exertional chest pain, denies dyspnea, improved fatigue, improved exercise intolerance, denies palpitations, denies edema, denies dizziness and denies orthostatic dizziness. * Associated symptoms: no syncope. * His symptoms do not limit his activities. * Disease Monitoring: The patient has had a stable weight. * Medications: the patient is adherent with his medication regimen. He denies medication side effects. [facility] DO Work Phone: Hospital Discharge instructionsAmbulatory Orders* DME Home Medical Equipment Time Frame: 1 Day, Location: Determined By Patient * PT/OT/SP OutPatient Referral Time Frame: 1 Day, Location: Determined By Patient Additional Instructions Continue Outpatient Physical Therapy and Occupational Therapy as done prior to this admission. Please weigh yourself daily. Keep a record of these to take to your Dr. appointments. Please have repeat lab work done in 4 days. You will be provided with lab orders on discharge. Oxygen at 2L per nasal cannula continuously.[facility] Work Phone: Summary Purpose Family History No Family History Records Found Relationship Condition Age at Onset Recorded Date/T airam Not Specified Heart disease Unknown father Type 2 diabetes mellitus Unknown sister Malignant neoplasm Unknown Unknown Family Member Name Dates Details Myocardial infarct, old: Mot her Status:Active S/P CABG (coronary artery by pass graft): Brother(V45.81, Z95.1) Status:Active Family history of cerebrovas cular accident (CVA): Brother(V17.1, Z82.3) Status:Active Family history of diabetes m ellitus: Father(V18.0, Z83.3) Status:Active Family history of congestive heart failure: Sister(V17.49, Z82.49) Status:Active Unknown Family Member Name Dates Details Family history of congestive heart failure: Sister(V17.49, Z82.49) Status:Active Family history of diabetes m ellitus: Father(V18.0, Z83.3) Status:Active Family history of cerebrovas cular accident (CVA): Brother(V17.1, Z82.3) Status:Active S/P CABG (coronary artery by pass graft): Brother(V45.81, Z95.1) Status:Active Myocardial infarct, old: Mot her Status:Active Unknown Family Member Name Dates Details Stroke syndrome: Brother, Ot her Status:Active Family history of acute myoc ardial infarction: Mother, Other(V17.3, Z82.49) Status:Active Family history of ischemic h eart disease: Other(V17.3, Z82.49) Comments:famliy history; Status:Active Family history of congestive heart failure: Sister(V17.49, Z82.49) Status:Active Family history of diabetes m ellitus: Father(V18.0, Z83.3) Status:Active Family history of cerebrovas cular accident (CVA): Brother(V17.1, Z82.3) Status:Active S/P CABG (coronary artery by pass graft): Brother(V45.81, Z95.1) Status:Active Myocardial infarct, old: Mot her Status:Active Unknown Family Member Name Dates Details Family history of ischemic h eart disease: Other(V17.3, Z82.49) Comments:famliy history; Status:Active Family history of acute myoc ardial infarction: Mother, Other(V17.3, Z82.49) Status:Active Stroke syndrome: Brother, Ot her Status:Active Family history of congestive heart failure: Sister(V17.49, Z82.49) Status:Active Family history of diabetes m ellitus: Father(V18.0, Z83.3) Status:Active Family history of cerebrovas cular accident (CVA): Brother(V17.1, Z82.3) Status:Active S/P CABG (coronary artery by pass graft): Brother(V45.81, Z95.1) Status:Active Myocardial infarct, old: Mot her Status:Active Unknown Family Member Name Dates Details Myocardial infarct, old: Mot her Status:Active S/P CABG (coronary artery by pass graft): Brother(V45.81, Z95.1) Status:Active Family history of cerebrovas cular accident (CVA): Brother(V17.1, Z82.3) Status:Active Family history of diabetes m ellitus: Father(V18.0, Z83.3) Status:Active Family history of congestive heart failure: Sister(V17.49, Z82.49) Status:Active Family history of ischemic h eart disease: Other(V17.3, Z82.49) Comments:famliy history; Status:Active Family history of acute myoc ardial infarction: Mother, Other(V17.3, Z82.49) Status:Active Stroke syndrome: Brother, Ot her Status:Active Unknown Family Member Name Dates Details Family history of ischemic h eart disease: Other(V17.3, Z82.49) Comments:famliy history; Status:Active Family history of acute myoc ardial infarction: Mother, Other(V17.3, Z82.49) Status:Active Stroke syndrome: Brother, Ot her Status:Active Family history of congestive heart failure: Sister(V17.49, Z82.49) Status:Active Family history of diabetes m ellitus: Father(V18.0, Z83.3) Status:Active Family history of cerebrovas cular accident (CVA): Brother(V17.1, Z82.3) Status:Active S/P CABG (coronary artery by pass graft): Brother(V45.81, Z95.1) Status:Active Myocardial infarct, old: Mot her Status:Active Unknown Family Member Name Dates Details Myocardial infarct, old: Mot her Status:Active S/P CABG (coronary artery by pass graft): Brother(V45.81, Z95.1) Status:Active Family history of cerebrovas cular accident (CVA): Brother(V17.1, Z82.3) Status:Active Family history of diabetes m ellitus: Father(V18.0, Z83.3) Status:Active Family history of congestive heart failure: Sister(V17.49, Z82.49) Status:Active Family history of ischemic h eart disease: Other(V17.3, Z82.49) Comments:famliy history; Status:Active Family history of acute myoc ardial infarction: Mother, Other(V17.3, Z82.49) Status:Active Stroke syndrome: Brother, Ot her Status:Active Unknown Family Member Name Dates Details Myocardial infarct, old: Mot her Status:Active S/P CABG (coronary artery by pass graft): Brother(V45.81, Z95.1) Status:Active Family history of cerebrovas cular accident (CVA): Brother(V17.1, Z82.3) Status:Active Family history of diabetes m ellitus: Father(V18.0, Z83.3) Status:Active Family history of congestive heart failure: Sister(V17.49, Z82.49) Status:Active Family history of ischemic h eart disease: Other(V17.3, Z82.49) Comments:famliy history; Status:Active Family history of acute myoc ardial infarction: Mother, Other(V17.3, Z82.49) Status:Active Stroke syndrome: Brother, Ot her Status:Active Unknown Family Member Name Dates Details Myocardial infarct, old: Mot her Status:Active S/P CABG (coronary artery by pass graft): Brother(V45.81, Z95.1) Status:Active Family history of cerebrovas cular accident (CVA): Brother(V17.1, Z82.3) Status:Active Family history of diabetes m ellitus: Father(V18.0, Z83.3) Status:Active Family history of congestive heart failure: Sister(V17.49, Z82.49) Status:Active Family history of ischemic h eart disease: Other(V17.3, Z82.49) Comments:famliy history; Status:Active Family history of acute myoc ardial infarction: Mother, Other(V17.3, Z82.49) Status:Active Stroke syndrome: Brother, Ot her Status:Active Unknown Family Member Name Dates Details Myocardial infarct, old: Mot her Status:Active S/P CABG (coronary artery by pass graft): Brother(V45.81, Z95.1) Status:Active Family history of cerebrovas cular accident (CVA): Brother(V17.1, Z82.3) Status:Active Family history of diabetes m ellitus: Father(V18.0, Z83.3) Status:Active Family history of congestive heart failure: Sister(V17.49, Z82.49) Status:Active Family history of ischemic h eart disease: Other(V17.3, Z82.49) Comments:famliy history; Status:Active Family history of acute myoc ardial infarction: Mother, Other(V17.3, Z82.49) Status:Active Stroke syndrome: Brother, Ot her Status:Active Unknown Family Member Name Dates Details Myocardial infarct, old: Mot her Status:Active S/P CABG (coronary artery by pass graft): Brother(V45.81, Z95.1) Status:Active Family history of cerebrovas cular accident (CVA): Brother(V17.1, Z82.3) Status:Active Family history of diabetes m ellitus: Father(V18.0, Z83.3) Status:Active Family history of congestive heart failure: Sister(V17.49, Z82.49) Status:Active Family history of ischemic h eart disease: Other(V17.3, Z82.49) Comments:famliy history; Status:Active Family history of acute myoc ardial infarction: Mother, Other(V17.3, Z82.49) Status:Active Stroke syndrome: Brother, Ot her Status:Active Advance Directives No Advanced Directives Records Found Advance Directive Response Recorded Date/ Time Advance Directives No August 1:40pm Advance Directive Response Recorded Date/ Time Advance Directives No August 2:40pm Chief Complaint and Reason for Visit Chief Complaint PVC, Cardiomyopathy Chief Complaint cardio myopathy Reason for Visit Acute bronchitis Acute kidney injury superimposed on chronic kidney disease ASHD (arteriosclerotic heart disease) Chronic systolic heart failure Hypomagnesemia Ischemic cardiomyopathy NSVT (nonsustained ventricular tachycardia) Paroxysmal atrial fibrillation Paroxysmal atrial fibrillation with rapid ventricular response Weakness Assessments No Assessments Information Available Chief Complaint * MERRITT MEHTA is being seen for a 6 month follow-up of. * Patient is a 85-year-old gentleman returns for follow-up. He still has complaints of dizziness thatsporadic in nature. He has had no syncope. He ambulates with a cane for ambulatory support. He has a significant ischemic cardiomyopathy with greatly improved ejection fraction of 50% by imaging recen tly status post recent PCI's of the first OM branch and distal circumflex in September 2020. He does have some sinus node dysfunction, today's ECG reveals prolonged first-degree AV block with right bundle branch block, PVCs and sinus bradycardia at a rate of 56. This is basically unchanged from the past. He is on low-dose amiodarone 100 mg Tuesday through Tuesday for paroxysmal A. fib. He is not on anticoagulation due to history of severe GI bleeding in the past but remains on DAPT therapy in the form of Plavix and aspirin. He does have significant hypertension that is now well controlled on high-dose Entresto, low-dose carvedilol and moderate dose hydralazine currently with no angina or heart failure or edema or hospitalizations * After extended review of his angiogram, reports, medications, ECG reviews, I would simply recommendcontinue current medical therapies, follow-up with nurse clinician within the next 3 months I will see him again in 6 months we might consider discontinuation of amiodarone albeit, the risk of being recurrent A. fib. I would otherwise not change any of his current afterload reduction therapies given the good result we have currently. order sent to [facility] for June* Good and bad days * MERRITT MEHTA is being seen for a 3 month follow-up of atrial fibrillation, coronary artery disease, cardiomyopathy, dyslipidemia and hypertension. * Patient presents accompanied by . * Patient is ambulatory with cane and steady gait. * Patient was last evaluated by Dr. Major Apr 2021. Overall reports doing 'the same' * Patient denies any hospitalizations or significant changes to interval medical history since last office follow-up. * Patient reports overall state of cardiovascular health as 'good and bad days' * Daily activity level: goes to breakfast, ambulatory at home. Has PT twice a week. * Denies any change in exercise capacity or functional tolerance. * Prior Angina: [place] * Last NTG use: none * Good and bad days * MERRITT MEHTA is being seen for a 3 month follow-up of atrial fibrillation, coronary artery disease, cardiomyopathy, dyslipidemia and hypertension. * Patient presents accompanied by . * Patient is ambulatory with cane and steady gait. * Patient was last evaluated by Dr. Major Apr 2021. Overall reports doing 'the same' * Patient denies any hospitalizations or significant changes to interval medical history since last office follow-up. * Patient reports overall state of cardiovascular health as 'good and bad days' * Daily activity level: goes to breakfast, ambulatory at home. Has PT twice a week. * Denies any change in exercise capacity or functional tolerance. * Prior Angina: [place] * Last NTG use: none * MERRITT MEHTA is being seen for a 6 month follow-up of. * 86-year-old gentleman who returns for follow-up. He is otherwise doing reasonably well, participating in cardiac rehab 2 days a week. He has chronic exertional and resting dyspnea due to underlying parenchymal lung disease. Recent PFTs were severely abnormal and reviewed. * ECG today reveals sinus bradycardia with prolonged first-degree AV block and right bundle branch block with PVCs * Patient has a history of ASHD, severe ischemic cardiomyopathy with improved left ventricular function with history of PCI's to the first OM branch and distal circumflex 1 year ago in September 2020. He has underlying history of paroxysmal A. fib not on anticoagulation therapy due to history of severe GI bleeding. He has accelerated hypertension, and remains with mildly elevated blood pressure today on repeat blood pressure check 160+/80. He remains on high risk medical therapies as noted including amiodarone 100 Tuesday through Tuesday (with a severe abnormal diffusion impairment and restrictive impairment on recent PFTs) * He has no angina, he has no edema, recent labs are reviewed, creatinine is 1.65 * Recommendations, discontinue amiodarone, follow-up in 4 months with repeat laboratory surveillance and ECG * MERRITT MEHTA is being seen for D/C [facility] 12/04/21. * 86-year-old gentleman who returns for follow-up following recent hospitalization for bronchitis, associated with PVCs, couplets, triplets and nonsustained VT up to 5-6 beats. Reinitiated on low-dose amiodarone. Thereafterwards he was discharged, readmitted to [facility] with recurrent bronchitis/pneumonia and diagnosed with COVID. He is now at the [facility], he is lost a significant amountof weight. * Today's rhythm is regular, his ECG demonstrates first-degree AV block, right bundle branch block with resolution of PVCs and nonsustained VT. * He has a known severe ischemic cardiomyopathy with improved left ventricular function, history of PCI's of the first OM branch and distal circumflex in September 2020, paroxysmal atrial fibrillation currently not on anticoagulation due to history of recurrent severe GI bleeding. History of accelerated h ypertension however with weight loss and current medications relatively hypotensive right now. * Recommendations: Continue current therapies, continue with amiodarone for the time being, decrease hydralazine to 25 mg twice daily and carvedilol to 3.125 mg twice daily, increase protein supplements to regain muscle mass, will follow-up in 4 months * Routine f/u: 'seem to be doing good' * MERRITT MEHTA is being seen for atrial fibrillation, coronary artery disease, cardiomyopathy andPVC. * Routine f/u: 'seem to be doing good' * MERRITT MEHTA is being seen for atrial fibrillation, coronary artery disease, cardiomyopathy andPVC. * Patient presents today ambulatory with wheeled walker, is accompanied by family member. * Last evaluated in clinic Dr. Major December 2021. * At that time, medications were reduced due to hypotension. * Patient remains a resident at [facility]. He reports significant improvement in his overall functional capacity since last evaluation with Dr. Majro. He is now able to use a wheeled walker rather than a wheelchair and remains ambulatory throughout the facility. He denies any dyspnea on exertion.He does sleep in a recliner for comfort. No dizziness or lightheadedness. * EKG reviewed in detail with Dr. Major. Coleeneminy questionable underlying significant first-degree AV block versus second-degree type I. Dr. Major recommended reducing amiodarone 100 mg p.o. daily with repeat EKG in 6 weeks. * EKG reviewed with patient and family member. Discussed evaluation for PVCs may include Holter monitor, repeat echocardiogram, ischemic evaluation. At this time the patient reports I do not want to go through a bunch of stuff . His preference is to continue with conservative medical management. * At this time, he is pleased with his overall quality of life and overall cardiovascular status. * MERRITT MEHTA is being seen for a 6 month follow-up of. * 87-year-old gentleman returns for follow-up, doing reasonably well with no intermittent episodes ofangina, heart failure hospitalizations. He was last seen in the office by nurse practitioner in April again overall improved. I saw him last December following COVID illness. * Patient has a history of ASHD, history of paroxysmal A-fib, currently not on anticoagulation due tohistory of severe GI bleeding. He has known history of severe ischemic cardiomyopathy with improvedleft ventricular function with prior PCI's of the first OM branch in the distal circumflex dating back to September 2020. * He is supposedly on low-dose carvedilol 3.125 mg twice daily and amiodarone 100 mg daily but these medications are basically not being administered as his baseline heart rate is 60 or less. Today's ECG demonstrates Mobitz 2 type I AV block with a heart rate of 57 and a right bundle branch block. * He is now living at the [facility]care facility, remains on appropriate guideline directed medical therapies as reviewed with no edema, shortness of breath repeat hospitalizations. His son tells me that twice with a nursing facility has not had/delivered his Entresto or carvedilol for unknown reasons. Reviewing his last MUGA scan status post revascularization, November 2020 revealed a normal ejection fraction of 50%. * He ambulates with a rollator, CHF [place] [employer] classification is class II/C * Recommendations, follow-up with nurse practitioner in 6 months, continue current therapies Additional Source Comments (unrecognized sect ion and content) No Status Records FoundNo Status Records FoundNo Status Records FoundNo Status Records FoundNo Status Records FoundNo Status Records FoundNo Status Records Found INFORMATION SOURCE (unrecogn ized section and content) DATE CREATED AUTHOR 01/13/2018 [facility] DATE CREATED AUTHOR AUTHOR'S ORGANIZ ATION 12/20/2020 [facility] DATE CREATED AUTHOR AUTHOR'S ORGANIZ ATION 06/16/2022 [facility] DATE CREATED AUTHOR AUTHOR'S ORGANIZ ATION 08/28/2022 [facility] DATE CREATED AUTHOR AUTHOR'S ORGANIZ ATION 11/04/2022 [facility] DATE CREATED AUTHOR AUTHOR'S ORGANIZ ATION 11/04/2022 [employer] DATE CREATED AUTHOR AUTHOR'S ORGANIZ ATION 05/05/2023 [facility] Care Teams (unrecognized sec tion and content) Team Status: Inactive Member Role Status Dates Goldy Olson MD Primary Care Provider Active Tash Lawrence MD Admit Provider, Attending Provider Active Team Status: Active Member Role Status Dates Goldy Olson MD Primary Care Provider Active FOR RECORDS PERTAINING TO PATIENTS WHO ARE OR HAVE BEEN ENROLLED IN A CHEMICAL DEPENDENCY/SUBSTANCEABUSE PROGRAM, SOME INFORMATION MAY BE OMITTED. This clinical summary was aggregated from multiple sources. Caution should be exercised in using it in the provision of clinical care. This summary normalizes information from multiple sources, and as a consequence, information in this document may materially change the coding, format and clinical context of patient data. In addition, data may be omitted in some cases. CLINICAL DECISIONS SHOULD BE BASED ON THE PRIMARY CLINICAL RECORDS. [facility]. provides no warranty or guarantee of the accuracy or completeness of information in this document.
--- NOTE | 2023-09-09 20:12 | CT_ITS ---
The [address] [address] Patient Name: MERRITT MEHTA MRN: [id number] date: 1935 Sex: M Assigned Patient Location: ED.MAIN Current Patient Location: Accession/Order Number: [id number] Exam Date: 09/09/2023 20:45 Report Date: 09/09/2023 21:16 At the request of: MALIK BECK Procedure: CT head/brain wo con EXAM: CT head/brain wo con HISTORY: altered consciousness TECHNIQUE: Axial CT scans through the head were obtained without IV contrast administration. Dose reduction techniques were achieved by using: automated exposure control and/or adjustment of mA and/or kV according to patient size and/or use of iterative reconstruction technique. COMPARISON: None. FINDINGS: Mild periventricular low attenuation in the cerebral hemispheres without associated mass effect. The brainstem and the cerebellum appear normal. The ventricular system and cortical sulci are prominent, secondary to cerebral volume loss. No area of abnormal mass effect, edema, or intracranial hemorrhage is shown. The visualized orbits show no abnormal mass. The visualized paranasal sinuses show no air-fluid level. Mastoid air cells are clear. CT/CT head/brain wo con IMPRESSION: 1. Mild old microvascular ischemic change and mild to moderate cerebral atrophy. 2. No acute intracranial process. Electronically authenticated by: APOLINAR HAQUE Date: 09/09/2023 21:16
--- NOTE | 2023-09-09 20:12 | XR_ITS ---
The [address] [address] Patient Name: MERRITT MEHTA MRN: [id number] date: 1935 Sex: M Assigned Patient Location: ED.MAIN Current Patient Location: ER Accession/Order Number: [id number] Exam Date: 09/09/2023 20:40 Report Date: 09/09/2023 21:44 At the request of: MALIK BECK Procedure: XR chest 1V EXAMINATION: XR chest 1V, , 09/09/2023 8:40 PM EST INDICATION: altered consciousness HISTORY: Ordering Provider Reason for Exam: altered consciousness Technologist Note: Additional: COMPARISON: Chest x-ray dated 09/01/2023. TECHNIQUE: Chest x-ray: One view. FINDINGS: Stable mild prominent cardiac silhouette is seen. Low lung volumes are seen, likely related to poor inspiratory effort. Bibasilar atelectasis is seen. No significant pleural effusion or obvious pneumothorax is seen. Mild diffuse bony demineralization is seen. XR/XR chest 1V IMPRESSION: Low lung volumes are seen, likely related to poor inspiratory effort. Bibasilar atelectasis is seen. Electronically authenticated by: MU MIGUEL Date: 09/09/2023 21:44
--- NOTE | 2023-09-09 20:14 | CT_ITS ---
[address] [address] Patient Name: MERRITT MEHTA MRN: [id number] date: 1935 Sex: M Assigned Patient Location: ER Current Patient Location: .MAIN Accession/Order Number: [id number] Exam Date: 09/09/2023 20:45 Report Date: 09/09/2023 22:25 At the request of: MALIK BECK Procedure: CT abdomen pelvis wo con EXAMINATION: CT abdomen pelvis wo con, 09/09/2023 8:45 PM EST HISTORY: abdominal pain COMPARISON: CTA chest 01/30/2021. TECHNIQUE: CT scan of the abdomen and pelvis was performed without IV contrast. CT dose reduction technique was used, including Automated Exposure Control. FINDINGS: LOWER CHEST: Moderate cardiomegaly, severe atherosclerotic coronary artery calcification. The pulmonary arteries appear dilated suspicious for pulmonary hypertension. This appears stable compared to the previous chest CT. Moderate bilateral gynecomastia. LIVER: Normal in size and attenuation. No focal lesions. GALLBLADDER AND BILIARY SYSTEM: Status-post cholecystectomy. SPLEEN: Several calcified granulomas. 1 cm cyst in the superior aspect of the spleen which is stable. PANCREAS: Severely atrophic. ADRENAL GLANDS: Normal. KIDNEYS AND URETERS: Moderate left renal cortical scarring particularly posteriorly. 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 No stones or hydronephrosis. VASCULATURE: Extensive atherosclerotic calcification throughout the abdomen and pelvis. 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 RETROPERITONEUM AND LYMPH NODES: Normal, with no lymphadenopathy. GASTROINTESTINAL TRACT/MESENTERY: There is colonic interposition with the hepatic flexure in the right upper quadrant anterior to the liver. Sigmoid colon diverticulosis with no acute diverticulitis. Normal mesentery/peritoneum. Appendix was not visualized. BLADDER: There is a moderate amount of air in the bladder lumen. There is also moderate air within the wall of the bladder anteriorly and superiorly. This is seen for example on image 73 series 6. REPRODUCTIVE SYSTEM: Normal prostate. BODY WALL: Large fat-containing right inguinal hernia. There is a large left inguinal hernia which contains fat as well as sigmoid colon with no obstruction or strangulation. BONES: Partial fusion across the bilateral sacroiliac joints. Multiple remote displaced right posterior rib fractures. Moderate to severe multilevel degenerative changes of the lumbar spine. CT/CT abdomen pelvis wo con IMPRESSION: 1. There is air within the wall and lumen of the urinary bladder suspicious for emphysematous cystitis. 2. Large left inguinal hernia containing fat as well as sigmoid colon with no obstruction or strangulation.Large fat-containing right inguinal hernia. 3. Stable dilated pulmonary arteries suspicious for pulmonary hypertension. 4. 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 5. Left renal cortical scarring and right renal cysts. Electronically authenticated by: ASHIA SIMS Date: 09/09/2023 22:25
[2023-09-09 20:35] LABS: Basophils Percent Auto 0.1 % (0.2-2.0); Eosinophils Percent Auto 0.1 % (0.9-7.0); Hemoglobin 10.3 g/dL (14.0-18.0); Immature Granulocytes Abs Auto 0.25 10^3/uL (0.00-0.03); Immature Granulocytes Pct Auto 1.8 % (0.0-0.5); Lymphocytes Absolute Auto 0.9 10^3/uL (1.2-3.8); Lymphocytes Percent Auto 6.1 % (20.5-60.0); Mean Corpuscular HGB Conc 29.4 g/dL (29.9-35.2); Mean Corpuscular Hemoglobin 31.1 pg (25.9-34.0); Mean Corpuscular Volume 105.7 fL (80.0-94.0); Mean Platelet Volume 11.6 fL (9.5-13.5); Monocytes Absolute Auto 0.9 10^3/uL (0.3-0.8); Neutrophils Absolute Auto 12.2 10^3/uL (1.4-6.5); Neutrophils Percent Auto 85.9 % (43.0-75.0); Platelet Count 143 10^3/uL (150-450); Red Blood Count 3.31 10^6/uL (4.70-6.10); Red Cell Distribution Width 13.5 % (11.0-15.0); White Blood Count 14.2 10^3/uL (4.0-11.0)
[2023-09-09 20:49] LABS: Bilirubin Urine NEGATIVE (NEGATIVE); Blood Urine TRACE-L (NEGATIVE); Clarity Urine CLEAR (CLEAR); Color Urine YELLOW (YELLOW); Glucose Urine UA >=1000 mg/dL (NEGATIVE); Ketones Urine NEGATIVE (NEGATIVE); Leukocyte Esterase Urine NEGATIVE (NEGATIVE); Nitrite Urine NEGATIVE (NEGATIVE); Protein Urine TRACE mg/dL (NEG/TRACE); Urobilinogen Urine 0.2 EU/dL (0.2-1.0); pH Urine 5.5 (5.0-9.0)
[2023-09-09 20:50] LABS: Urine Microscopic Indicated YES
[2023-09-09 20:55] LABS: Alanine Aminotransferase 23 U/L (16-63); Albumin Globulin Ratio 0.9; Albumin Level 2.7 g/dL (3.4-5.0); Alkaline Phosphatase 42 U/L (46-116); Anion Gap 8.4; Aspartate Amino Transferase 21 U/L (15-37); BUN Creatinine Ratio 41.9; Bilirubin Total 0.6 mg/dL (0.2-1.0); Calcium 8.7 mg/dL (8.5-10.1); Carbon Dioxide 35.5 mmol/L (21.0-32.0); Chloride 106 mmol/L (98-107); Estimated GFR (African America 35 (>=60); Estimated GFR (Non-African Ame 29 (>=60); Globulin 2.9 g/dL; Glucose 231 mg/dL (74-106); Lactate/Lactic Acid 1.2 mmol/L (0.4-2.0); Potassium 3.9 mmol/L (3.5-5.1); Sodium 146 mmol/L (136-145); Total Protein 5.6 g/dL (6.4-8.2)
[2023-09-09 20:57] LABS: Troponin I High Sensitivity 173.3 pg/mL (4.0-76.1)
[2023-09-09 21:03] LABS: Bacteria Urine NONE SEEN #/HPF (NONE SEEN); Mucus Urine NONE SEEN (NONE SEEN); RBC Urine 0-2 #/HPF (0-2); Squamous Epithelial Cell Urine NONE SEEN #/LPF (NONE/RARE); WBC Urine NONE SEEN #/HPF (NONE SEEN)
[2023-09-09 21:04] LABS: Cast Seen? NONE SEEN #/LPF (NONE SEEN); Crystals Seen? None Seen #/HPF (None Seen)
[2023-09-09] MEDS: 0.9 % SODIUM CHLORIDE 1,000 ML 999 ML IV (21:39)
== END 2023-09-10 00:05 | disposition home or self-care (01) ==
PROVIDERS: Emergency Provider Internal Medicine; PCP Family Medicine
DX: E86.0 Dehydration (principal); R41.82 Altered mental status, unspecified; R79.89 Other specified abnormal findings of blood chemistry; R00.1 Bradycardia, unspecified; Z66 Do not resuscitate; Z79.82 Long term (current) use of aspirin; Z79.899 Other long term (current) drug therapy; I25.10 Atherosclerotic heart disease of native coronary artery without angina pectoris; E78.00 Pure hypercholesterolemia, unspecified; M51.9 Unspecified thoracic, thoracolumbar and lumbosacral intervertebral disc disorder; E11.9 Type 2 diabetes mellitus without complications; I11.9 Hypertensive heart disease without heart failure; K21.00 Gastro-esophageal reflux disease with esophagitis, without bleeding; M10.9 Gout, unspecified; N52.9 Male erectile dysfunction, unspecified; N40.1 Benign prostatic hyperplasia with lower urinary tract symptoms; Z96.1 Presence of intraocular lens; Z85.46 Personal history of malignant neoplasm of prostate; I42.2 Other hypertrophic cardiomyopathy; I48.0 Paroxysmal atrial fibrillation; I35.0 Nonrheumatic aortic (valve) stenosis; I35.1 Nonrheumatic aortic (valve) insufficiency; M19.90 Unspecified osteoarthritis, unspecified site; Z96.652 Presence of left artificial knee joint; Z98.890 Other specified postprocedural states; Z87.891 Personal history of nicotine dependence
CPT/HCPCS: 36415; 70450; 71045; 74176; 80053; 81001; 83605; 83690; 84484; 85025; 93005; 96360; 96361; 99285